=== PATIENT | female | born 1935 | race Caucasian/White ===

== ENCOUNTER 2017-02-08 08:01 | Observation (INO) | payer BC, MEDICARE ==
[~2017-02-08] VITALS: Ht 165.1 cm; Wt 68.5 kg
[~2017-02-08 08:01] MED LIST: ACET325T33 PO; ASPI-664 PO; CIPR500T4 PO; CRAN400C PO; DOCU-144 PO; DOXA1TAB38 PO; DOXY100T2 PO; ERGO500037 PO; HYDR-3498 PO; LACT1CAP56 PO; LOSA50TA6 PO; MULTI PO
[2017-02-08] MEDS ORDERED: ONDANSETRON 4 MG INJ IV STA ×2 (08:18→09:16)
[2017-02-08] MEDS ORDERED: SOD CHLORIDE 0.9% 1,000 ML IV STA (08:18)
[2017-02-08] MEDS ORDERED: BUSP10TA2 PO (08:28)
--- NOTE | 2017-02-08 08:31 | ERA ---
ER Documentation Chief Complaint Date/Time DATE: 02/08/17 TIME: 08:29 Chief Complaint nausea/vomiting since last night HPI Very pleasant 81-year-old female who presents to the emergency room with nausea and vomiting. Less than 24 hours of symptoms of nonbloody nonbilious emesis that is persistent. She denies any headache chest pain or shortness of breath, no abdominal pain, no diarrhea, no constipation. No abdominal surgical history. No recent travel sick contacts or antibiotics. ROS All systems reviewed and are negative except as per history of present illness. Medications Home Meds Reported Medications Buspirone Hcl* (Buspirone Hcl*) 10 Mg Tab, 15 MG PO BID, TAB PT TAKES THREE DAYS A WEEK 02/08/17 Losartan Potassium* (Losartan Potassium*) 50 Mg Tablet, 50 MG PO BID, TAB PER FAMILY REQUEST MONTIOR BP PRIOR TO GIVING RX'S HOLD IF BP IS LOW 05/03/16 Lactobacillus Combo No.11 (Probiotic) 1 Each Cap.sprink, 1 CAP PO DAILY, CAP 05/03/16 Cranberry (Cranberry) 400 Mg Capsule, 800 MG PO DAILY, CAP 05/03/16 Multivitamins* (Theragran*) 1 Tab Tab, 1 TAB PO DAILY, TAB 05/03/16 Discontinued Reported Medications Ergocalciferol (Vitamin D2) (VITAMIN D2) 50,000 Unit Capsule, 09502 UNIT PO WEEKLY, CAP 05/03/16 Aspirin* (Aspirin* EC) 81 Mg Tablet.dr, 81 MG PO DAILY, TAB 05/03/16 Discontinued Scripts Hydrocodone Bit-Acetaminophen (Hydrocodone Bit-APAP) 5-325MG Tablet, 1 TAB PO Q6H Y for MODERATE PAIN LEVEL 4-6 for 30 Days, TAB Prov:CHACON,JUDY V. SDC TEACHER 05/08/16 Doxycycline* (Vibramycin*) 100 Mg Tab, 100 MG PO BID for 30 Days, TAB Prov:CHACON,JUDY V. SDC TEACHER 05/08/16 Doxazosin Mesylate* (Cardura*) 1 Mg Tablet, 1 MG PO HS for 30 Days, TAB Prov:CHACON,JUDY V. SDC TEACHER 05/08/16 Docusate Sodium* (Colace*) 100 Mg Capsule, 100 MG PO Q12H Y for CONSTIPATION for 30 Days, CAP Prov:CHACON,JUDY V. SDC TEACHER 05/08/16 Ciprofloxacin Hcl* (Ciprofloxacin Hcl*) 500 Mg Tablet, 500 MG PO BID@06,18 for 30 Days, TAB STOP DATE 05/15/16 Prov:JUDY CHACON Rosita MELÉNDEZ 05/08/16 Acetaminophen* (Tylenol*) 325 Mg Tablet, 650 MG PO Q6H Y for PAIN LEVEL 1-3 OR FEVER for 30 Days, TAB Prov:JUDY CHACON Rosita MELÉNDEZ 05/08/16 Allergies Allergies: Coded Allergies: latex (Verified Allergy, Mild, 02/08/17) PMhx/Soc History of Surgery: No Anesthesia Reaction: No Hx Neurological Disorder: Yes (hx of CVA 4 yers ago) Hx Respiratory Disorders: No Hx Cardiac Disorders: Yes (HTN) Hx Psychiatric Problems: No Hx Alcohol Use: No Hx Substance Use: No Hx Tobacco Use: No FmHx Family History: No diabetes Physical Exam Vitals Vital Signs Date Time Temp Pulse Resp B/P Pulse Ox O2 Delivery O2 Flow Rate FiO2 02/08/17 09:00 67 21 148/65 97 Room Air 02/08/17 08:03 97.6 71 18 212/92 98 Physical Exam General: Well developed, well nourished, dry heaving Head: Normocephalic, atraumatic. Eyes: Pupils equally reactive, EOM intact ENT: Moist mucous membranes Neck: Supple, no lymphadenopathy Respiratory: Lungs clear bilaterally, no distress Cardiovascular: RRR, no murmurs, rubs, or gallops Abdominal: Soft, non-tender, non-distended, no peritoneal signs : Deferred MSK: No edema, no unilateral swelling, 5/5 strength Neurologic: Alert and oriented, moving all extremities, normal speech, no focal weakness, no cerebellar signs Skin: No rash Psych: Normal mood Result Diagram: 02/08/17 0825 02/08/17 0930 Results 24 hrs Laboratory Tests Test 02/08/17 08:25 02/08/17 09:30 White Blood Count 10.310^3/ul Red Blood Count 4.5810^6/ul Hemoglobin 13.5g/dl Hematocrit 40.3% Mean Corpuscular Volume 88.0fl Mean Corpuscular Hemoglobin 29.5pg Mean Corpuscular Hemoglobin Concent 33.5g/dl Red Cell Distribution Width 15.0% Platelet Count 74561^3/UL Mean Platelet Volume 9.5fl Neutrophils % 81.4% Lymphocytes % 12.3% Monocytes % 5.4% Eosinophils % 0.2% Basophils % 0.4% Nucleated Red Blood Cells % 0.0/100WBC Neutrophils # 8.410^3/ul Lymphocytes # 1.310^3/ul Monocytes # 0.610^3/ul Eosinophils # 0.010^3/ul Basophils # 0.010^3/ul Nucleated Red Blood Cells # 0.010^3/ul Sodium Level 137mmol/L Potassium Level 4.2mmol/L Chloride Level 101mmol/L Carbon Dioxide Level 26mmol/L Anion Gap 14 Blood Urea Nitrogen 18mg/dl Creatinine 0.80mg/dl Glucose Level 92mg/dl Calcium Level 9.4mg/dl Total Bilirubin 0.8mg/dl Direct Bilirubin 0.00mg/dl Indirect Bilirubin 0.8mg/dl Aspartate Amino Transf (AST/SGOT) 23IU/L Alanine Aminotransferase (ALT/SGPT) 28IU/L Alkaline Phosphatase 80IU/L Troponin I 0.014ng/ml Total Protein 7.1g/dl Albumin 3.8g/dl Globulin 3.30g/dl Albumin/Globulin Ratio 1.15 Lipase 54U/L Current Medications Medications (Trade) Dose Ordered Sig/Ricardo Route PRN Reason Start Time Stop Time Status Last Admin Dose Admin Sodium Chloride (NS) 1,000 ml @ 1,000 mls/hr Q1H STAT IV 02/08/17 08:18 02/08/17 09:17 DC 02/08/17 08:28 Ondansetron HCl (Zofran Inj) 4 mg ONCE STAT IV 02/08/17 08:18 02/08/17 08:19 DC 02/08/17 08:28 Ondansetron HCl (Zofran Inj) 4 mg ONCE STAT IV 02/08/17 09:16 02/08/17 09:18 DC 02/08/17 09:38 Metoclopramide HCl (Reglan) 5 mg ONCE ONCE IV 02/08/17 10:00 02/08/17 10:01 DC 02/08/17 10:25 Ondansetron HCl (Zofran Inj) 4 mg BRIDGE ORDER PRN IV NAUSEA AND/OR VOMITING 02/08/17 11:30 02/09/17 11:29 Acetaminophen (Tylenol Tab) 650 mg ER BRIDGE PRN PO MILD PAIN/FEVER 02/08/17 11:30 02/09/17 11:29 Procedures/MDM EKG, MONITORS, & DIAGNOSTIC IMAGING: EKG: I reviewed and interpreted a 12-lead EKG. Rhythm: Normal sinus rhythm Ectopy: None Intervals: No abnormalities ST segments: No elevations or depressions T waves: No contiguous inversions CT abdomen and pelvis: IMPRESSION: 1. Cholelithiasis is seen without evidence for cholecystitis. 2. Bowel containing right inguinal hernia is noted, without obstruction or incarceration. 3. Coronary arterial and aortoiliac atherosclerotic calcifications are present. 4. Colonic diverticulosis is seen without diverticulitis. 5. No mass, lymphadenopathy, or focal acute inflammatory process is identified. RPTAT: EE LAB INTERPRETATION: No significant leukocytosis or electrolyte disturbance MEDICAL DECISION MAKING: The patient presents with nausea and vomiting. This is most likely a viral process however, given the patient's age she is at risk for multiple alternative diagnosis such as acute intra-abdominal process, obstruction, electrolyte abnormality. Low concern for cardiac etiology or acute intracranial process. I discussed and recommended CT imaging of the abdomen and pelvis however the patient and family member would like to defer this at this time. I discussed supportive measures with IV fluids and nausea medication but if the patient has intractable nausea vomiting or laboratory abnormalities I would again recommend CT imaging of the abdomen and pelvis. ER COURSE: The patient had persistent vomiting despite fluids, 2 doses of Zofran. The patient was given Reglan with mild improvement. The patient has persistence of symptoms. This prompts CT which is negative. Given the patient's age and persistent nausea and vomiting I would recommend inpatient hospitalization for observation, fluid resuscitation and serial exams. Patient and family are agreeable. I kept the patient and/or family informed of laboratory and diagnostic imaging results throughout the emergency room course. DISPOSITION PLAN: Medical surgical admission for management of intractable vomiting CONSULTATION: Accepting care team and consultations: I discussed the current laboratory data, diagnostic imaging and emergency care provided. Admitting team: Dr. Treviño Admitting team indication: Insurance directed Departure Diagnosis: Primary Impression: Intractable nausea and vomiting Qualified Code: R11.2 - Intractable vomiting with nausea, unspecified vomiting type Condition: Stable ALE SWANN MD February 08, 2017 08:31
[2017-02-08 08:55] LABS: ADD SCAN DIFF NO
[2017-02-08 08:57] LABS: BASOPHILS % 0.4 % (0.0-2.0); EOSINOPHILS % 0.2 % (0.0-7.0); HEMATOCRIT 40.3 % (37.0-47.0); HEMOGLOBIN 13.5 g/dl (12.0-16.0); LYMPHOCYTES # 1.3 10^3/ul (0.8-2.9); LYMPHOCYTES % 12.3 % (15.0-51.0); MEAN CORPUSCULAR HEMOGLOBIN 29.5 pg (29.0-33.0); MEAN CORPUSCULAR HGB CONC 33.5 g/dl (32.0-37.0); MEAN PLATELET VOLUME 9.5 fl (7.4-10.4); MONOCYTE # 0.6 10^3/ul (0.3-0.9); MONOCYTES % 5.4 % (0.0-11.0); NEUTROPHIL # 8.4 10^3/ul (1.6-7.5); NEUTROPHILS % 81.4 % (39.0-77.0); PLATELET COUNT 242 10^3/UL (140-415); RED BLOOD COUNT 4.58 10^6/ul (4.20-5.40); WHITE BLOOD COUNT 10.3 10^3/ul (4.8-10.8)
[2017-02-08] MEDS ORDERED: METOCLOPRAMIDE 10 MG INJ IV ONE (10:00)
[2017-02-08 10:06] LABS: ALBUMIN 3.8 g/dl (3.3-4.9); POTASSIUM 4.2 mmol/L (3.5-5.1)
[2017-02-08 10:08] LABS: ALBUMIN/GLOBULIN RATIO 1.15; BILIRUBIN,INDIRECT 0.8 mg/dl (0-1.1); BILIRUBIN,TOTAL 0.8 mg/dl (0.2-1.3); CREATININE 0.8 mg/dl (0.44-1.00); TOTAL PROTEIN 7.1 g/dl (6.1-8.1)
[2017-02-08 10:09] LABS: CALCIUM 9.4 mg/dl (8.4-10.2)
[2017-02-08 10:20] LABS: TROPONIN-I 0.014 ng/ml (0.00-0.12)
--- NOTE | 2017-02-08 10:36 | RADRPT ---
PROCEDURE: CT Abdomen and Pelvis without contrast. CLINICAL INDICATION: Abdominal pain TECHNIQUE: CT of the abdomen and pelvis was performed on a multi-detector scanner without IV contr ast. Coronal and sagittal images were reformatted from the axial data set. One or more of the foll owing dose reduction techniques were used: automated exposure control, adjustment of the mA and/or kV according to patient size, use of iterative reconstruction technique. CTDI = 9.59 mGy. DLP = 588 .41 mGy-cm. COMPARISON: None. FINDINGS: CT abdomen: The lung bases are clear. The heart size is normal, without pericardial effusion. Coronary arteria l calcifications are noted. Cholelithiasis is seen without evidence for cholecystitis. Liver, bili royal tree, pancreas, spleen, adrenal glands and kidneys are unremarkable except for benign renal cyst s. No urolithiasis or obstructive uropathy is identified. The stomach is grossly unremarkable. The aorta is of normal caliber. Aortic vascular calcifications are present. There is no retroperit lane lymphadenopathy. The shauna hepatis region is clear. CT pelvis: No bowel obstruction, free intraperitoneal air or abscess is identified. Colonic diverticulosis is seen without diverticulitis. The appendix is well visualized and normal. There is no colitis. Uri nary bladder, uterus and adnexa are grossly unremarkable. No pelvic mass, free fluid or lymphadenop athy is identified. Bowel containing right inguinal hernia is identified. The surrounding osseous structures are remarkable for degenerative spondylosis of the spine. No ost eolytic or osteoblastic lesion is detected. IMPRESSION: 1. Cholelithiasis is seen without evidence for cholecystitis. 2. Bowel containing right inguinal hernia is noted, without obstruction or incarceration. 3. Coronary arterial and aortoiliac atherosclerotic calcifications are present. 4. Colonic diverticulosis is seen without diverticulitis. 5. No mass, lymphadenopathy, or focal acute inflammatory process is identified. RPTAT: EE .Aly Cm MD, MD Date Time Electronically viewed and signed by .Aly Cm MD, MD on 02/08/2017 10:35 .R/
[2017-02-08] MEDS ORDERED: ACETAMINOPHEN 325 MG TAB PO PRN ×2 (11:30→15:30)
[2017-02-08] MEDS ORDERED: ONDANSETRON 4 MG INJ IV PRN ×2 (11:30→15:30)
[2017-02-08] MEDS ORDERED: BISACODYL 10 MG SUPP PR PRN (15:30)
[2017-02-08] MEDS ORDERED: HYDROCODONE/APAP (5/325) TAB PO PRN ×2 (15:30)
[2017-02-08] MEDS ORDERED: morphine 2 MG INJ IV PRN (15:30)
[2017-02-08] MEDS ORDERED: NACL 0.9% 3 ML SYG IV SCH (15:30)
[2017-02-08] MEDS ORDERED: DOCUSATE SODIUM 100 MG CAP PO PRN (15:30)
[2017-02-08] MEDS ORDERED: ACETAMINOPHEN 650 MG SUPP PR PRN (15:30)
[2017-02-08] MEDS ORDERED: MAGNESIUM HYDROXIDE 30ML CUP PO PRN (15:30)
--- NOTE | 2017-02-08 15:42 | HP ---
Date/Time of Note Date/Time of Note DATE: 02/08/17 TIME: 15:36 Assessment/Plan VTE Prophylaxis VTE Prophylaxis Intervention: SCD's Assessment/Plan Chief Complaint/Hosp Course Impression and plan 1. Intractable nausea and vomiting. Abdominal imaging with no evidence of obstruction. Suspect viral etiology. Will provide with antiemetics. Will get cold mill inspector to follow. Continue with IV hydration for now. Will provide with analgesics as needed 2. Hypertensive urgency. Provide antihypertensives. Will adjust as needed. 3. Reported anxiety. Will provide with benzodiazepines as needed. Stable at present. 4. Reported deconditioning. Will get physical therapy to follow the patient Admission process 40 minutes Discussed plan of care with Dr. Almonte Problems: HPI/ROS Admit Date/Time Admit Date/Time Hx of Present Illness This is an 81-year-old female with history of hypertension and anxiety who came to [facility] due to reports of intractable nausea and vomiting. According to the patient she started having nausea and vomiting after she had dinner roughly around 5 PM the day prior to admission (February 07, 2017). She denied any chest pain or shortness of breath or any abdominal pain. She denied any diarrhea. She does report that since the day of admission she has not had a bowel movement in 2 days. She reports that her vomitus is nonbloody nonbilious. She does report eating hot dog and some baked beans and afterwards subsequently started to have intractable vomiting. She subsequently went to [facility] for further evaluation. Upon examination she did have CT scan of her abdomen that did show cholelithiasis without evidence of cholecystitis. There was some bowel containing right inguinal hernia no obstruction or incarceration. Additionally colonic diverticulosis was seen with no evidence of diverticulitis. No mass or lymphadenopathy or focal acute inflammatory process was seen. On laboratory results no leukocytosis seen. And her basic metabolic panel was otherwise unremarkable. She was seen with some hypertensive urgency with blood pressure as high as 212/ 92. She remained afebrile. She currently the patient reports still having some nausea and vomiting with little help from Zofran medication. She again reports no pain. No other specific symptoms or complaints. We will evaluate her for the aformentiond issues ROS 12 point review of systems obtained and entirely negative except that mentioned in the history of present illness PMH/Family/Social Past Medical History Medical/surgical history 1. Reported right shoulder surgery 2. Left knee surgery from arthritis 3. Essential hypertension 4. Anxiety Family History Significant Family History: no pertinent family hx Social History Alcohol Use: none Smoking Status: Never smoker Drug Use: none Exam/Review of Systems Vital Signs Vitals Vital Signs Date Time Temp Pulse Resp B/P Pulse Ox O2 Delivery O2 Flow Rate FiO2 02/08/17 14:00 66 16 183/73 100 Nasal Cannula 2.0 02/08/17 08:03 97.6 Exam Constitutional: alert, oriented Head: normocephalic Neck: supple, No jvd Respiratory: clear to auscultation, normal air movement Cardiovascular: regular rate and rhythm Gastrointestinal: non-tender, other (Bowel sounds slightly hypoactive), soft Musculoskeletal: No nl gait and stance, No swelling Neurological: WELDER METAL FAB II-XII intact, nl mental status, nl speech Labs Result Diagram: 02/08/17 0825 02/08/17 0930 Medications Medications Current Medications Buspirone HCl (Buspar) 15 mg BID PO ; Start 02/08/17 at 21:00; Status UNV Losartan Potassium (Cozaar) 50 mg BID PO ; Start 02/08/17 at 21:00; Status UNV Multivitamins Therapeutic (Theragran) 1 tab DAILY PO ; Start 02/09/17 at 09:00; Status UNV Miscellaneous Information 1 cap 1 cap DAILY PO ; Start 02/09/17 at 09:00; Status UNV Potassium Chloride/Dextrose/ Sod Cl (D5-1/2ns + KCl 20 Meq) 1,000 ml @ 80 mls/ hr [id number] IV ; Start 02/08/17 at 15:20; Status UNV Ondansetron HCl (Zofran Inj) 4 mg Q6H PRN IV NAUSEA AND/OR VOMITING; Start at 15:30; Status UNV Acetaminophen (Tylenol Tab) 650 mg Q6H PRN PO PAIN LEVEL 1-3 OR FEVER; Start at 15:30; Status UNV Acetaminophen (Tylenol Supp) 650 mg Q6H PRN [place] PAIN LEVEL 1-3 OR FEVER; Start 02/08/17 at 15:30; Status UNV Acetaminophen/ Hydrocodone Bitart ([place] (5/325)) 1 tab Q6H PRN PO MODERATE PAIN LEVEL 4-6; Start 02/08/17 at 15:30; Status UNV Acetaminophen/ Hydrocodone Bitart ([place] (5/325)) 2 tab Q6H PRN PO SEVERE PAIN LEVEL 7-10; Start 02/08/17 at 15:30; Status UNV Morphine Sulfate (morphine) 2 mg Q4H PRN IV SEVERE PAIN LEVEL 7-10; Start 02/08 at 15:30; Status UNV Docusate Sodium (Colace) 100 mg Q12H PRN PO CONSTIPATION; Start 02/08/17 at 15: 30; Status UNV Magnesium Hydroxide (Milk Of Mag) 30 ml DAILY PRN PO CONSTIPATION; Start at 15:30; Status UNV Bisacodyl (Dulcolax Supp) 10 mg DAILY PRN [place] CONSTIPATION; Start 02/08/17 at 15 :30; Status UNV Pantoprazole (Protonix Iv) 40 mg DAILY@06 IV ; Start 02/09/17 at 06:00; Status UNV Ondansetron HCl (Zofran Inj) 4 mg Q4 IV ; Start 02/08/17 at 17:00; Status UNV Hydralazine HCl (Apresoline) 10 mg Q4 PRN IV SBP>160; Start 02/08/17 at 15:30; Status UNV HANNAH CELESTE February 08, 2017 15:42
--- NOTE | 2017-02-08 17:19 | CONS ---
Date/Time of Note Date/Time of Note DATE: 02/08/17 TIME: 17:07 Assessment/Plan Assessment/Plan Additional Assessment/Plan Assessment * Nausea and vomiting * Hypertension * Anxiety Plan * adequate hydration * reglan 10 mg tid for nausea and vomiting * EGD risks and benefit explained to patient and agreed with planned procedure Consultation Date/Type/Reason Admit Date/Time Date of Consultation: February 08, 2017 Type of Consultation: Gastroenterology Reason for Consultation nausea and vomiting Referring Provider: HANNAH CELESTE Hx of Present Illness 81 year old female with past medical history of hypertension,anxiety was brought to emergency room because of intractable nausea and vomiting.Present condition apparently started 2 days ago after having dinner ,started to have nausea and vomiting.Vomiting is nonbloody and nonbilious consisting of previously ingested food with associated vague crampy abdominal pain.She denied any chest pain,shortness of breath,hematemesis,fever nor history of recent travel> Emergency room course CT scan of abdomen and pelvis 1. Cholelithiasis is seen without evidence for cholecystitis.. Bowel containing right inguinal hernia is noted, without obstruction or incarceration.. Coronary arterial and aortoiliac atherosclerotic calcifications are present.. Colonic diverticulosis is seen without diverticulitis.. No mass, lymphadenopathy, or focal acute inflammatory process is identified.Liver profile are normal ALT 28 AST 23 alkaline phosphatase 80 Total bilirubin 0.8 WBC 10.3. Patient still have episodes of nausea and vomiting Constitutional: improved, no complaints Eyes: no complaints ENT: no complaints Respiratory: no complaints Cardiovascular: no complaints Gastrointestinal: flatus, nausea, vomiting Genitourinary: no complaints Musculoskeletal: no complaints Skin: no complaints Neurologic: no complaints Endocrine: no complaints Lymphatic: no complaints Psychological: nl mood/affect, no complaints Immunologic: no complaints Past Medical History Medical History: hypertension Past Surgical History Past Surgical Hx: other (shoulder surgery,knee surgery) Family History Significant Family History: no pertinent family hx Social History Alcohol Use: none Smoking Status: Never smoker Drug Use: none Exam/Review of Systems Vital Signs Vitals Vital Signs Date Time Temp Pulse Resp B/P Pulse Ox O2 Delivery O2 Flow Rate FiO2 02/08/17 14:00 66 16 183/73 100 Nasal Cannula 2.0 02/08/17 08:03 97.6 Exam Constitutional: alert, oriented, well developed Psych: nl mood/affect Head: atraumatic, normocephalic Eyes: PERRL, nl conjunctiva, nl sclera Neck: non-tender, supple Respiratory: clear to auscultation, normal air movement Cardiovascular: nl pulses, regular rate and rhythm Gastrointestinal: nl liver, spleen, non-tender, soft Musculoskeletal: nl extremities to inspection, nl gait and stance Extremities: normal pulses Neurological: nl mental status, nl speech, nl strength Skin: nl turgor, No rash or lesions Lymph: nl lymph nodes Results Result Diagram: 02/08/17 0825 02/08/17 0930 Results 24 hrs Laboratory Tests Test 02/08/17 08:25 02/08/17 09:30 White Blood Count 10.3 # Red Blood Count 4.58 Hemoglobin 13.5 Hematocrit 40.3 Mean Corpuscular Volume 88.0 Mean Corpuscular Hemoglobin 29.5 Mean Corpuscular Hemoglobin Concent 33.5 Red Cell Distribution Width 15.0 H Platelet Count 242 Mean Platelet Volume 9.5 # Neutrophils % 81.4 H Lymphocytes % 12.3 L Monocytes % 5.4 Eosinophils % 0.2 Basophils % 0.4 Nucleated Red Blood Cells % 0.0 Neutrophils # 8.4 H Lymphocytes # 1.3 Monocytes # 0.6 Eosinophils # 0.0 Basophils # 0.0 Nucleated Red Blood Cells # 0.0 Sodium Level 137 Potassium Level 4.2 Chloride Level 101 Carbon Dioxide Level 26 Anion Gap 14 Blood Urea Nitrogen 18 Creatinine 0.80 Glucose Level 92 Calcium Level 9.4 Total Bilirubin 0.8 Direct Bilirubin 0.00 Indirect Bilirubin 0.8 Aspartate Amino Transf (AST/SGOT) 23 Alanine Aminotransferase (ALT/SGPT) 28 Alkaline Phosphatase 80 Troponin I 0.014 Total Protein 7.1 Albumin 3.8 Globulin 3.30 H Albumin/Globulin Ratio 1.15 Lipase 54 Medications Medications Current Medications Buspirone HCl (Buspar) 15 mg BID PO ; Start 02/08/17 at 21:00 Losartan Potassium (Cozaar) 50 mg BID PO ; Start 02/08/17 at 21:00 Multivitamins Therapeutic (Theragran) 1 tab DAILY PO ; Start 02/09/17 at 09:00 Lactobacillus Acidophilus 1 each 1 each DAILY PO ; Start 02/09/17 at 09:00 Potassium Chloride/Dextrose/ Sod Cl (D5-1/2ns + KCl 20 Meq) 1,000 ml @ 80 mls/ hr [id number] IV ; Start 02/08/17 at 15:20 Ondansetron HCl (Zofran Inj) 4 mg Q6H PRN IV NAUSEA AND/OR VOMITING; Start at 15:30 Acetaminophen (Tylenol Tab) 650 mg Q6H PRN PO PAIN LEVEL 1-3 OR FEVER; Start at 15:30 Acetaminophen (Tylenol Supp) 650 mg Q6H PRN [place] PAIN LEVEL 1-3 OR FEVER; Start 02/08/17 at 15:30 Acetaminophen/ Hydrocodone Bitart ([place] (5/325)) 1 tab Q6H PRN PO MODERATE PAIN LEVEL 4-6; Start 02/08/17 at 15:30 Acetaminophen/ Hydrocodone Bitart ([place] (5/325)) 2 tab Q6H PRN PO SEVERE PAIN LEVEL 7-10; Start 02/08/17 at 15:30 Morphine Sulfate (morphine) 2 mg Q4H PRN IV SEVERE PAIN LEVEL 7-10; Start 02/08 at 15:30 Docusate Sodium (Colace) 100 mg Q12H PRN PO CONSTIPATION; Start 02/08/17 at 15: 30 Magnesium Hydroxide (Milk Of Mag) 30 ml DAILY PRN PO CONSTIPATION; Start at 15:30 Bisacodyl (Dulcolax Supp) 10 mg DAILY PRN [place] CONSTIPATION; Start 02/08/17 at 15 :30 Pantoprazole (Protonix Iv) 40 mg DAILY@06 IV ; Start 02/09/17 at 06:00 Ondansetron HCl (Zofran Inj) 4 mg Q4 IV ; Start 02/08/17 at 17:00 Hydralazine HCl (Apresoline) 10 mg Q4 PRN IV SBP>160; Start 02/08/17 at 15:30 CESAR DANGELO MD February 08, 2017 17:19
[2017-02-08 18:33] VITALS: TEMP 98.7
[2017-02-08] MEDS: D5W-0.45 NACL + KCL 20 MEQ 1,000 ML IV SCH ×2 (18:49→21:08)
[2017-02-08] MEDS: ONDANSETRON 4 MG INJ IV SCH ×2 (18:49→21:07)
[2017-02-08 20:30] VITALS: Ht 165.1 cm; Wt 68.5 kg
[2017-02-08] MEDS: hydrALAzine 20 MG INJ IV PRN (20:51)
[2017-02-08] MEDS: BUSPIRONE 10 MG TAB PO SCH (21:06)
[2017-02-08] MEDS: LOSARTAN 50 MG TAB PO SCH (21:07)
[2017-02-08 21:38] VITALS: BP 149/67; RESP 18
[2017-02-09] VITALS (17 sets, daily range): BP systolic 128–203; BP diastolic 45–85; PULSE 48–68; RESP 16–20
[2017-02-09] MEDS: ONDANSETRON 4 MG INJ IV SCH ×6 (00:22→20:15)
[2017-02-09 05:43] LABS: ALBUMIN 3.2 g/dl (3.3-4.9)
[2017-02-09 05:44] LABS: POTASSIUM 4.5 mmol/L (3.5-5.1)
[2017-02-09 05:46] LABS: BILIRUBIN,INDIRECT 1.4 mg/dl (0-1.1); BILIRUBIN,TOTAL 1.4 mg/dl (0.2-1.3); CREATININE 0.9 mg/dl (0.44-1.00)
[2017-02-09 05:47] LABS: CALCIUM 9.4 mg/dl (8.4-10.2); PHOSPHORUS 2.8 mg/dl (2.5-4.9); TOTAL PROTEIN 6.2 g/dl (6.1-8.1)
[2017-02-09 05:48] LABS: CHOL/HDL RATIO 3.3 RATIO; MAGNESIUM 2.1 mg/dl (1.7-2.5)
[2017-02-09 05:49] LABS: ALBUMIN/GLOBULIN RATIO 1.06
[2017-02-09] MEDS ORDERED: PANTOPRAZOLE 40 MG INJ IV SCH (06:00)
[2017-02-09] MEDS ORDERED: VITAMIN A & D 5 GM OINT PACKET TOP ONE (06:08)
[2017-02-09 07:48] LABS: T3 UPTAKE 44.2 % (23.5-40.5)
[2017-02-09 08:00] LABS: THYROID STIMULATING HORMONE 0.833 MIU/L (0.465-4.680)
[2017-02-09] MEDS: BUSPIRONE 10 MG TAB PO SCH ×2 (08:58→20:15)
[2017-02-09] MEDS: L ACIDOPHIL/B LACTIS/B LONGUM CAPSULE PO SCH (08:58)
[2017-02-09] MEDS: MULTIVITAMINS THERAPEUTIC TAB PO SCH (08:59)
[2017-02-09] MEDS: LOSARTAN 50 MG TAB PO SCH ×2 (09:00→20:16)
[2017-02-09] MEDS: D5W-0.45 NACL + KCL 20 MEQ 1,000 ML IV SCH (09:59)
--- NOTE | 2017-02-09 16:23 | PN ---
Date/Time of Note Date/Time of Note DATE: 02/09/17 TIME: 16:21 Assessment/Plan VTE Prophylaxis VTE Prophylaxis Intervention: SCD's Lines/Catheters IV C[facility]ter Type (from [facility]): Peripheral IV Urinary Cath still in place: No Assessment/Plan Chief Complaint/Hosp Course Impression and plan 1. Intractable nausea and vomiting. Abdominal imaging with no evidence of obstruction. Suspect viral etiology. Will provide with antiemetics. GI following. plan for EGD Continue with IV hydration for now. 2. Hypertensive urgency. Provide antihypertensives. Will adjust as needed.improved 3. Reported anxiety. Will provide with benzodiazepines as needed. Stable at present. 4. Reported deconditioning. continue with PT DISPO/PLAN: plan for EGD today. will follow up Discussed plan of care with Dr. Almonte Problems: Subjective 24 Hr Interval Summary Free Text/Dictation patient for EGD Exam/Review of Systems Vital Signs Vitals Vital Signs Date Time Temp Pulse Resp B/P Pulse Ox O2 Delivery O2 Flow Rate FiO2 02/09/17 07:47 98.3 109 16 140/84 98 02/08/17 18:33 Room Air 02/08/17 14:00 2.0 Intake and Output 02/08/17 02/08/17 02/09/17 15:00 23:00 07:00 Intake Total 640 ml Output Total 500 ml Balance 140 ml Exam patient for EGD Results Result Diagram: 02/08/17 0825 02/09/17 0432 Results 24 hrs Laboratory Tests Test 02/09/17 04:32 02/09/17 04:35 Sodium Level 133 L Potassium Level 4.5 Chloride Level 101 Carbon Dioxide Level 26 Anion Gap 11 Blood Urea Nitrogen 13 Creatinine 0.90 Glucose Level 114 Calcium Level 9.4 Phosphorus Level 2.8 Magnesium Level 2.1 Total Bilirubin 1.4 H Direct Bilirubin 0.00 Indirect Bilirubin 1.4 H Aspartate Amino Transf (AST/SGOT) 25 Alanine Aminotransferase (ALT/SGPT) 22 Alkaline Phosphatase 71 Total Protein 6.2 Albumin 3.2 L Globulin 3.00 Albumin/Globulin Ratio 1.06 Triglycerides Level 58 Cholesterol Level 143 LDL Cholesterol, Calculated 88 HDL Cholesterol 43 Cholesterol/HDL Ratio 3.3 Thyroid Stimulating Hormone (TSH) 0.833 Free Thyroxine Index 2.34 Thyroxine (T4) 5.3 L Triiodothyronine (T3) Uptake 44.2 H Hemoglobin A1c 5.7 Medications Medications Current Medications Buspirone HCl (Buspar) 15 mg BID PO Last administered on 02/08/17 21:06; Admin Dose 15 MG; Start 02/08/17 at 21:00 Losartan Potassium (Cozaar) 50 mg BID PO Last administered on 02/08/17 21:07; Admin Dose 50 MG; Start 02/08/17 at 21:00 Multivitamins Therapeutic (Theragran) 1 tab DAILY PO ; Start 02/09/17 at 09:00 Lactobacillus Acidophilus 1 each 1 each DAILY PO ; Start 02/09/17 at 09:00 Potassium Chloride/Dextrose/ Sod Cl (D5-1/2ns + KCl 20 Meq) 1,000 ml @ 80 mls/ hr [id number] IV Last administered on 02/09/17 09:59; Admin Dose 80 MLS/HR; Start 02/08/17 at 15:20 Ondansetron HCl (Zofran Inj) 4 mg Q6H PRN IV NAUSEA AND/OR VOMITING; Start at 15:30 Acetaminophen (Tylenol Tab) 650 mg Q6H PRN PO PAIN LEVEL 1-3 OR FEVER; Start at 15:30 Acetaminophen (Tylenol Supp) 650 mg Q6H PRN LA PAIN LEVEL 1-3 OR FEVER; Start 02/08/17 at 15:30 Acetaminophen/ Hydrocodone Bitart ([place] (5/325)) 1 tab Q6H PRN PO MODERATE PAIN LEVEL 4-6; Start 02/08/17 at 15:30 Acetaminophen/ Hydrocodone Bitart ([place] (5/325)) 2 tab Q6H PRN PO SEVERE PAIN LEVEL 7-10; Start 02/08/17 at 15:30 Morphine Sulfate (morphine) 2 mg Q4H PRN IV SEVERE PAIN LEVEL 7-10; Start 02/08 at 15:30 Docusate Sodium (Colace) 100 mg Q12H PRN PO CONSTIPATION; Start 02/08/17 at 15: 30 Magnesium Hydroxide (Milk Of Mag) 30 ml DAILY PRN PO CONSTIPATION; Start at 15:30 Bisacodyl (Dulcolax Supp) 10 mg DAILY PRN LA CONSTIPATION; Start 02/08/17 at 15 :30 Pantoprazole (Protonix Iv) 40 mg DAILY@06 IV Last administered on 02/09/17 06: 01; Admin Dose 40 MG; Start 02/09/17 at 06:00 Ondansetron HCl (Zofran Inj) 4 mg Q4 IV Last administered on 02/09/17 13:17; Admin Dose 4 MG; Start 02/08/17 at 17:00 Hydralazine HCl (Apresoline) 10 mg Q4 PRN IV SBP>160 Last administered on 20:51; Admin Dose 10 MG; Start 02/08/17 at 15:30 HANNAH CELESTE February 09, 2017 16:23
[2017-02-09] MEDS ORDERED: LIDOCAINE 2% (SDV) 5 ML INJ ONE (17:16)
[2017-02-09] MEDS ORDERED: PROPOFOL 20 ML ONE (17:16)
[2017-02-09] MEDS: hydrALAzine 20 MG INJ IV PRN (18:15)
[2017-02-09] MEDS: PANTOPRAZOLE 40 MG INJ IV SCH (18:57)
[2017-02-09 20:45] LABS: INR 1.13; PROTIME 14.5 Sec (12.2-14.2); PT RATIO 1.1
[2017-02-09 20:46] LABS: PARTIAL THROMBOPLASTIN TIME 33.1 Sec (25.0-35.0)
[2017-02-10] MEDS: ONDANSETRON 4 MG INJ IV SCH ×3 (01:31→09:00)
[2017-02-10] MEDS: D5W-0.45 NACL + KCL 20 MEQ 1,000 ML IV SCH (01:32)
[2017-02-10] MEDS: PANTOPRAZOLE 40 MG INJ IV SCH (05:29)
[2017-02-10] MEDS: hydrALAzine 20 MG INJ IV PRN (05:35)
[2017-02-10 05:42] VITALS: BP 167/70; PULSE 59
[2017-02-10 06:53] VITALS: BP 146/65; PULSE 63
[2017-02-10 08:20] VITALS: BP 150/66; RESP 18
[2017-02-10] MEDS: LOSARTAN 50 MG TAB PO SCH (09:00)
[2017-02-10] MEDS: L ACIDOPHIL/B LACTIS/B LONGUM CAPSULE PO SCH (09:00)
[2017-02-10] MEDS: BUSPIRONE 10 MG TAB PO SCH (09:00)
[2017-02-10] MEDS: MULTIVITAMINS THERAPEUTIC TAB PO SCH (09:00)
[2017-02-10] MEDS ORDERED: PANT40TA3 PO (09:16)
[2017-02-10] MEDS ORDERED: AMLO5TAB4 PO (09:20)
--- NOTE | 2017-02-10 09:23 | PDOCDIS ---
Discharge Instructions DIAGNOSIS Discharge Diagnosis: 1. Abdominal pain with noted severe ulceration with distal esophagus 2.htn CONDITION Patient Condition: Stable HOME CARE INSTRUCTIONS: Diet Instructions: Low Fat /Cholesterol FOLLOW UP/APPOINTMENTS Appointments 1. Follow-up with your primary care provider in a week` 2. Follow up with Dr. Estuardo Arroyo in 2 weeks HANNAH CELESTE February 10, 2017 09:23
--- NOTE | 2017-02-10 14:52 | GILP ---
DATE OF PROCEDURE: 02/10/2017 PROCEDURE: Esophagogastroduodenoscopy with foreign body removal and biopsies. HISTORY AND INDICATIONS: The patient is being evaluated for dysphagia. PREMEDICATION: Monitored anesthesia care by anesthesiologist. SURGEON: Cesar Arroyo MD. INSTRUMENT USED: Olympus panendoscope. TECHNIQUE: After informed consent, with the patient/relatives understanding the procedure, its indic ations, potential risks and complications, including but not limited to: allergic reaction, bleeding , perforation or infection, and after all pertinent questions were answered to the patients satisfac tion, the patient/relatives signed witnessed informed consent. Following this, premedication was administered slowly IV push under careful cardiovascular and respi ratory monitoring with pulse oximetry, automatic blood pressure and equipment monitor phototypesetting. Once the sedative effect was achieved the patient was place in the left lateral decubitus, the panen doscope was introduced and advanced under visual control. Careful examination of the upper gastrointestinal tract, both on insertion as well as withdrawal of the instrument disclosed the following findings: ESOPHAGUS: The esophagus is remarkable for the presence of 2 cm food bolus which is impacted in mid esophagus with significant erythema and edema and superficial ulceration of the mucosa is noted. N o masses and no significant luminal compromise was noted. The food bolus was pushed gently and disl odged and eventually pushed down into the stomach. The esophagus shows again severe mid esophagus e rythema and edema and superficial ulceration of the mucosa. There is also distal esophagitis of sig nificant degree. A hiatal hernia is also present. STOMACH: Upon entrance to the stomach air was insufflated, the gastric cobb distended normally. T here is erythema and edema of the mucosa of a moderate degree. Biopsies were obtained to rule out H . pylori infection. PYLORUS: The pylorus appears patent and within normal limits, with no evidence of gastric outlet obs truction. DUODENUM: The duodenal mucosa was carefully examined in the duodenal bulb as well as the second port ion of the duodenum and appears unremarkable with no evidence of duodenitis, ulcer or neoplasm. The instrument was then withdrawn, the patient tolerated the procedure well and was transfer out of the endoscopy suite awake, and in good condition to continue recovery under observation. The instrument was then withdrawn. The esophagus was biopsied in a limited fashion to rule out eosi nophilic esophagitis. IMPRESSION: 1. Food bolus impacted in the mid esophagus post-dislodgement. Severe ulceration in the mid to dis mikey esophagus with no significant luminal compromise. Distal esophagitis. 2. Hiatal hernia. 3. Rule out eosinophilic esophagitis. Biopsies were obtained. 4. Gastritis, rule out Helicobacter pylori infection. Biopsies obtained. PLAN: PPI therapy with pantoprazole 40 mg b.i.d. The patient should be instructed and advised and very careful chewing and significant amounts of water to flush esophagus and prevent further episode s of impaction. She should also have repeat endoscopic examination in 8 weeks under ideal circumst ances reevaluate her esophagus. Pathology will be reviewed as soon as available. Dictated By: CESAR ARROYO MS/TABITHA Conf#: [id number] DID#: [id number] CC: CESAR ARROYO;*EndCC*
--- NOTE | 2017-02-10 16:07 | DS ---
Date/Time of Note Date/Time of Note DATE: 02/10/17 TIME: 16:01 Discharge Summary Admission/Discharge Info Admit Date/Time February 08, 2017 at 11:14 Discharge Date/Time February 10, 2017 at 10:59 Final Diagnosis 1. Intractable nausea and vomiting. Noted with gastritis and esophagitis 2. Hypertensive urgency. 3. Reported anxiety. 4. Reported deconditioning. Patient Condition: Guarded Hx of Present Illness This is an 81-year-old female with history of hypertension and anxiety who came to [facility] due to reports of intractable nausea and vomiting. According to the patient she started having nausea and vomiting after she had dinner roughly around 5 PM the day prior to admission (February 07, 2017). She denied any chest pain or shortness of breath or any abdominal pain. She denied any diarrhea. She does report that since the day of admission she has not had a bowel movement in 2 days. She reports that her vomitus is nonbloody nonbilious. She does report eating hot dog and some baked beans and afterwards subsequently started to have intractable vomiting. She subsequently went to [facility] for further evaluation. Upon examination she did have CT scan of her abdomen that did show cholelithiasis without evidence of cholecystitis. There was some bowel containing right inguinal hernia no obstruction or incarceration. Additionally colonic diverticulosis was seen with no evidence of diverticulitis. No mass or lymphadenopathy or focal acute inflammatory process was seen. On laboratory results no leukocytosis seen. And her basic metabolic panel was otherwise unremarkable. She was seen with some hypertensive urgency with blood pressure as high as 212/ 92. She remained afebrile. She currently the patient reports still having some nausea and vomiting with little help from Zofran medication. She again reports no pain. No other specific symptoms or complaints. We will evaluate her for the aformentiond issues Hospital Course This is an 81-year-old female with history of hypertension anxiety came [facility] due to reports of abdominal pain and rectal nausea and vomiting. According to the patient should been having nausea vomiting after she had dinner around 5 PM the day prior to admission (February 07, 2017). She denies any chest pain or shortness of breath associated with it. She did report having a hot dog and some back pains and subsequently had intractable vomiting. She did go to [facility] and did have CT scan of her abdomen that did show cholelithiasis without evidence of cholecystitis. She also had some bowel containing right inguinal hernia without obstruction or incarceration. Additionally colonic diverticulosis was seen without diverticulitis and no mass or lymphadenopathy or focal acute inflammatory process was seen. She was seen to be hypertensive and urgency. Patient was seen by closing supervisor due to her abdominal pain. She did undergo EGD that did show food bolus impacted in the mid esophagus post dislodgment ulceration in the mid to distal esophagus with no significant luminal compromise. She was also seen with distal esophagitis. She also had some gastritis as well and a hiatal hernia seen. Patient was optimized PPI medication and she did tolerate well. She denied any further nausea vomiting status post EGD procedure. She was otherwise optimized medically. She was resumed on PPI medication upon discharge also IV hydration. She was advised for weight reduction for her obesity. During the course of stay she did improve. She was otherwise optimized medically with antihypertensives for hypertension and her blood pressure was in better control. We did provide the patient with benzodiazepines as needed for her history of anxiety and physical therapy for her history of deconditioning. During her course of stay she did improve. The plan of care was discussed with the patient and patient did verbalize her understanding. On the day of discharge patient was in stable condition Discussed plan of care with Dr. Almonte Discharge process 40 minutes Home Meds Active Scripts Amlodipine Besylate* (Norvasc*) 5 Mg Tablet, 5 MG PO BID for 30 Days, TAB Prov:HANNAH CELESTE 02/10/17 Pantoprazole* (Protonix*) 40 Mg Tablet., 40 MG PO BID for 30 Days, TAB further refill per your primary care provider Prov:HANNAH CELESTE 02/10/17 Reported Medications Buspirone Hcl* (Buspirone Hcl*) 10 Mg Tab, 15 MG PO BID, TAB PT TAKES THREE DAYS A WEEK 02/08/17 Losartan Potassium* (Losartan Potassium*) 50 Mg Tablet, 50 MG PO BID, TAB PER FAMILY REQUEST MONTIOR BP PRIOR TO GIVING RX'S HOLD IF BP IS LOW 05/03/16 Lactobacillus Combo No.11 (Probiotic) 1 Each Cap.sprink, 1 CAP PO DAILY, CAP 05/03/16 Cranberry (Cranberry) 400 Mg Capsule, 800 MG PO DAILY, CAP 05/03/16 Multivitamins* (Theragran*) 1 Tab Tab, 1 TAB PO DAILY, TAB 05/03/16 Discontinued Reported Medications Ergocalciferol (Vitamin D2) (VITAMIN D2) 50,000 Unit Capsule, 49485 UNIT PO WEEKLY, CAP 05/03/16 Aspirin* (Aspirin* EC) 81 Mg Tablet.dr, 81 MG PO DAILY, TAB 05/03/16 Discontinued Scripts Hydrocodone Bit-Acetaminophen (Hydrocodone Bit-APAP) 5-325MG Tablet, 1 TAB PO Q6H Y for MODERATE PAIN LEVEL 4-6 for 30 Days, TAB Prov:CHACON,JUDY V. DIRECTOR OF ROOMS 05/08/16 Doxycycline* (Vibramycin*) 100 Mg Tab, 100 MG PO BID for 30 Days, TAB Prov:CHACON,JUDY V. DIRECTOR OF ROOMS 05/08/16 Doxazosin Mesylate* (Cardura*) 1 Mg Tablet, 1 MG PO HS for 30 Days, TAB Prov:CHACON,JUDY V. DIRECTOR OF ROOMS 05/08/16 Docusate Sodium* (Colace*) 100 Mg Capsule, 100 MG PO Q12H Y for CONSTIPATION for 30 Days, CAP Prov:CHACON,JUDY V. DIRECTOR OF ROOMS 05/08/16 Ciprofloxacin Hcl* (Ciprofloxacin Hcl*) 500 Mg Tablet, 500 MG PO BID@06,18 for 30 Days, TAB STOP DATE 05/15/16 Prov:CHACON,JUDY V. DIRECTOR OF ROOMS 05/08/16 Acetaminophen* (Tylenol*) 325 Mg Tablet, 650 MG PO Q6H Y for PAIN LEVEL 1-3 OR FEVER for 30 Days, TAB Prov:CHACON,JUDY V. DIRECTOR OF ROOMS 05/08/16 Follow-up Plan CONDITION Patient Condition: Stable HOME CARE INSTRUCTIONS: Diet Instructions: Low Fat /Cholesterol FOLLOW UP/APPOINTMENTS Appointments 1. Follow-up with your primary care provider in a week` 2. Follow up with Dr. Estuardo Arroyo in 2 weeks Primary Care Provider Yohan Cabrera MD Pending Labs Laboratory Tests Test 02/09/17 20:22 Prothrombin Time 14.5Sec (12.2-14.2) Prothrombin Time Ratio 1.1 INR International Normalized Ratio 1.13 Activated Partial Thromboplast Time 33.1Sec (25.0-35.0) HANNAH CELESTE February 10, 2017 16:07
== END 2017-02-10 10:59 | disposition home or self-care (01) ==
LOC: E/R 08:01 → PP2 11:14
PROVIDERS: ADMIT Internal Medicine; ATTEND Internal Medicine
DX: K29.30 Chronic superficial gastritis without bleeding (principal); K20.8 Other esophagitis; K44.9 Diaphragmatic hernia without obstruction or gangrene; I10 Essential (primary) hypertension; F41.9 Anxiety disorder, unspecified
CPT/HCPCS: 36415; 43239; 74176; 80053; 80061; 83036; 83690; 83735; 84100; 84436; 84443; 84479; 84484; 85025; 85610; 85730; 88305; 88312; 88313; 93005; 96374; 96375; 96376; 99285; C9113; G0378; J0360; J2405; J2765; J3480; J7030

== ENCOUNTER 2017-06-01 12:55 | Inpatient (IN) | payer MEDICARE, BC ==
[~2017-06-01] VITALS: Ht 167.6 cm; Wt 72.3 kg
[2017-06-01] VITALS (17 sets, daily range): BP systolic 90–112; BP diastolic 58–76; PULSE 88–121; RESP 16–31; TEMP 98.2; Ht 167.6 cm; Wt 72.3 kg
[~2017-06-01 12:55] MED LIST changes: -ACET325T33 PO; +AMLO5TAB4 PO; -ASPI-664 PO; +BUSP10TA2 PO; -CIPR500T4 PO; -DOCU-144 PO; -DOXA1TAB38 PO; -DOXY100T2 PO; -ERGO500037 PO; -HYDR-3498 PO; +PANT40TA3 PO
[2017-06-01] MEDS ORDERED: ONDANSETRON 4 MG INJ IV STA ×2 (12:56→17:12)
[2017-06-01] MEDS ORDERED: NITROGLYCERIN 2% 1 GM OINT PKT TD STA (12:56)
[2017-06-01] MEDS ORDERED: morphine 2 MG INJ IV STA (12:56)
[2017-06-01] MEDS ORDERED: hydrALAzine 20 MG INJ IV ONE (13:00)
[2017-06-01] MEDS ORDERED: NICARDipine HCL 30 MG CAPSULE PO ONE (13:00)
[2017-06-01 13:29] LABS: BASOPHILS % 0.4 % (0.0-2.0); EOSINOPHILS % 0.2 % (0.0-7.0); HEMATOCRIT 40.8 % (37.0-47.0); HEMOGLOBIN 13.5 g/dl (12.0-16.0); LYMPHOCYTES # 2.5 10^3/ul (0.8-2.9); LYMPHOCYTES % 24.7 % (15.0-51.0); MEAN CORPUSCULAR HEMOGLOBIN 30.3 pg (29.0-33.0); MEAN CORPUSCULAR HGB CONC 33.1 g/dl (32.0-37.0); MEAN CORPUSCULAR VOLUME 91.7 fl (82.0-101.0); MEAN PLATELET VOLUME 9.3 fl (7.4-10.4); MONOCYTE # 0.5 10^3/ul (0.3-0.9); MONOCYTES % 5.2 % (0.0-11.0); NEUTROPHIL # 6.9 10^3/ul (1.6-7.5); NEUTROPHILS % 69.1 % (39.0-77.0); PLATELET COUNT 232 10^3/UL (140-415); RED BLOOD COUNT 4.45 10^6/ul (4.20-5.40); RED CELL DISTRIBUTION WIDTH 14.1 % (11.5-14.5)
[2017-06-01 13:46] LABS: INR 1.05; PROTIME 13.7 Sec (12.2-14.2); PT RATIO 1.1
--- NOTE | 2017-06-01 13:46 | RADRPT ---
PROCEDURE: Chest x-ray CLINICAL INDICATION: Chest pain TECHNIQUE: Chest single view COMPARISON: 10/07/2014 FINDINGS: There is stable moderate cardiomegaly and mild atherosclerotic aortic calcification. The pulmonary vessels are normal in caliber. The lungs are clear. The costophrenic angles are sharp. Bones are o steopenic. There is previous right rotator cuff surgery. IMPRESSION: No acute cardiopulmonary disease. Stable cardiomegaly and an sclerotic aortic calcification Osteopenia RPTAT: HH .Sonu Menard MD, Date Time Electronically viewed and signed by .Sonu Menard MD, on 06/01/2017 13:46 .W/
[2017-06-01 13:47] LABS: PARTIAL THROMBOPLASTIN TIME 30.2 Sec (25.0-35.0)
[2017-06-01 13:48] LABS: ALBUMIN 4.5 g/dl (3.3-4.9); ALBUMIN/GLOBULIN RATIO 1.32; BILIRUBIN,INDIRECT 0.7 mg/dl (0-1.1); BILIRUBIN,TOTAL 0.7 mg/dl (0.2-1.3); CALCIUM 10.5 mg/dl (8.4-10.2); CREATININE 1.12 mg/dl (0.44-1.00); POTASSIUM 4.7 mmol/L (3.5-5.1); TOTAL PROTEIN 7.9 g/dl (6.1-8.1)
[2017-06-01] MEDS ORDERED: HYDROmorphONE 1 MG/ML SYG IV STA (13:52)
[2017-06-01] MEDS ORDERED: METOCLOPRAMIDE 10 MG INJ IV ONE (14:00)
[2017-06-01 14:04] LABS: TROPONIN-I 1.42 ng/ml (0.00-0.12)
[2017-06-01] MEDS ORDERED: SOD CHLORIDE 0.9% 500 ML IV STA (14:19)
[2017-06-01] MEDS ORDERED: ENOXAPARIN 80 MG/0.8 ML SYG SC STA (14:19)
--- NOTE | 2017-06-01 15:43 | ERA ---
ER Documentation Chief Complaint Date/Time DATE: 06/01/17 TIME: 15:40 Chief Complaint Pt BIB RA for c/o CP started around 1045 today/ pressure. HPI This 81-year-old female here for chest pain. Chest pain began about 45 minutes prior to arrival described as a chest pressure with radiation to her left shoulder and left arm with shortness of breath and sweaty. She also felt slightly nauseated which is getting worse. She called EMS for she received an aspirin and sublingual nitroglycerin which markedly helped her chest pain. She says she has some mild residual back pain on the left shoulder region that is nearly gone. Patient denies any cardiac history in the past. No palpitations no syncope no vomiting. Patient says her pain was moderate to severe and currently has no chest pain ROS All systems reviewed and are negative except as per history of present illness. Medications Home Meds Active Scripts Amlodipine Besylate* (Norvasc*) 5 Mg Tablet, 5 MG PO BID for 30 Days, TAB Prov:HANNAH CELESTE 02/10/17 Pantoprazole* (Protonix*) 40 Mg Tablet.dr, 40 MG PO BID for 30 Days, TAB further refill per your primary care provider Prov:HANNAH CELESTE 02/10/17 Reported Medications Buspirone Hcl* (Buspirone Hcl*) 10 Mg Tab, 15 MG PO BID, TAB PT TAKES THREE DAYS A WEEK 02/08/17 Losartan Potassium* (Losartan Potassium*) 50 Mg Tablet, 50 MG PO BID, TAB PER FAMILY REQUEST MONTIOR BP PRIOR TO GIVING RX'S HOLD IF BP IS LOW 05/03/16 Lactobacillus Combo No.11 (Probiotic) 1 Each Cap.sprink, 1 CAP PO DAILY, CAP 05/03/16 Cranberry (Cranberry) 400 Mg Capsule, 800 MG PO DAILY, CAP 05/03/16 Multivitamins* (Theragran*) 1 Tab Tab, 1 TAB PO DAILY, TAB 05/03/16 Allergies Allergies: Coded Allergies: latex (Verified Allergy, Mild, 06/01/17) PMhx/Soc History of Surgery: Yes (RIGHT SHOULDER AND LEFT KNEE) Anesthesia Reaction: No Hx Neurological Disorder: Yes (Stroke X2 ) Hx Respiratory Disorders: No Hx Cardiac Disorders: Yes (HTN) Hx Psychiatric Problems: Yes (ANXIETY) 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 Neck: Full range of motion. No meningismus, no lymphadenopathy. Resp: Clear to auscultation bilaterally, no wheezing, rhonchi, rales Cardio: Regular rate and rhythm, no murmurs, S1 S2 present Abd: Soft, non tender x 4, non distended. Normal bowel sounds, no guarding or rebound, no pulsitile abdominal masses or bruits Skin: No petechiae or rashes, no ecchymosis , no maculopapular rash Back: No midline or flank tenderness Ext: No cyanosis, or edema, FROM x 4, normal inspection, neurovascularly intact x 4 Neur: Awake and alert, STR 5/5 x 4, sensation intact x 4, no focal findings, cerebellum intact Psych: Normal Mood and Affect Result Diagram: 06/01/17 1310 06/01/17 1310 Results 24 hrs Laboratory Tests Test 06/01/17 13:10 White Blood Count 10.010^3/ul Red Blood Count 4.4510^6/ul Hemoglobin 13.5g/dl Hematocrit 40.8% Mean Corpuscular Volume 91.7fl Mean Corpuscular Hemoglobin 30.3pg Mean Corpuscular Hemoglobin Concent 33.1g/dl Red Cell Distribution Width 14.1% Platelet Count 58028^3/UL Mean Platelet Volume 9.3fl Neutrophils % 69.1% Lymphocytes % 24.7% Monocytes % 5.2% Eosinophils % 0.2% Basophils % 0.4% Nucleated Red Blood Cells % 0.0/100WBC Neutrophils # 6.910^3/ul Lymphocytes # 2.510^3/ul Monocytes # 0.510^3/ul Eosinophils # 0.010^3/ul Basophils # 0.010^3/ul Nucleated Red Blood Cells # 0.010^3/ul Prothrombin Time 13.7Sec Prothrombin Time Ratio 1.1 INR International Normalized Ratio 1.05 Activated Partial Thromboplast Time 30.2Sec Sodium Level 137mmol/L Potassium Level 4.7mmol/L Chloride Level 101mmol/L Carbon Dioxide Level 28mmol/L Anion Gap 13 Blood Urea Nitrogen 23mg/dl Creatinine 1.12mg/dl Glucose Level 137mg/dl Calcium Level 10.5mg/dl Total Bilirubin 0.7mg/dl Direct Bilirubin 0.00mg/dl Indirect Bilirubin 0.7mg/dl Aspartate Amino Transf (AST/SGOT) 33IU/L Alanine Aminotransferase (ALT/SGPT) 29IU/L Alkaline Phosphatase 72IU/L Troponin I 1.420ng/ml B-Type Natriuretic Peptide 1790PG/ML Total Protein 7.9g/dl Albumin 4.5g/dl Globulin 3.40g/dl Albumin/Globulin Ratio 1.32 Current Medications Medications (Trade) Dose Ordered Sig/Ircardo Route PRN Reason Start Time Stop Time Status Last Admin Dose Admin Nitroglycerin (Nitroglycerin 2% Oint) 1 inch ONCE STAT TD 06/01/17 12:56 06/01/17 13:00 DC 06/01/17 13:41 Morphine Sulfate (morphine) 2 mg ONCE STAT IV 06/01/17 12:56 06/01/17 13:00 DC 06/01/17 13:40 Ondansetron HCl (Zofran Inj) 4 mg ONCE STAT IV 06/01/17 12:56 06/01/17 13:00 DC 06/01/17 13:40 Nicardipine HCl (Cardene) 30 mg ONCE ONCE PO 06/01/17 13:00 06/01/17 13:01 DC Hydralazine HCl (Apresoline) 10 mg ONCE ONCE IV 06/01/17 13:00 06/01/17 13:01 DC Hydromorphone HCl (Dilaudid) 0.5 mg ONCE STAT IV 06/01/17 13:52 06/01/17 13:54 DC Metoclopramide HCl 10 mg 10 mg ONCE ONCE IV 06/01/17 14:00 06/01/17 14:01 DC 06/01/17 14:04 Sodium Chloride (NS) 500 ml @ 500 mls/hr Q1H STAT IV 06/01/17 14:19 06/01/17 15:18 DC 06/01/17 14:28 Enoxaparin Sodium (Lovenox) 70 mg ONCE STAT SC 06/01/17 14:19 06/01/17 14:21 DC 06/01/17 14:26 Ondansetron HCl (Zofran Inj) 4 mg ER BRIDGE PRN IV NAUSEA AND/OR VOMITING 06/01/17 16:00 06/02/17 15:59 Acetaminophen (Tylenol Tab) 650 mg ER BRIDGE PRN PO MILD PAIN/FEVER 06/01/17 16:00 06/02/17 15:59 Procedures/MDM EKG: Rate/Rhythm: Normal Sinus Rhythm,NL intervals, inverted T waves in leads I, L, v6, Q-wave in lead III abnormal EKG QRS, ST, QT: NORMAL WA, QRS, QT] Impression: abnormal EKG PROCEDURE: Chest x-ray CLINICAL INDICATION: Chest pain TECHNIQUE: Chest single view COMPARISON: 10/07/2014 FINDINGS: There is stable moderate cardiomegaly and mild atherosclerotic aortic calcification. The pulmonary vessels are normal in caliber. The lungs are clear. The costophrenic angles are sharp. Bones are osteopenic. There is previous right rotator cuff surgery. IMPRESSION: No acute cardiopulmonary disease. Stable cardiomegaly and an sclerotic aortic calcification Osteopenia RPTAT: HH .Sonu Menard MD, MD Date Time Electronically viewed and signed by .Sonu Menard MD, on 06/01/2017 13:46 .W/ CC: MARISELA NIXON DO Patient's troponin is +1.42 She received aspirin and nitroglycerin in the field followed by nitroglycerin here with Lovenox subcu. We will admit the patient to telemetry for further workup and consult cardiology. Critical Care Time: 30 minutes Treatments/Evaluations: Close monitoring and treatment of unstable vital signs, cardiorespiratory, and neurologic status, while maintaining tight balance of fluid, respiratory, and cardiac interventions. This time includes discussing the case with the patient and the patient's family. This time does not include all procedures stated elsewhere in this record. This time also includes reviewing old records, labs and radiological studies. This time includes examining and re-examining the patient. Additionally, this time also includes arranging care with admitting and consulting physicians. Departure Diagnosis: Primary Impression: Non-STEMI (non-ST elevated myocardial infarction) Condition: MARISELA Funez DO Jun 01, 2017 15:43
[2017-06-01] MEDS ORDERED: ONDANSETRON 4 MG INJ IV PRN (16:00)
[2017-06-01] MEDS ORDERED: ACETAMINOPHEN 325 MG TAB PO PRN ×2 (16:00→17:30)
[2017-06-01] MEDS ORDERED: morphine 2 MG INJ IV PRN (17:30)
[2017-06-01] MEDS ORDERED: MAGNESIUM HYDROXIDE 30ML CUP PO PRN (17:30)
[2017-06-01] MEDS ORDERED: NACL 0.9% 3 ML SYG IV SCH (17:30)
[2017-06-01] MEDS ORDERED: HYDROCODONE/APAP (5/325) TAB PO PRN (17:30)
--- NOTE | 2017-06-01 17:31 | HP ---
Date/Time of Note Date/Time of Note DATE: 06/01/17 TIME: 17:23 Assessment/Plan VTE Prophylaxis VTE Prophylaxis Intervention: SCD's Lines/Catheters IV Catheter Type (from Nrs): Saline Lock Assessment/Plan Chief Complaint/Hosp Course 1. Non-STEMI ST depressions noted in the inferior and lateral leads Cardiology consult obtained, plan for Forensic Chemist tonight Continue cardiac meds Pain control 2. History of intractable nausea vomiting Zofran as needed 3. Anxiety Ativan as needed 4. History of venous insufficiency ulcers-stable 5. Deconditioning Patient may need rehab placement after this admission Prophylaxis: SCDs Problems: HPI/ROS Admit Date/Time Admit Date/Time Jun 01, 2017 at 15:36 Hx of Present Illness Patient is a 81-year-old female with a history of gastritis with intractable nausea/vomiting, anxiety, hypertension,deconditioning, venous insufficiency ulcers and stroke. Patient presents with reports of chest pain started today. Patient is not the best historian history was obtained by previous medical records and daughter who is bedside. Patient decided with daughter and also has a caregiver, patient currently reports pain in the upper epigastrium as well as shoulders and back. In the ED troponin was mildly elevated and cardiology was contacted. Patient denies any dysuria, headache but does report nausea at this time. ROS Constitutional: disoriented Eyes: no complaints ENT: no complaints Respiratory: no complaints Cardiovascular: chest pain Gastrointestinal: nausea Genitourinary: no complaints Musculoskeletal: no complaints Neurologic: no complaints PMH/Family/Social Past Medical History As per HPI Past Surgical History Left knee surgery, right shoulder surgery Past Surgical Hx: other Family History Significant Family History: no pertinent family hx Social History Alcohol Use: none Smoking Status: Never smoker Drug Use: none Exam/Review of Systems Vital Signs Vitals Vital Signs Date Time Temp Pulse Resp B/P Pulse Ox O2 Delivery O2 Flow Rate FiO2 06/01/17 16:29 98.2 89 24 93/61 90 Nasal Cannula 3.0 Exam Constitutional: alert Psych: confusion Head: normocephalic Respiratory: clear to auscultation Cardiovascular: regular rate and rhythm Gastrointestinal: soft, No distended Musculoskeletal: nl extremities to inspection Labs Result Diagram: 06/01/17 1310 06/01/17 1310 IGGY GALVEZ Jun 01, 2017 17:31
--- NOTE | 2017-06-01 18:08 | CONS ---
Date/Time of Note Date/Time of Note DATE: 06/01/17 TIME: 18:06 Assessment/Plan Assessment/Plan Chief Complaint/Hosp Course 1. ACUTE VA 2. CHF: class IV clinically now 3. abnormal ECG with new LBBB 4. HX HTN 5. HX CVA including hemorrhagic CVA 6. memory impairment 7. dyslipidemia 8. hx dyspepsia 9. cardiogenic shock Recommendations S/P ASA/ Lovenox in ER EMERGENT LHC/ kole Possible PCI +/- IABP Risks benefits alternatives of procedure discussed with the patient and the daughter include details. Risks including not limited to risk of infection vascular complications bleeding complications VA stroke arrhythmia renal failure tests are discussed with her and the daughter in detail consent has been obtained. We will proceed with the procedure as soon as possible. Thank you for this referral. I will continue to follow along with you DREW MACARIO MD [facility] Problems: Consultation Date/Type/Reason Admit Date/Time Jun 01, 2017 at 15:36 Date of Consultation: Jun 01, 2017 Type of Consultation: INGTERVENTIONAL CARDIOLOGY Reason for Consultation VA Referring Provider: IGGY TREVIÑO of Present Illness CC: chest pain. shoulder pain HPI: Dear Dr. Treviño thank you for this referral. History was obtained from the patient on discussion with her daughter discussion with Dr. Treviño and discussion with the ER physician. This is a pleasant 81-year-old female with history of CVA 2 hypertension who came to emergency room because of complaint of left-sided chest pain. Patient is extremely poor historian. Cannot describe her symptoms doing well. Discussed with her caregiver at the bedside discussed with her daughter. According to the caregiver patient complained of severe left-sided chest pain this morning. Patient was brought into the emergency room was noted to have non-ST elevation myocardial infarction with ST-T abnormalities on the EKG as well as positive troponin. Patient has stated she does not have any more chest pain complains of shoulder pain. She was noted to become also more hypoxemic and has been placed currently on 100% nonrebreather. She was also hypotensive and has been given IV fluids. I was kindly asked to evaluate and treat the patient. I was notified by ER doctor nitroglycerin and aspirin by paramedics patient has no longer chest pain and looks comfortable. allergy: latex MEDS; reviewed. PMH: CVA X2. 2nd time it was hemorrhagic HTN dyslipidemia social history: No smoking tobacco drug abuse. Patient has had a loss of "second had smoking" Family history: No reported early coronary artery disease ROS: as above only. she deneis all others but poor historian Eyes: no complaints ENT: no complaints Respiratory: no complaints Cardiovascular: chest pain Gastrointestinal: nausea Genitourinary: no complaints Musculoskeletal: no complaints Neurologic: no complaints Psychological: confusion Past Surgical History Past Surgical Hx: other Social History Alcohol Use: none Smoking Status: Never smoker Drug Use: none Exam/Review of Systems Vital Signs Vitals Vital Signs Date Time Temp Pulse Resp B/P Pulse Ox O2 Delivery O2 Flow Rate FiO2 06/01/17 16:29 98.2 89 24 93/61 90 Nasal Cannula 3.0 Exam General: elderly in resp distress on 100% NRB O2 HEENT: NC/AT. pupils are equal. round. NECK: + JVD. no stridor. CV: RRR. systolic murmur; no gallop or rubs. PULM: +rhonchi 1/2 way up the chest GI: SOFT, NT, ND, no rebound or guarding Extremity: trace B/L LE edema. no clubbing. neuro: awake and alert, OX3. Psych: anxious but pleasant rectal: deferred : normal ECG reviewed: NSR marked ST T abn 2nd ECG NSR LBBB CXR: No acute CPA Results Result Diagram: 06/01/17 1310 06/01/17 1310 Results 24 hrs Laboratory Tests Test 06/01/17 13:10 White Blood Count 10.0 Red Blood Count 4.45 Hemoglobin 13.5 Hematocrit 40.8 Mean Corpuscular Volume 91.7 Mean Corpuscular Hemoglobin 30.3 Mean Corpuscular Hemoglobin Concent 33.1 Red Cell Distribution Width 14.1 Platelet Count 232 Mean Platelet Volume 9.3 Neutrophils % 69.1 Lymphocytes % 24.7 Monocytes % 5.2 Eosinophils % 0.2 Basophils % 0.4 Nucleated Red Blood Cells % 0.0 Neutrophils # 6.9 Lymphocytes # 2.5 Monocytes # 0.5 Eosinophils # 0.0 Basophils # 0.0 Nucleated Red Blood Cells # 0.0 Prothrombin Time 13.7 Prothrombin Time Ratio 1.1 INR International Normalized Ratio 1.05 Activated Partial Thromboplast Time 30.2 Sodium Level 137 Potassium Level 4.7 Chloride Level 101 Carbon Dioxide Level 28 Anion Gap 13 Blood Urea Nitrogen 23 H Creatinine 1.12 H Glucose Level 137 Calcium Level 10.5 H Total Bilirubin 0.7 Direct Bilirubin 0.00 Indirect Bilirubin 0.7 Aspartate Amino Transf (AST/SGOT) 33 Alanine Aminotransferase (ALT/SGPT) 29 Alkaline Phosphatase 72 Troponin I 1.420 *H B-Type Natriuretic Peptide 1790 H Total Protein 7.9 Albumin 4.5 Globulin 3.40 H Albumin/Globulin Ratio 1.32 Medications Medications Current Medications Sodium Chloride (NS) 1,000 ml @ 75 mls/hr [id number] IV ; Start 06/01/17 at 17:28 Acetaminophen (Tylenol Tab) 650 mg Q6H PRN PO PAIN LEVEL 1-3 OR FEVER; Start at 17:30 Acetaminophen/ Hydrocodone Bitart ([place] (5/325)) 1 tab Q6H PRN PO MODERATE PAIN LEVEL 4-6; Start 06/01/17 at 17:30 Morphine Sulfate (morphine) 2 mg Q4H PRN IV SEVERE PAIN LEVEL 7-10; Start 06/01 at 17:30 Magnesium Hydroxide (Milk Of Mag) 30 ml DAILY PRN PO CONSTIPATION; Start at 17:30 Aspirin (Halfprin) 81 mg DAILY PO ; Start 06/02/17 at 09:00 DREW MACARIO MD Jun 01, 2017 18:08
[2017-06-01] MEDS: SOD CHLORIDE 0.9% 1,000 ML IV SCH ×2 (18:12→20:01)
[2017-06-01 18:19] LABS: ADD UMIC YES; UR ASCORBIC ACID 40 mg/dL (NEGATIVE); UR BACTERIA FEW /HPF (NONE SEEN); UR BILIRUBIN (Dip) NEGATIVE (NEGATIVE); UR BLOOD (Dip) NEGATIVE (NEGATIVE); UR CLARITY TURBID (CLEAR); UR COLOR AMBER (YELLOW); UR GLUCOSE (Dip) NEGATIVE (NEGATIVE); UR KETONES (Dip) NEGATIVE (NEGATIVE); UR LEUKOCYTE ESTERASE (Dip) 2+ Leu/ul (NEGATIVE); UR MUCUS MANY /HPF (NONE SEEN); UR NITRITE (Dip) NEGATIVE (NEGATIVE); UR NONSQUAMOUS EPITHELIAL CELL 2 /HPF (NONE SEEN); UR RBC 52 /HPF (0-5); UR SPECIFIC GRAVITY (Dip) 1.014 (1.003-1.030); UR TOTAL PROTEIN (Dip) 2+ mg/dl (NEGATIVE); UR UROBILINOGEN (Dip) NEGATIVE (NEGATIVE); UR WBC CLUMPS OCCASIONAL /HPF (NONE SEEN)
[2017-06-01] MEDS ORDERED: FUROSEMIDE 40 MG INJ ONE ×3 (18:28→18:56)
[2017-06-01] MEDS: HOLD all METFORMIN and METFORMIN CONTAINING medications for 48 hours post procedure. Chec XX SCH (19:00)
--- NOTE | 2017-06-01 19:10 | OPR ---
Date/Time of Note Date/Time of Note DATE: 06/01/17 TIME: 19:03 Operative Report Procedure Date: Jun 01, 2017 Surgeon see signature line Operative\Procedure Findings Procedure performed: 1. emergent Left heart catheterization, selective right and left coronary angiogram 2. right femoral angiogram 3. LV gram 4. moderate sedation for more than 45 minutes. Flash Developer: Drew Nagel MD Indication:: LA. cardiogenic shock. new LBBB, + Trop. Findin. Left main coronary artery: Is long with 20% distal stenosis. 2. Left anterior descending artery: Its a moderate size vessel and goes around the apex. It has 20% stenosis proximally, and 20% stenosis of the mid LAD. 3. Left circumflex artery: Is nondominant. It has 30% stenosis. 4. Right coronary artery: Is a large dominant vessel. It has 30% stenosis 5. LV pressure: 169/31; Aortic pressure by pull back is 104/65. EF 40% with apical HK. VSD can not be ruled out. Written informed consent with obtained after risks benefits and alternatives discussed with the patient in detail. risks including but not limited to risk of infection vascular complications, bleeding complications, LA stroke arrhythmia renal failure at even were discussed with the patient in detail. Patient was brought into the cardiac laboratory veterinarian and placed in supine position. Right and left groin area was prepped and draped in regular sterile fashion and then he was in anesthetized using 1% lidocaine. Right femoral artery was cannulated and using modified seldinger technique a 6 [place] sheath was placed in the right femoral artery. Right femoral angiogram was performed. JL4 catheter was advanced and engaged into the left main coronary artery and angiographic view was obtained. The JR4 catheter was advanced and engaged right coronary artery angiographic view was obtained. Pigtail was advanced to engage the left ventricle hemodynamics as recorded by pullback aortic pressure was measured Patient tolerated procedure well with no complication. Patient is to be transferred to recovery room in stable condition. contrast used: 55 cc Conclusions: no significant flow limiting obstruction LV dysfunction with possible VSD High aortic valve gradient c/w severe . DREW NAGEL MD [facility] DREW NAGEL MD Jun 01, 2017 19:10
[2017-06-01] MEDS ORDERED: LIDOCAINE 1% (MDV) 20 ML INJ ONE (19:13)
[2017-06-01] MEDS ORDERED: IODIXANOL LOCM 100 ML BTL ONE (19:13)
[2017-06-01] MEDS ORDERED: HEPARIN 1000 UNITS/NS (A-LINE) 1,000 ML ONE (19:13)
[2017-06-01 19:18] LABS: AADO2 Arterial 607.3 mmHg (7.0-24.0); Arterial Base Excess -6.2 mmol/L (-3.0-3); Arterial COHb 0.3 % (0.0-3.0); Arterial HCO3 20.3 mmol/L (22.0-26.0); Arterial MetHb 0.3 % (0.0-1.5); Arterial Total Hemglobin 14.8 g/dl (12.0-18.0); MODE MASK - NRB
[2017-06-01] MEDS ORDERED: DIGOXIN 500 MCG INJ IV ONE ×2 (19:42→20:00)
--- NOTE | 2017-06-01 19:54 | EN ---
Date/Time of Note Date/Time of Note DATE: 06/01/17 TIME: 19:51 Event Note Cardiology Cardiology Event Note pt with severe hypoxemia and resp distress. kole angio shows no significant CAD BUT high gradient across aortic valve. ECHO done stat and reviewed. which shows poor LV function, and high LVOT gradient and thick septum c/w HCM physiology and MR. pt placed on BIPAP in ICU. close monitoring d/w Dr Treviño and asked for pulm consult AIDEN. WILL repeat ABG on BIPAP Code staus dw/ daughter ( POA) full code for now prognosis poor. DREW LANIER MD Jun 01, 2017 19:54
[2017-06-01 20:03] LABS: Arterial Base Excess -5.4 mmol/L (-3.0-3); Arterial COHb 0.3 % (0.0-3.0); Arterial Fraction of Oxyhgb 95.9 % (93.0-99.0); Arterial HCO3 20.9 mmol/L (22.0-26.0); Arterial MetHb 0.4 % (0.0-1.5); Arterial Total Hemglobin 15.4 g/dl (12.0-18.0); Blood Gas IEPAP 15/5; Blood Gas PS 10; MODE MASK - BIPAP
--- NOTE | 2017-06-01 20:17 | RADRPT ---
PROCEDURE: XR Chest. CLINICAL INDICATION: Congestive heart failure TECHNIQUE: Single frontal view of the chest was obtained COMPARISON: 06/01/2017 at 01:12 p.m. FINDINGS: There is minimal enlargement of the cardiac silhouette again seen. There is new pulmonary vascular c ongestion and bilateral lung density consistent with pulmonary edema appearing since previous study. External cardiac pacemaker pad projected over right upper to mid chest. Calcification in the aortic arch. Small bilateral pleural effusions appearing since previous study. ECG leads projected over th e chest. IMPRESSION: Congestive heart failure and pulmonary edema and small pleural effusions appearing since previous st udy. Please see above. RPTAT: HJES .Allen Amos MD, Date Time Electronically viewed and signed by .Allen Amos MD, on 06/01/2017 20:17 .S/
[2017-06-01 21:07] LABS: CK-MB 11.8 ng/ml (0.0-2.4)
[2017-06-01 21:08] LABS: TROPONIN-I 1.75 ng/ml (0.00-0.12)
[2017-06-02] VITALS (67 sets, daily range): BP systolic 67–128; BP diastolic 29–81; PULSE 79–120; RESP 18–39
[2017-06-02 01:43] LABS: CK-MB 23.6 ng/ml (0.0-2.4)
[2017-06-02 01:55] LABS: TROPONIN-I 5.3 ng/ml (0.00-0.12)
[2017-06-02 05:57] LABS: BASOPHILS % 0.1 % (0.0-2.0); HEMATOCRIT 36.6 % (37.0-47.0); HEMOGLOBIN 12.5 g/dl (12.0-16.0); LYMPHOCYTES # 1.2 10^3/ul (0.8-2.9); LYMPHOCYTES % 9.9 % (15.0-51.0); MEAN CORPUSCULAR HEMOGLOBIN 30.8 pg (29.0-33.0); MEAN CORPUSCULAR HGB CONC 34.2 g/dl (32.0-37.0); MEAN CORPUSCULAR VOLUME 90.1 fl (82.0-101.0); MEAN PLATELET VOLUME 9.2 fl (7.4-10.4); MONOCYTE # 0.6 10^3/ul (0.3-0.9); MONOCYTES % 4.7 % (0.0-11.0); NEUTROPHIL # 10.2 10^3/ul (1.6-7.5); NEUTROPHILS % 84.8 % (39.0-77.0); PLATELET COUNT 193 10^3/UL (140-415); RED BLOOD COUNT 4.06 10^6/ul (4.20-5.40); RED CELL DISTRIBUTION WIDTH 14.1 % (11.5-14.5)
[2017-06-02 06:37] LABS: CK-MB 30.8 ng/ml (0.0-2.4)
[2017-06-02 06:43] LABS: TROPONIN-I 8.17 ng/ml (0.00-0.12)
[2017-06-02 06:53] LABS: CHOL/HDL RATIO 4.7 RATIO; MAGNESIUM 2.1 mg/dl (1.7-2.5); PHOSPHORUS 4.7 mg/dl (2.5-4.9)
[2017-06-02 07:26] LABS: ALBUMIN 3.3 g/dl (3.3-4.9); ALBUMIN/GLOBULIN RATIO 1.03; BILIRUBIN,INDIRECT 0.7 mg/dl (0-1.1); BILIRUBIN,TOTAL 0.7 mg/dl (0.2-1.3); CALCIUM 9.2 mg/dl (8.4-10.2); CREATININE 1.26 mg/dl (0.44-1.00); POTASSIUM 4.3 mmol/L (3.5-5.1); TOTAL PROTEIN 6.5 g/dl (6.1-8.1)
--- NOTE | 2017-06-02 07:28 | RADRPT ---
PROCEDURE: XR Chest. CLINICAL INDICATION: Shortness of breath. TECHNIQUE: Single frontal view. COMPARISON: 06/01/2017. FINDINGS: There is bilateral interstitial and alveolar disease consistent with pulmonary edema, unchanged. The re is new left basilar atelectasis or pneumonia. The heart is mildly enlarged. There is calcification in the aorta consistent with atherosclerosis. There is no pleural effusion. There is no pneumothorax. IMPRESSION: 1. Unchanged pulmonary edema. 2. New left basilar atelectasis or pneumonia. 3. Mild cardiomegaly. 4. Atherosclerosis. RPTAT: QQ .Rajendra Valderrama MD, MD Date Time Electronically viewed and signed by .Rajendra Valderrama MD, MD on 06/02/2017 07:27 .R/
--- NOTE | 2017-06-02 08:02 | RADRPT ---
Echocardiogram Report Patient Name: WILLIE LORA Gender: Female Date: 1935 Study Date: 01-Jun-2017 Telemarketing Fundraiser: [place] Location: I Height(Cm): 168 Weight(Kg): 72 BSA: 1.83 Ref. Physician: IGGY GALVEZ Quality: Adequate Procedures: Transthoracic echocardiogram with complete 2D, M-Mode, and Doppler examination. Indications: NSTEMI. 2D/M Mode Doppler Measurement Value Normal Ranges Measurement Value Normal Ranges LVIDd 2D 3.9 3.5 - 5.6 cm AV Peak Virgilio 1.8 m/sec LVIDs 2D 2.9 2.1 - 4.1 cm AV Peak PG 12.5 mmHg LVPWd 2D 1.4 0.6 - 1.1 cm TR Peak Virgilio 3.2 m/sec IVSd 2D 2.3 0.6 - 1.1 cm TR Peak PG 41.1 mmHg EDV 2D 67.5 cm3 PV Peak Virgilio 1.4 m/sec ESV 2D 23.8 cm3 PV Peak PG 8.0 mmHg LA Dimen 2D 4.1 2.3 - 4.0 cm RVSP 44.1 mmHg Findings Left Ventricle: Normal left ventricular cavity size. Moderate concentric left ventricular hypertrophy, although septum measures 2.3 cm. Severe left ventricular systolic dysfunction. Ejection fraction is visually estimated at 30 %. Tissue Doppler/Mitral Doppler indices are indeterminate in this study due to the presence of tachycardia throughout exam. Resting left ventricular outflow tract velocity 4.00 m/sec. Resting left ventricular outflow tract gradient 65.0 mmHg. Severe left ventricular outflow tract obstruction, patient unable to Valsalva. These segments of the LV are akinetic apical anterior segment, apical lateral segment, Apical inferior segment, apical cap, apical septum segment, mid anterior segment, inferoseptum mid segment and anteroseptum mid segment. Right Ventricle: Normal right ventricular size. Hyperdynamic right ventricular systolic function. Left Atrium: There is severe enlargement of left atrium, appreciated best by LA volumes. LA Volume Index=50. Right Atrium: The right atrium is normal in size. Atrial Septum: Normal atrial septum. Ventricular septum: Normal/intact ventricular septum. Mitral Valve: Mild mitral leaflet calcification. Moderate mitral annular calcification. Moderate to severe mitral valve regurgitation. The regurgitation jet is eccentrically directed which may underestimate the severity of mitral regurgitation. Moderate systolic anterior motion of mitral valve. Chordal LENA seen. Aortic Valve: No hemodynamically significant aortic stenosis by Doppler, flows are increased however patient is tachycardic and there is LVOT obstruction. Aortic cusps appear mildly calcified. Tricuspid Valve: Normal appearance of the tricuspid valve. Estimated peak PA systolic pressure 54 mmHg. There is moderate to severe tricuspid regurgitation. Pulmonic Valve: Pulmonic valve not well visualized. There is mild pulmonic regurgitation. Pericardium: Normal pericardium with no significant pericardial effusion. Aorta: Normal aortic root size with decreased aortic root excursion. IVC: Normal size and normal respiratory collapse consistent with normal right atrial pressure. Pulmonary Artery: Normal pulmonary artery size. Conclusions 1.Normal left ventricular cavity size. Moderateleft ventricular hypertrophy, and severe septal hypertrophy, septum measures 2.3 cm. Severe left ventricular systolic dysfunction. Ejection fraction is visually estimated at 30 %. Tissue Doppler/Mitral Doppler indices are indeterminate in this study due to the presence of tachycardia throughout exam. Resting left ventricular outflow tract velocity 4.00 m/sec. Resting left ventricular outflow tract gradient 65.0 mmHg. Severe left ventricular outflow tract obstruction, patient unable to Valsalva. These segments of the LV are akinetic apical anterior segment, apical lateral segment, Apical inferior segment, apical cap, apical septum segment, mid anterior segment, inferoseptum mid segment. and anteroseptum mid segment. 2.There is severe enlargement of left atrium, appreciated best by LA volumes. LA Volume Index=50. 3.Mild mitral leaflet calcification. Moderate mitral annular calcification. Moderate to severe mitral valve regurgitation. The regurgitation jet is eccentrically directed which may underestimate the severity of mitral regurgitation. Moderate systolic anterior motion of mitral valve. Chordal LENA seen. 4.No hemodynamically significant aortic stenosis by Doppler, flows are increased however patient is tachycardic and there is LVOT obstruction. Aortic cusps appear mildly calcified. 5.Normal appearance of the tricuspid valve. Estimated peak PA systolic pressure 54 mmHg. There is moderate to severe tricuspid regurgitation. 6.Normal size and normal respiratory collapse consistent with normal right atrial pressure. 7.above findings are consistent with HCM physiology but now with severe LV dysfunction. Electronically Signed By: Martin Nagel 02-Jun-2017 08:01:09 0700 Patient Name: WILLIE LORA Study Date: 01-Jun-2017 [id number]
--- NOTE | 2017-06-02 08:25 | CONS ---
Date/Time of Note Date/Time of Note DATE: 06/02/17 TIME: 08:19 Consult Date/Type/Reason Admit Date/Time Jun 01, 2017 at 15:36 Initial Consult Date 06/01/17 Type of Consultation: INGTERVENTIONAL CARDIOLOGY Ordering Provider: IGGY GALVEZ Subjective CARDIOLOGY FOLLOW UP NOTE/ Critical care note: SUBJECTIVE: D/W staff in ICU. d/w family multiple times last night as well. dw physicans. pt remains in ICU on BIPAP. O2 sat has improved. BP on the low side but stable. pt denies any cp to me. no groin pain but keeps wanting to take BIPAP off. rhythm was reviewed. pt remains in NSR but with intermittent LBBB OBJECTIVE: General: on BIPAP HEENT: NC/AT. pupils are equal. round. NECK: . no stridor. CV: RRR. systolic murmur; no gallop or rubs. PULM: + rhonchi at base. GI: SOFT, NT, ND, no rebound or guarding Extremity: trace B/L LE edema. no clubbing. neuro: awake and alert, Psych: anxious but pleasant rectal: deferred : normal CXR reviewed ECHO 06/01/17 personally reviewed: 1. Normal left ventricular cavity size. Moderateleft ventricular hypertrophy, and severe septal hypertrophy, septum measures 2.3 cm. Severe left ventricular systolic dysfunction. Ejection fraction is visually estimated at 30 %. Tissue Doppler/Mitral Doppler indices are indeterminate in this study due to the presence of tachycardia throughout exam. Resting left ventricular outflow tract velocity 4.00 m/sec. Resting left ventricular outflow tract gradient 65.0 mmHg. Severe left ventricular outflow tract obstruction, patient unable to Valsalva. These segments of the LV are akinetic apical anterior segment, apical lateral segment, Apical inferior segment, apical cap, apical septum segment, mid anterior segment, inferoseptum mid segment. and anteroseptum mid segment. 2. There is severe enlargement of left atrium, appreciated best by LA volumes. LA Volume Index=50. 3. Mild mitral leaflet calcification. Moderate mitral annular calcification. Moderate to severe mitral valve regurgitation. The regurgitation jet is eccentrically directed which may underestimate the severity of mitral regurgitation. Moderate systolic anterior motion of mitral valve. Chordal LENA seen. 4. No hemodynamically significant aortic stenosis by Doppler, flows are increased however patient is tachycardic and there is LVOT obstruction. Aortic cusps appear mildly calcified. 5. Normal appearance of the tricuspid valve. Estimated peak PA systolic pressure 54 mmHg. There is moderate to severe tricuspid regurgitation. 6. Normal size and normal respiratory collapse consistent with normal right atrial pressure. 7. above findings are consistent with HCM physiology but now with severe LV dysfunction. Objective Vital Signs Date Time Temp Pulse Resp B/P Pulse Ox O2 Delivery O2 Flow Rate FiO2 06/02/17 07:00 91 26 97/64 100 06/02/17 06:00 BIPAP 06/02/17 05:33 100 06/02/17 03:00 98.8 06/01/17 17:50 15.0 Intake and Output 06/01/17 06/01/17 06/02/17 15:00 23:00 07:00 Output Total 325 ml 1060 ml Balance -325 ml -1060 ml Results/Medications Result Diagram: 06/02/17 0530 06/02/17 0530 Results 24 hrs Laboratory Tests Test 06/01/17 13:10 06/01/17 17:45 06/01/17 18:44 06/01/17 19:45 White Blood Count 10.0 Red Blood Count 4.45 Hemoglobin 13.5 Hematocrit 40.8 Mean Corpuscular Volume 91.7 Mean Corpuscular Hemoglobin 30.3 Mean Corpuscular Hemoglobin Concent 33.1 Red Cell Distribution Width 14.1 Platelet Count 232 Mean Platelet Volume 9.3 Neutrophils % 69.1 Lymphocytes % 24.7 Monocytes % 5.2 Eosinophils % 0.2 Basophils % 0.4 Nucleated Red Blood Cells % 0.0 Neutrophils # 6.9 Lymphocytes # 2.5 Monocytes # 0.5 Eosinophils # 0.0 Basophils # 0.0 Nucleated Red Blood Cells # 0.0 Prothrombin Time 13.7 Prothrombin Time Ratio 1.1 INR International Normalized Ratio 1.05 Activated Partial Thromboplast Time 30.2 Sodium Level 137 Potassium Level 4.7 Chloride Level 101 Carbon Dioxide Level 28 Anion Gap 13 Blood Urea Nitrogen 23 H Creatinine 1.12 H Glucose Level 137 Calcium Level 10.5 H Total Bilirubin 0.7 Direct Bilirubin 0.00 Indirect Bilirubin 0.7 Aspartate Amino Transf (AST/SGOT) 33 Alanine Aminotransferase (ALT/SGPT) 29 Alkaline Phosphatase 72 Troponin I 1.420 *H B-Type Natriuretic Peptide 1790 H Total Protein 7.9 Albumin 4.5 Globulin 3.40 H Albumin/Globulin Ratio 1.32 Urine Color GEO Urine Clarity TURBID A Urine pH 5.0 Urine Specific [place] 1.014 Urine Ketones NEGATIVE Urine Nitrite NEGATIVE Urine Bilirubin NEGATIVE Urine Urobilinogen NEGATIVE Urine Leukocyte Esterase 2+ H Urine Microscopic RBC 52 H Urine Microscopic WBC > 182 H Urine Bacteria FEW A Urine Mucus MANY A Urine Hemoglobin NEGATIVE Urine Glucose NEGATIVE Urine Total Protein 2+ H Blood Gas Specimen Source Blood arterial Blood arterial Arterial Blood Date Drawn 06/01/2017 6:45:14 PM 06/01/2017 7:50:30 PM Arterial Blood pH (Temp corrected) 7.286 *L 7.301 L Arterial Blood pCO2 (Temp correct) 43.6 43.3 Arterial Blood pO2 (Temp corrected) 62.1 L 93.7 H Arterial Blood HCO3 20.3 L 20.9 L Arterial Blood Base Excess -6.2 L -5.4 L Arterial Blood Oxygen Saturation 89.5 L 96.6 Geovanny Test N/A N/A Arterial Blood Gas Puncture Site A-Line A-Line Arterial Blood Carboxyhemoglobin 0.3 0.3 Arterial Blood Methemoglobin 0.3 0.4 Blood Gas A-a O2 Differential 607.3 H 576.0 H Oxyhemoglobin Percent 89.0 L 95.9 Total Hemoglobin 14.8 15.4 Blood Gas Temperature 37.0 37.0 Blood Gas Modality MASK - NRB MASK - BIPAP FiO2 100.0 100.0 Blood Gas Notified Whom UP UP Blood Gas Notified Time 06/01/2017 7:17:37 PM 06/01/2017 8:03:40 PM Blood Gas Respiration Rate 20.0 Blood Gas Actual Respiration Rate 26 Blood Gas Pressure Support 10 Blood Gas IPAP/EPAP Ratio / Test 06/01/17 19:50 06/02/17 00:01 06/02/17 05:30 Creatine Kinase 150 244 H 300 H Creatine Kinase Index 7.9 9.7 10.3 Creatinine Kinase MB (Mass) 11.80 H 23.60 H 30.80 H Troponin I 1.750 *H 5.300 *H 8.170 *H White Blood Count 12.0 H Red Blood Count 4.06 L Hemoglobin 12.5 Hematocrit 36.6 L Mean Corpuscular Volume 90.1 Mean Corpuscular Hemoglobin 30.8 Mean Corpuscular Hemoglobin Concent 34.2 Red Cell Distribution Width 14.1 Platelet Count 193 Mean Platelet Volume 9.2 Neutrophils % 84.8 H Lymphocytes % 9.9 L Monocytes % 4.7 Eosinophils % 0.0 Basophils % 0.1 Nucleated Red Blood Cells % 0.0 Neutrophils # 10.2 H Lymphocytes # 1.2 Monocytes # 0.6 Eosinophils # 0.0 Basophils # 0.0 Nucleated Red Blood Cells # 0.0 Sodium Level 138 Potassium Level 4.3 Chloride Level 108 Carbon Dioxide Level 25 Anion Gap 9 Blood Urea Nitrogen 25 H Creatinine 1.26 H Glucose Level 143 Calcium Level 9.2 Phosphorus Level 4.7 Magnesium Level 2.1 Total Bilirubin 0.7 Direct Bilirubin 0.00 Indirect Bilirubin 0.7 Aspartate Amino Transf (AST/SGOT) 61 H Alanine Aminotransferase (ALT/SGPT) 23 Alkaline Phosphatase 64 B-Type Natriuretic Peptide 06951 H Total Protein 6.5 # Albumin 3.3 # Globulin 3.20 Albumin/Globulin Ratio 1.03 Triglycerides Level 114 Cholesterol Level 224 H LDL Cholesterol, Calculated 154 HDL Cholesterol 47 Cholesterol/HDL Ratio 4.7 Free Thyroxine 0.91 Medications Current Medications Sodium Chloride (NS) 1,000 ml @ 75 mls/hr [id number] IV Last administered on 06/01 20:01; Admin Dose 75 MLS/HR; Start 06/01/17 at 17:28 Acetaminophen (Tylenol Tab) 650 mg Q6H PRN PO PAIN LEVEL 1-3 OR FEVER; Start at 17:30 Acetaminophen/ Hydrocodone Bitart ([place] (5/325)) 1 tab Q6H PRN PO MODERATE PAIN LEVEL 4-6; Start 06/01/17 at 17:30 Morphine Sulfate (morphine) 2 mg Q4H PRN IV SEVERE PAIN LEVEL 7-10; Start 06/01 at 17:30 Magnesium Hydroxide (Milk Of Mag) 30 ml DAILY PRN PO CONSTIPATION; Start at 17:30 Aspirin (Halfprin) 81 mg DAILY PO ; Start 06/02/17 at 09:00 Miscellaneous Information (* Miscellaneous Pharmacy Order) HOLD all METFORMIN ... ONCE XX Last administered on 06/01/17 19:00; Admin Dose 1 EA; Start at 19:00; Stop 06/03/17 at 18:59 Furosemide 40 mg 40 mg ONCE ONCE IV ; Start 06/02/17 at 08:30; Stop 06/02/17 at 08:31; Status UNV Phenylephrine HCl/ Dextrose (Jose-Syneph/D5W) 500 ml @ 75 mls/hr TITRATE IV ; Start 06/02/17 at 08:30; Status UNV Assessment/Plan Chief Complaint/Hosp Course 1. ACUTE MD: kole angio done emergently last night did NOT show any significant flow limiting obstruction 2. CHF: class IV acute on chronic due to systolic and diastolic heart failure. 3. abnormal ECG with intermittent LBBB 4. HX HTN 5. HX CVA including hemorrhagic CVA 6. memory impairment 7. dyslipidemia 8. hx dyspepsia 9. cardiogenic shock 10. HCM with what now appears to be "burned out HCM" with severe LV dysfunction 11. MOD/ SEVERE MR. Recommendations ASA Diuresis as tolerated/. needed. dc A line after ABG is done will start betablocker and if BP drops will add neosynephrine drip. cont ICU care more than 40 minutes of critical care time was spent in management and treatment of this patient excluding any procedures. Thank you for this referral. I will continue to follow along with you DREW MACARIO MD [facility] Problems: DREW MACARIO MD Jun 02, 2017 08:25
[2017-06-02] MEDS ORDERED: DIGOXIN 500 MCG INJ IV ONE (08:30)
[2017-06-02] MEDS ORDERED: FUROSEMIDE 40 MG INJ IV ONE (08:30)
[2017-06-02] MEDS: ASPIRIN (EC) 81 MG TAB PO SCH (08:31)
[2017-06-02 09:04] LABS: AADO2 Arterial 566.4 mmHg (7.0-24.0); Arterial Base Excess -0.9 mmol/L (-3.0-3); Arterial COHb 0.3 % (0.0-3.0); Arterial Fraction of Oxyhgb 97.3 % (93.0-99.0); Arterial HCO3 23.2 mmol/L (22.0-26.0); Arterial MetHb 0.3 % (0.0-1.5); Arterial Total Hemglobin 14.4 g/dl (12.0-18.0); Blood Gas IEPAP 15/5; Blood Gas PS 10; MODE MASK - BIPAP
[2017-06-02] MEDS: PHENYLephrine 40 MG in DEXTROSE 5% 496 ML IV SCH ×2 (10:03→22:16)
--- NOTE | 2017-06-02 15:28 | PN ---
Date/Time of Note Date/Time of Note DATE: 06/02/17 TIME: 15:20 Assessment/Plan VTE Prophylaxis VTE Prophylaxis Intervention: SCD's Assessment/Plan Chief Complaint/Hosp Course 1. Non-STEMI -Emergent heart cath showed no significant lesions 2. 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 Abnormal ECG with intermittent LBBB 4. Hypertension Blood pressure now low Use beta-blockers as able 5. 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 Moderate to severe mitral regurgitation Follow-up on cardiology recommendations Continue cardiac meds 7. History of intractable nausea vomiting Zofran as needed 8. Anxiety Ativan as needed 9. History of venous insufficiency ulcers-stable 10. Deconditioning Patient may need rehab placement after this admission Prophylaxis: SCDs Problems: Subjective 24 Hr Interval Summary Constitutional: no complaints Exam/Review of Systems Vital Signs Vitals Vital Signs Date Time Temp Pulse Resp B/P Pulse Ox O2 Delivery O2 Flow Rate FiO2 06/02/17 14:00 22 94/55 88 06/02/17 13:30 102 06/02/17 12:40 15.0 100 06/02/17 12:00 98.2 06/02/17 09:00 Venturi Mask Intake and Output 06/01/17 06/01/17 06/02/17 15:00 23:00 07:00 Intake Total 75 ml Output Total 325 ml 1060 ml Balance -325 ml -985 ml Exam Constitutional: alert Psych: confusion Respiratory: clear to auscultation Cardiovascular: regular rate and rhythm Gastrointestinal: soft, No distended Musculoskeletal: nl extremities to inspection Results Result Diagram: 06/02/17 0530 06/02/17 0530 Results 24 hrs Laboratory Tests Test 06/01/17 17:45 06/01/17 18:44 06/01/17 19:45 06/01/17 19:50 Urine Color GEO Urine Clarity TURBID A Urine pH 5.0 Urine Specific [place] 1.014 Urine Ketones NEGATIVE Urine Nitrite NEGATIVE Urine Bilirubin NEGATIVE Urine Urobilinogen NEGATIVE Urine Leukocyte Esterase 2+ H Urine Microscopic RBC 52 H Urine Microscopic WBC > 182 H Urine Bacteria FEW A Urine Mucus MANY A Urine Hemoglobin NEGATIVE Urine Glucose NEGATIVE Urine Total Protein 2+ H Blood Gas Specimen Source Blood arterial Blood arterial Arterial Blood Date Drawn 06/01/2017 6:45:14 PM 06/01/2017 7:50:30 PM Arterial Blood pH (Temp corrected) 7.286 *L 7.301 L Arterial Blood pCO2 (Temp correct) 43.6 43.3 Arterial Blood pO2 (Temp corrected) 62.1 L 93.7 H Arterial Blood HCO3 20.3 L 20.9 L Arterial Blood Base Excess -6.2 L -5.4 L Arterial Blood Oxygen Saturation 89.5 L 96.6 Geovanny Test N/A N/A Arterial Blood Gas Puncture Site A-Line A-Line Arterial Blood Carboxyhemoglobin 0.3 0.3 Arterial Blood Methemoglobin 0.3 0.4 Blood Gas A-a O2 Differential 607.3 H 576.0 H Oxyhemoglobin Percent 89.0 L 95.9 Total Hemoglobin 14.8 15.4 Blood Gas Temperature 37.0 37.0 Blood Gas Modality MASK - NRB MASK - BIPAP FiO2 100.0 100.0 Blood Gas Notified Whom UP UP Blood Gas Notified Time 06/01/2017 7:17:37 PM 06/01/2017 8:03:40 PM Blood Gas Respiration Rate 20.0 Blood Gas Actual Respiration Rate 26 Blood Gas Pressure Support 10 Blood Gas IPAP/EPAP Ratio 15 Creatine Kinase 150 Creatine Kinase Index 7.9 Creatinine Kinase MB (Mass) 11.80 H Troponin I 1.750 *H Test 06/02/17 00:01 06/02/17 05:30 06/02/17 08:00 Creatine Kinase 244 H 300 H Creatine Kinase Index 9.7 10.3 Creatinine Kinase MB (Mass) 23.60 H 30.80 H Troponin I 5.300 *H 8.170 *H White Blood Count 12.0 H Red Blood Count 4.06 L Hemoglobin 12.5 Hematocrit 36.6 L Mean Corpuscular Volume 90.1 Mean Corpuscular Hemoglobin 30.8 Mean Corpuscular Hemoglobin Concent 34.2 Red Cell Distribution Width 14.1 Platelet Count 193 Mean Platelet Volume 9.2 Neutrophils % 84.8 H Lymphocytes % 9.9 L Monocytes % 4.7 Eosinophils % 0.0 Basophils % 0.1 Nucleated Red Blood Cells % 0.0 Neutrophils # 10.2 H Lymphocytes # 1.2 Monocytes # 0.6 Eosinophils # 0.0 Basophils # 0.0 Nucleated Red Blood Cells # 0.0 Sodium Level 138 Potassium Level 4.3 Chloride Level 108 Carbon Dioxide Level 25 Anion Gap 9 Blood Urea Nitrogen 25 H Creatinine 1.26 H Glucose Level 143 Hemoglobin A1c 5.5 Calcium Level 9.2 Phosphorus Level 4.7 Magnesium Level 2.1 Total Bilirubin 0.7 Direct Bilirubin 0.00 Indirect Bilirubin 0.7 Aspartate Amino Transf (AST/SGOT) 61 H Alanine Aminotransferase (ALT/SGPT) 23 Alkaline Phosphatase 64 B-Type Natriuretic Peptide 65263 H Total Protein 6.5 # Albumin 3.3 # Globulin 3.20 Albumin/Globulin Ratio 1.03 Triglycerides Level 114 Cholesterol Level 224 H LDL Cholesterol, Calculated 154 HDL Cholesterol 47 Cholesterol/HDL Ratio 4.7 Free Thyroxine 0.91 Blood Gas Specimen Source Blood arterial Arterial Blood Date Drawn 06/02/2017 7:55:21 AM Arterial Blood pH (Temp corrected) 7.416 Arterial Blood pCO2 (Temp correct) 36.9 Arterial Blood pO2 (Temp corrected) 109.7 H Arterial Blood HCO3 23.2 Arterial Blood Base Excess -0.9 Arterial Blood Oxygen Saturation 97.9 Geovanny Test N/A Arterial Blood Gas Puncture Site A-Line Arterial Blood Carboxyhemoglobin 0.3 Arterial Blood Methemoglobin 0.3 Blood Gas A-a O2 Differential 566.4 H Oxyhemoglobin Percent 97.3 Total Hemoglobin 14.4 Blood Gas Temperature 37.0 Blood Gas Respiration Rate 20.0 Blood Gas Modality MASK - BIPAP FiO2 100.0 Blood Gas Tidal Volume 530.0 Blood Gas Pressure Support 10 Blood Gas IPAP/EPAP Ratio 15/5 Blood Gas Notified Whom CW Blood Gas Notified Time 06/02/2017 8:24:35 AM Medications Medications Current Medications Sodium Chloride (NS) 1,000 ml @ 75 mls/hr [id number] IV Last administered on 06/01t 20:01; Admin Dose 75 MLS/HR; Start 06/01/17 at 17:28 Acetaminophen (Tylenol Tab) 650 mg Q6H PRN PO PAIN LEVEL 1-3 OR FEVER; Start at 17:30 Acetaminophen/ Hydrocodone Bitart ([place] (5/325)) 1 tab Q6H PRN PO MODERATE PAIN LEVEL 4-6; Start 06/01/17 at 17:30 Morphine Sulfate (morphine) 2 mg Q4H PRN IV SEVERE PAIN LEVEL 7-10; Start 06/01 at 17:30 Magnesium Hydroxide (Milk Of Mag) 30 ml DAILY PRN PO CONSTIPATION; Start at 17:30 Aspirin (Halfprin) 81 mg DAILY PO Last administered on 06/02/17 08:31; Admin Dose 81 MG; Start 06/02/17 at 09:00 Miscellaneous Information HOLD all METFORMIN ... ONCE XX Last administered on 19:00; Admin Dose 1 EA; Start 06/01/17 at 19:00; Stop 06/03/17 at 18:59 Phenylephrine HCl/ Dextrose (Jose-Syneph/D5W) 500 ml @ 75 mls/hr TITRATE IV Last administered on 06/02/17 10:03; Admin Dose 15 MLS/HR; Start 06/02/17 at 09 :00 Atorvastatin Calcium (Lipitor) 40 mg HS PO ; Start 06/02/17 at 21:00 IGGY GALVEZ Jun 02, 2017 15:28
[2017-06-02] MEDS ORDERED: CEFTRIAXONE 1 GM/50 ML (PMX) 50 ML IVPB SCH (16:00)
--- NOTE | 2017-06-02 16:01 | CONS ---
Date/Time of Note Date/Time of Note DATE: 06/02/17 TIME: 15:54 Assessment/Plan Assessment/Plan Additional Assessment/Plan IMP: 1. Shock--likely combination advanced hypertrophic CMY and sepsis 2. Urosepsis 3. NSTEMI 4. Azotemia 5. Dementia RECS: 1. Neosynephrine gtt 2. Abx with Ceftriaxone 3. BiPAP as tolerated 4. Follow ABG 5. Gentle diuresis 6. Lactate clearance Consultation Date/Type/Reason Admit Date/Time Jun 01, 2017 at 15:36 Type of Consultation: Pulm/CCM Hx of Present Illness Briefly, this is an 81-year-old female with history of CVA, HTN, dementia, admitted from home with evidence of NSTEMI and progressive hypoxemic respiratory insufficiency and shock. Subjective hx not possible: pt non-verbal Constitutional: no complaints Eyes: no complaints ENT: no complaints Respiratory: no complaints Cardiovascular: chest pain Gastrointestinal: nausea Genitourinary: no complaints Musculoskeletal: no complaints Neurologic: no complaints Psychological: confusion Past Medical History Medical History: hypertension Past Surgical History Past Surgical Hx: no surgical history, other Family History Significant Family History: no pertinent family hx Social History Alcohol Use: none Smoking Status: Never smoker Drug Use: none Exam/Review of Systems Vital Signs Vitals Vital Signs Date Time Temp Pulse Resp B/P Pulse Ox O2 Delivery O2 Flow Rate FiO2 06/02/17 14:00 22 94/55 88 06/02/17 13:30 102 06/02/17 12:40 15.0 100 06/02/17 12:00 98.2 06/02/17 09:00 Venturi Mask Intake and Output 06/01/17 06/01/17 06/02/17 15:00 23:00 07:00 Intake Total 75 ml Output Total 325 ml 1060 ml Balance -325 ml -985 ml Exam Constitutional: alert, well developed Psych: no complaints Head: atraumatic, normocephalic Eyes: EOMI, nl conjunctiva, nl lids ENMT: mucosa pink and moist, nl external ears & nose, nl lips & teeth Neck: jvd, supple Respiratory: crackles/rales Cardiovascular: gallop, jugular venous distention (JVD), regular rate and rhythm, systolic murmur Gastrointestinal: nl liver, spleen, non-tender, soft Extremities: normal pulses Results Result Diagram: 06/02/17 0530 06/02/17 0530 Results 24 hrs Laboratory Tests Test 06/01/17 17:45 06/01/17 18:44 06/01/17 19:45 06/01/17 19:50 Urine Color GEO Urine Clarity TURBID A Urine pH 5.0 Urine Specific [place] 1.014 Urine Ketones NEGATIVE Urine Nitrite NEGATIVE Urine Bilirubin NEGATIVE Urine Urobilinogen NEGATIVE Urine Leukocyte Esterase 2+ H Urine Microscopic RBC 52 H Urine Microscopic WBC > 182 H Urine Bacteria FEW A Urine Mucus MANY A Urine Hemoglobin NEGATIVE Urine Glucose NEGATIVE Urine Total Protein 2+ H Blood Gas Specimen Source Blood arterial Blood arterial Arterial Blood Date Drawn 06/01/2017 6:45:14 PM 06/01/2017 7:50:30 PM Arterial Blood pH (Temp corrected) 7.286 *L 7.301 L Arterial Blood pCO2 (Temp correct) 43.6 43.3 Arterial Blood pO2 (Temp corrected) 62.1 L 93.7 H Arterial Blood HCO3 20.3 L 20.9 L Arterial Blood Base Excess -6.2 L -5.4 L Arterial Blood Oxygen Saturation 89.5 L 96.6 Geovanny Test N/A N/A Arterial Blood Gas Puncture Site A-Line A-Line Arterial Blood Carboxyhemoglobin 0.3 0.3 Arterial Blood Methemoglobin 0.3 0.4 Blood Gas A-a O2 Differential 607.3 H 576.0 H Oxyhemoglobin Percent 89.0 L 95.9 Total Hemoglobin 14.8 15.4 Blood Gas Temperature 37.0 37.0 Blood Gas Modality MASK - NRB MASK - BIPAP FiO2 100.0 100.0 Blood Gas Notified Whom UP UP Blood Gas Notified Time 06/01/2017 7:17:37 PM 06/01/2017 8:03:40 PM Blood Gas Respiration Rate 20.0 Blood Gas Actual Respiration Rate 26 Blood Gas Pressure Support 10 Blood Gas IPAP/EPAP Ratio 15 Creatine Kinase 150 Creatine Kinase Index 7.9 Creatinine Kinase MB (Mass) 11.80 H Troponin I 1.750 *H Test 06/02/17 00:01 06/02/17 05:30 06/02/17 08:00 Creatine Kinase 244 H 300 H Creatine Kinase Index 9.7 10.3 Creatinine Kinase MB (Mass) 23.60 H 30.80 H Troponin I 5.300 *H 8.170 *H White Blood Count 12.0 H Red Blood Count 4.06 L Hemoglobin 12.5 Hematocrit 36.6 L Mean Corpuscular Volume 90.1 Mean Corpuscular Hemoglobin 30.8 Mean Corpuscular Hemoglobin Concent 34.2 Red Cell Distribution Width 14.1 Platelet Count 193 Mean Platelet Volume 9.2 Neutrophils % 84.8 H Lymphocytes % 9.9 L Monocytes % 4.7 Eosinophils % 0.0 Basophils % 0.1 Nucleated Red Blood Cells % 0.0 Neutrophils # 10.2 H Lymphocytes # 1.2 Monocytes # 0.6 Eosinophils # 0.0 Basophils # 0.0 Nucleated Red Blood Cells # 0.0 Sodium Level 138 Potassium Level 4.3 Chloride Level 108 Carbon Dioxide Level 25 Anion Gap 9 Blood Urea Nitrogen 25 H Creatinine 1.26 H Glucose Level 143 Hemoglobin A1c 5.5 Calcium Level 9.2 Phosphorus Level 4.7 Magnesium Level 2.1 Total Bilirubin 0.7 Direct Bilirubin 0.00 Indirect Bilirubin 0.7 Aspartate Amino Transf (AST/SGOT) 61 H Alanine Aminotransferase (ALT/SGPT) 23 Alkaline Phosphatase 64 B-Type Natriuretic Peptide 91020 H Total Protein 6.5 # Albumin 3.3 # Globulin 3.20 Albumin/Globulin Ratio 1.03 Triglycerides Level 114 Cholesterol Level 224 H LDL Cholesterol, Calculated 154 HDL Cholesterol 47 Cholesterol/HDL Ratio 4.7 Free Thyroxine 0.91 Blood Gas Specimen Source Blood arterial Arterial Blood Date Drawn 06/02/2017 7:55:21 AM Arterial Blood pH (Temp corrected) 7.416 Arterial Blood pCO2 (Temp correct) 36.9 Arterial Blood pO2 (Temp corrected) 109.7 H Arterial Blood HCO3 23.2 Arterial Blood Base Excess -0.9 Arterial Blood Oxygen Saturation 97.9 Geovanny Test N/A Arterial Blood Gas Puncture Site A-Line Arterial Blood Carboxyhemoglobin 0.3 Arterial Blood Methemoglobin 0.3 Blood Gas A-a O2 Differential 566.4 H Oxyhemoglobin Percent 97.3 Total Hemoglobin 14.4 Blood Gas Temperature 37.0 Blood Gas Respiration Rate 20.0 Blood Gas Modality MASK - BIPAP FiO2 100.0 Blood Gas Tidal Volume 530.0 Blood Gas Pressure Support 10 Blood Gas IPAP/EPAP Ratio 15/5 Blood Gas Notified Whom CW Blood Gas Notified Time 06/02/2017 8:24:35 AM Medications Medications Current Medications Sodium Chloride (NS) 1,000 ml @ 75 mls/hr [id number] IV Last administered on 06/01 20:01; Admin Dose 75 MLS/HR; Start 06/01/17 at 17:28 Acetaminophen (Tylenol Tab) 650 mg Q6H PRN PO PAIN LEVEL 1-3 OR FEVER; Start at 17:30 Acetaminophen/ Hydrocodone Bitart ([place] (5/325)) 1 tab Q6H PRN PO MODERATE PAIN LEVEL 4-6; Start 06/01/17 at 17:30 Morphine Sulfate (morphine) 2 mg Q4H PRN IV SEVERE PAIN LEVEL 7-10; Start 06/01 at 17:30 Magnesium Hydroxide (Milk Of Mag) 30 ml DAILY PRN PO CONSTIPATION; Start at 17:30 Aspirin (Halfprin) 81 mg DAILY PO Last administered on 06/02/17 08:31; Admin Dose 81 MG; Start 06/02/17 at 09:00 Miscellaneous Information HOLD all METFORMIN ... ONCE XX Last administered on 19:00; Admin Dose 1 EA; Start 06/01/17 at 19:00; Stop 06/03/17 at 18:59 Phenylephrine HCl/ Dextrose (Jose-Syneph/D5W) 500 ml @ 75 mls/hr TITRATE IV Last administered on 06/02/17 10:03; Admin Dose 15 MLS/HR; Start 06/02/17 at 09 :00 Atorvastatin Calcium (Lipitor) 40 mg HS PO ; Start 06/02/17 at 21:00 CHERI MARLEY MD Jun 02, 2017 16:01
[2017-06-02] MEDS ORDERED: NORepinephrine 32 MG in DEXTROSE 5% 218 ML IV SCH (17:00)
[2017-06-02] MEDS: HOLD all METFORMIN and METFORMIN CONTAINING medications for 48 hours post procedure. Chec XX SCH (19:29)
[2017-06-02] MEDS: ATORVASTATIN 40 MG TAB PO SCH (21:00)
[2017-06-02] MEDS ORDERED: HALOPERIDOL 5 MG INJ IM ONE (22:00)
[2017-06-02] MEDS: LORAZEPAM 2 MG INJ IV PRN (22:05)
[2017-06-02] MEDS: SOD CHLORIDE 0.9% 1,000 ML IV SCH (22:12)
[2017-06-03] VITALS (102 sets, daily range): BP systolic 97–146; BP diastolic 51–98; PULSE 58–93; RESP 13–32
[2017-06-03 05:33] LABS: AADO2 Arterial 512.1 mmHg (7.0-24.0); Allen Test ACCEPTAB; Arterial Base Excess -4.4 mmol/L (-3.0-3); Arterial COHb 0.9 % (0.0-3.0); Arterial Fraction of Oxyhgb 97.9 % (93.0-99.0); Arterial HCO3 21.2 mmol/L (22.0-26.0); Arterial MetHb 0.3 % (0.0-1.5); Blood Gas IEPAP 15/5; Blood Gas PS 10; MODE BIPAP - S/T
[2017-06-03 05:37] LABS: BASOPHILS % 0.1 % (0.0-2.0); HEMATOCRIT 39.6 % (37.0-47.0); HEMOGLOBIN 13.1 g/dl (12.0-16.0); LYMPHOCYTES # 1.2 10^3/ul (0.8-2.9); LYMPHOCYTES % 7.9 % (15.0-51.0); MEAN CORPUSCULAR HEMOGLOBIN 30.4 pg (29.0-33.0); MEAN CORPUSCULAR HGB CONC 33.1 g/dl (32.0-37.0); MEAN CORPUSCULAR VOLUME 91.9 fl (82.0-101.0); MEAN PLATELET VOLUME 9.5 fl (7.4-10.4); MONOCYTES % 6.8 % (0.0-11.0); NEUTROPHIL # 12.5 10^3/ul (1.6-7.5); NEUTROPHILS % 84.7 % (39.0-77.0); PLATELET COUNT 211 10^3/UL (140-415); RED BLOOD COUNT 4.31 10^6/ul (4.20-5.40); RED CELL DISTRIBUTION WIDTH 14.6 % (11.5-14.5); WHITE BLOOD COUNT 14.8 10^3/ul (4.8-10.8)
[2017-06-03 06:11] LABS: ALBUMIN 3.3 g/dl (3.3-4.9); ALBUMIN/GLOBULIN RATIO 1.1; BILIRUBIN,INDIRECT 0.8 mg/dl (0-1.1); BILIRUBIN,TOTAL 0.8 mg/dl (0.2-1.3); CALCIUM 9.3 mg/dl (8.4-10.2); CHOL/HDL RATIO 4.1 RATIO; CREATININE 1.21 mg/dl (0.44-1.00); MAGNESIUM 2.2 mg/dl (1.7-2.5); POTASSIUM 4.3 mmol/L (3.5-5.1); TOTAL PROTEIN 6.3 g/dl (6.1-8.1)
[2017-06-03 06:12] LABS: CK-MB 11.7 ng/ml (0.0-2.4)
[2017-06-03 06:18] LABS: TROPONIN-I 5.95 ng/ml (0.00-0.12)
[2017-06-03] MEDS: ASPIRIN (EC) 81 MG TAB PO SCH (09:00)
[2017-06-03] MEDS: PHENYLephrine 40 MG in DEXTROSE 5% 496 ML IV SCH (09:00)
[2017-06-03] MEDS: SOD CHLORIDE 0.9% 1,000 ML IV SCH ×2 (09:28→12:00)
[2017-06-03] MEDS ORDERED: LIDOCAINE 1% (MPF) 5 ML VIAL SC ONE (12:30)
--- NOTE | 2017-06-03 12:40 | CONS ---
Date/Time of Note Date/Time of Note DATE: 06/03/17 TIME: 12:37 Consult Date/Type/Reason Admit Date/Time Jun 01, 2017 at 15:36 Initial Consult Date 06/01/17 Type of Consultation: cardiology Ordering Provider: IGGY GALVEZ Subjective CARDIOLOGY FOLLOW UP NOTE/ Critical care note: SUBJECTIVE: D/W staff in ICU. d/w family including son in law. d/w Dr Shipley, pt remains in ICU on BIPAP. O2 sat has improved on BIPAP but she has refused it last night and was "cold and clammy" per RN. She is on neosynephrine drip now pt denies any cp to me. no groin pain rhythm was reviewed. pt remains in NSR OBJECTIVE: General: on BIPAP HEENT: NC/AT. pupils are equal. round. NECK: . no stridor. CV: RRR. systolic murmur; no gallop or rubs. PULM: + rhonchi at base. GI: SOFT, NT, ND, no rebound or guarding Extremity: trace B/L LE edema. no clubbing. neuro: awake and alert, Psych: anxious but pleasant rectal: deferred : normal CXR reviewed ECHO 06/01/17 personally reviewed: 1. Normal left ventricular cavity size. Moderateleft ventricular hypertrophy, and severe septal hypertrophy, septum measures 2.3 cm. Severe left ventricular systolic dysfunction. Ejection fraction is visually estimated at 30 %. Tissue Doppler/Mitral Doppler indices are indeterminate in this study due to the presence of tachycardia throughout exam. Resting left ventricular outflow tract velocity 4.00 m/sec. Resting left ventricular outflow tract gradient 65.0 mmHg. Severe left ventricular outflow tract obstruction, patient unable to Valsalva. These segments of the LV are akinetic apical anterior segment, apical lateral segment, Apical inferior segment, apical cap, apical septum segment, mid anterior segment, inferoseptum mid segment. and anteroseptum mid segment. 2. There is severe enlargement of left atrium, appreciated best by LA volumes. LA Volume Index=50. 3. Mild mitral leaflet calcification. Moderate mitral annular calcification. Moderate to severe mitral valve regurgitation. The regurgitation jet is eccentrically directed which may underestimate the severity of mitral regurgitation. Moderate systolic anterior motion of mitral valve. Chordal LENA seen. 4. No hemodynamically significant aortic stenosis by Doppler, flows are increased however patient is tachycardic and there is LVOT obstruction. Aortic cusps appear mildly calcified. 5. Normal appearance of the tricuspid valve. Estimated peak PA systolic pressure 54 mmHg. There is moderate to severe tricuspid regurgitation. 6. Normal size and normal respiratory collapse consistent with normal right atrial pressure. 7. above findings are consistent with HCM physiology but now with severe LV dysfunction. Objective Vital Signs Date Time Temp Pulse Resp B/P Pulse Ox O2 Delivery O2 Flow Rate FiO2 06/03/17 11:25 72 100 80 06/03/17 11:15 21 136/68 06/03/17 08:00 98.5 06/03/17 06:00 BIPAP 06/02/17 18:10 15.0 Intake and Output 06/02/17 06/02/17 06/03/17 15:00 23:00 07:00 Intake Total 682.5 ml 942.5 ml 975.0 ml Output Total 900 ml 370 ml 255 ml Balance -217.5 ml 572.5 ml 720.0 ml Results/Medications Result Diagram: 06/03/17 0437 06/03/17 0437 Results 24 hrs Laboratory Tests Test 06/03/17 04:36 06/03/17 04:37 06/03/17 05:00 06/03/17 11:23 Lactic Acid Level 2.6 *H 1.7 Creatine Kinase 254 H Creatine Kinase Index 4.6 Creatinine Kinase MB (Mass) 11.70 H Troponin I 5.950 *H Free Thyroxine 1.04 White Blood Count 14.8 #H Red Blood Count 4.31 Hemoglobin 13.1 Hematocrit 39.6 Mean Corpuscular Volume 91.9 Mean Corpuscular Hemoglobin 30.4 Mean Corpuscular Hemoglobin Concent 33.1 Red Cell Distribution Width 14.6 H Platelet Count 211 Mean Platelet Volume 9.5 Neutrophils % 84.7 H Lymphocytes % 7.9 L Monocytes % 6.8 Eosinophils % 0.0 Basophils % 0.1 Nucleated Red Blood Cells % 0.0 Neutrophils # 12.5 H Lymphocytes # 1.2 Monocytes # 1.0 H Eosinophils # 0.0 Basophils # 0.0 Nucleated Red Blood Cells # 0.0 Sodium Level 140 Potassium Level 4.3 Chloride Level 107 Carbon Dioxide Level 27 Anion Gap 10 Blood Urea Nitrogen 29 H Creatinine 1.21 H Glucose Level 157 Calcium Level 9.3 Magnesium Level 2.2 Total Bilirubin 0.8 Direct Bilirubin 0.00 Indirect Bilirubin 0.8 Aspartate Amino Transf (AST/SGOT) 72 H Alanine Aminotransferase (ALT/SGPT) 28 Alkaline Phosphatase 54 B-Type Natriuretic Peptide 23727 H Total Protein 6.3 Albumin 3.3 Globulin 3.00 Albumin/Globulin Ratio 1.10 Triglycerides Level 98 Cholesterol Level 197 LDL Cholesterol, Calculated 130 HDL Cholesterol 47 Cholesterol/HDL Ratio 4.1 Blood Gas Specimen Source Blood arterial Arterial Blood Date Drawn 06/03/2017 5:07:08 AM Arterial Blood pH (Temp corrected) 7.331 L Arterial Blood pCO2 (Temp correct) 41.0 Arterial Blood pO2 (Temp corrected) 159.9 H Arterial Blood HCO3 21.2 L Arterial Blood Base Excess -4.4 L Arterial Blood Oxygen Saturation 99.1 Geovanny Test ACCEPTAB Arterial Blood Gas Puncture Site Right Brachial Arterial Blood Carboxyhemoglobin 0.9 Arterial Blood Methemoglobin 0.3 Blood Gas A-a O2 Differential 512.1 H Oxyhemoglobin Percent 97.9 Total Hemoglobin 9.0 L Blood Gas Temperature 37.0 Blood Gas Respiration Rate 20.0 Blood Gas Actual Respiration Rate 29 Blood Gas Modality BIPAP - S/T FiO2 100.0 Blood Gas Pressure Support 10 Blood Gas IPAP/EPAP Ratio 29/01 Blood Gas Notified Whom RTR Blood Gas Notified Time 06/03/2017 5:33:32 AM Medications Current Medications Sodium Chloride (NS) 1,000 ml @ 75 mls/hr [id number] IV Last administered on 06/02 22:12; Admin Dose 75 MLS/HR; Start 06/01/17 at 17:28 Acetaminophen (Tylenol Tab) 650 mg Q6H PRN PO PAIN LEVEL 1-3 OR FEVER; Start at 17:30 Acetaminophen/ Hydrocodone Bitart ([place] (5/325)) 1 tab Q6H PRN PO MODERATE PAIN LEVEL 4-6; Start 06/01/17 at 17:30 Morphine Sulfate (morphine) 2 mg Q4H PRN IV SEVERE PAIN LEVEL 7-10; Start 06/01 at 17:30 Magnesium Hydroxide (Milk Of Mag) 30 ml DAILY PRN PO CONSTIPATION; Start at 17:30 Aspirin (Halfprin) 81 mg DAILY PO Last administered on 06/02/17 08:31; Admin Dose 81 MG; Start 06/02/17 at 09:00 Miscellaneous Information HOLD all METFORMIN ... ONCE XX Last administered on 19:29; Admin Dose 1 EA; Start 06/01/17 at 19:00; Stop 06/03/17 at 18:59 Phenylephrine HCl/ Dextrose (Jose-Syneph/D5W) 500 ml @ 75 mls/hr TITRATE IV Last administered on 06/02/17 22:16; Admin Dose 75 MLS/HR; Start 06/02/17 at 09 :00 Atorvastatin Calcium 40 mg 40 mg HS PO ; Start 06/02/17 at 21:00 Ceftriaxone Sodium (Rocephin) 50 ml @ 100 mls/hr Q24H IVPB Last administered on 06/02/17 15:45; Admin Dose 100 MLS/HR; Start 06/02/17 at 16:00 Lorazepam (Ativan) 0.5 mg Q3H PRN IV Anxiety Last administered on 06/02/17 22: 05; Admin Dose 0.5 MG; Start 06/02/17 at 22:00 Pantoprazole (Protonix Iv) 40 mg DAILY@06 IV ; Start 06/04/17 at 06:00 Assessment/Plan Chief Complaint/Hosp Course 1. ACUTE SD: kole angio done emergently last night did NOT show any significant flow limiting obstruction 2. CHF: class IV acute on chronic due to systolic and diastolic heart failure. 3. abnormal ECG with intermittent LBBB 4. HX HTN 5. HX CVA including hemorrhagic CVA 6. memory impairment 7. dyslipidemia 8. hx dyspepsia 9. cardiogenic shock +/- sepsis 10. 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 MOD/ SEVERE MR. Recommendations ASA Diuresis as tolerated/. needed. will give bumex drip today will try to start betablocker once PB improves. cont neosynephrine drip for now. cont ICU care more than 38 minutes of critical care time was spent in management and treatment of this patient excluding any procedures. Thank you for this referral. I will continue to follow along with you DREW AMCARIO MD [facility] Problems: DREW MACARIO MD Jun 03, 2017 12:40
[2017-06-03] MEDS: LORAZEPAM 2 MG INJ IV PRN (13:36)
[2017-06-03] MEDS ORDERED: BUMETANIDE 4 MG in DEXTROSE 5% 24 ML IV ONE (14:00)
--- NOTE | 2017-06-03 15:14 | CONS ---
Date/Time of Note Date/Time of Note DATE: 06/03/17 TIME: 15:12 Consult Date/Type/Reason Admit Date/Time Jun 01, 2017 at 15:36 Initial Consult Date 06/01/17 Type of Consultation: Pulm/CCM Ordering Provider: IGGY GALVEZ Subjective On BiPAP. Tolerating well. Objective Vital Signs Date Time Temp Pulse Resp B/P Pulse Ox O2 Delivery O2 Flow Rate FiO2 06/03/17 12:30 63 20 113/59 100 06/03/17 12:00 98.7 06/03/17 11:25 80 06/03/17 06:00 BIPAP 06/02/17 18:10 15.0 Intake and Output 06/02/17 06/02/17 06/03/17 15:00 23:00 07:00 Intake Total 682.5 ml 942.5 ml 975.0 ml Output Total 900 ml 370 ml 255 ml Balance -217.5 ml 572.5 ml 720.0 ml Exam HEENT: Neck supple; + JVD; no LAD; Full face mask with BiPAP CVS: RRR, S1 and S2, 2/6 systolic murmur CHEST: Clear ABD: Soft, NT, + BS EXT: No c/c/ + edema Results/Medications Result Diagram: 06/03/1743606/03/17436 Results 24 hrs Laboratory Tests Test 06/03/17 04:36 06/03/17 04:37 06/03/17 05:00 06/03/17 11:23 Lactic Acid Level 2.6 *H 1.7 Creatine Kinase 254 H Creatine Kinase Index 4.6 Creatinine Kinase MB (Mass) 11.70 H Troponin I 5.950 *H Free Thyroxine 1.04 White Blood Count 14.8 #H Red Blood Count 4.31 Hemoglobin 13.1 Hematocrit 39.6 Mean Corpuscular Volume 91.9 Mean Corpuscular Hemoglobin 30.4 Mean Corpuscular Hemoglobin Concent 33.1 Red Cell Distribution Width 14.6 H Platelet Count 211 Mean Platelet Volume 9.5 Neutrophils % 84.7 H Lymphocytes % 7.9 L Monocytes % 6.8 Eosinophils % 0.0 Basophils % 0.1 Nucleated Red Blood Cells % 0.0 Neutrophils # 12.5 H Lymphocytes # 1.2 Monocytes # 1.0 H Eosinophils # 0.0 Basophils # 0.0 Nucleated Red Blood Cells # 0.0 Sodium Level 140 Potassium Level 4.3 Chloride Level 107 Carbon Dioxide Level 27 Anion Gap 10 Blood Urea Nitrogen 29 H Creatinine 1.21 H Glucose Level 157 Calcium Level 9.3 Magnesium Level 2.2 Total Bilirubin 0.8 Direct Bilirubin 0.00 Indirect Bilirubin 0.8 Aspartate Amino Transf (AST/SGOT) 72 H Alanine Aminotransferase (ALT/SGPT) 28 Alkaline Phosphatase 54 B-Type Natriuretic Peptide 25983 H Total Protein 6.3 Albumin 3.3 Globulin 3.00 Albumin/Globulin Ratio 1.10 Triglycerides Level 98 Cholesterol Level 197 LDL Cholesterol, Calculated 130 HDL Cholesterol 47 Cholesterol/HDL Ratio 4.1 Blood Gas Specimen Source Blood arterial Arterial Blood Date Drawn 06/03/2017 5:07:08 AM Arterial Blood pH (Temp corrected) 7.331 L Arterial Blood pCO2 (Temp correct) 41.0 Arterial Blood pO2 (Temp corrected) 159.9 H Arterial Blood HCO3 21.2 L Arterial Blood Base Excess -4.4 L Arterial Blood Oxygen Saturation 99.1 Geovanny Test ACCEPTAB Arterial Blood Gas Puncture Site Right Brachial Arterial Blood Carboxyhemoglobin 0.9 Arterial Blood Methemoglobin 0.3 Blood Gas A-a O2 Differential 512.1 H Oxyhemoglobin Percent 97.9 Total Hemoglobin 9.0 L Blood Gas Temperature 37.0 Blood Gas Respiration Rate 20.0 Blood Gas Actual Respiration Rate 29 Blood Gas Modality BIPAP - S/T FiO2 100.0 Blood Gas Pressure Support 10 Blood Gas IPAP/EPAP Ratio 15/5 Blood Gas Notified Whom RTR Blood Gas Notified Time 06/03/2017 5:33:32 AM Medications Current Medications Sodium Chloride (NS) 1,000 ml @ 75 mls/hr [id number] IV Last administered on 06/02t 22:12; Admin Dose 75 MLS/HR; Start 06/01/17 at 17:28 Acetaminophen (Tylenol Tab) 650 mg Q6H PRN PO PAIN LEVEL 1-3 OR FEVER; Start at 17:30 Acetaminophen/ Hydrocodone Bitart ([place] (5/325)) 1 tab Q6H PRN PO MODERATE PAIN LEVEL 4-6; Start 06/01/17 at 17:30 Morphine Sulfate (morphine) 2 mg Q4H PRN IV SEVERE PAIN LEVEL 7-10; Start 06/01 at 17:30 Magnesium Hydroxide (Milk Of Mag) 30 ml DAILY PRN PO CONSTIPATION; Start at 17:30 Aspirin (Halfprin) 81 mg DAILY PO Last administered on 06/02/17 08:31; Admin Dose 81 MG; Start 06/02/17 at 09:00 Miscellaneous Information HOLD all METFORMIN ... ONCE XX Last administered on 19:29; Admin Dose 1 EA; Start 06/01/17 at 19:00; Stop 06/03/17 at 18:59 Phenylephrine HCl/ Dextrose (Jose-Syneph/D5W) 500 ml @ 75 mls/hr TITRATE IV Last administered on 06/02/17 22:16; Admin Dose 75 MLS/HR; Start 06/02/17 at 09 :00 Atorvastatin Calcium 40 mg 40 mg HS PO ; Start 06/02/17 at 21:00 Ceftriaxone Sodium (Rocephin) 50 ml @ 100 mls/hr Q24H IVPB Last administered on 06/02/17 15:45; Admin Dose 100 MLS/HR; Start 06/02/17 at 16:00 Lorazepam (Ativan) 0.5 mg Q3H PRN IV Anxiety Last administered on 06/03/17 13: 36; Admin Dose 0.5 MG; Start 06/02/17 at 22:00 Pantoprazole 40 mg 40 mg DAILY@06 IV ; Start 06/04/17 at 06:00 Bumetanide/ Dextrose (Bumex/D5W) 40 ml @ 10 mls/hr Q4H ONCE IV ; Start 06/03/17 at 14:00; Stop 06/03/17 at 17:59 Assessment/Plan Chief Complaint/Hosp Course Briefly, this is an 81-year-old female with history of CVA, HTN, dementia, admitted from home with evidence of NSTEMI and progressive hypoxemic respiratory insufficiency and shock. Problems: Additional Assessment/Plan IMP: 1. Shock--likely combination advanced hypertrophic CMY and sepsis 2. Urosepsis 3. NSTEMI 4. Azotemia 5. Dementia RECS: 1. Neosynephrine gtt 2. Broaden abx to cefepime 3. BiPAP as tolerated 4. Follow ABG 5. Bumex gtt 6. Lactate clearance 35 min cc time CHERI MARLEY MD Jun 03, 2017 15:14
--- NOTE | 2017-06-03 16:08 | RADRPT ---
PROCEDURE: XR Chest. CLINICAL INDICATION: Shortness of breath. TECHNIQUE: Single frontal view. COMPARISON: 06/02/2017. FINDINGS: Pulmonary edema is worse than seen previously. There is left basilar atelectasis or pneumonia, uncha nged. The heart is mildly enlarged. There is calcification in the aorta consistent with atherosclerosis. There is no pleural effusion. There is no pneumothorax. IMPRESSION: 1. Worsening pulmonary edema. 2. No other change from 06/02/2017. RPTAT: QQ .Rajendra Valderrama MD, MD Date Time Electronically viewed and signed by .Rajendra Valderrama MD, MD on 06/03/2017 16:08 .R/
[2017-06-03] MEDS: CEFEPIME 1GM/50 ML (PMX) 50 ML IVPB SCH (16:24)
--- NOTE | 2017-06-03 18:09 | PN ---
Date/Time of Note Date/Time of Note DATE: 06/03/17 TIME: 18:08 Assessment/Plan VTE Prophylaxis VTE Prophylaxis Intervention: SCD's Lines/Catheters IV Catheter Type (from Nrs): A Line Assessment/Plan Chief Complaint/Hosp Course 1. Non-STEMI Emergent heart cath showed no significant lesions 2. 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 Abnormal ECG with intermittent LBBB 4. Hypertension Blood pressure now low Use beta-blockers as able 5. 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 Moderate to severe mitral regurgitation Follow-up on cardiology recommendations Continue cardiac meds 7. History of intractable nausea vomiting Zofran as needed 8. Anxiety Ativan as needed 9. History of venous insufficiency ulcers-stable 10. Deconditioning Patient may need rehab placement after this admission Prophylaxis: SCDs Problems: Subjective 24 Hr Interval Summary Constitutional: no complaints Exam/Review of Systems Vital Signs Vitals Vital Signs Date Time Temp Pulse Resp B/P Pulse Ox O2 Delivery O2 Flow Rate FiO2 06/03/17 16:50 61 100 80 06/03/17 15:00 17 123/58 06/03/17 12:00 98.7 06/03/17 06:00 BIPAP 06/02/17 18:10 15.0 Intake and Output 06/02/17 06/02/17 06/03/17 15:00 23:00 07:00 Intake Total 682.5 ml 942.5 ml 975.0 ml Output Total 900 ml 370 ml 255 ml Balance -217.5 ml 572.5 ml 720.0 ml Exam Constitutional: alert Respiratory: clear to auscultation Cardiovascular: regular rate and rhythm Gastrointestinal: soft, No distended Musculoskeletal: nl extremities to inspection Results Result Diagram: 06/03/17 0437 06/03/17 0437 Results 24 hrs Laboratory Tests Test 06/03/17 04:36 06/03/17 04:37 06/03/17 05:00 06/03/17 11:23 Lactic Acid Level 2.6 *H 1.7 Creatine Kinase 254 H Creatine Kinase Index 4.6 Creatinine Kinase MB (Mass) 11.70 H Troponin I 5.950 *H Free Thyroxine 1.04 White Blood Count 14.8 #H Red Blood Count 4.31 Hemoglobin 13.1 Hematocrit 39.6 Mean Corpuscular Volume 91.9 Mean Corpuscular Hemoglobin 30.4 Mean Corpuscular Hemoglobin Concent 33.1 Red Cell Distribution Width 14.6 H Platelet Count 211 Mean Platelet Volume 9.5 Neutrophils % 84.7 H Lymphocytes % 7.9 L Monocytes % 6.8 Eosinophils % 0.0 Basophils % 0.1 Nucleated Red Blood Cells % 0.0 Neutrophils # 12.5 H Lymphocytes # 1.2 Monocytes # 1.0 H Eosinophils # 0.0 Basophils # 0.0 Nucleated Red Blood Cells # 0.0 Sodium Level 140 Potassium Level 4.3 Chloride Level 107 Carbon Dioxide Level 27 Anion Gap 10 Blood Urea Nitrogen 29 H Creatinine 1.21 H Glucose Level 157 Calcium Level 9.3 Magnesium Level 2.2 Total Bilirubin 0.8 Direct Bilirubin 0.00 Indirect Bilirubin 0.8 Aspartate Amino Transf (AST/SGOT) 72 H Alanine Aminotransferase (ALT/SGPT) 28 Alkaline Phosphatase 54 B-Type Natriuretic Peptide 82208 H Total Protein 6.3 Albumin 3.3 Globulin 3.00 Albumin/Globulin Ratio 1.10 Triglycerides Level 98 Cholesterol Level 197 LDL Cholesterol, Calculated 130 HDL Cholesterol 47 Cholesterol/HDL Ratio 4.1 Blood Gas Specimen Source Blood arterial Arterial Blood Date Drawn 06/03/2017 5:07:08 AM Arterial Blood pH (Temp corrected) 7.331 L Arterial Blood pCO2 (Temp correct) 41.0 Arterial Blood pO2 (Temp corrected) 159.9 H Arterial Blood HCO3 21.2 L Arterial Blood Base Excess -4.4 L Arterial Blood Oxygen Saturation 99.1 Geovanny Test ACCEPTAB Arterial Blood Gas Puncture Site Right Brachial Arterial Blood Carboxyhemoglobin 0.9 Arterial Blood Methemoglobin 0.3 Blood Gas A-a O2 Differential 512.1 H Oxyhemoglobin Percent 97.9 Total Hemoglobin 9.0 L Blood Gas Temperature 37.0 Blood Gas Respiration Rate 20.0 Blood Gas Actual Respiration Rate 29 Blood Gas Modality BIPAP - S/T FiO2 100.0 Blood Gas Pressure Support 10 Blood Gas IPAP/EPAP Ratio 15/5 Blood Gas Notified Whom RTR Blood Gas Notified Time 06/03/2017 5:33:32 AM Medications Medications Current Medications Sodium Chloride (NS) 1,000 ml @ 75 mls/hr [id number] IV Last administered on 06/03 12:00; Admin Dose 75 MLS/HR; Start 06/01/17 at 17:28 Acetaminophen (Tylenol Tab) 650 mg Q6H PRN PO PAIN LEVEL 1-3 OR FEVER; Start at 17:30 Acetaminophen/ Hydrocodone Bitart ([place] (5/325)) 1 tab Q6H PRN PO MODERATE PAIN LEVEL 4-6; Start 06/01/17 at 17:30 Morphine Sulfate (morphine) 2 mg Q4H PRN IV SEVERE PAIN LEVEL 7-10; Start 06/01 at 17:30 Magnesium Hydroxide (Milk Of Mag) 30 ml DAILY PRN PO CONSTIPATION; Start at 17:30 Aspirin (Halfprin) 81 mg DAILY PO Last administered on 06/02/17 08:31; Admin Dose 81 MG; Start 06/02/17 at 09:00 Miscellaneous Information HOLD all METFORMIN ... ONCE XX Last administered on 19:29; Admin Dose 1 EA; Start 06/01/17 at 19:00; Stop 06/03/17 at 18:59 Phenylephrine HCl/ Dextrose (Jose-Syneph/D5W) 500 ml @ 75 mls/hr TITRATE IV Last administered on 06/03/17 09:00; Admin Dose 37.5 MLS/HR; Start 06/02/17 at 09:00 Atorvastatin Calcium (Lipitor) 40 mg HS PO ; Start 06/02/17 at 21:00 Lorazepam (Ativan) 0.5 mg Q3H PRN IV Anxiety Last administered on 06/03/17 13: 36; Admin Dose 0.5 MG; Start 06/02/17 at 22:00 Pantoprazole 40 mg 40 mg DAILY@06 IV ; Start 06/04/17 at 06:00 Cefepime HCl (Maxipime 1gm/50 ml (Pmx)) 50 ml @ 100 mls/hr Q24H IVPB Last administered on 06/03/17 16:24; Admin Dose 100 MLS/HR; Start 06/03/17 at 15:30 IGGY GALVEZ Jun 03, 2017 18:09
--- NOTE | 2017-06-03 18:25 | RADRPT ---
PROCEDURE: XR Chest. CLINICAL INDICATION: Check PICC line position. TECHNIQUE: Single frontal view. COMPARISON: Prior study done earlier the same day. FINDINGS: There is a left arm PICC line with the tip in the lower superior vena cava. Pulmonary edema is unch anged. There is left basilar atelectasis or pneumonia, unchanged. The heart is mildly enlarged. There is calcification in the aorta consistent with atherosclerosis. There is no pleural effusion. There is no pneumothorax. IMPRESSION: 1. Left arm PICC line tip in satisfactory position. 2. No other change from the prior study done earlier the same day. RPTAT: QQ .Rajendra Valderrama MD, MD Date Time Electronically viewed and signed by .Rajendra Valderrama MD, on 06/03/2017 18:25 .R/
--- NOTE | 2017-06-03 18:26 | RADRPT ---
PROCEDURE: Ultrasound guidance for placement of needle in left upper extremity vein. CLINICAL INDICATION: Venous access. TECHNIQUE: Limited sonography of the left upper extremity was performed. Ultrasound images were recorded and s tored in the patient's medical record. COMPARISON: None. FINDINGS: The ultrasound images demonstrate a patent left upper extremity vein. The PICC line was inserted by the PICC line nurse. IMPRESSION: 1. Ultrasound guidance for a needle placement in a left upper extremity vein. 2. The left upper extremity vein is patent. RPTAT: QQ .Rajendra Valderrama MD, MD Date Time Electronically viewed and signed by .Rajendra Valderrama MD, MD on 06/03/2017 18:25 .R/
[2017-06-03] MEDS ORDERED: HEPARIN (10 UNITS/ML) 5ML SYG IV ONE (19:00)
[2017-06-03] MEDS: ATORVASTATIN 40 MG TAB PO SCH (20:22)
[2017-06-04] VITALS (64 sets, daily range): BP systolic 81–150; BP diastolic 45–106; PULSE 55–104; RESP 15–38
[2017-06-04] MEDS: PHENYLephrine 40 MG in DEXTROSE 5% 496 ML IV SCH (00:13)
[2017-06-04] MEDS: SOD CHLORIDE 0.9% 1,000 ML IV SCH (04:00)
[2017-06-04 05:08] LABS: BASOPHILS % 0.2 % (0.0-2.0); HEMATOCRIT 33.1 % (37.0-47.0); HEMOGLOBIN 10.7 g/dl (12.0-16.0); LYMPHOCYTES # 1.5 10^3/ul (0.8-2.9); LYMPHOCYTES % 13.1 % (15.0-51.0); MEAN CORPUSCULAR HEMOGLOBIN 29.6 pg (29.0-33.0); MEAN CORPUSCULAR HGB CONC 32.3 g/dl (32.0-37.0); MEAN CORPUSCULAR VOLUME 91.4 fl (82.0-101.0); MEAN PLATELET VOLUME 9.8 fl (7.4-10.4); MONOCYTE # 0.8 10^3/ul (0.3-0.9); MONOCYTES % 6.9 % (0.0-11.0); NEUTROPHIL # 9.1 10^3/ul (1.6-7.5); NEUTROPHILS % 79.3 % (39.0-77.0); PLATELET COUNT 162 10^3/UL (140-415); RED BLOOD COUNT 3.62 10^6/ul (4.20-5.40); RED CELL DISTRIBUTION WIDTH 14.4 % (11.5-14.5); WHITE BLOOD COUNT 11.4 10^3/ul (4.8-10.8)
[2017-06-04 05:26] LABS: AADO2 Arterial 366.7 mmHg (7.0-24.0); Allen Test ACCEPTAB; Arterial Base Excess 4.6 mmol/L (-3.0-3); Arterial COHb 0.3 % (0.0-3.0); Arterial Fraction of Oxyhgb 98.2 % (93.0-99.0); Arterial HCO3 28.5 mmol/L (22.0-26.0); Arterial MetHb 0.4 % (0.0-1.5); Arterial Total Hemglobin 12.2 g/dl (12.0-18.0); Blood Gas IEPAP 15/5; Blood Gas PS 10; MODE BIPAP - S/T
[2017-06-04 05:31] LABS: ALBUMIN 2.8 g/dl (3.3-4.9); ALBUMIN/GLOBULIN RATIO 0.96; CALCIUM 8.9 mg/dl (8.4-10.2); CREATININE 0.98 mg/dl (0.44-1.00); MAGNESIUM 2.1 mg/dl (1.7-2.5); POTASSIUM 3.2 mmol/L (3.5-5.1); TOTAL PROTEIN 5.7 g/dl (6.1-8.1)
[2017-06-04] MEDS ORDERED: PANTOPRAZOLE 40 MG INJ IV SCH (06:00)
--- NOTE | 2017-06-04 07:08 | PQ ---
Date/Time of Note Date/Time of Note DATE: 06/04/17 TIME: 07:02 Physician Query Documentation Clarification Dear Dr. Nagel A review of the medical record found a need for documentation clarification. progress note -She was noted to become also more hypoxemic and has been placed currently on 100% nonrebreather. --progress note --DREW NAGEL MD Jun 01, 2017 18:08 Event report--pt with severe hypoxemia and resp distress. pt placed on BIPAP in ICU. close monitoring ABG - 7.286 / pO2 = 62.1 Please clarify a diagnosis being treated. To facilitate accurate and complete coding, please michael ( x ) the suspected diagnosis that apply: ( ) Acute respiratory distress with hypoxic respiratory failure ( ) Acute respiratory distress without failure ( ) Others Please provide your response by clicking edit document, making your choice ( x ), click ok/save and finally click sign. You may also document your response on your progress notes. Thank you for your time. With appreciation, Americo Centeno RN, BSN, CCS, CCDS Clinical Shipping Order Clerk Health Information Management, CDI and Coding Services [phone] Room # [address]~ [address] [place] Jun 04, 2017 07:08
--- NOTE | 2017-06-04 07:34 | RADRPT ---
PROCEDURE: XR Chest. CLINICAL INDICATION: Shortness of breath. TECHNIQUE: Single frontal view. COMPARISON: None. FINDINGS: There is a left arm PICC line with the tip in the lower superior vena cava. Pulmonary edema is uncha nged. There is left basilar atelectasis or pneumonia, unchanged. The heart is mildly enlarged. There is calcification in the aorta consistent with atherosclerosis. There is no pleural effusion. There is no pneumothorax. IMPRESSION: 1. Left arm PICC line in satisfactory position. 2. Unchanged pulmonary edema. 3. Left basilar atelectasis, unchanged. 4. No change from 06/03/2017. RPTAT: QQ .Rajendra Valderrama MD, MD Date Time Electronically viewed and signed by .Rajendra Valderrama MD, on 06/04/2017 07:33 .R/
[2017-06-04] MEDS: ASPIRIN (EC) 81 MG TAB PO SCH (08:44)
--- NOTE | 2017-06-04 09:34 | CONS ---
Date/Time of Note Date/Time of Note DATE: 06/04/17 TIME: 09:32 Assessment/Plan Assessment/Plan Additional Assessment/Plan Patient is currently on phenylephrine drip at 50 mics per minute. Assessment and recommendations; 1. Patient admitted with non-STEMI. 2. Shock. Clinically improving. 3. Bilateral pneumonia. 4. Sepsis due to UTI. 5. Mild anemia and thrombocytopenia. Continue current treatment. Patient responding well to current treatment regimen. Consultation Date/Type/Reason Admit Date/Time Jun 01, 2017 at 15:36 Initial Consult Date 06/01/17 Type of Consultation: Pulm/CCM Referring Provider: IGGY GALVEZ 24 HR Interval Summary Free Text/Dictation Patient condition has improved. She is completely awake alert and follows simple commands. Still requiring pressor support for hypotension. General exam; elderly woman, on 100% nonrebreather mask. Awake and alert. Currently no distress. Exam/Review of Systems Vital Signs Vitals Vital Signs Date Time Temp Pulse Resp B/P Pulse Ox O2 Delivery O2 Flow Rate FiO2 06/04/17 09:15 61 21 134/62 98 06/04/17 09:00 Mask 06/04/17 08:00 97.8 06/04/17 05:30 100 06/02/17 18:10 15.0 Intake and Output 06/03/17 06/03/17 06/04/17 15:00 23:00 07:00 Intake Total 825.0 ml 802.5 ml 712.5 ml Output Total 230 ml 1375 ml 1100 ml Balance 595.0 ml -572.5 ml -387.5 ml Exam HEENT exam; supple neck, no JVD. No lymphadenopathy. Midline trachea. No thyromegaly. Patient has fair dentition. Has bilateral intraocular lens implants. Chest exam; diminished but clear breath sounds. S1-S2 audible, no murmurs. Abdomen exam; soft, no organomegaly. Bowel sounds audible. Extremity exam; no peripheral edema. [employer] exam; no focal deficit. Results Result Diagram: 06/04/17 0415 06/04/17 0415 Results 24 hrs Laboratory Tests Test 06/03/17 11:23 06/04/17 04:15 06/04/17 05:00 Lactic Acid Level 1.7 1.2 White Blood Count 11.4 #H Red Blood Count 3.62 L Hemoglobin 10.7 L Hematocrit 33.1 L Mean Corpuscular Volume 91.4 Mean Corpuscular Hemoglobin 29.6 Mean Corpuscular Hemoglobin Concent 32.3 Red Cell Distribution Width 14.4 Platelet Count 162 # Mean Platelet Volume 9.8 Neutrophils % 79.3 H Lymphocytes % 13.1 L Monocytes % 6.9 Eosinophils % 0.0 Basophils % 0.2 Nucleated Red Blood Cells % 0.0 Neutrophils # 9.1 H Lymphocytes # 1.5 Monocytes # 0.8 Eosinophils # 0.0 Basophils # 0.0 Nucleated Red Blood Cells # 0.0 Sodium Level 138 Potassium Level 3.2 L Chloride Level 104 Carbon Dioxide Level 33 H Anion Gap 4 L Blood Urea Nitrogen 28 H Creatinine 0.98 Glucose Level 117 # Calcium Level 8.9 Magnesium Level 2.1 Total Bilirubin 1.0 Direct Bilirubin 0.00 Indirect Bilirubin 1.0 Aspartate Amino Transf (AST/SGOT) 56 H Alanine Aminotransferase (ALT/SGPT) 25 Alkaline Phosphatase 52 B-Type Natriuretic Peptide 08879 H Total Protein 5.7 L Albumin 2.8 L Globulin 2.90 Albumin/Globulin Ratio 0.96 Blood Gas Specimen Source Blood arterial Arterial Blood Date Drawn 06/04/2017 5:02:33 AM Arterial Blood pH (Temp corrected) 7.472 H Arterial Blood pCO2 (Temp correct) 39.9 Arterial Blood pO2 (Temp corrected) 161.8 H Arterial Blood HCO3 28.5 H Arterial Blood Base Excess 4.6 H Arterial Blood Oxygen Saturation 98.9 Geovanny Test ACCEPTAB Arterial Blood Gas Puncture Site Right Radial Arterial Blood Carboxyhemoglobin 0.3 Arterial Blood Methemoglobin 0.4 Blood Gas A-a O2 Differential 366.7 H Oxyhemoglobin Percent 98.2 Total Hemoglobin 12.2 Blood Gas Temperature 37.0 Blood Gas Respiration Rate 20.0 Blood Gas Actual Respiration Rate 25 Blood Gas Modality BIPAP - S/T FiO2 80.0 Blood Gas Pressure Support 10 Blood Gas IPAP/EPAP Ratio 15/ Blood Gas Notified Whom RTR Blood Gas Notified Time 06/04/2017 5:26:01 AM Medications Medications Current Medications Sodium Chloride (NS) 1,000 ml @ 75 mls/hr [id number] IV Last administered on 06/04t 04:00; Admin Dose 75 MLS/HR; Start 06/01/17 at 17:28 Acetaminophen (Tylenol Tab) 650 mg Q6H PRN PO PAIN LEVEL 1-3 OR FEVER; Start at 17:30 Acetaminophen/ Hydrocodone Bitart ([place] (5/325)) 1 tab Q6H PRN PO MODERATE PAIN LEVEL 4-6; Start 06/01/17 at 17:30 Morphine Sulfate (morphine) 2 mg Q4H PRN IV SEVERE PAIN LEVEL 7-10; Start 06/01 at 17:30 Magnesium Hydroxide (Milk Of Mag) 30 ml DAILY PRN PO CONSTIPATION; Start at 17:30 Aspirin 81 mg 81 mg DAILY PO Last administered on 06/04/17 08:44; Admin Dose 81 MG; Start 06/02/17 at 09:00 Phenylephrine HCl/ Dextrose (Jose-Syneph/D5W) 500 ml @ 75 mls/hr TITRATE IV Last administered on 06/04/17 00:13; Admin Dose 37.5 MLS/HR; Start 06/02/17 at 09:00 Atorvastatin Calcium (Lipitor) 40 mg HS PO ; Start 06/02/17 at 21:00 Lorazepam (Ativan) 0.5 mg Q3H PRN IV Anxiety Last administered on 06/03/17 13: 36; Admin Dose 0.5 MG; Start 06/02/17 at 22:00 Pantoprazole 40 mg 40 mg DAILY@06 IV ; Start 06/04/17 at 06:00 Cefepime HCl (Maxipime 1gm/50 ml (Pmx)) 50 ml @ 100 mls/hr Q24H IVPB Last administered on 06/03/17 16:24; Admin Dose 100 MLS/HR; Start 06/03/17 at 15:30 MIKE STRICKLAND Jun 04, 2017 09:34
[2017-06-04] MEDS ORDERED: POTASSIUM CHLORIDE (SR) 20 MEQ TAB PO STA ×2 (10:35→18:08)
[2017-06-04] MEDS: CEFEPIME 1GM/50 ML (PMX) 50 ML IVPB SCH (15:12)
--- NOTE | 2017-06-04 16:09 | PN ---
Date/Time of Note Date/Time of Note DATE: 06/04/17 TIME: 16:07 Assessment/Plan VTE Prophylaxis VTE Prophylaxis Intervention: SCD's Lines/Catheters IV Catheter Type (from Nrsg): PICC Line Central line still needed: No Urinary Cath still in place: Yes Reason Cath still needed: other (indicate) (critically ill) Assessment/Plan Assessment/Plan 81 yo F with pmhx chronic systolic and diastolic HF presented with chest pain, found to have elevated troponin, most likely 2/2 underlying heart failure #NSTEMI sp cath 9.15 with nonobstructive CAD #acute on chronic systolic and diastolic HF -stop IVFs -wean pressors -sp dieresis -likely resume BP meds in AM if BP allows #?Sepsis from UTI v pna? (leukocytosis and tachycardia closer to admission) -cont cefepime, anticipate 7 day course transfer to [facility] in AM pending clinical stability PT eval for deconditioning Prophylaxis: SCDs critical care time: 30 minutes Subjective 24 Hr Interval Summary Free Text/Dictation Pt on facemask this AM Exam/Review of Systems Vital Signs Vitals Vital Signs Date Time Temp Pulse Resp B/P Pulse Ox O2 Delivery O2 Flow Rate FiO2 06/04/17 14:33 6.0 06/04/17 12:15 86 24 103/51 94 06/04/17 12:00 98.2 Mask 06/04/17 05:30 100 Intake and Output 06/03/17 06/03/17 06/04/17 15:00 23:00 07:00 Intake Total 825.0 ml 802.5 ml 750.0 ml Output Total 230 ml 1375 ml 1100 ml Balance 595.0 ml -572.5 ml -350.0 ml Exam nad no mrg lungs clear abd soft no rashes Results Result Diagram: 06/04/17 0415 06/04/17 0415 Results 24 hrs Laboratory Tests Test 06/04/17 04:15 06/04/17 05:00 White Blood Count 11.4 #H Red Blood Count 3.62 L Hemoglobin 10.7 L Hematocrit 33.1 L Mean Corpuscular Volume 91.4 Mean Corpuscular Hemoglobin 29.6 Mean Corpuscular Hemoglobin Concent 32.3 Red Cell Distribution Width 14.4 Platelet Count 162 # Mean Platelet Volume 9.8 Neutrophils % 79.3 H Lymphocytes % 13.1 L Monocytes % 6.9 Eosinophils % 0.0 Basophils % 0.2 Nucleated Red Blood Cells % 0.0 Neutrophils # 9.1 H Lymphocytes # 1.5 Monocytes # 0.8 Eosinophils # 0.0 Basophils # 0.0 Nucleated Red Blood Cells # 0.0 Sodium Level 138 Potassium Level 3.2 L Chloride Level 104 Carbon Dioxide Level 33 H Anion Gap 4 L Blood Urea Nitrogen 28 H Creatinine 0.98 Glucose Level 117 # Lactic Acid Level 1.2 Calcium Level 8.9 Magnesium Level 2.1 Total Bilirubin 1.0 Direct Bilirubin 0.00 Indirect Bilirubin 1.0 Aspartate Amino Transf (AST/SGOT) 56 H Alanine Aminotransferase (ALT/SGPT) 25 Alkaline Phosphatase 52 B-Type Natriuretic Peptide 18013 H Total Protein 5.7 L Albumin 2.8 L Globulin 2.90 Albumin/Globulin Ratio 0.96 Blood Gas Specimen Source Blood arterial Arterial Blood Date Drawn 06/04/2017 5:02:33 AM Arterial Blood pH (Temp corrected) 7.472 H Arterial Blood pCO2 (Temp correct) 39.9 Arterial Blood pO2 (Temp corrected) 161.8 H Arterial Blood HCO3 28.5 H Arterial Blood Base Excess 4.6 H Arterial Blood Oxygen Saturation 98.9 Geovanny Test ACCEPTAB Arterial Blood Gas Puncture Site Right Radial Arterial Blood Carboxyhemoglobin 0.3 Arterial Blood Methemoglobin 0.4 Blood Gas A-a O2 Differential 366.7 H Oxyhemoglobin Percent 98.2 Total Hemoglobin 12.2 Blood Gas Temperature 37.0 Blood Gas Respiration Rate 20.0 Blood Gas Actual Respiration Rate 25 Blood Gas Modality BIPAP - S/T FiO2 80.0 Blood Gas Pressure Support 10 Blood Gas IPAP/EPAP Ratio 15/ Blood Gas Notified Whom RTR Blood Gas Notified Time 06/04/2017 5:26:01 AM Medications Medications Current Medications Acetaminophen (Tylenol Tab) 650 mg Q6H PRN PO PAIN LEVEL 1-3 OR FEVER; Start at 17:30 Acetaminophen/ Hydrocodone Bitart ([place] (5/325)) 1 tab Q6H PRN PO MODERATE PAIN LEVEL 4-6; Start 06/01/17 at 17:30 Morphine Sulfate (morphine) 2 mg Q4H PRN IV SEVERE PAIN LEVEL 7-10; Start 06/01 at 17:30 Magnesium Hydroxide (Milk Of Mag) 30 ml DAILY PRN PO CONSTIPATION; Start at 17:30 Aspirin 81 mg 81 mg DAILY PO Last administered on 06/04/17 08:44; Admin Dose 81 MG; Start 06/02/17 at 09:00 Phenylephrine HCl/ Dextrose (Jose-Syneph/D5W) 500 ml @ 75 mls/hr TITRATE IV Last administered on 06/04/17 00:13; Admin Dose 37.5 MLS/HR; Start 06/02/17 at 09:00 Atorvastatin Calcium 40 mg 40 mg HS PO ; Start 06/02/17 at 21:00 Cefepime HCl (Maxipime 1gm/50 ml (Pmx)) 50 ml @ 100 mls/hr Q24H IVPB Last administered on 06/04/17 15:12; Admin Dose 100 MLS/HR; Start 06/03/17 at 15:30 LIA CHOU MD Jun 04, 2017 16: at 17:30 Magnesium Hydroxide (Milk Of Mag) 30 ml DAILY PRN PO CONSTIPATION; Start at 17:30 Aspirin 81 mg 81 mg DAILY PO Last administered on 06/04/17 08:44; Admin Dose 81 MG; Start 06/02/17 at 09:00 Phenylephrine HCl/ Dextrose (Jose-Syneph/D5W) 500 ml @ 75 mls/hr TITRATE IV Last administered on 06/04/17 00:13; Admin Dose 37.5 MLS/HR; Start 06/02/17 at 09:00 Atorvastatin Calcium 40 mg 40 mg HS PO ; Start 06/02/17 at 21:00 Cefepime HCl (Maxipime 1gm/50 ml (Pmx)) 50 ml @ 100 mls/hr Q24H IVPB Last administered on 06/04/17 15:12; Admin Dose 100 MLS/HR; Start 06/03/17 at 15:30 LIA CHOU MD Jun 04, 2017 16:09
--- NOTE | 2017-06-04 18:08 | CONS ---
Date/Time of Note Date/Time of Note DATE: 06/04/17 TIME: 18:06 Consult Date/Type/Reason Admit Date/Time Jun 01, 2017 at 15:36 Initial Consult Date 06/01/17 Type of Consultation: CARDIOLOGY Ordering Provider: IGGY GALVEZ Subjective CARDIOLOGY FOLLOW UP NOTE: SUBJECTIVE: D/W staff in ICU. pt remains in ICU off of BIPAP and neosyn drip now. . O2 sat has improved pt denies any cp to me. no groin pain rhythm was reviewed. pt remains in NSR OBJECTIVE: General: on BIPAP HEENT: NC/AT. pupils are equal. round. NECK: . no stridor. CV: RRR. systolic murmur; no gallop or rubs. PULM: + rhonchi at base. GI: SOFT, NT, ND, no rebound or guarding Extremity: trace B/L LE edema. no clubbing. neuro: awake and alert, Psych: anxious but pleasant rectal: deferred : normal CXR reviewed ECHO 06/01/17 personally reviewed: 1. Normal left ventricular cavity size. Moderateleft ventricular hypertrophy, and severe septal hypertrophy, septum measures 2.3 cm. Severe left ventricular systolic dysfunction. Ejection fraction is visually estimated at 30 %. Tissue Doppler/Mitral Doppler indices are indeterminate in this study due to the presence of tachycardia throughout exam. Resting left ventricular outflow tract velocity 4.00 m/sec. Resting left ventricular outflow tract gradient 65.0 mmHg. Severe left ventricular outflow tract obstruction, patient unable to Valsalva. These segments of the LV are akinetic apical anterior segment, apical lateral segment, Apical inferior segment, apical cap, apical septum segment, mid anterior segment, inferoseptum mid segment. and anteroseptum mid segment. 2. There is severe enlargement of left atrium, appreciated best by LA volumes. LA Volume Index=50. 3. Mild mitral leaflet calcification. Moderate mitral annular calcification. Moderate to severe mitral valve regurgitation. The regurgitation jet is eccentrically directed which may underestimate the severity of mitral regurgitation. Moderate systolic anterior motion of mitral valve. Chordal LENA seen. 4. No hemodynamically significant aortic stenosis by Doppler, flows are increased however patient is tachycardic and there is LVOT obstruction. Aortic cusps appear mildly calcified. 5. Normal appearance of the tricuspid valve. Estimated peak PA systolic pressure 54 mmHg. There is moderate to severe tricuspid regurgitation. 6. Normal size and normal respiratory collapse consistent with normal right atrial pressure. 7. above findings are consistent with HCM physiology but now with severe LV dysfunction. Objective Vital Signs Date Time Temp Pulse Resp B/P Pulse Ox O2 Delivery O2 Flow Rate FiO2 06/04/17 16:00 94 06/04/17 14:33 6.0 06/04/17 12:15 24 103/51 94 06/04/17 12:00 98.2 Mask 06/04/17 05:30 100 Intake and Output 06/03/17 06/03/17 06/04/17 15:00 23:00 07:00 Intake Total 825.0 ml 802.5 ml 750.0 ml Output Total 230 ml 1375 ml 1100 ml Balance 595.0 ml -572.5 ml -350.0 ml Results/Medications Result Diagram: 06/04/17 0415 06/04/17 0415 Results 24 hrs Laboratory Tests Test 06/04/17 04:15 06/04/17 05:00 White Blood Count 11.4 #H Red Blood Count 3.62 L Hemoglobin 10.7 L Hematocrit 33.1 L Mean Corpuscular Volume 91.4 Mean Corpuscular Hemoglobin 29.6 Mean Corpuscular Hemoglobin Concent 32.3 Red Cell Distribution Width 14.4 Platelet Count 162 # Mean Platelet Volume 9.8 Neutrophils % 79.3 H Lymphocytes % 13.1 L Monocytes % 6.9 Eosinophils % 0.0 Basophils % 0.2 Nucleated Red Blood Cells % 0.0 Neutrophils # 9.1 H Lymphocytes # 1.5 Monocytes # 0.8 Eosinophils # 0.0 Basophils # 0.0 Nucleated Red Blood Cells # 0.0 Sodium Level 138 Potassium Level 3.2 L Chloride Level 104 Carbon Dioxide Level 33 H Anion Gap 4 L Blood Urea Nitrogen 28 H Creatinine 0.98 Glucose Level 117 # Lactic Acid Level 1.2 Calcium Level 8.9 Magnesium Level 2.1 Total Bilirubin 1.0 Direct Bilirubin 0.00 Indirect Bilirubin 1.0 Aspartate Amino Transf (AST/SGOT) 56 H Alanine Aminotransferase (ALT/SGPT) 25 Alkaline Phosphatase 52 B-Type Natriuretic Peptide 63472 H Total Protein 5.7 L Albumin 2.8 L Globulin 2.90 Albumin/Globulin Ratio 0.96 Blood Gas Specimen Source Blood arterial Arterial Blood Date Drawn 06/04/2017 5:02:33 AM Arterial Blood pH (Temp corrected) 7.472 H Arterial Blood pCO2 (Temp correct) 39.9 Arterial Blood pO2 (Temp corrected) 161.8 H Arterial Blood HCO3 28.5 H Arterial Blood Base Excess 4.6 H Arterial Blood Oxygen Saturation 98.9 Geovanny Test ACCEPTAB Arterial Blood Gas Puncture Site Right Radial Arterial Blood Carboxyhemoglobin 0.3 Arterial Blood Methemoglobin 0.4 Blood Gas A-a O2 Differential 366.7 H Oxyhemoglobin Percent 98.2 Total Hemoglobin 12.2 Blood Gas Temperature 37.0 Blood Gas Respiration Rate 20.0 Blood Gas Actual Respiration Rate 25 Blood Gas Modality BIPAP - S/T FiO2 80.0 Blood Gas Pressure Support 10 Blood Gas IPAP/EPAP Ratio 15/5 Blood Gas Notified Whom RTR Blood Gas Notified Time 06/04/2017 5:26:01 AM Medications Current Medications Acetaminophen (Tylenol Tab) 650 mg Q6H PRN PO PAIN LEVEL 1-3 OR FEVER; Start at 17:30 Acetaminophen/ Hydrocodone Bitart ([place] (5/325)) 1 tab Q6H PRN PO MODERATE PAIN LEVEL 4-6; Start 06/01/17 at 17:30 Morphine Sulfate (morphine) 2 mg Q4H PRN IV SEVERE PAIN LEVEL 7-10; Start 06/01 at 17:30 Magnesium Hydroxide (Milk Of Mag) 30 ml DAILY PRN PO CONSTIPATION; Start at 17:30 Aspirin (Halfprin) 81 mg DAILY PO Last administered on 06/04/17 08:44; Admin Dose 81 MG; Start 06/02/17 at 09:00 Atorvastatin Calcium 40 mg 40 mg HS PO ; Start 06/02/17 at 21:00 Cefepime HCl (Maxipime 1gm/50 ml (Pmx)) 50 ml @ 100 mls/hr Q24H IVPB Last administered on 06/04/17 15:12; Admin Dose 100 MLS/HR; Start 06/03/17 at 15:30 Assessment/Plan Chief Complaint/Hosp Course 1. ACUTE OR: kole angio done emergently last night did NOT show any significant flow limiting obstruction 2. CHF: acute on chronic due to systolic and diastolic heart failure. 3. abnormal ECG with intermittent LBBB 4. HX HTN 5. HX CVA including hemorrhagic CVA 6. memory impairment 7. dyslipidemia 8. hx dyspepsia 9. cardiogenic shock +/- sepsis 10. 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 MOD/ SEVERE MR. Recommendations ASA Diuresis as tolerated/. needed. will give bumex drip today will try to start betablocker once BP improves. cont ICU care Thank you for this referral. I will continue to follow along with you DREW MACARIO MD [facility] Problems: DREW MACARIO MD Jun 04, 2017 18:08
[2017-06-04] MEDS ORDERED: BUMETANIDE 3 MG in DEXTROSE 5% 18 ML IV ONE (19:00)
[2017-06-04] MEDS: ATORVASTATIN 40 MG TAB PO SCH (20:13)
[2017-06-05] VITALS (18 sets, daily range): BP systolic 99–123; BP diastolic 44–99; PULSE 59–90; RESP 10–27
[2017-06-05 05:33] LABS: BASOPHILS % 0.2 % (0.0-2.0); EOSINOPHILS % 0.2 % (0.0-7.0); LYMPHOCYTES # 1.2 10^3/ul (0.8-2.9); LYMPHOCYTES % 13.4 % (15.0-51.0); MEAN CORPUSCULAR HGB CONC 33.3 g/dl (32.0-37.0); MEAN PLATELET VOLUME 10.1 fl (7.4-10.4); MONOCYTE # 0.5 10^3/ul (0.3-0.9); MONOCYTES % 5.9 % (0.0-11.0); NEUTROPHIL # 6.9 10^3/ul (1.6-7.5); NEUTROPHILS % 79.8 % (39.0-77.0); PLATELET COUNT 169 10^3/UL (140-415); RED BLOOD COUNT 3.55 10^6/ul (4.20-5.40); RED CELL DISTRIBUTION WIDTH 14.3 % (11.5-14.5); WHITE BLOOD COUNT 8.6 10^3/ul (4.8-10.8)
[2017-06-05 06:25] LABS: CALCIUM 9.4 mg/dl (8.4-10.2); CREATININE 0.9 mg/dl (0.44-1.00); POTASSIUM 3.6 mmol/L (3.5-5.1)
[2017-06-05] MEDS: ASPIRIN (EC) 81 MG TAB PO SCH (07:56)
--- NOTE | 2017-06-05 11:09 | CONS ---
Date/Time of Note Date/Time of Note DATE: 06/05/17 TIME: 11:06 Assessment/Plan Assessment/Plan Additional Assessment/Plan Assessment recommendations; 1. Patient admitted with sepsis and UTI with significant clinical improvement. 2. Improving hypoxemia. 3. Mild thrombocytopenia. 4. Non-STEMI. 5. Shock with interval resolution. Patient off pressor support. Continue current treatment. Consultation Date/Type/Reason Admit Date/Time Jun 01, 2017 at 15:36 Initial Consult Date 06/01/17 Type of Consultation: Pulmonary/critical care Referring Provider: IGGY GALVEZ 24 HR Interval Summary Free Text/Dictation Patient condition is stable. Doing markedly better. Is off pressor support. Also has been weaned down to 6 L nasal cannula with adequate O2 saturation. Next General exam; elderly woman, awake and alert. Currently in no distress. Exam/Review of Systems Vital Signs Vitals Vital Signs Date Time Temp Pulse Resp B/P Pulse Ox O2 Delivery O2 Flow Rate FiO2 06/05/17 10:51 98 4.0 06/05/17 10:00 61 20 107/46 Nasal Cannula 06/05/17 07:00 98.4 06/04/17 05:30 100 Intake and Output 06/04/17 06/04/17 06/05/17 15:00 23:00 07:00 Intake Total 232.5 ml 90 ml 120 ml Output Total 320 ml 670 ml 900 ml Balance -87.5 ml -580 ml -780 ml Exam HEENT exam; supple neck, no JVD. No lymphadenopathy. Midline trachea. No thyromegaly. Patient has bilateral intraocular lens implants. Has fair dentition. Chest exam; diminished breath sounds bilaterally. S1-S2 audible, no murmurs. Regular rhythm. Abdomen exam; soft, nontender. No organomegaly. Bowel sounds audible. Extremity exam; no peripheral edema. [employer] exam; no focal deficit. Results Result Diagram: 06/05/17 0400 06/05/17 0400 Results 24 hrs Laboratory Tests Test 06/05/17 04:00 White Blood Count 8.6 # Red Blood Count 3.55 L Hemoglobin 11.0 L Hematocrit 33.0 L Mean Corpuscular Volume 93.0 Mean Corpuscular Hemoglobin 31.0 Mean Corpuscular Hemoglobin Concent 33.3 Red Cell Distribution Width 14.3 Platelet Count 169 Mean Platelet Volume 10.1 Neutrophils % 79.8 H Lymphocytes % 13.4 L Monocytes % 5.9 Eosinophils % 0.2 Basophils % 0.2 Nucleated Red Blood Cells % 0.0 Neutrophils # 6.9 Lymphocytes # 1.2 Monocytes # 0.5 Eosinophils # 0.0 Basophils # 0.0 Nucleated Red Blood Cells # 0.0 Sodium Level 138 Potassium Level 3.6 Chloride Level 102 Carbon Dioxide Level 32 H Anion Gap 8 Blood Urea Nitrogen 31 H Creatinine 0.90 Glucose Level 97 Calcium Level 9.4 Medications Medications Current Medications Acetaminophen (Tylenol Tab) 650 mg Q6H PRN PO PAIN LEVEL 1-3 OR FEVER; Start at 17:30 Acetaminophen/ Hydrocodone Bitart ([place] (5/325)) 1 tab Q6H PRN PO MODERATE PAIN LEVEL 4-6; Start 06/01/17 at 17:30 Morphine Sulfate (morphine) 2 mg Q4H PRN IV SEVERE PAIN LEVEL 7-10; Start 06/01 at 17:30 Magnesium Hydroxide (Milk Of Mag) 30 ml DAILY PRN PO CONSTIPATION; Start at 17:30 Aspirin (Halfprin) 81 mg DAILY PO Last administered on 06/05/17 07:56; Admin Dose 81 MG; Start 06/02/17 at 09:00 Atorvastatin Calcium 40 mg 40 mg HS PO Last administered on 06/04/17 20:13; Admin Dose 40 MG; Start 06/02/17 at 21:00 Cefepime HCl (Maxipime 1gm/50 ml (Pmx)) 50 ml @ 100 mls/hr Q24H IVPB Last administered on 06/04/17 15:12; Admin Dose 100 MLS/HR; Start 06/03/17 at 15:30 MIKE STRICKLAND Jun 05, 2017 11:09
--- NOTE | 2017-06-05 15:01 | PN ---
Date/Time of Note Date/Time of Note DATE: 06/05/17 TIME: 14:58 Assessment/Plan VTE Prophylaxis VTE Prophylaxis Intervention: SCD's Lines/Catheters IV Catheter Type (from Nrsg): PICC Line Central line still needed: No Urinary Cath still in place: Yes Reason Cath still needed: other (indicate) (will dc) Assessment/Plan Assessment/Plan 81 yo F with pmhx chronic systolic and diastolic HF presented with chest pain, found to have elevated troponin, most likely 2/2 underlying heart failure #NSTEMI sp cath 06.01 with nonobstructive CAD #acute on chronic systolic and diastolic HF -sp dieresis -likely resume BP meds in AM if BP allows #?Sepsis from UTI v pna? (leukocytosis and tachycardia closer to admission) -cont cefepime, anticipate 7 day course (06.01-->) PT eval for deconditioning, suspect will need SNF Prophylaxis: SCDs Exam/Review of Systems Vital Signs Vitals Vital Signs Date Time Temp Pulse Resp B/P Pulse Ox O2 Delivery O2 Flow Rate FiO2 06/05/17 12:27 98.7 66 16 105/56 94 06/05/17 12:00 Simple Mask 10.0 06/04/17 05:30 100 Intake and Output 06/04/17 06/04/17 06/05/17 15:00 23:00 07:00 Intake Total 232.5 ml 90 ml 120 ml Output Total 320 ml 670 ml 900 ml Balance -87.5 ml -580 ml -780 ml Results Result Diagram: 06/05/17 0400 06/05/17 0400 Results 24 hrs Laboratory Tests Test 06/05/17 04:00 White Blood Count 8.6 # Red Blood Count 3.55 L Hemoglobin 11.0 L Hematocrit 33.0 L Mean Corpuscular Volume 93.0 Mean Corpuscular Hemoglobin 31.0 Mean Corpuscular Hemoglobin Concent 33.3 Red Cell Distribution Width 14.3 Platelet Count 169 Mean Platelet Volume 10.1 Neutrophils % 79.8 H Lymphocytes % 13.4 L Monocytes % 5.9 Eosinophils % 0.2 Basophils % 0.2 Nucleated Red Blood Cells % 0.0 Neutrophils # 6.9 Lymphocytes # 1.2 Monocytes # 0.5 Eosinophils # 0.0 Basophils # 0.0 Nucleated Red Blood Cells # 0.0 Sodium Level 138 Potassium Level 3.6 Chloride Level 102 Carbon Dioxide Level 32 H Anion Gap 8 Blood Urea Nitrogen 31 H Creatinine 0.90 Glucose Level 97 Calcium Level 9.4 Medications Medications Current Medications Acetaminophen (Tylenol Tab) 650 mg Q6H PRN PO PAIN LEVEL 1-3 OR FEVER; Start at 17:30 Acetaminophen/ Hydrocodone Bitart ([place] (5/325)) 1 tab Q6H PRN PO MODERATE PAIN LEVEL 4-6; Start 06/01/17 at 17:30 Morphine Sulfate (morphine) 2 mg Q4H PRN IV SEVERE PAIN LEVEL 7-10; Start 06/01 at 17:30 Magnesium Hydroxide (Milk Of Mag) 30 ml DAILY PRN PO CONSTIPATION; Start at 17:30 Aspirin (Halfprin) 81 mg DAILY PO Last administered on 06/05/17 07:56; Admin Dose 81 MG; Start 06/02/17 at 09:00 Atorvastatin Calcium 40 mg 40 mg HS PO Last administered on 06/04/17 20:13; Admin Dose 40 MG; Start 06/02/17 at 21:00 Cefepime HCl (Maxipime 1gm/50 ml (Pmx)) 50 ml @ 100 mls/hr Q24H IVPB Last administered on 06/04/17 15:12; Admin Dose 100 MLS/HR; Start 06/03/17 at 15:30 LIA CHOU MD Jun 05, 2017 15:01
[2017-06-05] MEDS: CEFEPIME 1GM/50 ML (PMX) 50 ML IVPB SCH (15:05)
--- NOTE | 2017-06-05 15:22 | CONS ---
Date/Time of Note Date/Time of Note DATE: 06/05/17 TIME: 15:19 Consult Date/Type/Reason Admit Date/Time Jun 01, 2017 at 15:36 Initial Consult Date 06/01/17 Type of Consultation: CARDIOLOGY Ordering Provider: IGGY GALVEZ Subjective CARDIOLOGY FOLLOW UP NOTE: SUBJECTIVE: D/W staff and rhythm was reviewed. . pt has been transferred out of ICU. pt denies any cp to me. no groin pain rhythm was reviewed. pt remains in NSR she is still on facemask O2 OBJECTIVE: General: NO Acute distress HEENT: NC/AT. pupils are equal. round. NECK: . no stridor. CV: RRR. systolic murmur; + gallop . no rubs. PULM: + rhonchi at base. GI: SOFT, NT, ND, no rebound or guarding Extremity: trace B/L LE edema. no clubbing. neuro: awake and alert, Psych: anxious but pleasant rectal: deferred ECHO 06/01/17 personally reviewed: 1. Normal left ventricular cavity size. Moderateleft ventricular hypertrophy, and severe septal hypertrophy, septum measures 2.3 cm. Severe left ventricular systolic dysfunction. Ejection fraction is visually estimated at 30 %. Tissue Doppler/Mitral Doppler indices are indeterminate in this study due to the presence of tachycardia throughout exam. Resting left ventricular outflow tract velocity 4.00 m/sec. Resting left ventricular outflow tract gradient 65.0 mmHg. Severe left ventricular outflow tract obstruction, patient unable to Valsalva. These segments of the LV are akinetic apical anterior segment, apical lateral segment, Apical inferior segment, apical cap, apical septum segment, mid anterior segment, inferoseptum mid segment. and anteroseptum mid segment. 2. There is severe enlargement of left atrium, appreciated best by LA volumes. LA Volume Index=50. 3. Mild mitral leaflet calcification. Moderate mitral annular calcification. Moderate to severe mitral valve regurgitation. The regurgitation jet is eccentrically directed which may underestimate the severity of mitral regurgitation. Moderate systolic anterior motion of mitral valve. Chordal LENA seen. 4. No hemodynamically significant aortic stenosis by Doppler, flows are increased however patient is tachycardic and there is LVOT obstruction. Aortic cusps appear mildly calcified. 5. Normal appearance of the tricuspid valve. Estimated peak PA systolic pressure 54 mmHg. There is moderate to severe tricuspid regurgitation. 6. Normal size and normal respiratory collapse consistent with normal right atrial pressure. 7. above findings are consistent with HCM physiology but now with severe LV dysfunction. Objective Vital Signs Date Time Temp Pulse Resp B/P Pulse Ox O2 Delivery O2 Flow Rate FiO2 06/05/17 12:27 98.7 66 16 105/56 94 06/05/17 12:00 Simple Mask 10.0 06/04/17 05:30 100 Intake and Output 06/04/17 06/04/17 06/05/17 15:00 23:00 07:00 Intake Total 232.5 ml 90 ml 120 ml Output Total 320 ml 670 ml 900 ml Balance -87.5 ml -580 ml -780 ml Results/Medications Result Diagram: 06/05/17 0400 06/05/17 0400 Results 24 hrs Laboratory Tests Test 06/05/17 04:00 White Blood Count 8.6 # Red Blood Count 3.55 L Hemoglobin 11.0 L Hematocrit 33.0 L Mean Corpuscular Volume 93.0 Mean Corpuscular Hemoglobin 31.0 Mean Corpuscular Hemoglobin Concent 33.3 Red Cell Distribution Width 14.3 Platelet Count 169 Mean Platelet Volume 10.1 Neutrophils % 79.8 H Lymphocytes % 13.4 L Monocytes % 5.9 Eosinophils % 0.2 Basophils % 0.2 Nucleated Red Blood Cells % 0.0 Neutrophils # 6.9 Lymphocytes # 1.2 Monocytes # 0.5 Eosinophils # 0.0 Basophils # 0.0 Nucleated Red Blood Cells # 0.0 Sodium Level 138 Potassium Level 3.6 Chloride Level 102 Carbon Dioxide Level 32 H Anion Gap 8 Blood Urea Nitrogen 31 H Creatinine 0.90 Glucose Level 97 Calcium Level 9.4 Medications Current Medications Acetaminophen (Tylenol Tab) 650 mg Q6H PRN PO PAIN LEVEL 1-3 OR FEVER; Start at 17:30 Acetaminophen/ Hydrocodone Bitart ([place] (5/325)) 1 tab Q6H PRN PO MODERATE PAIN LEVEL 4-6; Start 06/01/17 at 17:30 Morphine Sulfate (morphine) 2 mg Q4H PRN IV SEVERE PAIN LEVEL 7-10; Start 06/01 at 17:30 Magnesium Hydroxide (Milk Of Mag) 30 ml DAILY PRN PO CONSTIPATION; Start at 17:30 Aspirin (Halfprin) 81 mg DAILY PO Last administered on 06/05/17t 07:56; Admin Dose 81 MG; Start 06/02/17 at 09:00 Atorvastatin Calcium 40 mg 40 mg HS PO Last administered on 06/04/17 20:13; Admin Dose 40 MG; Start 06/02/17 at 21:00 Cefepime HCl (Maxipime 1gm/50 ml (Pmx)) 50 ml @ 100 mls/hr Q24H IVPB Last administered on 06/05/17 15:05; Admin Dose 100 MLS/HR; Start 06/03/17 at 15:30 Assessment/Plan Chief Complaint/Hosp Course 1. ACUTE [place]: kole angio done emergently did NOT show any significant flow limiting obstruction 2. CHF: acute on chronic due to systolic and diastolic heart failure. 3. abnormal ECG with intermittent LBBB: stable now 4. HX HTN 5. HX CVA including hemorrhagic CVA 6. memory impairment 7. dyslipidemia 8. hx dyspepsia 9. cardiogenic shock +/- sepsis: improved BP now 10. 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 MOD/ SEVERE MR. Recommendations ASA Diuresis as tolerated/. needed. will try to start betablocker cont o2 ABX as per IM / pulm Thank you for this referral. I will continue to follow along with you DREW MACARIO MD [facility] Problems: DREW MACARIO MD Jun 05, 2017 15:22
[2017-06-05] MEDS: ATORVASTATIN 40 MG TAB PO SCH (20:35)
[2017-06-06] VITALS (11 sets, daily range): BP systolic 130–148; BP diastolic 60–66; PULSE 50–61; RESP 17–19
[2017-06-06 08:27] LABS: BASOPHILS % 0.4 % (0.0-2.0); EOSINOPHILS # 0.2 10^3/ul (0.0-0.5); EOSINOPHILS % 4.1 % (0.0-7.0); HEMATOCRIT 31.9 % (37.0-47.0); HEMOGLOBIN 10.4 g/dl (12.0-16.0); LYMPHOCYTES # 1.1 10^3/ul (0.8-2.9); LYMPHOCYTES % 20.6 % (15.0-51.0); MEAN CORPUSCULAR HEMOGLOBIN 30.1 pg (29.0-33.0); MEAN CORPUSCULAR HGB CONC 32.6 g/dl (32.0-37.0); MEAN CORPUSCULAR VOLUME 92.2 fl (82.0-101.0); MEAN PLATELET VOLUME 9.5 fl (7.4-10.4); MONOCYTE # 0.3 10^3/ul (0.3-0.9); MONOCYTES % 6.5 % (0.0-11.0); NEUTROPHIL # 3.5 10^3/ul (1.6-7.5); PLATELET COUNT 174 10^3/UL (140-415); RED BLOOD COUNT 3.46 10^6/ul (4.20-5.40); RED CELL DISTRIBUTION WIDTH 14.6 % (11.5-14.5); WHITE BLOOD COUNT 5.1 10^3/ul (4.8-10.8)
--- NOTE | 2017-06-06 08:41 | CONS ---
Date/Time of Note Date/Time of Note DATE: 06/06/17 TIME: 08:38 Consult Date/Type/Reason Admit Date/Time Jun 01, 2017 at 15:36 Initial Consult Date 06/01/17 Type of Consultation: CARDIOLOGY Ordering Provider: IGGY GALVEZ Subjective CARDIOLOGY FOLLOW UP NOTE: SUBJECTIVE: D/W staff and rhythm was reviewed. . PT remains in NSR/ SINUS BRADYCARDIA. pt denies any cp to me. no groin pain she is ON NC O2 only now. OBJECTIVE: General: NO Acute distress HEENT: NC/AT. pupils are equal. round. NECK: . no stridor. CV: RR. systolic murmur; + gallop . no rubs. PULM: + rhonchi at base. GI: SOFT, NT, ND, no rebound or guarding Extremity: trace B/L LE edema. no clubbing. neuro: awake and alert, Psych: calm rectal: deferred ECHO 06/01/17 personally reviewed: 1. Normal left ventricular cavity size. Moderateleft ventricular hypertrophy, and severe septal hypertrophy, septum measures 2.3 cm. Severe left ventricular systolic dysfunction. Ejection fraction is visually estimated at 30 %. Tissue Doppler/Mitral Doppler indices are indeterminate in this study due to the presence of tachycardia throughout exam. Resting left ventricular outflow tract velocity 4.00 m/sec. Resting left ventricular outflow tract gradient 65.0 mmHg. Severe left ventricular outflow tract obstruction, patient unable to Valsalva. These segments of the LV are akinetic apical anterior segment, apical lateral segment, Apical inferior segment, apical cap, apical septum segment, mid anterior segment, inferoseptum mid segment. and anteroseptum mid segment. 2. There is severe enlargement of left atrium, appreciated best by LA volumes. LA Volume Index=50. 3. Mild mitral leaflet calcification. Moderate mitral annular calcification. Moderate to severe mitral valve regurgitation. The regurgitation jet is eccentrically directed which may underestimate the severity of mitral regurgitation. Moderate systolic anterior motion of mitral valve. Chordal LENA seen. 4. No hemodynamically significant aortic stenosis by Doppler, flows are increased however patient is tachycardic and there is LVOT obstruction. Aortic cusps appear mildly calcified. 5. Normal appearance of the tricuspid valve. Estimated peak PA systolic pressure 54 mmHg. There is moderate to severe tricuspid regurgitation. 6. Normal size and normal respiratory collapse consistent with normal right atrial pressure. 7. above findings are consistent with HCM physiology but now with severe LV dysfunction. Objective Vital Signs Date Time Temp Pulse Resp B/P Pulse Ox O2 Delivery O2 Flow Rate FiO2 06/06/17 08:29 61 06/06/17 07:47 98.6 18 142/66 98 06/05/17 20:40 Nasal Cannula 4.0 06/04/17 05:30 100 Intake and Output 06/05/17 06/05/17 06/06/17 15:00 23:00 07:00 Intake Total 650 ml 240 ml Output Total 200 ml Balance 450 ml 240 ml Results/Medications Result Diagram: 06/06/17 0800 06/05/17 0400 Results 24 hrs Laboratory Tests Test 06/06/17 08:00 White Blood Count 5.1 # Red Blood Count 3.46 L Hemoglobin 10.4 L Hematocrit 31.9 L Mean Corpuscular Volume 92.2 Mean Corpuscular Hemoglobin 30.1 Mean Corpuscular Hemoglobin Concent 32.6 Red Cell Distribution Width 14.6 H Platelet Count 174 Mean Platelet Volume 9.5 Neutrophils % 68.0 Lymphocytes % 20.6 Monocytes % 6.5 Eosinophils % 4.1 Basophils % 0.4 Nucleated Red Blood Cells % 0.0 Neutrophils # 3.5 Lymphocytes # 1.1 Monocytes # 0.3 Eosinophils # 0.2 Basophils # 0.0 Nucleated Red Blood Cells # 0.0 Medications Current Medications Acetaminophen (Tylenol Tab) 650 mg Q6H PRN PO PAIN LEVEL 1-3 OR FEVER; Start at 17:30 Acetaminophen/ Hydrocodone Bitart ([place] (5/325)) 1 tab Q6H PRN PO MODERATE PAIN LEVEL 4-6; Start 06/01/17 at 17:30 Morphine Sulfate (morphine) 2 mg Q4H PRN IV SEVERE PAIN LEVEL 7-10; Start 06/01 at 17:30 Magnesium Hydroxide (Milk Of Mag) 30 ml DAILY PRN PO CONSTIPATION; Start at 17:30 Aspirin (Halfprin) 81 mg DAILY PO Last administered on 06/05/17 07:56; Admin Dose 81 MG; Start 06/02/17 at 09:00 Atorvastatin Calcium 40 mg 40 mg HS PO Last administered on 06/05/17 20:35; Admin Dose 40 MG; Start 06/02/17 at 21:00 Cefepime HCl (Maxipime 1gm/50 ml (Pmx)) 50 ml @ 100 mls/hr Q24H IVPB Last administered on 06/05/17 15:05; Admin Dose 100 MLS/HR; Start 06/03/17 at 15:30 Carvedilol (Coreg) 3.125 mg BID PO Last administered on 06/05/17 20:37; Admin Dose 3.125 MG; Start 06/05/17 at 21:00 Atorvastatin Calcium (Lipitor) 20 mg HS PO ; Start 06/06/17 at 21:00; Status UNV Assessment/Plan Chief Complaint/Hosp Course 1. ACUTE [place]: kole angio done emergently did NOT show any significant flow limiting obstruction 2. CHF: acute on chronic due to systolic and diastolic heart failure. 3. abnormal ECG with intermittent LBBB: stable now 4. HX HTN 5. HX CVA including hemorrhagic CVA 6. memory impairment 7. dyslipidemia 8. hx dyspepsia 9. cardiogenic shock +/- sepsis: improved BP now 10. 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 MOD/ SEVERE MR. Recommendations ASA Diuresis as tolerated/. needed. will cont betablocker cont o2 ABX as per IM / pulm lipitor qhs PT as tolerated. Thank you for this referral. I will continue to follow along with you DREW MACARIO MD [facility] Problems: DREW MACARIO MD Jun 06, 2017 08:41
[2017-06-06] MEDS: ASPIRIN (EC) 81 MG TAB PO SCH (08:58)
[2017-06-06 10:12] LABS: ALBUMIN 2.9 g/dl (3.3-4.9); CALCIUM 9.9 mg/dl (8.4-10.2); CREATININE 0.9 mg/dl (0.44-1.00); POTASSIUM 3.6 mmol/L (3.5-5.1); TOTAL PROTEIN 5.8 g/dl (6.1-8.1)
[2017-06-06 10:44] LABS: MAGNESIUM 2.4 mg/dl (1.7-2.5)
--- NOTE | 2017-06-06 12:32 | CONS ---
Date/Time of Note Date/Time of Note DATE: 06/06/17 TIME: 12:30 Assessment/Plan Assessment/Plan Additional Assessment/Plan Assessment and recommendations; 1. Patient admitted with sepsis and shock with significant clinical improvement. 2. CHF with possibility of superimposed pneumonia as well as UTI. 3. Mild anemia and thrombocytopenia. Continue current treatment. Obtain follow-up chest x-ray. I did have a detailed discussion patient's daughter at bedside and answered all her questions. Consultation Date/Type/Reason Admit Date/Time Jun 01, 2017 at 15:36 Initial Consult Date 06/01/17 Type of Consultation: Pulmonary Referring Provider: IGGY GALVEZ 24 HR Interval Summary Free Text/Dictation Patient condition is stable. She has been transferred out of ICU to the medical floor. Denies any shortness of breath, chest pain, sputum production. Any fever or chills. Patient is able to eat. General exam; elderly woman, awake and alert. Currently in no distress. Exam/Review of Systems Vital Signs Vitals Vital Signs Date Time Temp Pulse Resp B/P Pulse Ox O2 Delivery O2 Flow Rate FiO2 06/06/17 12:14 57 06/06/17 12:10 97.9 17 139/64 95 06/05/17 20:40 Nasal Cannula 4.0 06/04/17 05:30 100 Intake and Output 06/05/17 06/05/17 06/06/17 15:00 23:00 07:00 Intake Total 650 ml 240 ml Output Total 200 ml Balance 450 ml 240 ml Exam HEENT exam; supple neck, positive JVD. No lymphadenopathy. Midline trachea. No thyromegaly. Pharynx is clear. Patient has bilateral intraocular lens implant. Has fair dentition. Chest exam; diminished but clear breath sounds. S1-S2 audible, no murmurs. Regular rhythm. Abdomen exam; soft, nontender. Bowel sounds audible. Extremity exam; no peripheral edema. P[employer]END[employer] exam; no focal deficit. Results Result Diagram: 06/06/17 0800 06/06/17 0800 Results 24 hrs Laboratory Tests Test 06/06/17 08:00 White Blood Count 5.1 # Red Blood Count 3.46 L Hemoglobin 10.4 L Hematocrit 31.9 L Mean Corpuscular Volume 92.2 Mean Corpuscular Hemoglobin 30.1 Mean Corpuscular Hemoglobin Concent 32.6 Red Cell Distribution Width 14.6 H Platelet Count 174 Mean Platelet Volume 9.5 Neutrophils % 68.0 Lymphocytes % 20.6 Monocytes % 6.5 Eosinophils % 4.1 Basophils % 0.4 Nucleated Red Blood Cells % 0.0 Neutrophils # 3.5 Lymphocytes # 1.1 Monocytes # 0.3 Eosinophils # 0.2 Basophils # 0.0 Nucleated Red Blood Cells # 0.0 Sodium Level 140 Potassium Level 3.6 Chloride Level 103 Carbon Dioxide Level 33 H Anion Gap 8 Blood Urea Nitrogen 38 H Creatinine 0.90 Glucose Level 98 Calcium Level 9.9 Magnesium Level 2.4 Total Bilirubin 1.0 Direct Bilirubin 0.00 Indirect Bilirubin 1.0 Aspartate Amino Transf (AST/SGOT) 31 Alanine Aminotransferase (ALT/SGPT) 26 Alkaline Phosphatase 59 B-Type Natriuretic Peptide 8790 H Total Protein 5.8 L Albumin 2.9 L Globulin 2.90 Albumin/Globulin Ratio 1.00 Medications Medications Current Medications Acetaminophen (Tylenol Tab) 650 mg Q6H PRN PO PAIN LEVEL 1-3 OR FEVER; Start at 17:30 Acetaminophen/ Hydrocodone Bitart ([place] (5/325)) 1 tab Q6H PRN PO MODERATE PAIN LEVEL 4-6; Start 06/01/17 at 17:30 Morphine Sulfate (morphine) 2 mg Q4H PRN IV SEVERE PAIN LEVEL 7-10; Start 06/01 at 17:30 Magnesium Hydroxide (Milk Of Mag) 30 ml DAILY PRN PO CONSTIPATION; Start at 17:30 Aspirin (Halfprin) 81 mg DAILY PO Last administered on 06/06/17 08:58; Admin Dose 81 MG; Start 06/02/17 at 09:00 Atorvastatin Calcium 40 mg 40 mg HS PO Last administered on 06/05/17 20:35; Admin Dose 40 MG; Start 06/02/17 at 21:00; Status Future hold Cefepime HCl (Maxipime 1gm/50 ml (Pmx)) 50 ml @ 100 mls/hr Q24H IVPB Last administered on 06/05/17 15:05; Admin Dose 100 MLS/HR; Start 06/03/17 at 15:30 Carvedilol (Coreg) 3.125 mg BID PO Last administered on 06/06/17 08:57; Admin Dose 3.125 MG; Start 06/05/17 at 21:00 MIKE STRICKLAND Jun 06, 2017 12:32
--- NOTE | 2017-06-06 15:11 | PN ---
Date/Time of Note Date/Time of Note DATE: 06/06/17 TIME: 15:07 Assessment/Plan VTE Prophylaxis VTE Prophylaxis Intervention: SCD's Lines/Catheters IV Catheter Type (from Nrsg): Saline Lock Urinary Cath still in place: Yes Reason Cath still needed: urinary retention (will dc), other (indicate) Assessment/Plan Assessment/Plan 81 yo F with pmhx chronic systolic and diastolic HF presented with chest pain, found to have elevated troponin, most likely 2/2 underlying heart failure. 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 (leukocytosis and tachycardia closer to admission) -cont cefepime, anticipate 7 day course (06.01-->) Low albumin RD eval, check urine p/c PT eval for deconditioning, suspect will need SNF CM and ARU consults placed RD eval for nutritional status Prophylaxis: SCDs Exam/Review of Systems Vital Signs Vitals Vital Signs Date Time Temp Pulse Resp B/P Pulse Ox O2 Delivery O2 Flow Rate FiO2 06/06/17 12:14 57 06/06/17 12:10 97.9 17 139/64 95 06/05/17 20:40 Nasal Cannula 4.0 06/04/17 05:30 100 Intake and Output 06/05/17 06/05/17 06/06/17 15:00 23:00 07:00 Intake Total 650 ml 240 ml Output Total 200 ml Balance 450 ml 240 ml Results Result Diagram: 06/06/17 0800 06/06/17 0800 Results 24 hrs Laboratory Tests Test 06/06/17 08:00 White Blood Count 5.1 # Red Blood Count 3.46 L Hemoglobin 10.4 L Hematocrit 31.9 L Mean Corpuscular Volume 92.2 Mean Corpuscular Hemoglobin 30.1 Mean Corpuscular Hemoglobin Concent 32.6 Red Cell Distribution Width 14.6 H Platelet Count 174 Mean Platelet Volume 9.5 Neutrophils % 68.0 Lymphocytes % 20.6 Monocytes % 6.5 Eosinophils % 4.1 Basophils % 0.4 Nucleated Red Blood Cells % 0.0 Neutrophils # 3.5 Lymphocytes # 1.1 Monocytes # 0.3 Eosinophils # 0.2 Basophils # 0.0 Nucleated Red Blood Cells # 0.0 Sodium Level 140 Potassium Level 3.6 Chloride Level 103 Carbon Dioxide Level 33 H Anion Gap 8 Blood Urea Nitrogen 38 H Creatinine 0.90 Glucose Level 98 Calcium Level 9.9 Magnesium Level 2.4 Total Bilirubin 1.0 Direct Bilirubin 0.00 Indirect Bilirubin 1.0 Aspartate Amino Transf (AST/SGOT) 31 Alanine Aminotransferase (ALT/SGPT) 26 Alkaline Phosphatase 59 B-Type Natriuretic Peptide 8790 H Total Protein 5.8 L Albumin 2.9 L Globulin 2.90 Albumin/Globulin Ratio 1.00 Medications Medications Current Medications Acetaminophen (Tylenol Tab) 650 mg Q6H PRN PO PAIN LEVEL 1-3 OR FEVER; Start at 17:30 Acetaminophen/ Hydrocodone Bitart ([place] (5/325)) 1 tab Q6H PRN PO MODERATE PAIN LEVEL 4-6; Start 06/01/17 at 17:30 Morphine Sulfate (morphine) 2 mg Q4H PRN IV SEVERE PAIN LEVEL 7-10; Start 06/01 at 17:30 Magnesium Hydroxide (Milk Of Mag) 30 ml DAILY PRN PO CONSTIPATION; Start at 17:30 Aspirin (Halfprin) 81 mg DAILY PO Last administered on 06/06/17 08:58; Admin Dose 81 MG; Start 06/02/17 at 09:00 Atorvastatin Calcium 40 mg 40 mg HS PO Last administered on 06/05/17 20:35; Admin Dose 40 MG; Start 06/02/17 at 21:00; Status Future hold Cefepime HCl (Maxipime 1gm/50 ml (Pmx)) 50 ml @ 100 mls/hr Q24H IVPB Last administered on 06/05/17 15:05; Admin Dose 100 MLS/HR; Start 06/03/17 at 15:30 Carvedilol (Coreg) 3.125 mg BID PO Last administered on 06/06/17 08:57; Admin Dose 3.125 MG; Start 06/05/17 at 21:00 LIA CHOU MD Jun 06, 2017 15:11
[2017-06-06] MEDS: CEFEPIME 1GM/50 ML (PMX) 50 ML IVPB SCH (15:47)
--- NOTE | 2017-06-06 18:09 | RADRPT ---
PROCEDURE: XR Chest. CLINICAL INDICATION: Heart failure TECHNIQUE: Single frontal view of the chest was obtained. COMPARISON: 06/04/2017 FINDINGS: The cardiomediastinal silhouette is mild to moderately enlarged. Pulmonary vasculature is mildly pr ominent. There is a small left pleural effusion and left base atelectasis. There is moderate aortic calcification. There is no pneumothorax. The osseous structures and soft tissues are unremarkable. IMPRESSION: 1. Mild to moderate cardiomegaly. 2. Pulmonary vascular congestion, improved. 3. Small left pleural effusion and left base atelectasis. 4. Moderate aortic calcification. Prominent mitral annulus calcification. RPTAT: DD .Ollie Toledo MD, Date Time Electronically viewed and signed by .Ollie Toledo MD, on 06/06/2017 18:08 .T/
[2017-06-06] MEDS: ATORVASTATIN 40 MG TAB PO SCH (20:57)
[2017-06-06] MEDS ORDERED: VALSARTAN 80 MG TAB PO SCH (21:00)
[2017-06-06] MEDS ORDERED: ATORVASTATIN 20 MG TAB PO SCH (21:00)
[2017-06-07] VITALS (12 sets, daily range): BP systolic 146–160; BP diastolic 67–78; PULSE 50–53; RESP 16–19
--- NOTE | 2017-06-07 08:23 | CONS ---
Date/Time of Note Date/Time of Note DATE: 06/07/17 TIME: 08:19 Consult Date/Type/Reason Admit Date/Time Jun 01, 2017 at 15:36 Initial Consult Date 06/01/17 Type of Consultation: CARDIOLOGY Ordering Provider: IGGY GALVEZ Subjective CARDIOLOGY FOLLOW UP NOTE: SUBJECTIVE: D/W staff and rhythm was reviewed. . PT remains in NSR/ SINUS BRADYCARDIA. pt denies any cp to me. no groin pain she is ON NC O2 only now AND breathing much better now. OBJECTIVE: General: NO Acute distress HEENT: NC/AT. pupils are equal. round. NECK: . no stridor. CV: RR. systolic murmur; + gallop . no rubs. PULM: + rhonchi at base. GI: SOFT, NT, ND, no rebound or guarding Extremity: trace B/L LE edema. no clubbing. neuro: awake and alert, responds appropriately Psych: calm rectal: deferred ECHO 06/01/17 personally reviewed: 1. Normal left ventricular cavity size. Moderateleft ventricular hypertrophy, and severe septal hypertrophy, septum measures 2.3 cm. Severe left ventricular systolic dysfunction. Ejection fraction is visually estimated at 30 %. Tissue Doppler/Mitral Doppler indices are indeterminate in this study due to the presence of tachycardia throughout exam. Resting left ventricular outflow tract velocity 4.00 m/sec. Resting left ventricular outflow tract gradient 65.0 mmHg. Severe left ventricular outflow tract obstruction, patient unable to Valsalva. These segments of the LV are akinetic apical anterior segment, apical lateral segment, Apical inferior segment, apical cap, apical septum segment, mid anterior segment, inferoseptum mid segment. and anteroseptum mid segment. 2. There is severe enlargement of left atrium, appreciated best by LA volumes. LA Volume Index=50. 3. Mild mitral leaflet calcification. Moderate mitral annular calcification. Moderate to severe mitral valve regurgitation. The regurgitation jet is eccentrically directed which may underestimate the severity of mitral regurgitation. Moderate systolic anterior motion of mitral valve. Chordal LENA seen. 4. No hemodynamically significant aortic stenosis by Doppler, flows are increased however patient is tachycardic and there is LVOT obstruction. Aortic cusps appear mildly calcified. 5. Normal appearance of the tricuspid valve. Estimated peak PA systolic pressure 54 mmHg. There is moderate to severe tricuspid regurgitation. 6. Normal size and normal respiratory collapse consistent with normal right atrial pressure. 7. above findings are consistent with HCM physiology but now with severe LV dysfunction. Objective Vital Signs Date Time Temp Pulse Resp B/P Pulse Ox O2 Delivery O2 Flow Rate FiO2 06/07/17 06:04 6.0 06/07/17 05:06 97.6 68 16 146/69 96 06/06/17 19:57 Nasal Cannula 06/04/17 05:30 100 Intake and Output 06/06/17 06/06/17 06/07/17 15:00 23:00 07:00 Intake Total 600 ml 300 ml Balance 600 ml 300 ml Results/Medications Result Diagram: 06/06/17 0800 06/06/17 0800 Medications Current Medications Acetaminophen (Tylenol Tab) 650 mg Q6H PRN PO PAIN LEVEL 1-3 OR FEVER; Start at 17:30 Acetaminophen/ Hydrocodone Bitart ([place] (5/325)) 1 tab Q6H PRN PO MODERATE PAIN LEVEL 4-6; Start 06/01/17 at 17:30 Morphine Sulfate (morphine) 2 mg Q4H PRN IV SEVERE PAIN LEVEL 7-10; Start 06/01 at 17:30 Magnesium Hydroxide (Milk Of Mag) 30 ml DAILY PRN PO CONSTIPATION; Start at 17:30 Aspirin (Halfprin) 81 mg DAILY PO Last administered on 06/06/17 08:58; Admin Dose 81 MG; Start 06/02/17 at 09:00 Atorvastatin Calcium 40 mg 40 mg HS PO Last administered on 06/06/17 20:57; Admin Dose 40 MG; Start 06/02/17 at 21:00; Status Future hold Cefepime HCl (Maxipime 1gm/50 ml (Pmx)) 50 ml @ 100 mls/hr Q24H IVPB Last administered on 06/06/17 15:47; Admin Dose 100 MLS/HR; Start 06/03/17 at 15:30 Carvedilol (Coreg) 3.125 mg BID PO ; Start 06/07/17 at 09:00; Status UNV Assessment/Plan Chief Complaint/Hosp Course 1. ACUTE [place]: kole angio done emergently did NOT show any significant flow limiting obstruction 2. CHF: acute on chronic due to systolic and diastolic heart failure. 3. abnormal ECG with intermittent LBBB: stable now 4. HX HTN 5. HX CVA including hemorrhagic CVA 6. memory impairment 7. dyslipidemia 8. hx dyspepsia 9. cardiogenic shock +/- sepsis: improved BP now 10. 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 MOD/ SEVERE MR. Recommendations ASA Diuresis as tolerated/. needed. will cont betablocker. goal HR is 50s given her cardiomyopathy and more importantly HCM physiology. will dc ARB/ ZAN due to her HCM physiology. cont o2 ABX as per IM / pulm lipitor qhs PT as tolerated. will add aldactone physical therapy and rehab as tolerated. Thank you for this referral. I will continue to follow along with you DREW MACARIO MD [facility] Problems: DREW MACARIO MD Jun 07, 2017 08:23
[2017-06-07] MEDS: ASPIRIN (EC) 81 MG TAB PO SCH (08:36)
[2017-06-07 08:52] LABS: BASOPHILS % 0.4 % (0.0-2.0); EOSINOPHILS # 0.3 10^3/ul (0.0-0.5); EOSINOPHILS % 6.3 % (0.0-7.0); HEMATOCRIT 32.2 % (37.0-47.0); HEMOGLOBIN 10.6 g/dl (12.0-16.0); LYMPHOCYTES # 1.1 10^3/ul (0.8-2.9); LYMPHOCYTES % 22.3 % (15.0-51.0); MEAN CORPUSCULAR HEMOGLOBIN 30.3 pg (29.0-33.0); MEAN CORPUSCULAR HGB CONC 32.9 g/dl (32.0-37.0); MEAN PLATELET VOLUME 9.6 fl (7.4-10.4); MONOCYTE # 0.3 10^3/ul (0.3-0.9); MONOCYTES % 7.2 % (0.0-11.0); NEUTROPHILS % 63.6 % (39.0-77.0); PLATELET COUNT 187 10^3/UL (140-415); RED CELL DISTRIBUTION WIDTH 14.2 % (11.5-14.5); WHITE BLOOD COUNT 4.8 10^3/ul (4.8-10.8)
[2017-06-07 09:10] LABS: ALBUMIN 2.9 g/dl (3.3-4.9); ALBUMIN/GLOBULIN RATIO 0.93; CALCIUM 9.7 mg/dl (8.4-10.2); CREATININE 0.76 mg/dl (0.44-1.00); POTASSIUM 3.9 mmol/L (3.5-5.1)
[2017-06-07 09:11] LABS: BILIRUBIN,TOTAL 0.8 mg/dl (0.2-1.3)
[2017-06-07 09:12] LABS: BILIRUBIN,INDIRECT 0.8 mg/dl (0-1.1)
[2017-06-07] MEDS: SPIRONOLACTONE 25 MG TAB PO SCH (11:07)
--- NOTE | 2017-06-07 12:26 | CONS ---
Date/Time of Note Date/Time of Note DATE: 06/07/17 TIME: 12:24 Consult Date/Type/Reason Admit Date/Time Jun 01, 2017 at 15:36 Initial Consult Date 06/01/17 Type of Consultation: Pulmonary Ordering Provider: IGGY GALVEZ Subjective Patient remains stable no new events. Clinically improving slowly. Remains on nasal cannula. Denies chest pain. Objective Vital Signs Date Time Temp Pulse Resp B/P Pulse Ox O2 Delivery O2 Flow Rate FiO2 06/07/17 12:20 53 06/07/17 11:35 97.9 18 147/78 96 06/07/17 08:00 Nasal Cannula 4.0 06/04/17 05:30 100 Intake and Output 06/06/17 06/06/17 06/07/17 14:59 22:59 06:59 Intake Total 600 ml 300 ml Balance 600 ml 300 ml Exam GENERAL: Elderly appearing lady comfortable at rest VITAL SIGNS: per chart NECK: Supple. No JVD or lymphadenopathy. CARDIAC EXAM: S1, S2. No added sounds or murmurs. CHEST: Diminished air entry bilaterally with few rales ABDOMEN: Soft, nontender. No guarding or rebound. EXTREMITIES: No cyanosis, clubbing or edema. NEUROLOGIC: Generalized weakness. No focal deficits. Results/Medications Result Diagram: 06/07/17 0748 06/07/17 0748 Results 24 hrs Laboratory Tests Test 06/07/17 07:48 White Blood Count 4.8 Red Blood Count 3.50 L Hemoglobin 10.6 L Hematocrit 32.2 L Mean Corpuscular Volume 92.0 Mean Corpuscular Hemoglobin 30.3 Mean Corpuscular Hemoglobin Concent 32.9 Red Cell Distribution Width 14.2 Platelet Count 187 Mean Platelet Volume 9.6 Neutrophils % 63.6 Lymphocytes % 22.3 Monocytes % 7.2 Eosinophils % 6.3 Basophils % 0.4 Nucleated Red Blood Cells % 0.0 Neutrophils # 3.0 Lymphocytes # 1.1 Monocytes # 0.3 Eosinophils # 0.3 Basophils # 0.0 Nucleated Red Blood Cells # 0.0 Sodium Level 141 Potassium Level 3.9 Chloride Level 104 Carbon Dioxide Level 34 H Anion Gap 7 L Blood Urea Nitrogen 29 H Creatinine 0.76 Glucose Level 100 Calcium Level 9.7 Total Bilirubin 0.8 Direct Bilirubin 0.00 Indirect Bilirubin 0.8 Aspartate Amino Transf (AST/SGOT) 33 Alanine Aminotransferase (ALT/SGPT) 30 Alkaline Phosphatase 61 B-Type Natriuretic Peptide 4570 H Total Protein 6.0 L Albumin 2.9 L Globulin 3.10 Albumin/Globulin Ratio 0.93 Medications Current Medications Acetaminophen (Tylenol Tab) 650 mg Q6H PRN PO PAIN LEVEL 1-3 OR FEVER; Start at 17:30 Acetaminophen/ Hydrocodone Bitart ([place] (5/325)) 1 tab Q6H PRN PO MODERATE PAIN LEVEL 4-6; Start 06/01/17 at 17:30 Morphine Sulfate (morphine) 2 mg Q4H PRN IV SEVERE PAIN LEVEL 7-10; Start 06/01 at 17:30 Magnesium Hydroxide (Milk Of Mag) 30 ml DAILY PRN PO CONSTIPATION; Start at 17:30 Aspirin (Halfprin) 81 mg DAILY PO Last administered on 06/07/17 08:36; Admin Dose 81 MG; Start 06/02/17 at 09:00 Atorvastatin Calcium 40 mg 40 mg HS PO Last administered on 06/06/17 20:57; Admin Dose 40 MG; Start 06/02/17 at 21:00; Status Future hold Cefepime HCl (Maxipime 1gm/50 ml (Pmx)) 50 ml @ 100 mls/hr Q24H IVPB Last administered on 06/06/17 15:47; Admin Dose 100 MLS/HR; Start 06/03/17 at 15:30 Carvedilol (Coreg) 3.125 mg BID PO Last administered on 06/07/17 08:35; Admin Dose 3.125 MG; Start 06/07/17 at 09:00 Spironolactone (Aldactone) 25 mg DAILY PO Last administered on 06/07/17 11:07 ; Admin Dose 25 MG; Start 06/07/17 at 09:30 Assessment/Plan Chief Complaint/Hosp Course Assessment 1. Congestive cardiac failure acute exacerbation 2. Hypoxemic respiratory failure secondary to above 3. Nonobstructive coronary artery disease Plan 1. Continue blood pressure management cardiac recommendations change in antihypertensives noted 2. Encourage out of bed 3. Decrease O2 as tolerated Agree with long term facility and/or acute rehab evaluation. Problems: TIFFANY KUNZ MD, [facility] Jun 07, 2017 12:26
[2017-06-07] MEDS: CEFEPIME 1GM/50 ML (PMX) 50 ML IVPB SCH (15:30)
--- NOTE | 2017-06-07 15:37 | PN ---
Date/Time of Note Date/Time of Note DATE: 06/07/17 TIME: 15:35 Assessment/Plan VTE Prophylaxis VTE Prophylaxis Intervention: SCD's Lines/Catheters IV Catheter Type (from Nrsg): Saline Lock Urinary Cath still in place: Yes Reason Cath still needed: other (indicate) (not needed) Assessment/Plan Assessment/Plan 81 yo F with pmhx chronic systolic and diastolic HF presented with chest pain, found to have elevated troponin, most likely 2/2 underlying heart failure. O2 needs continue to decline #NSTEMI; acute on chronic systolic and diastolic HF sp cath 9.15 with nonobstructive CAD HR in 50s, change bb to low dose ARB cont dieresis as per cards #?Sepsis from UTI v pna? (leukocytosis and tachycardia closer to admission) -cont cefepime, anticipate 7 day course (9.15-->9.21) will stop abx in AM #Low albumin: check urine p/c, expand diet CM and ARU consults placed for SNF/AR Prophylaxis: SCDs Pt is medically stable for transfer. Subjective 24 Hr Interval Summary Free Text/Dictation Pt states she does not want to go to a SNF but is still 2 person assist at this time Exam/Review of Systems Vital Signs Vitals Vital Signs Date Time Temp Pulse Resp B/P Pulse Ox O2 Delivery O2 Flow Rate FiO2 06/07/17 15:31 98.2 52 18 148/67 97 06/07/17 08:00 Nasal Cannula 4.0 06/04/17 05:30 100 Intake and Output 06/06/17 06/06/17 06/07/17 15:00 23:00 07:00 Intake Total 600 ml 300 ml Balance 600 ml 300 ml Exam nad no mrg abd soft no rashes responds to questions appropriately Results Result Diagram: 06/07/17 0748 06/07/17 0748 Results 24 hrs Laboratory Tests Test 06/07/17 07:48 White Blood Count 4.8 Red Blood Count 3.50 L Hemoglobin 10.6 L Hematocrit 32.2 L Mean Corpuscular Volume 92.0 Mean Corpuscular Hemoglobin 30.3 Mean Corpuscular Hemoglobin Concent 32.9 Red Cell Distribution Width 14.2 Platelet Count 187 Mean Platelet Volume 9.6 Neutrophils % 63.6 Lymphocytes % 22.3 Monocytes % 7.2 Eosinophils % 6.3 Basophils % 0.4 Nucleated Red Blood Cells % 0.0 Neutrophils # 3.0 Lymphocytes # 1.1 Monocytes # 0.3 Eosinophils # 0.3 Basophils # 0.0 Nucleated Red Blood Cells # 0.0 Sodium Level 141 Potassium Level 3.9 Chloride Level 104 Carbon Dioxide Level 34 H Anion Gap 7 L Blood Urea Nitrogen 29 H Creatinine 0.76 Glucose Level 100 Calcium Level 9.7 Total Bilirubin 0.8 Direct Bilirubin 0.00 Indirect Bilirubin 0.8 Aspartate Amino Transf (AST/SGOT) 33 Alanine Aminotransferase (ALT/SGPT) 30 Alkaline Phosphatase 61 B-Type Natriuretic Peptide 4570 H Total Protein 6.0 L Albumin 2.9 L Globulin 3.10 Albumin/Globulin Ratio 0.93 Medications Medications Current Medications Acetaminophen (Tylenol Tab) 650 mg Q6H PRN PO PAIN LEVEL 1-3 OR FEVER; Start at 17:30 Acetaminophen/ Hydrocodone Bitart ([place] (5/325)) 1 tab Q6H PRN PO MODERATE PAIN LEVEL 4-6; Start 06/01/17 at 17:30 Morphine Sulfate (morphine) 2 mg Q4H PRN IV SEVERE PAIN LEVEL 7-10; Start 06/01 at 17:30 Magnesium Hydroxide (Milk Of Mag) 30 ml DAILY PRN PO CONSTIPATION; Start at 17:30 Aspirin (Halfprin) 81 mg DAILY PO Last administered on 06/07/17 08:36; Admin Dose 81 MG; Start 06/02/17 at 09:00 Atorvastatin Calcium 40 mg 40 mg HS PO Last administered on 06/06/17 20:57; Admin Dose 40 MG; Start 06/02/17 at 21:00; Status Future hold Cefepime HCl (Maxipime 1gm/50 ml (Pmx)) 50 ml @ 100 mls/hr Q24H IVPB Last administered on 06/06/17 15:47; Admin Dose 100 MLS/HR; Start 06/03/17 at 15:30 Carvedilol (Coreg) 3.125 mg BID PO Last administered on 06/07/17 08:35; Admin Dose 3.125 MG; Start 06/07/17 at 09:00 Spironolactone (Aldactone) 25 mg DAILY PO Last administered on 06/07/17 11:07 ; Admin Dose 25 MG; Start 06/07/17 at 09:30 LIA CHOU MD Jun 07, 2017 15:37
[2017-06-07] MEDS: ATORVASTATIN 40 MG TAB PO SCH (20:50)
[2017-06-08] VITALS (12 sets, daily range): BP systolic 136–163; BP diastolic 65–79; PULSE 48–64; RESP 17–19
[2017-06-08 07:24] LABS: BASOPHIL # 0.1 10^3/ul (0.0-0.1); EOSINOPHILS # 0.3 10^3/ul (0.0-0.5); EOSINOPHILS % 5.1 % (0.0-7.0); HEMATOCRIT 32.7 % (37.0-47.0); HEMOGLOBIN 10.5 g/dl (12.0-16.0); LYMPHOCYTES # 1.2 10^3/ul (0.8-2.9); LYMPHOCYTES % 23.6 % (15.0-51.0); MEAN CORPUSCULAR HEMOGLOBIN 30.3 pg (29.0-33.0); MEAN CORPUSCULAR HGB CONC 32.1 g/dl (32.0-37.0); MEAN CORPUSCULAR VOLUME 94.2 fl (82.0-101.0); MEAN PLATELET VOLUME 9.4 fl (7.4-10.4); MONOCYTE # 0.4 10^3/ul (0.3-0.9); MONOCYTES % 7.3 % (0.0-11.0); NEUTROPHIL # 3.2 10^3/ul (1.6-7.5); NEUTROPHILS % 62.6 % (39.0-77.0); PLATELET COUNT 195 10^3/UL (140-415); RED BLOOD COUNT 3.47 10^6/ul (4.20-5.40); WHITE BLOOD COUNT 5.1 10^3/ul (4.8-10.8)
[2017-06-08 07:58] LABS: ALBUMIN 2.7 g/dl (3.3-4.9); CALCIUM 9.6 mg/dl (8.4-10.2); CREATININE 0.75 mg/dl (0.44-1.00); MAGNESIUM 2.2 mg/dl (1.7-2.5); POTASSIUM 3.7 mmol/L (3.5-5.1); TOTAL PROTEIN 5.4 g/dl (6.1-8.1)
[2017-06-08] MEDS: SPIRONOLACTONE 25 MG TAB PO SCH (08:19)
[2017-06-08] MEDS: ASPIRIN (EC) 81 MG TAB PO SCH (08:19)
[2017-06-08 09:53] LABS: BILIRUBIN,INDIRECT 0.7 mg/dl (0-1.1); BILIRUBIN,TOTAL 0.7 mg/dl (0.2-1.3)
--- NOTE | 2017-06-08 15:30 | PN ---
Date/Time of Note Date/Time of Note DATE: 06/08/17 TIME: 15:27 Assessment/Plan VTE Prophylaxis VTE Prophylaxis Intervention: SCD's Lines/Catheters IV Catheter Type (from Nrsg): Saline Lock Urinary Cath still in place: Yes Reason Cath still needed: other (indicate) (out>?) Assessment/Plan Assessment/Plan 81 yo F with pmhx chronic systolic and diastolic HF presented with chest pain, found to have elevated troponin, most likely 2/2 underlying heart failure. O2 needs continue to decline #NSTEMI; acute on chronic systolic and diastolic HF sp cath 9.15 with nonobstructive CAD low dose bb rx'ed by cards, cont HR monitoring cont dieresis as per cards #?Sepsis from UTI v pna? (leukocytosis and tachycardia closer to admission). sp 7d of cefepime #Low albumin: urine p/c not markedly elevated, expanded diet Pt medically stable for xfer to SNF Prophylaxis: SCDs Subjective 24 Hr Interval Summary Free Text/Dictation Still doesnt want to go to a SNF. Is still 2P assist Exam/Review of Systems Vital Signs Vitals Vital Signs Date Time Temp Pulse Resp B/P Pulse Ox O2 Delivery O2 Flow Rate FiO2 06/08/17 12:03 52 06/08/17 11:59 98.0 18 147/65 100 06/08/17 08:00 Nasal Cannula 4.0 Intake and Output 06/07/17 06/07/17 06/08/17 15:00 23:00 07:00 Intake Total 650 ml 240 ml Balance 650 ml 240 ml Exam nad laying in bed no mrg lungs clear abd soft no rashes Results Result Diagram: 06/08/17 0700 06/08/17 0700 Results 24 hrs Laboratory Tests Test 06/07/17 19:00 06/08/17 07:00 Urine Random Creatinine 71.00 Urine Total Protein 16.0 H White Blood Count 5.1 Red Blood Count 3.47 L Hemoglobin 10.5 L Hematocrit 32.7 L Mean Corpuscular Volume 94.2 Mean Corpuscular Hemoglobin 30.3 Mean Corpuscular Hemoglobin Concent 32.1 Red Cell Distribution Width 14.0 Platelet Count 195 Mean Platelet Volume 9.4 Neutrophils % 62.6 Lymphocytes % 23.6 Monocytes % 7.3 Eosinophils % 5.1 Basophils % 1.0 Nucleated Red Blood Cells % 0.0 Neutrophils # 3.2 Lymphocytes # 1.2 Monocytes # 0.4 Eosinophils # 0.3 Basophils # 0.1 Nucleated Red Blood Cells # 0.0 Sodium Level 137 Potassium Level 3.7 Chloride Level 104 Carbon Dioxide Level 33 H Anion Gap 4 L Blood Urea Nitrogen 21 H Creatinine 0.75 Glucose Level 98 Calcium Level 9.6 Magnesium Level 2.2 Total Bilirubin 0.7 Direct Bilirubin 0.00 Indirect Bilirubin 0.7 Aspartate Amino Transf (AST/SGOT) 29 Alanine Aminotransferase (ALT/SGPT) 31 Alkaline Phosphatase 54 B-Type Natriuretic Peptide 3730 H Total Protein 5.4 L Albumin 2.7 L Globulin 2.70 Albumin/Globulin Ratio 1.00 Medications Medications Current Medications Acetaminophen (Tylenol Tab) 650 mg Q6H PRN PO PAIN LEVEL 1-3 OR FEVER; Start at 17:30 Acetaminophen/ Hydrocodone Bitart ([place] (5/325)) 1 tab Q6H PRN PO MODERATE PAIN LEVEL 4-6; Start 06/01/17 at 17:30 Morphine Sulfate (morphine) 2 mg Q4H PRN IV SEVERE PAIN LEVEL 7-10; Start 06/01 at 17:30 Magnesium Hydroxide (Milk Of Mag) 30 ml DAILY PRN PO CONSTIPATION; Start at 17:30 Aspirin (Halfprin) 81 mg DAILY PO Last administered on 06/08/17 08:19; Admin Dose 81 MG; Start 06/02/17 at 09:00 Atorvastatin Calcium 40 mg 40 mg HS PO Last administered on 06/07/17 20:50; Admin Dose 40 MG; Start 06/02/17 at 21:00; Status Future hold Cefepime HCl (Maxipime 1gm/50 ml (Pmx)) 50 ml @ 100 mls/hr Q24H IVPB Last administered on 06/07/17 15:30; Admin Dose 100 MLS/HR; Start 06/03/17 at 15:30 ; Stop 06/08/17 at 18:00 Carvedilol (Coreg) 3.125 mg BID PO Last administered on 06/08/17 08:19; Admin Dose 3.125 MG; Start 06/07/17 at 09:00 Spironolactone (Aldactone) 25 mg DAILY PO Last administered on 06/08/17 08:19 ; Admin Dose 25 MG; Start 06/07/17 at 09:30 LIA CHOU MD Jun 08, 2017 15:30
[2017-06-08] MEDS: CEFEPIME 1GM/50 ML (PMX) 50 ML IVPB SCH (16:04)
--- NOTE | 2017-06-08 16:44 | CONS ---
Date/Time of Note Date/Time of Note DATE: 06/08/17 TIME: 16:43 Consult Date/Type/Reason Admit Date/Time Jun 01, 2017 at 15:36 Initial Consult Date 06/01/17 Type of Consultation: cardiology Ordering Provider: IGGY GALVEZ Subjective CARDIOLOGY FOLLOW UP NOTE: SUBJECTIVE: D/W staff and rhythm was reviewed. . PT remains in NSR/ SINUS BRADYCARDIA. pt denies any cp to me. no groin pain she is ON NC O2 only now and denies any dypsnea or PND orthopnea to me now . OBJECTIVE: General: NO Acute distress HEENT: NC/AT. pupils are equal. round. NECK: . no stridor. CV: RR. systolic murmur; + gallop . no rubs. PULM: + rhonchi at base. GI: SOFT, NT, ND, no rebound or guarding Extremity: trace B/L LE edema. no clubbing. neuro: awake and alert, responds appropriately Psych: calm rectal: deferred ECHO 06/01/17 personally reviewed: 1. Normal left ventricular cavity size. Moderateleft ventricular hypertrophy, and severe septal hypertrophy, septum measures 2.3 cm. Severe left ventricular systolic dysfunction. Ejection fraction is visually estimated at 30 %. Tissue Doppler/Mitral Doppler indices are indeterminate in this study due to the presence of tachycardia throughout exam. Resting left ventricular outflow tract velocity 4.00 m/sec. Resting left ventricular outflow tract gradient 65.0 mmHg. Severe left ventricular outflow tract obstruction, patient unable to Valsalva. These segments of the LV are akinetic apical anterior segment, apical lateral segment, Apical inferior segment, apical cap, apical septum segment, mid anterior segment, inferoseptum mid segment. and anteroseptum mid segment. 2. There is severe enlargement of left atrium, appreciated best by LA volumes. LA Volume Index=50. 3. Mild mitral leaflet calcification. Moderate mitral annular calcification. Moderate to severe mitral valve regurgitation. The regurgitation jet is eccentrically directed which may underestimate the severity of mitral regurgitation. Moderate systolic anterior motion of mitral valve. Chordal LENA seen. 4. No hemodynamically significant aortic stenosis by Doppler, flows are increased however patient is tachycardic and there is LVOT obstruction. Aortic cusps appear mildly calcified. 5. Normal appearance of the tricuspid valve. Estimated peak PA systolic pressure 54 mmHg. There is moderate to severe tricuspid regurgitation. 6. Normal size and normal respiratory collapse consistent with normal right atrial pressure. 7. above findings are consistent with HCM physiology but now with severe LV dysfunction. Objective Vital Signs Date Time Temp Pulse Resp B/P Pulse Ox O2 Delivery O2 Flow Rate FiO2 06/08/17 15:38 97.9 54 17 151/70 99 06/08/17 08:00 Nasal Cannula 4.0 Intake and Output 06/07/17 06/07/17 06/08/17 15:00 23:00 07:00 Intake Total 650 ml 240 ml Balance 650 ml 240 ml Results/Medications Result Diagram: 06/08/17 0700 06/08/17 0700 Results 24 hrs Laboratory Tests Test 06/07/17 19:00 06/08/17 07:00 Urine Random Creatinine 71.00 Urine Total Protein 16.0 H White Blood Count 5.1 Red Blood Count 3.47 L Hemoglobin 10.5 L Hematocrit 32.7 L Mean Corpuscular Volume 94.2 Mean Corpuscular Hemoglobin 30.3 Mean Corpuscular Hemoglobin Concent 32.1 Red Cell Distribution Width 14.0 Platelet Count 195 Mean Platelet Volume 9.4 Neutrophils % 62.6 Lymphocytes % 23.6 Monocytes % 7.3 Eosinophils % 5.1 Basophils % 1.0 Nucleated Red Blood Cells % 0.0 Neutrophils # 3.2 Lymphocytes # 1.2 Monocytes # 0.4 Eosinophils # 0.3 Basophils # 0.1 Nucleated Red Blood Cells # 0.0 Sodium Level 137 Potassium Level 3.7 Chloride Level 104 Carbon Dioxide Level 33 H Anion Gap 4 L Blood Urea Nitrogen 21 H Creatinine 0.75 Glucose Level 98 Calcium Level 9.6 Magnesium Level 2.2 Total Bilirubin 0.7 Direct Bilirubin 0.00 Indirect Bilirubin 0.7 Aspartate Amino Transf (AST/SGOT) 29 Alanine Aminotransferase (ALT/SGPT) 31 Alkaline Phosphatase 54 B-Type Natriuretic Peptide 3730 H Total Protein 5.4 L Albumin 2.7 L Globulin 2.70 Albumin/Globulin Ratio 1.00 Medications Current Medications Acetaminophen (Tylenol Tab) 650 mg Q6H PRN PO PAIN LEVEL 1-3 OR FEVER; Start at 17:30 Acetaminophen/ Hydrocodone Bitart ([place] (5/325)) 1 tab Q6H PRN PO MODERATE PAIN LEVEL 4-6; Start 06/01/17 at 17:30 Morphine Sulfate (morphine) 2 mg Q4H PRN IV SEVERE PAIN LEVEL 7-10; Start 06/01 at 17:30 Magnesium Hydroxide (Milk Of Mag) 30 ml DAILY PRN PO CONSTIPATION; Start at 17:30 Aspirin (Halfprin) 81 mg DAILY PO Last administered on 06/08/17 08:19; Admin Dose 81 MG; Start 06/02/17 at 09:00 Atorvastatin Calcium 40 mg 40 mg HS PO Last administered on 06/07/17 20:50; Admin Dose 40 MG; Start 06/02/17 at 21:00; Status Future hold Cefepime HCl (Maxipime 1gm/50 ml (Pmx)) 50 ml @ 100 mls/hr Q24H IVPB Last administered on 06/08/17 16:04; Admin Dose 100 MLS/HR; Start 06/03/17 at 15:30 ; Stop 06/08/17 at 18:00 Carvedilol (Coreg) 3.125 mg BID PO Last administered on 06/08/17 08:19; Admin Dose 3.125 MG; Start 06/07/17 at 09:00 Spironolactone (Aldactone) 25 mg DAILY PO Last administered on 06/08/17 08:19 ; Admin Dose 25 MG; Start 06/07/17 at 09:30 Assessment/Plan Chief Complaint/Hosp Course 1. ACUTE NM: kole angio done emergently did NOT show any significant flow limiting obstruction 2. CHF: acute on chronic due to systolic and diastolic heart failure. 3. abnormal ECG with intermittent LBBB: stable now 4. HX HTN 5. HX CVA including hemorrhagic CVA 6. memory impairment 7. dyslipidemia 8. hx dyspepsia 9. cardiogenic shock +/- sepsis: improved BP now 10. 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 MOD/ SEVERE MR. Recommendations ASA Diuresis as tolerated/. needed. will cont betablocker. goal HR is 50s given her cardiomyopathy and more importantly HCM physiology. off of ARB/ ZAN due to her HCM physiology. cont o2 ABX as per IM / pulm lipitor qhs PT as tolerated. will cont aldactone physical therapy and rehab as tolerated. dc planning is in process pt to follow up with me in 1-2 weeks after post discharge. Thank you for this referral. I will continue to follow along with you DREW MACARIO MD [facility] Problems: DREW MACARIO MD Jun 08, 2017 16:44
--- NOTE | 2017-06-08 16:56 | CONS ---
Date/Time of Note Date/Time of Note DATE: 06/08/17 TIME: 16:54 Consult Date/Type/Reason Admit Date/Time Jun 01, 2017 at 15:36 Initial Consult Date 06/01/17 Type of Consultation: Pulm Ordering Provider: IGGY GALVEZ Subjective Above noted, patient slowly improving but still requiring assistance with ambulation. Declining SNF. Objective Vital Signs Date Time Temp Pulse Resp B/P Pulse Ox O2 Delivery O2 Flow Rate FiO2 06/08/17 15:38 97.9 54 17 151/70 99 06/08/17 08:00 Nasal Cannula 4.0 Intake and Output 06/07/17 06/07/17 06/08/17 15:00 23:00 07:00 Intake Total 650 ml 240 ml Balance 650 ml 240 ml Exam GENERAL: Elderly lady. VITAL SIGNS: per chart NECK: Supple. No JVD or lymphadenopathy. CARDIAC EXAM: S1, S2. No added sounds or murmurs. CHEST: diminished a/e bilaterally. ABDOMEN: Soft, nontender. No guarding or rebound. EXTREMITIES: No cyanosis, clubbing or edema. NEUROLOGIC: Generalized weakness. No focal deficits. Results/Medications Result Diagram: 06/08/17 0700 06/08/17 0700 Results 24 hrs Laboratory Tests Test 06/07/17 19:00 06/08/17 07:00 Urine Random Creatinine 71.00 Urine Total Protein 16.0 H White Blood Count 5.1 Red Blood Count 3.47 L Hemoglobin 10.5 L Hematocrit 32.7 L Mean Corpuscular Volume 94.2 Mean Corpuscular Hemoglobin 30.3 Mean Corpuscular Hemoglobin Concent 32.1 Red Cell Distribution Width 14.0 Platelet Count 195 Mean Platelet Volume 9.4 Neutrophils % 62.6 Lymphocytes % 23.6 Monocytes % 7.3 Eosinophils % 5.1 Basophils % 1.0 Nucleated Red Blood Cells % 0.0 Neutrophils # 3.2 Lymphocytes # 1.2 Monocytes # 0.4 Eosinophils # 0.3 Basophils # 0.1 Nucleated Red Blood Cells # 0.0 Sodium Level 137 Potassium Level 3.7 Chloride Level 104 Carbon Dioxide Level 33 H Anion Gap 4 L Blood Urea Nitrogen 21 H Creatinine 0.75 Glucose Level 98 Calcium Level 9.6 Magnesium Level 2.2 Total Bilirubin 0.7 Direct Bilirubin 0.00 Indirect Bilirubin 0.7 Aspartate Amino Transf (AST/SGOT) 29 Alanine Aminotransferase (ALT/SGPT) 31 Alkaline Phosphatase 54 B-Type Natriuretic Peptide 3730 H Total Protein 5.4 L Albumin 2.7 L Globulin 2.70 Albumin/Globulin Ratio 1.00 Medications Current Medications Acetaminophen (Tylenol Tab) 650 mg Q6H PRN PO PAIN LEVEL 1-3 OR FEVER; Start at 17:30 Acetaminophen/ Hydrocodone Bitart ([place] (5/325)) 1 tab Q6H PRN PO MODERATE PAIN LEVEL 4-6; Start 06/01/17 at 17:30 Morphine Sulfate (morphine) 2 mg Q4H PRN IV SEVERE PAIN LEVEL 7-10; Start 06/01 at 17:30 Magnesium Hydroxide (Milk Of Mag) 30 ml DAILY PRN PO CONSTIPATION; Start at 17:30 Aspirin (Halfprin) 81 mg DAILY PO Last administered on 06/08/17 08:19; Admin Dose 81 MG; Start 06/02/17 at 09:00 Atorvastatin Calcium 40 mg 40 mg HS PO Last administered on 06/07/17 20:50; Admin Dose 40 MG; Start 06/02/17 at 21:00; Status Future hold Cefepime HCl (Maxipime 1gm/50 ml (Pmx)) 50 ml @ 100 mls/hr Q24H IVPB Last administered on 06/08/17 16:04; Admin Dose 100 MLS/HR; Start 06/03/17 at 15:30 ; Stop 06/08/17 at 18:00 Carvedilol (Coreg) 3.125 mg BID PO Last administered on 06/08/17 08:19; Admin Dose 3.125 MG; Start 06/07/17 at 09:00 Spironolactone (Aldactone) 25 mg DAILY PO Last administered on 06/08/17 08:19 ; Admin Dose 25 MG; Start 06/07/17 at 09:30 Assessment/Plan Chief Complaint/Hosp Course Assessment 1. Congestive cardiac failure acute exacerbation 2. Hypoxemic respiratory failure secondary to above, possible aspiration component. 3. Nonobstructive coronary artery disease Plan 1. Continue blood pressure management cardiac recommendations change in antihypertensives noted 2. Encourage out of bed 3. Decrease O2 as tolerated Agree with care home facility and/or acute rehab evaluation. Problems: TIFFANY KUNZ MD, [facility] Jun 08, 2017 16:56
[2017-06-08] MEDS: ATORVASTATIN 40 MG TAB PO SCH (20:48)
[2017-06-09] VITALS (15 sets, daily range): BP systolic 98–179; BP diastolic 61–86; PULSE 51–54; RESP 18–19
[2017-06-09 08:35] LABS: CALCIUM 9.4 mg/dl (8.4-10.2); CREATININE 0.73 mg/dl (0.44-1.00); POTASSIUM 3.9 mmol/L (3.5-5.1)
[2017-06-09] MEDS: ASPIRIN (EC) 81 MG TAB PO SCH (09:16)
[2017-06-09] MEDS: SPIRONOLACTONE 25 MG TAB PO SCH (09:16)
--- NOTE | 2017-06-09 12:20 | CONS ---
Date/Time of Note Date/Time of Note DATE: 06/09/17 TIME: 12:18 Assessment/Plan Assessment/Plan Additional Assessment/Plan Assessment and recommendations; 1. Patient admitted with UTI and pneumonia with sepsis with significant clinical improvement. 2. Congestive heart failure with interval improvement as well. Consider stopping antibiotics. Agree with transfer to shelter. Consultation Date/Type/Reason Admit Date/Time Jun 01, 2017 at 15:36 Initial Consult Date 06/01/17 Type of Consultation: Pulm Referring Provider: IGGY GALVEZ 24 HR Interval Summary Free Text/Dictation Patient's condition is stable. Denies any shortness of breath. General exam; elderly woman, awake and alert. Currently in no distress. Exam/Review of Systems Vital Signs Vitals Vital Signs Date Time Temp Pulse Resp B/P Pulse Ox O2 Delivery O2 Flow Rate FiO2 06/09/17 11:55 98.1 79 19 162/67 98 06/08/17 23:32 6.0 06/08/17 20:00 Nasal Cannula Intake and Output 06/08/17 06/08/17 06/09/17 15:00 23:00 07:00 Intake Total 700 ml 300 ml Balance 700 ml 300 ml Exam HEENT exam; supple neck, no JVD. No lymphadenopathy. Midline trachea. No thyromegaly. Pharynx is clear. Patient has a multiple carious teeth. Chest exam; clear to auscultation. S1-S2 audible, no murmurs. Regular rhythm. Abdomen exam; soft, nontender. No organomegaly. Bowel sounds audible. Extremity exam; no peripheral edema. [employer] exam; no focal deficit Results Result Diagram: 06/08/17 0700 06/09/17 0803 Results 24 hrs Laboratory Tests Test 06/09/17 08:03 Sodium Level 138 Potassium Level 3.9 Chloride Level 103 Carbon Dioxide Level 32 H Anion Gap 7 L Blood Urea Nitrogen 20 Creatinine 0.73 Glucose Level 97 Calcium Level 9.4 Medications Medications Current Medications Acetaminophen (Tylenol Tab) 650 mg Q6H PRN PO PAIN LEVEL 1-3 OR FEVER; Start at 17:30 Acetaminophen/ Hydrocodone Bitart ([place] (5/325)) 1 tab Q6H PRN PO MODERATE PAIN LEVEL 4-6; Start 06/01/17 at 17:30 Morphine Sulfate (morphine) 2 mg Q4H PRN IV SEVERE PAIN LEVEL 7-10; Start 06/01 at 17:30 Magnesium Hydroxide (Milk Of Mag) 30 ml DAILY PRN PO CONSTIPATION; Start at 17:30 Aspirin (Halfprin) 81 mg DAILY PO Last administered on 06/09/17 09:16; Admin Dose 81 MG; Start 06/02/17 at 09:00 Atorvastatin Calcium (Lipitor) 40 mg HS PO Last administered on 06/08/17 20:48 ; Admin Dose 40 MG; Start 06/02/17 at 21:00; Status Future hold Carvedilol (Coreg) 3.125 mg BID PO Last administered on 06/09/17 09:16; Admin Dose 3.125 MG; Start 06/07/17 at 09:00 Spironolactone (Aldactone) 25 mg DAILY PO Last administered on 06/09/17 09:16 ; Admin Dose 25 MG; Start 06/07/17 at 09:30 MIKE STRICKLAND Jun 09, 2017 12:20
--- NOTE | 2017-06-09 14:46 | PN ---
Date/Time of Note Date/Time of Note DATE: 06/09/17 TIME: 14:43 Assessment/Plan VTE Prophylaxis VTE Prophylaxis Intervention: SCD's Lines/Catheters IV Catheter Type (from Nrsg): Saline Lock Urinary Cath still in place: Yes Reason Cath still needed: other (indicate) (dc carlson please) Assessment/Plan Assessment/Plan 81 yo F with pmhx chronic systolic and diastolic HF presented with chest pain, found to have elevated troponin, most likely 2/2 underlying heart failure. Now on room air #NSTEMI; acute on chronic systolic and diastolic HF sp cath 9.15 with nonobstructive CAD low dose bb rx'ed by cards, cont HR monitoring cont dieresis as per cards #?Sepsis from UTI v pna? (leukocytosis and tachycardia closer to admission). sp 7d of cefepime #Low albumin: urine p/c not markedly elevated, expanded diet Pt medically stable for xfer to SNF, likely tomorrow Prophylaxis: SCDs Subjective 24 Hr Interval Summary Free Text/Dictation Sitting up in bed Exam/Review of Systems Vital Signs Vitals Vital Signs Date Time Temp Pulse Resp B/P Pulse Ox O2 Delivery O2 Flow Rate FiO2 06/09/17 12:01 52 06/09/17 11:55 98.1 19 162/67 98 06/08/17 23:32 6.0 06/08/17 20:00 Nasal Cannula Intake and Output 06/08/17 06/08/17 06/09/17 14:59 22:59 06:59 Intake Total 700 ml 300 ml Balance 700 ml 300 ml Exam nad resp nonlabored abd nondistended no rashes EOMI Results Result Diagram: 06/08/17 0700 06/09/17 0803 Results 24 hrs Laboratory Tests Test 06/09/17 08:03 Sodium Level 138 Potassium Level 3.9 Chloride Level 103 Carbon Dioxide Level 32 H Anion Gap 7 L Blood Urea Nitrogen 20 Creatinine 0.73 Glucose Level 97 Calcium Level 9.4 Medications Medications Current Medications Acetaminophen (Tylenol Tab) 650 mg Q6H PRN PO PAIN LEVEL 1-3 OR FEVER; Start at 17:30 Acetaminophen/ Hydrocodone Bitart ([place] (5/325)) 1 tab Q6H PRN PO MODERATE PAIN LEVEL 4-6; Start 06/01/17 at 17:30 Morphine Sulfate (morphine) 2 mg Q4H PRN IV SEVERE PAIN LEVEL 7-10; Start 06/01 at 17:30 Magnesium Hydroxide (Milk Of Mag) 30 ml DAILY PRN PO CONSTIPATION; Start at 17:30 Aspirin (Halfprin) 81 mg DAILY PO Last administered on 06/09/17 09:16; Admin Dose 81 MG; Start 06/02/17 at 09:00 Atorvastatin Calcium (Lipitor) 40 mg HS PO Last administered on 06/08/17 20:48 ; Admin Dose 40 MG; Start 06/02/17 at 21:00; Status Future hold Carvedilol (Coreg) 3.125 mg BID PO Last administered on 06/09/17 09:16; Admin Dose 3.125 MG; Start 06/07/17 at 09:00 Spironolactone (Aldactone) 25 mg DAILY PO Last administered on 06/09/17 09:16 ; Admin Dose 25 MG; Start 06/07/17 at 09:30 LIA CHOU MD Jun 09, 2017 14:46
[2017-06-09] MEDS: ATORVASTATIN 40 MG TAB PO SCH (20:58)
[2017-06-10] VITALS (23 sets, daily range): BP systolic 117–181; BP diastolic 58–97; PULSE 39–58; RESP 15–18
[2017-06-10] MEDS: SPIRONOLACTONE 25 MG TAB PO SCH (08:42)
[2017-06-10] MEDS: ASPIRIN (EC) 81 MG TAB PO SCH (08:43)
--- NOTE | 2017-06-10 11:56 | CONS ---
Date/Time of Note Date/Time of Note DATE: 06/10/17 TIME: 11:54 Assessment/Plan Assessment/Plan Additional Assessment/Plan Assessment and recommendations; 1. Patient admitted with UTI pneumonia as well as CHF exacerbation with marked overall clinical improvement. Continue current treatment. Patient awaiting discharge. Consultation Date/Type/Reason Admit Date/Time Jun 01, 2017 at 15:36 Initial Consult Date 06/01/17 Type of Consultation: Pulm Referring Provider: IGGY GALVEZ 24 HR Interval Summary Free Text/Dictation Patient's condition is stable. Remains awake and alert. General exam; elderly woman, currently in no distress. Exam/Review of Systems Vital Signs Vitals Vital Signs Date Time Temp Pulse Resp B/P Pulse Ox O2 Delivery O2 Flow Rate FiO2 06/10/17 11:31 98.2 63 18 142/64 96 06/10/17 08:00 Nasal Cannula 06/09/17 20:55 3.0 Intake and Output 06/09/17 06/09/17 06/10/17 15:00 23:00 07:00 Intake Total 600 ml 300 ml Balance 600 ml 300 ml Exam HEENT exam; supple neck, positive JVD. No lymphadenopathy. Midline trachea. No thyromegaly. Pupils are small bilaterally. Patient has a multiple carious teeth. Chest exam; diminished but clear breath sounds. S1-S2 audible, no murmurs. Regular rhythm. Abdomen exam; soft, no organomegaly. Bowel sounds audible. Extremity exam; no edema. CLINICAL RN exam; no focal deficit. Results Result Diagram: 06/08/17 0700 06/09/17 0803 Medications Medications Current Medications Acetaminophen (Tylenol Tab) 650 mg Q6H PRN PO PAIN LEVEL 1-3 OR FEVER; Start at 17:30 Acetaminophen/ Hydrocodone Bitart ([place] (5/325)) 1 tab Q6H PRN PO MODERATE PAIN LEVEL 4-6; Start 06/01/17 at 17:30 Morphine Sulfate (morphine) 2 mg Q4H PRN IV SEVERE PAIN LEVEL 7-10; Start 06/01 at 17:30 Magnesium Hydroxide (Milk Of Mag) 30 ml DAILY PRN PO CONSTIPATION; Start at 17:30 Aspirin (Halfprin) 81 mg DAILY PO Last administered on 06/10/17t 08:43; Admin Dose 81 MG; Start 06/02/17 at 09:00 Atorvastatin Calcium (Lipitor) 40 mg HS PO Last administered on 06/09/17 20:58 ; Admin Dose 40 MG; Start 06/02/17 at 21:00; Status Future hold Carvedilol (Coreg) 3.125 mg BID PO Last administered on 06/10/17 08:43; Admin Dose 3.125 MG; Start 06/07/17 at 09:00 Spironolactone (Aldactone) 25 mg DAILY PO Last administered on 06/10/17 08:42 ; Admin Dose 25 MG; Start 06/07/17 at 09:30 MIKE STRICKLAND Jun 10, 2017 11:55
[2017-06-10] MEDS ORDERED: ASPI-664 PO (12:19)
[2017-06-10] MEDS ORDERED: ATOR40TA68 PO (12:19)
[2017-06-10] MEDS ORDERED: SPIR25TA PO (12:19)
[2017-06-10] MEDS ORDERED: CARV3.1260 PO (12:19)
--- NOTE | 2017-06-10 12:20 | DS ---
Date/Time of Note Date/Time of Note DATE: 06/10/17 TIME: 12:20 Discharge Summary Admission/Discharge Info Admit Date/Time Jun 01, 2017 at 15:36 Discharge Date/Time Discharge Diagnosis acute on chronic combined systolic and diastolic HF, NSTEMI Patient Condition: Stable Consults cardiology, pulmonology Procedures [id number] Procedure performed: 1. emergent Left heart catheterization, selective right and left coronary angiogram 2. right femoral angiogram 3. LV gram Findin. Left main coronary artery: Is long with 20% distal stenosis. 2. Left anterior descending artery: Its a moderate size vessel and goes around the apex. It has 20% stenosis proximally, and 20% stenosis of the mid LAD. 3. Left circumflex artery: Is nondominant. It has 30% stenosis. 4. Right coronary artery: Is a large dominant vessel. It has 30% stenosis 5. LV pressure: 169/31; Aortic pressure by pull back is 104/65. EF 40% with apical HK. VSD can not be ruled out. 15 TTE Conclusions 1. Normal left ventricular cavity size. Moderateleft ventricular hypertrophy, and severe septal hypertrophy, septum measures 2.3 cm. Severe left ventricular systolic dysfunction. Ejection fraction is visually estimated at 30 %. Tissue Doppler/Mitral Doppler indices are indeterminate in this study due to the presence of tachycardia throughout exam. Resting left ventricular outflow tract velocity 4.00 m/sec. Resting left ventricular outflow tract gradient 65.0 mmHg. Severe left ventricular outflow tract obstruction, patient unable to Valsalva. These segments of the LV are akinetic apical anterior segment, apical lateral segment, Apical inferior segment, apical cap, apical septum segment, mid anterior segment, inferoseptum mid segment. and anteroseptum mid segment. 2. There is severe enlargement of left atrium, appreciated best by LA volumes. LA Volume Index=50. 3. Mild mitral leaflet calcification. Moderate mitral annular calcification. Moderate to severe mitral valve regurgitation. The regurgitation jet is eccentrically directed which may underestimate the severity of mitral regurgitation. Moderate systolic anterior motion of mitral valve. Chordal LENA seen. 4. No hemodynamically significant aortic stenosis by Doppler, flows are increased however patient is tachycardic and there is LVOT obstruction. Aortic cusps appear mildly calcified. 5. Normal appearance of the tricuspid valve. Estimated peak PA systolic pressure 54 mmHg. There is moderate to severe tricuspid regurgitation. 6. Normal size and normal respiratory collapse consistent with normal right atrial pressure. 7. above findings are consistent with HCM physiology but now with severe LV dysfunction. Hx of Present Illness Patient is a 81-year-old female with a history of gastritis with intractable nausea/vomiting, anxiety, hypertension,deconditioning, venous insufficiency ulcers and stroke. Patient presents with reports of chest pain started today. Patient is not the best historian history was obtained by previous medical records and daughter who is bedside. Patient decided with daughter and also has a caregiver, patient currently reports pain in the upper epigastrium as well as shoulders and back. In the ED troponin was mildly elevated and cardiology was contacted. Patient denies any dysuria, headache but does report nausea at this time. Hospital Course 81 yo F with pmhx chronic systolic and diastolic HF presented with chest pain, found to have elevated troponin, 2/2 acute on chronic combined systolic and diastolic HF. LHC 9.15 with nonobstructing CAD. Also with ?sepsis? from UTI v PNA on arrival. Pt completed 7 days of cefepime. BB started as given HCM/CM cardiology wants HR down to 50s. ARB and ccb changed to Aldactone by cardiology service given HF. Pt deconditioned from prolonged hospitalization. She is being discharged to a SNF for sub acute rehab. Home Meds Active Scripts Aspirin* (Aspirin* EC) 81 Mg Tablet., 81 MG PO DAILY for 30 Days, #30 Prov:LIA CHOU MD 06/10/17 Spironolactone* (Aldactone*) 25 Mg Tablet, 25 MG PO DAILY for 30 Days, #30 TAB Prov:LIA CHOU MD 06/10/17 Atorvastatin* (Atorvastatin*) 40 Mg Tablet, 40 MG PO HS for 30 Days, #30 TAB Prov:LIA CHOU MD 06/10/17 Carvedilol* (Carvedilol*) 3.125 Mg Tablet, 3.125 MG PO BID for 30 Days, #60 TAB Prov:LIA CHOU MD 06/10/17 Amlodipine Besylate* (Norvasc*) 5 Mg Tablet, 5 MG PO BID for 30 Days, TAB Prov:HANNAH CELESTE 02/10/17 Pantoprazole* (Protonix*) 40 Mg Tablet., 40 MG PO BID for 30 Days, TAB further refill per your primary care provider Prov:HANNAH CELESTE 02/10/17 Reported Medications Buspirone Hcl* (Buspirone Hcl*) 10 Mg Tab, 15 MG PO BID, TAB PT TAKES THREE DAYS A WEEK 02/08/17 Losartan Potassium* (Losartan Potassium*) 50 Mg Tablet, 50 MG PO BID, TAB PER FAMILY REQUEST MONTIOR BP PRIOR TO GIVING RX'S HOLD IF BP IS LOW 05/03/16 Lactobacillus Combo No.11 (Probiotic) 1 Each Cap.sprink, 1 CAP PO DAILY, CAP 05/03/16 Cranberry (Cranberry) 400 Mg Capsule, 800 MG PO DAILY, CAP 05/03/16 Multivitamins* (Theragran*) 1 Tab Tab, 1 TAB PO DAILY, TAB 05/03/16 Follow-up Plan PCP within 7 days for BP check and ChemP brass buffer in 1-2 w Primary Care Provider Yohan Cabrera MD Time spent on discharge: > 30 minutes Copies To: CC: YOHAN CABRERA MD; DREW MACARIO MD, ELLEN MD Jun 10, 2017 12:20
--- NOTE | 2017-06-10 12:30 | PDOCDIS ---
Discharge Instructions DIAGNOSIS Discharge Diagnosis acute on chronic combined systolic and diastolic HF, NSTEMI CONDITION Patient Condition: Stable HOME CARE INSTRUCTIONS: Special Diet: Low Fat/Low Chol FOLLOW UP/APPOINTMENTS Follow-up Plan PCP within 7 days for BP check and ChemP assignment manager in 1-[address] Nagel Office Address [id number] [address] Office LIA CHOU MD Jun 10, 2017 12:30
[2017-06-10] MEDS ORDERED: AMLODIPINE 10 MG TAB PO ONE (21:00)
[2017-06-10] MEDS: ATORVASTATIN 40 MG TAB PO SCH (21:16)
[2017-06-11] VITALS (11 sets, daily range): BP systolic 129–175; BP diastolic 62–81; PULSE 44–63; RESP 18–19
[2017-06-11] MEDS: ASPIRIN (EC) 81 MG TAB PO SCH (09:20)
[2017-06-11] MEDS: SPIRONOLACTONE 25 MG TAB PO SCH (09:20)
[2017-06-11] MEDS ORDERED: hydrALAzine 20 MG INJ IV PRN ×2 (14:00→18:00)
--- NOTE | 2017-06-11 15:51 | DS ---
Date/Time of Note Date/Time of Note DATE: 06/11/17 TIME: 15:49 Discharge Summary Admission/Discharge Info Admit Date/Time Jun 01, 2017 at 15:36 Discharge Date/Time Discharge Diagnosis acute on chronic combined systolic and diastolic HF, NSTEMI Patient Condition: Stable Procedures [id number] Procedure performed: 1. emergent Left heart catheterization, selective right and left coronary angiogram 2. right femoral angiogram 3. LV gram Findin. Left main coronary artery: Is long with 20% distal stenosis. 2. Left anterior descending artery: Its a moderate size vessel and goes around the apex. It has 20% stenosis proximally, and 20% stenosis of the mid LAD. 3. Left circumflex artery: Is nondominant. It has 30% stenosis. 4. Right coronary artery: Is a large dominant vessel. It has 30% stenosis 5. LV pressure: 169/31; Aortic pressure by pull back is 104/65. EF 40% with apical HK. VSD can not be ruled out. 15 TTE Conclusions 1. Normal left ventricular cavity size. Moderateleft ventricular hypertrophy, and severe septal hypertrophy, septum measures 2.3 cm. Severe left ventricular systolic dysfunction. Ejection fraction is visually estimated at 30 %. Tissue Doppler/Mitral Doppler indices are indeterminate in this study due to the presence of tachycardia throughout exam. Resting left ventricular outflow tract velocity 4.00 m/sec. Resting left ventricular outflow tract gradient 65.0 mmHg. Severe left ventricular outflow tract obstruction, patient unable to Valsalva. These segments of the LV are akinetic apical anterior segment, apical lateral segment, Apical inferior segment, apical cap, apical septum segment, mid anterior segment, inferoseptum mid segment. and anteroseptum mid segment. 2. There is severe enlargement of left atrium, appreciated best by LA volumes. LA Volume Index=50. 3. Mild mitral leaflet calcification. Moderate mitral annular calcification. Moderate to severe mitral valve regurgitation. The regurgitation jet is eccentrically directed which may underestimate the severity of mitral regurgitation. Moderate systolic anterior motion of mitral valve. Chordal LENA seen. 4. No hemodynamically significant aortic stenosis by Doppler, flows are increased however patient is tachycardic and there is LVOT obstruction. Aortic cusps appear mildly calcified. 5. Normal appearance of the tricuspid valve. Estimated peak PA systolic pressure 54 mmHg. There is moderate to severe tricuspid regurgitation. 6. Normal size and normal respiratory collapse consistent with normal right atrial pressure. 7. above findings are consistent with HCM physiology but now with severe LV dysfunction. Hx of Present Illness Patient is a 81-year-old female with a history of gastritis with intractable nausea/vomiting, anxiety, hypertension,deconditioning, venous insufficiency ulcers and stroke. Patient presents with reports of chest pain started today. Patient is not the best historian history was obtained by previous medical records and daughter who is bedside. Patient decided with daughter and also has a caregiver, patient currently reports pain in the upper epigastrium as well as shoulders and back. In the ED troponin was mildly elevated and cardiology was contacted. Patient denies any dysuria, headache but does report nausea at this time. Hospital Course 81 yo F with pmhx chronic systolic and diastolic HF presented with chest pain, found to have elevated troponin, 2/2 acute on chronic combined systolic and diastolic HF. LHC 9.15 with nonobstructing CAD. Also with ?sepsis? from UTI v PNA on arrival. Pt completed 7 days of cefepime. BB started as given HCM/CM cardiology wants HR down to 50s. ARB and ccb changed to Aldactone by cardiology service given HF. Pt deconditioned from prolonged hospitalization. Patient had to stay the night of June 10, 2017 because of some elevated blood pressure as that senior care would not take the patient for that, by June 11, 2017 the systolic blood pressure was less than 160 after some medication adjustments were made. She will thus be discharged to a SNF for sub acute rehab. Patient will follow with cardiology team in the clinic on June 27 at 2 PM as well. Home Meds Active Scripts Aspirin* (Aspirin* EC) 81 Mg Tablet., 81 MG PO DAILY for 30 Days, #30 Prov:LIA CHOU MD 06/10/17 Spironolactone* (Aldactone*) 25 Mg Tablet, 25 MG PO DAILY for 30 Days, #30 TAB Prov:LIA CHOU MD 06/10/17 Atorvastatin* (Atorvastatin*) 40 Mg Tablet, 40 MG PO HS for 30 Days, #30 TAB Prov:LIA CHOU MD 06/10/17 Carvedilol* (Carvedilol*) 3.125 Mg Tablet, 3.125 MG PO BID for 30 Days, #60 TAB Prov:LIA CHOU MD 06/10/17 Reported Medications Buspirone Hcl* (Buspirone Hcl*) 10 Mg Tab, 15 MG PO BID, TAB PT TAKES THREE DAYS A WEEK 02/08/17 Cranberry (Cranberry) 400 Mg Capsule, 800 MG PO DAILY, CAP 05/03/16 Multivitamins* (Theragran*) 1 Tab Tab, 1 TAB PO DAILY, TAB 05/03/16 Discontinued Reported Medications Losartan Potassium* (Losartan Potassium*) 50 Mg Tablet, 50 MG PO BID, TAB PER FAMILY REQUEST MONTIOR BP PRIOR TO GIVING RX'S HOLD IF BP IS LOW 05/03/16 Lactobacillus Combo No.11 (Probiotic) 1 Each Cap.sprink, 1 CAP PO DAILY, CAP 05/03/16 Discontinued Scripts Amlodipine Besylate* (Norvasc*) 5 Mg Tablet, 5 MG PO BID for 30 Days, TAB Prov:HANNAH CELESTE 02/10/17 Pantoprazole* (Protonix*) 40 Mg Tablet., 40 MG PO BID for 30 Days, TAB further refill per your primary care provider Prov:HANNAH CELESTE 02/10/17 Follow-up Plan PCP within 7 days for BP check and ChemP computer customer support specialist in 1-[address] Nagel Office Address [address] [address] Office Primary Care Provider Yohan Cabrera MD Time spent on discharge: > 30 minutes LILLIE PENG Jun 11, 2017 15:51
--- NOTE | 2017-06-11 15:53 | CONS ---
Date/Time of Note Date/Time of Note DATE: 06/11/17 TIME: 15:52 Consult Date/Type/Reason Admit Date/Time Jun 01, 2017 at 15:36 Initial Consult Date 06/01/17 Type of Consultation: cardiology Ordering Provider: IGGY GALVEZ Subjective CARDIOLOGY FOLLOW UP NOTE: SUBJECTIVE: D/W staff and Dr Almonte. rhythm was reviewed. . PT remains in NSR/ SINUS BRADYCARDIA. pt denies any cp to me. no groin pain she denies any dypsnea or PND orthopnea to me now . OBJECTIVE: General: NO Acute distress HEENT: NC/AT. pupils are equal. round. NECK: . no stridor. CV: RR. systolic murmur; + gallop . no rubs. PULM: + rhonchi at base. GI: SOFT, NT, ND, no rebound or guarding Extremity: trace B/L LE edema. no clubbing. neuro: awake and alert, responds appropriately Psych: calm rectal: deferred ECHO 06/01/17 personally reviewed: 1. Normal left ventricular cavity size. Moderateleft ventricular hypertrophy, and severe septal hypertrophy, septum measures 2.3 cm. Severe left ventricular systolic dysfunction. Ejection fraction is visually estimated at 30 %. Tissue Doppler/Mitral Doppler indices are indeterminate in this study due to the presence of tachycardia throughout exam. Resting left ventricular outflow tract velocity 4.00 m/sec. Resting left ventricular outflow tract gradient 65.0 mmHg. Severe left ventricular outflow tract obstruction, patient unable to Valsalva. These segments of the LV are akinetic apical anterior segment, apical lateral segment, Apical inferior segment, apical cap, apical septum segment, mid anterior segment, inferoseptum mid segment. and anteroseptum mid segment. 2. There is severe enlargement of left atrium, appreciated best by LA volumes. LA Volume Index=50. 3. Mild mitral leaflet calcification. Moderate mitral annular calcification. Moderate to severe mitral valve regurgitation. The regurgitation jet is eccentrically directed which may underestimate the severity of mitral regurgitation. Moderate systolic anterior motion of mitral valve. Chordal LENA seen. 4. No hemodynamically significant aortic stenosis by Doppler, flows are increased however patient is tachycardic and there is LVOT obstruction. Aortic cusps appear mildly calcified. 5. Normal appearance of the tricuspid valve. Estimated peak PA systolic pressure 54 mmHg. There is moderate to severe tricuspid regurgitation. 6. Normal size and normal respiratory collapse consistent with normal right atrial pressure. 7. above findings are consistent with HCM physiology but now with severe LV dysfunction. Objective Vital Signs Date Time Temp Pulse Resp B/P Pulse Ox O2 Delivery O2 Flow Rate FiO2 06/11/17 14:52 98.1 53 18 152/62 100 06/11/17 08:00 Nasal Cannula 06/11/17 04:50 3.0 Intake and Output 06/10/17 06/10/17 06/11/17 15:00 23:00 07:00 Intake Total 600 ml 220 ml Balance 600 ml 220 ml Results/Medications Result Diagram: 06/08/17 0700 06/09/17 0803 Medications Current Medications Acetaminophen (Tylenol Tab) 650 mg Q6H PRN PO PAIN LEVEL 1-3 OR FEVER; Start at 17:30 Acetaminophen/ Hydrocodone Bitart ([place] (5/325)) 1 tab Q6H PRN PO MODERATE PAIN LEVEL 4-6; Start 06/01/17 at 17:30 Magnesium Hydroxide (Milk Of Mag) 30 ml DAILY PRN PO CONSTIPATION Last administered on 06/11/17 14:56; Admin Dose 30 ML; Start 06/01/17 at 17:30 Aspirin (Halfprin) 81 mg DAILY PO Last administered on 06/11/17 09:20; Admin Dose 81 MG; Start 06/02/17 at 09:00 Atorvastatin Calcium (Lipitor) 40 mg HS PO Last administered on 06/10/17 21:16 ; Admin Dose 40 MG; Start 06/02/17 at 21:00; Status Future hold Carvedilol (Coreg) 3.125 mg BID PO Last administered on 06/11/17 09:20; Admin Dose 3.125 MG; Start 06/07/17 at 09:00 Spironolactone (Aldactone) 25 mg DAILY PO Last administered on 06/11/17 09:20 ; Admin Dose 25 MG; Start 06/07/17 at 09:30 Hydralazine HCl (Apresoline) 10 mg Q4H PRN IV ELEVATED BLOOD PRESSURE; Start at 18:00 Assessment/Plan Chief Complaint/Hosp Course 1. ACUTE AR: kole angio done emergently did NOT show any significant flow limiting obstruction 2. CHF: acute on chronic due to systolic and diastolic heart failure. 3. abnormal ECG with intermittent LBBB: stable now 4. HX HTN 5. HX CVA including hemorrhagic CVA 6. memory impairment 7. dyslipidemia 8. hx dyspepsia 9. cardiogenic shock +/- sepsis: improved BP now 10. 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 MOD/ SEVERE MR. Recommendations ASA Diuresis as tolerated/. needed. will cont betablocker. goal HR is 50s given her cardiomyopathy and more importantly HCM physiology. off of ARB/ ZAN due to her HCM physiology. cont o2 ABX as per IM / pulm lipitor qhs PT as tolerated. will cont aldactone physical therapy and rehab as tolerated. dc planning is in process pt to follow up with me in 1-2 weeks after post discharge. Thank you for this referral. I will continue to follow along with you DREW MACARIO MD [facility] Problems: DREW MACARIO MD Jun 11, 2017 15:53
[2017-06-11] MEDS: ATORVASTATIN 40 MG TAB PO SCH (20:08)
== END 2017-06-11 20:20 | DRG 280 ==
LOC: E/R 12:55 → TEL 15:36 → ICU 19:11 → MS4 06-05 11:35 → UNDODISIN 06-10 16:48
PROVIDERS: ADMIT Internal Medicine; ATTEND Internal Medicine
PROC: B211YZZ Fluoroscopy of Multiple Coronary Arteries using Other Contrast (ICD-10-PCS; 2017-06-01)
PROC: B215YZZ Fluoroscopy of Left Heart using Other Contrast (ICD-10-PCS; 2017-06-01)
PROC: 4A023N7 Measurement of Cardiac Sampling and Pressure, Left Heart, Percutaneous Approach (ICD-10-PCS; principal; 2017-06-01 18:00)
PROC: 02HV33Z Insertion of Infusion Device into Superior Vena Cava, Percutaneous Approach (ICD-10-PCS; 2017-06-03)
DX: I21.4 Non-ST elevation (NSTEMI) myocardial infarction (principal); R57.0 Cardiogenic shock; J96.02 Acute respiratory failure with hypercapnia; J96.01 Acute respiratory failure with hypoxia; G93.49 Other encephalopathy; A41.9 Sepsis, unspecified organism; I50.43 Acute on chronic combined systolic (congestive) and diastolic (congestive) heart failure; J18.9 Pneumonia, unspecified organism; N39.0 Urinary tract infection, site not specified; F05 Delirium due to known physiological condition; I42.2 Other hypertrophic cardiomyopathy; I34.0 Nonrheumatic mitral (valve) insufficiency; I44.7 Left bundle-branch block, unspecified; B96.5 Pseudomonas (aeruginosa) (mallei) (pseudomallei) as the cause of diseases classified elsewhere; F03.90 Unspecified dementia, unspecified severity, without behavioral disturbance, psychotic disturbance, mood disturbance, and anxiety; I69.198 Other sequelae of nontraumatic intracerebral hemorrhage; F41.9 Anxiety disorder, unspecified; E78.5 Hyperlipidemia, unspecified
CPT/HCPCS: 36569; 36600; 71010; 76937; 80048; 80053; 80061; 81001; 81003; 82550; 82553; 82803; 83036; 83605; 83735; 83880; 84100; 84145; 84155; 84439; 84484; 85025; 85610; 85730; 87081; 87086; 93005; 93306; 93458; 94660; 96372; 96374; 96375; 97110; 97116; 97162; 97530; C1769; C1887; C1894; J0360; J0692; J0696; J1170; J1642; J1644; J1940; J2060; J2270; J2405; J2765; J7030; J7040; J7060; J7070; Q9967

== ENCOUNTER 2018-11-17 01:05 | Inpatient (IN) | payer MEDICARE, BC ==
[2018-11-17] VITALS (16 sets, daily range): BP systolic 100–128; BP diastolic 50–63; PULSE 60–80; RESP 18–24; Ht 167.6 cm; Wt 70.3 kg
[~2018-11-17] VITALS: Ht 167.6 cm; Wt 70.3 kg
[~2018-11-17 01:05] MED LIST changes: -AMLO5TAB4 PO; +ASPI-817 PO; +ATOR40TA68 PO; +CARV3.1260 PO; -LACT1CAP56 PO; -LOSA50TA6 PO; -PANT40TA3 PO; +SPIR25TA PO
[2018-11-17] MEDS ORDERED: SODIUM CHLORIDE 0.9% 1L BAG IV* STA (01:23)
[2018-11-17] MEDS ORDERED: ONDANSETRON 4 MG INJ IV STA (01:23)
[2018-11-17] MEDS ORDERED: morphine 4 MG/ML VIAL IV STA (01:23)
[2018-11-17] MEDS ORDERED: PIPER-TAZO 3.375 GM IV (PMX) 100 ML IVPB STA (01:23)
--- NOTE | 2018-11-17 02:02 | ERD ---
ER Documentation Chief Complaint Chief Complaint pt reports vomiting and rectal pain today HPI 83-year-old female with a history of CAD, NE, CVA, hypertension brought in by family for abdominal pain with associated nausea and vomiting that started a few hours prior to arrival. Patient complains of epigastric pain that she describes as aching radiating down the left side of her abdomen and in the lower abdomen. Pain is an 8 out of 10. No associated diarrhea but she has had some nonbloody and nonbilious vomiting. No associated fevers or chills. No dysuria. She is normally incontinent of urine. She states that she has some rectal pain as well due to her hemorrhoids. No chest pain or shortness of breath. ROS All systems reviewed and are negative except as per history of present illness. Medications Home Meds Active Scripts Aspirin* (Aspirin* EC) 81 Mg Tablet.dr, 81 MG PO DAILY for 30 Days, #30 Prov:LIA CHOU MD 06/10/17 Spironolactone* (Aldactone*) 25 Mg Tablet, 25 MG PO DAILY for 30 Days, #30 TAB Prov:LIA CHOU MD 06/10/17 Atorvastatin* (Atorvastatin*) 40 Mg Tablet, 40 MG PO HS for 30 Days, #30 TAB Prov:LIA CHOU MD 06/10/17 Carvedilol* (Carvedilol*) 3.125 Mg Tablet, 3.125 MG PO BID for 30 Days, #60 TAB Prov:LIA CHOU MD 06/10/17 Reported Medications Buspirone Hcl* (Buspirone Hcl*) 10 Mg Tab, 15 MG PO BID, TAB PT TAKES THREE DAYS A WEEK 02/08/17 Cranberry (Cranberry) 400 Mg Capsule, 800 MG PO DAILY, CAP 05/03/16 Multivitamins* (Theragran*) 1 Tab Tab, 1 TAB PO DAILY, TAB 05/03/16 Allergies Allergies: Coded Allergies: latex (Verified Allergy, Mild, 06/01/17) PMhx/Soc History of Surgery: Yes (Hx of R sh sx/ L knee sx) Anesthesia Reaction: No Hx Neurological Disorder: Yes (hx of cva x2) Hx Respiratory Disorders: No Hx Cardiac Disorders: Yes (CAD, NE, hypertension) Hx Psychiatric Problems: Yes (anxiety) Hx Miscellaneous Medical Probl: Yes Hx Alcohol Use: No Hx Substance Use: No Hx Tobacco Use: No FmHx Noncontributory Physical Exam Vitals Vital Signs Date Temp Pulse Resp B/P (MAP) Pulse Ox O2 O2 Flow FiO2 Time Delivery Rate 11/17/18 93 95 70 05:50 11/17/18 80 20 104/64 93 BIPAP 04:56 (77) 11/17/18 92 97 70 04:00 11/17/18 76 93 100 02:25 11/17/18 Nasal 2 02:00 Cannula 11/17/18 97.8 83 16 72/57 (62) 91 01:09 Physical Exam Const: No acute distress Head: Atraumatic Eyes: Normal Conjunctiva, PERRLA, EOMI ENT: Normal External Ears, Nose and Mouth. Neck: Full range of motion. No meningismus. Resp: Clear to auscultation bilaterally Cardio: Regular rate and rhythm, no murmurs Abd: Soft, tender to palpation in the left abdomen as well as suprapubic area. No pulsatile masses. Non distended. Normal bowel sounds Skin: Pale. No petechiae or rashes Back: No midline or flank tenderness Ext: No cyanosis, or edema Neur: Awake and alert Psych: Normal Mood and Affect Result Diagram: 11/19/18 0635 11/19/18 0635 Results 24 hrs Laboratory Tests Test 11/17/18 02:05 11/17/18 02:56 11/17/18 03:24 11/17/18 04:59 White Blood Count 10.1 10^3/ul Red Blood Count 3.60 10^6/ul Hemoglobin 10.9 g/dl Hematocrit 32.6 % Mean Corpuscular 90.6 fl Volume Mean Corpuscular 30.3 pg Hemoglobin Mean Corpuscular 33.4 g/dl Hemoglobin Concen t Red Cell 13.8 % Distribution Width Platelet Count 195 10^3/UL Mean Platelet 9.1 fl Volume Immature 0.500 % Granulocytes % Neutrophils % 81.9 % Lymphocytes % 12.8 % Monocytes % 4.6 % Eosinophils % 0.1 % Basophils % 0.1 % Nucleated Red 0.0 /100WBC Blood Cells % Immature 0.050 10^3/ul Granulocytes # Neutrophils # 8.3 10^3/ul Lymphocytes # 1.3 10^3/ul Monocytes # 0.5 10^3/ul Eosinophils # 0.0 10^3/ul Basophils # 0.0 10^3/ul Nucleated Red 0.0 10^3/ul Blood Cells # Prothrombin Time 13.3 Sec Prothrombin Time 1.0 Ratio INR International 1.00 Normalized Ratio Activated 20.0 Sec Partial Thrombopl ast Time Sodium Level 134 mmol/L Potassium Level 6.0 mmol/L Chloride Level 100 mmol/L Carbon Dioxide 22 mmol/L Level Anion Gap 12 Blood Urea 22 mg/dl Nitrogen Creatinine 1.89 mg/dl Est Glomerular mL/min Filtrat Rate mL/min Glucose Level 170 mg/dl Lactic Acid Level 4.0 mmol/L Calcium Level 10.3 mg/dl Total Bilirubin 0.7 mg/dl Direct Bilirubin 0.00 mg/dl Indirect 0.7 mg/dl Bilirubin Aspartate Amino 53 IU/L Transf (AST/SGOT) Alanine 16 IU/L Aminotransferase (ALT/SGPT) Alkaline 72 IU/L Phosphatase Troponin I 1.220 ng/ml Total Protein 6.7 g/dl Albumin 3.8 g/dl Globulin 2.90 g/dl Albumin/Globulin 1.31 Ratio Lipase 71 U/L Blood Gas Blood arterial Specimen Source Arterial Blood 11/17/2018 3:45:34 Date Drawn AM Arterial Blood pH 7.307 (Temp corrected) Arterial Blood 39.8 mmhg pCO2 (Temp correct) Arterial Blood 134.4 mmHG pO2 (Temp corrected) Arterial Blood 19.5 mmol/L HCO3 Arterial Blood -6.4 mmol/L Base Excess Arterial Blood 98.0 mmHG Oxygen Saturation Geovanny Test N/A Arterial Blood Right Brachial Gas Puncture Site Arterial 0.3 % Blood Carboxyhemo globin Arterial Blood 0.1 % Methemoglobin Blood Gas A-a O2 538.8 mmHg Differential Oxyhemoglobin 97.6 % Percent Blood Gas 37.0 C Temperature Blood Gas 16.0 Respiration Rate Blood Gas Actual 27 Respiration Rate Blood Gas MASK - BIPAP Modality FiO2 100.0 % Blood Gas 16 / 5 IPAP/EPAP Ratio Blood Gas DR. MUNOZ, N. Critical Value Read Back Blood Gas BL Notified Whom Blood Gas 11/17/2018 3:54:18 Notified Time AM Bedside Glucose 160 mg/dL 237 mg/dL Test 11/17/18 05:21 Lactic Acid Level 2.9 mmol/L Current Medications Medications Dose Sig/Ricardo Start Time Status Last (Trade) Ordered Route PRN Stop Time Admin Dose Reason Admin Sodium 1,950 ml BOLUS OVER 2 11/17/18 DC 11/17/18 Chloride HOURS STAT 01:23 11/17/18 01:50 (NS) IV* 01:25 Morphine 2 mg ONCE STAT 11/17/18 DC Sulfate IV 01:23 11/17/18 (morphine) 01:25 Ondansetron 4 mg ONCE STAT 11/17/18 DC 11/17/18 HCl (Zofran IV 01:11/17/18 01:50 Inj) 01:25 Piperacillin 100 ml @ ONCE STAT 11/17/18 DC 11/17/18 Sod/ 200 mls/hr IVPB 01:23 11/17/18 01:50 Tazobactam 01:52 Sod Sodium 30 gm ONCE STAT 11/17/18 DC 11/17/18 Polystyrene PO 02:49 11/17/18 03:07 Sulfonate 02:52 (Kayexelate 15 Gm Kit (Powder+Sorbi ritchie)) Albuterol 15 mg ONCE STAT 11/17/18 DC (Proventil INH 02:49 11/17/18 0.5% (Neb)) 02:52 Insulin 10 unit ONCE STAT 11/17/18 DC 11/17/18 Human IVP 02:49 11/17/18 03:31 Regular 02:52 (Humulin R) Dextrose 50 ml ONCE STAT 11/17/18 DC 11/17/18 (D50w IV 02:49 11/17/18 03:27 Syringe) 02:52 Dextrose ONCE PRN 11/17/18 (D50w IV DECREASED 03:00 Syringe) GLUCOSE Procedures/MDM EMERGENT LABS AND DIAGNOSTIC STUDIES: Lab Results above were reviewed and interpreted by me. CBC: Mild anemia. No thrombocytosis or leukocytosis CMP: Elevated BUN and creatinine, consistent with renal insufficiency of unknown chronicity. Hyperkalemia. No evidence of liver disease. Troponin elevated, concerning for myocardial ischemia versus elevation due to sepsis Lactate elevated, consistent with tissue hypoperfusion and severe sepsis UA: Pending ABG shows evidence of acidemia, no hypercapnia or hypoxemia on supplemental oxygen 12-lead EKG was interpreted by Kate Munoz MD: Sinus rhythm with first-degree AV block at 80 bpm Left bundle branch block No acute ST or T wave changes suggestive of acute ischemia or STEMI. Radiology Results as interpreted by Radiology below were reviewed by Milli Munoz MD: Chest x-ray: 1. Bilateral perihilar opacities representing pulmonary edema or pneumonia. 2. Bilateral lower lobe air space disease or atelectasis 3. Aortic atherosclerosis. CT abdomen and pelvis: 1. Distended fecal filled rectum measuring 8 x 9 cm suggesting fecal impaction. 2. Dense pneumonic infiltrates of the left posterior upper lobe and lingula. Left lower lobe patchy infiltrates 3. Bilateral inguinal hernias containing nondistended small bowel. No suggestion of incarceration. 4. Cholelithiasis. 5. Thoracolumbar rotary dextroscoliosis. Degenerative ventral spondylolisthesis of L3 on L4 and L4 on L5 Initial Nursing notes reviewed. Previous Medical Records requested via the Electronic Health Record. EMERGENCY DEPARTMENT COURSE / MEDICAL DECISION MAKING: Patient initially presented with nausea and vomiting with abdominal pain. Vitals were notable for hypertension and hypoxia on room air. Sepsis workup was initiated. Broad-spectrum antibiotics and IV fluids were started. Lactate was elevated, consistent with severe sepsis. Patient rapidly decompensated after IV fluids were started with worsening shortness of breath and hypoxia on room air. She did not improve with oxygen by facemask and BiPAP had to be started. Her hypotension did improve after IV fluids. Her hypoxia and respiratory distress i mproved with BiPAP. Her imaging was notable for pneumonia. CT abdomen and pelvis was done but did not show any significant abnormalities other than constipation. Patient did have a large bowel movement while here. Labs are notable for renal failure with hyperkalemia, which was treated with ins ulin, dextrose, Kayexalate, and albuterol. Patient's infectious symptoms have not stabilized and the patient is at risk of rapid decompensation. The patient will be admitted for careful hydration, a ntibiotic therapy, and infectious source control. Severe Sepsis Assessment: Infectious Source: Health care associated pneumonia End organ damage indicated by: Lactate > 2.0 mmol/L Hypotension( SBP < 90 or >40 mmHG drop or MAP < 65) Acute Resp Failure (sat < 92% w/o oxygen) Severe Sepsis Managment: Blood Cultures X 2 before broad spectrum antibiotics initiated within 3 hours of recognition. 30 ml/kg NS bolus Completed Initial Lactate: 4 Repeat Lactate 2.9 Critical Care: Time: 45 minutes Treatments/Evaluations: Emergent fluid management, while maintaining close respiratory support. Immediate broad spectrum antibiotic therapy. Simultaneous assessment for possible sources in order to direct therapy. Consideration for invasive and chemical support to prevent respiratory or cardiac collapse. Septic Shock Assessment (1 hour post 30 ml/kg fluid bolus): Hypotension (SBP < 90 or 40 mmHg drop, MAP < 65): No Lactic acid > 4.0 No Accepting Care Team: Current data and ongoing care discussed. Time: Time of admission Primary Provider: Departure Diagnosis: Primary Impression: Severe sepsis Additional Impressions: Renal failure Renal failure chronicity: unspecified chronicity Qualified Codes: N19 - Unspecified kidney failure Hyperkalemia Acute respiratory failure with hypoxia Community acquired pneumonia Laterality: left Lung location: unspecified part of lung Qualified Codes: J18.9 - Pneumonia, unspecified organism Non-ST elevation myocardial infarction (NSTEMI) Condition: Serious STANFORD MUNOZ MD Nov 17, 2018 02:00
[2018-11-17] MEDS ORDERED: INSULIN REGULAR, HUMAN 100 UNIT/1 ML 3ML VIAL IVP STA (02:49)
[2018-11-17] MEDS ORDERED: SODIUM POLYSTYRENE 15 GM KIT (POWDER + SORBITOL) PO STA (02:49)
[2018-11-17] MEDS ORDERED: ALBUTEROL 0.5% (NEB) 2.5 MG/0.5 ML AMP INH STA (02:49)
[2018-11-17] MEDS ORDERED: DEXTROSE 50% 50 ML SYRINGE IV STA (02:49)
[2018-11-17] MEDS ORDERED: DEXTROSE 50% 50 ML SYRINGE IV PRN (03:00)
[2018-11-17] MEDS ORDERED: ACETAMINOPHEN 325 MG TAB PO PRN ×2 (06:30→08:00)
[2018-11-17] MEDS ORDERED: ASPIRIN 81 MG TAB PO ONE (06:30)
[2018-11-17] MEDS ORDERED: ONDANSETRON 4 MG INJ IV PRN ×2 (06:30→08:00)
[2018-11-17] MEDS ORDERED: NITROGLYCERIN (SL) 0.4 MG TAB SL PRN (08:00)
[2018-11-17] MEDS ORDERED: ALBUTEROL/IPRATROPIUM (NEB) 3 ML AMP HHN PRN (08:00)
[2018-11-17] MEDS ORDERED: NACL 0.9% 3 ML SYG IV SCH (08:00)
[2018-11-17] MEDS ORDERED: ENOXAPARIN 80 MG/0.8 ML SYG SC SCH (08:00)
--- NOTE | 2018-11-17 08:06 | HP ---
Date/Time of Note Date/Time of Note DATE: 11/17/18 TIME: 07:59 Assessment/Plan VTE Prophylaxis SCD contraindicated: low risk/ambulating Pharmacological prophylaxis: LMWH Lines/Catheters IV Catheter Type (from Nrsg): Saline Lock Assessment/Plan Assessment/Plan 1. NSTEMI -Telemetry admission -Supplemental oxygen, aspirin, statin, beta-nazario. As needed nitro and morphine -Treatment dose Lovenox -Trend troponin -2D echo cardiology consult 2. Community-acquired pneumonia: -IV antibiotic -Respiratory culture 3. Abdominal pain/rectal pain: Along with constipation -CT shows stool impaction -Will give bowel regimen for now 4. Presumed GUNNAR -Gentle hydration -Urine electrolytes -Renal ultrasound -Nephrology consult 5. Normocytic anemia -FOBT and iron/ferritin: To workup for GI bleed and iron deficiency 6. Hyperkalemia: Status post treatment in ER -See #4 7. History of cardiomyopathy with systolic dysfunction (EF 30% in 2017) -Continue cardiac meds -Follow-up 2D echo 8. History of CVA: Continue aspirin and statin Result Diagram: 11/17/18 0205 11/17/18 0205 Results 24hrs Laboratory Tests Test 11/17/18 02:05 11/17/18 02:56 11/17/18 03:24 11/17/18 04:59 White Blood Count 10.1 # Red Blood Count 3.60 L Hemoglobin 10.9 L Hematocrit 32.6 L Mean Corpuscular 90.6 Volume Mean Corpuscular 30.3 Hemoglobin Mean Corpuscular 33.4 Hemoglobin Concent Red Cell 13.8 Distribution Width Platelet Count 195 Mean Platelet 9.1 Volume Immature 0.500 H Granulocytes % Neutrophils % 81.9 H Lymphocytes % 12.8 L Monocytes % 4.6 Eosinophils % 0.1 Basophils % 0.1 Nucleated Red 0.0 Blood Cells % Immature 0.050 H Granulocytes # Neutrophils # 8.3 H Lymphocytes # 1.3 Monocytes # 0.5 Eosinophils # 0.0 Basophils # 0.0 Nucleated Red 0.0 Blood Cells # Prothrombin Time 13.3 Prothrombin Time 1.0 Ratio INR International 1.00 Normalized Ratio Activated 20.[address] Time Sodium Level 134 L Potassium Level 6.0 H Chloride Level 100 Carbon Dioxide 22 Level Anion Gap 12 Blood Urea 22 H Nitrogen Creatinine 1.89 H Est Glomerular Filtrat Rate mL/min Glucose Level 170 Lactic Acid Level 4.0 *H Calcium Level 10.3 H Total Bilirubin 0.7 Direct Bilirubin 0.00 Indirect Bilirubin 0.7 Aspartate Amino 53 H Transf (AST/SGOT) Alanine 16 Aminotransferase ( ALT/SGPT) Alkaline 72 Phosphatase Troponin I 1.220 *H Total Protein 6.7 Albumin 3.8 Globulin 2.90 Albumin/Globulin 1.31 Ratio Lipase 71 Blood Gas Specimen Blood arterial Source Arterial Blood 11/17/2018 3:45:34 Date Drawn AM Arterial Blood pH 7.307 L (Temp corrected) Arterial Blood 39.8 pCO2 (Temp correct) Arterial Blood pO2 134.4 H (Temp corrected) Arterial Blood 19.5 L HCO3 Arterial Blood -6.4 L Base Excess Arterial Blood 98.0 Oxygen Saturation Geovanny Test N/A Arterial Blood Gas Right Brachial Puncture Site Arterial 0.3 Blood Carboxyhemog lobin Arterial Blood 0.1 Methemoglobin Blood Gas A-a O2 538.8 H Differential Oxyhemoglobin 97.6 Percent Blood Gas 37.0 Temperature Blood Gas 16.0 Respiration Rate Blood Gas Actual 27 Respiration Rate Blood Gas Modality MASK - BIPAP FiO2 100.0 Blood Gas 16 / 5 IPAP/EPAP Ratio Blood Gas Critical DR. GRIFFIN, N. Value Read Back Blood Gas Notified BL Whom Blood Gas Notified 11/17/2018 3:54:18 Time AM Bedside Glucose 160 237 H Test 11/17/18 05:21 Lactic Acid Level 2.9 *H HPI/ROS Admit Date/Time Admit Date/Time Hx of Present Illness This is an 83 yo female with hx of HTN, non-obstructing CAD, CMY with systolic dysfunction (EF 30% 2016). Patient presented to ER c/o and pain, constipation. She also complains of pain in her rectal area. On further questioning, she also c/o shortness of breath and cough. When presented to ER, she was found to have a positive trop, cr 1.9, K+ 6. Initial lactate 4. CXR shows Bilateral perihilar opacities, representing pulmonary edema vs PNA. CT abd.pelvis: 1. Distended fecal filled rectum measuring 8 x 9 cm suggesting fecal impaction. 2. Dense pneumonic infiltrates of the left posterior upper lobe and lingula. Left lower lobe patchy infiltrates. 3. Bilateral inguinal hernias containing nondistended small bowel. No suggestion of incarceration. 4. Cholelithiasis. 5. Thoracolumbar rotary dextroscoliosis. Degenerative ventral spondylolisthesis of L3 on L4 and L4 on L5 PMH/Family/Social Past Medical History Medical History: other (See HPI) Medications Current Medications Dextrose (D50w Syringe) ONCE PRN IV DECREASED GLUCOSE; Start 11/17/18 at 03:00 Ondansetron HCl (Zofran Inj) 4 mg ER BRIDGE PRN IV NAUSEA/VOMITING; Start 11/17/18 at 06:30; Stop 11/18/18 at 06:29 Acetaminophen (Tylenol Tab) 650 mg ER BRIDGE PRN PO .MILD PAIN 1-3 OR TEMP; Start 11/17/18 at 06:30; Stop 11/18/18 at 06:29 IV Flush (NS 3 ml) 3 ml PER PROTOCOL IV ; Start 11/17/18 at 08:00 Ondansetron HCl (Zofran Inj) 4 mg Q6H PRN IV NAUSEA/VOMITING; Start 11/17/18 at 08:00 Nitroglycerin (Nitroglycerin (Sl Tab) 0.4 Mg) 1 tab Q5M PRN SL .CHEST PAIN; Start 11/17/18 at 08:00 Acetaminophen (Tylenol Tab) 650 mg Q6H PRN PO .PAIN 1-3 OR TEMP; Start 11/17/18 at 08:00 Heparin Sodium (Porcine) (Heparin (5000 Units/1ml)) 5,000 unit Q12 SC ; Start 11/17/18 at 09:00 Albuterol/ Ipratropium (Duoneb) 3 ml Q2H RESP THERAPY PRN HHN SHORTNESS OF BREATH; Start 11/17/18 at 08:00 Aspirin (Halfprin) 81 mg DAILY PO ; Start 11/17/18 at 09:00 Atorvastatin Calcium (Lipitor) 40 mg HS PO ; Start 11/17/18 at 21:00 Buspirone HCl (Buspar) 15 mg BID PO ; Start 11/17/18 at 09:00 Carvedilol (Coreg) 3.125 mg BID PO ; Start 11/17/18 at 09:00 Multivitamins Therapeutic (Theragran) 1 tab DAILY PO ; Start 11/17/18 at 09:00 Spironolactone (Aldactone) 25 mg DAILY PO ; Start 11/17/18 at 09:00 Coded Allergies: latex (Verified Allergy, Mild, 06/01/17) Past Surgical History Past Surgical Hx: no surgical history, other (See HPI) Family History Significant Family History: no pertinent family hx Social History Alcohol Use: none Smoking Status: Never smoker Drug Use: none Exam/Review of Systems Vital Signs Vitals Vital Signs Date Temp Pulse Resp B/P (MAP) Pulse Ox O2 O2 Flow FiO2 Time Delivery Rate 11/17/18 58 95 70 07:30 11/17/18 20 131/77 BIPAP 06:52 (95) 11/17/18 2 02:00 11/17/18 97.8 01:09 Exam Constitutional: other (No acute distress) Head: normocephalic, atraumatic Cardiovascular: regular rate and rhythm, nl pulses Gastrointestinal: soft, tender Extremities: normal pulses ERNIE ROCHA MD Nov 17, 2018 08:06
[2018-11-17] MEDS ORDERED: BUSPIRONE 10 MG TAB PO SCH (09:00)
[2018-11-17] MEDS ORDERED: AZITHROMYCIN 500MG/NS (PMX) 250 ML IVPB SCH (09:00)
[2018-11-17] MEDS: DEXTROSE 5%-0.9% NACL 1,000 ML IV SCH (10:16)
[2018-11-17] MEDS: CEFTRIAXONE 1 GM/50 ML (PMX) 50 ML IVPB SCH ×2 (10:20→20:20)
[2018-11-17] MEDS: HEPARIN 5,000 UNIT/1 ML VIAL SC SCH ×2 (10:43→20:33)
[2018-11-17] MEDS: MULTIVITAMINS THERAPEUTIC TAB PO SCH (10:45)
[2018-11-17] MEDS: ASPIRIN (EC) 81 MG TAB PO SCH (10:46)
[2018-11-17] MEDS: SPIRONOLACTONE 25 MG TAB PO SCH (10:46)
[2018-11-17] MEDS: AZITHROMYCIN 500MG/NS (PMX) 250 ML IVPB SCH (12:40)
[2018-11-17] MEDS: BUSPIRONE 5 MG TAB PO SCH ×2 (12:44→20:16)
--- NOTE | 2018-11-17 14:39 | RADRPT ---
Echocardiogram Report Patient Name: Anatoliy LORA ID: [id number] : 1935 (83y 5m)Study Date: 11/17/2018 11:30:43 AM Gender: FAccession #: [id number] Tech: [facility] – [place] Location: Ref.Physician: ERNIE ROCHA Height(Cm): 165 BSA: 1.72Weight(Kg): 64.9 Quality: GoodAccount #: Procedures: Echocardiographic Report: Transthoracic echocardiogram with complete 2D, M-Mode, and doppler examination. Indications: NSTEMI. Measurements: 2D/M Mode Doppler Measurement Value Normal Range Measurement Value Normal Range LVIDd 2D 5.0 [ 3.8 - 5.2 ] cm AV Peak Virgilio 1.5 [ 100.0 - 170.0 ] cm/sec LVIDs 2D 3.2 [ 2.2 - 3.5 ] cm AV Peak PG 9.0 [ 2.0 - 9.0 ] mmHg IVSd 2D 1.5 [ 0.6 - 0.9 ] cm MV E Peak Virgilio 1.4 [ 60.0 - 130.0 ] cm/sec AoR Diam 2D 3.4 [ 2.3 - 3.1 ] cm MV A Peak Virgilio 1.6 [ 100.0 - 120.0 ] cm/sec LA Dimen 2D 3.9 [ 2.7 - 3.8 ] cm MV E/A 0.8 [ 0.8 - 1.5 ] ratio MV PHT 63.0 [ 20.0 - 100.0 ] msec MV Decel Time 217 [ 104 - 258 ] msec MV Decel Monroe 6 MV E/A 0.8 [ 0.8 - 1.5 ] ratio MVA PHT 3.5 [ 2.0 - 4.0 ] cm2 TR Peak Virgilio 3.2 [ 100.0 - 280.0 ] cm/sec TR Peak PG 42.0 mmHg PV Peak Virgilio 1.2 [ 40.0 - 80.0 ] cm/sec PV Peak PG 5.0 mmHg RVSP 45.0 [ 10.0 - 36.0 ] mmHg RA Pressure 3.0 mmHg Findings: Left Ventricle: Normal left ventricular cavity size. Moderate concentric left ventricular hypertrophy. Severe left ventricular systolic dysfunction. Ejection fraction is visually estimated at 30-35 %. Tissue Doppler/Mitral Doppler indices are consistent with impaired relaxation (Stage I diastolic dysfunction). E/E'= 28. Resting left ventricular outflow tract velocity 6.70 m/sec. Resting left ventricular outflow tract gradient 180.0 mmHg. Severe left ventricular outflow tract obstruction, patient unable to Valsalva. These segments of the LV are hypokinetic anterolateral mid segment and anteroseptum mid segment. These segments of the LV are akinetic mid anterior segment, apical anterior segment, apical lateral segment, inferior mid segment, apical inferior segment, inferoseptum mid segment and apical septum segment. Right Ventricle: Normal right ventricular size. Hyperdynamic right ventricular systolic function. Left Atrium: There is severe enlargement of left atrium. Right Atrium: The right atrium is normal in size. Atrial Septum: Normal atrial septum. Mitral Valve: Mild mitral leaflet calcification. Moderate mitral annular calcification. Moderate to severe mitral valve regurgitation. Moderate systolic anterior motion of mitral valve. Chordal LENA seen. Aortic Valve: No significant aortic stenosis or insufficiency. Aortic cusps appear mildly calcified. Tricuspid Valve: Normal appearance of the tricuspid valve. Estimated peak PA systolic pressure 45 mmHg. There is mild to moderate tricuspid regurgitation. Pulmonic Valve: Normal pulmonic valve appearance. There is trace to mild pulmonic regurgitation. Pericardium: Normal pericardium with no significant pericardial effusion. Left pleural effusion seen. Aorta: Normal aortic root with decreased aortic root excursion. IVC: Normal size and normal respiratory collapse consistent with normal right atrial pressure. Pulmonary Artery: Normal pulmonary artery size. Conclusions: Normal left ventricular cavity size. Moderate concentric left ventricular hypertrophy. Severe left ventricular systolic dysfunction. Ejection fraction is visually estimated at 30-35 %. Tissue Doppler/Mitral Doppler indices are consistent with impaired relaxation (Stage I diastolic dysfunction). E/E'= 28. Resting left ventricular outflow tract velocity 6.70 m/sec. Resting left ventricular outflow tract gradient 180.0 mmHg. Severe left ventricular outflow tract obstruction, patient unable to Valsalva. These segments of the LV are hypokinetic anterolateral mid segment and anteroseptum mid segment. These segments of the LV are akinetic mid anterior segment, apical anterior segment, apical lateral segment, inferior mid segment, apical inferior segment, inferoseptum mid segment and apical septum segment. Mild mitral leaflet calcification. Moderate mitral annular calcification. Moderate to severe mitral valve regurgitation. Moderate systolic anterior motion of mitral valve. Chordal LENA seen. No significant aortic stenosis or insufficiency. Aortic cusps appear mildly calcified. Normal appearance of the tricuspid valve. Estimated peak PA systolic pressure 45 mmHg. There is mild to moderate tricuspid regurgitation. Electronically Signed By: Hugh Harper 2018-11-17 14:38:21 PST
[2018-11-17] MEDS ORDERED: ISOSORBIDE DINITRATE (SA) 40 MG TAB PO SCH (18:00)
[2018-11-17] MEDS: LISINOPRIL 5 MG TAB GTB SCH (18:09)
[2018-11-17] MEDS: ISOSORBIDE DINITRATE 10 MG TAB PO SCH ×2 (18:09→21:00)
[2018-11-17] MEDS: ATORVASTATIN 40 MG TAB PO SCH (20:16)
--- NOTE | 2018-11-17 21:34 | PN ---
Date/Time of Note Date/Time of Note DATE: 11/17/18 TIME: 11:34 Assessment/Plan Lines/Catheters IV Catheter Type (from [facility]): Saline Lock Assessment/Plan Result Diagram: 11/17/18 0205 11/17/18 0205 Results 24hrs Laboratory Tests Test 11/17/18 02:05 11/17/18 02:56 11/17/18 03:24 11/17/18 04:59 White Blood Count 10.1 # Red Blood Count 3.60 L Hemoglobin 10.9 L Hematocrit 32.6 L Mean Corpuscular 90.6 Volume Mean Corpuscular 30.3 Hemoglobin Mean Corpuscular 33.4 Hemoglobin Concent Red Cell 13.8 Distribution Width Platelet Count 195 Mean Platelet 9.1 Volume Immature 0.500 H Granulocytes % Neutrophils % 81.9 H Lymphocytes % 12.8 L Monocytes % 4.6 Eosinophils % 0.1 Basophils % 0.1 Nucleated Red 0.0 Blood Cells % Immature 0.050 H Granulocytes # Neutrophils # 8.3 H Lymphocytes # 1.3 Monocytes # 0.5 Eosinophils # 0.0 Basophils # 0.0 Nucleated Red 0.0 Blood Cells # Prothrombin Time 13.3 Prothrombin Time 1.0 Ratio INR International 1.00 Normalized Ratio Activated 20.[address] Time Sodium Level 134 L Potassium Level 6.0 H Chloride Level 100 Carbon Dioxide 22 Level Anion Gap 12 Blood Urea 22 H Nitrogen Creatinine 1.89 H Est Glomerular Filtrat Rate mL/min Glucose Level 170 Lactic Acid Level 4.0 *H Calcium Level 10.3 H Total Bilirubin 0.7 Direct Bilirubin 0.00 Indirect Bilirubin 0.7 Aspartate Amino 53 H Transf (AST/SGOT) Alanine 16 Aminotransferase ( ALT/SGPT) Alkaline 72 Phosphatase Troponin I 1.220 *H Total Protein 6.7 Albumin 3.8 Globulin 2.90 Albumin/Globulin 1.31 Ratio Lipase 71 Blood Gas Specimen Blood arterial Source Arterial Blood 11/17/2018 3:45:34 Date Drawn AM Arterial Blood pH 7.307 L (Temp corrected) Arterial Blood 39.8 pCO2 (Temp correct) Arterial Blood pO2 134.4 H (Temp corrected) Arterial Blood 19.5 L HCO3 Arterial Blood -6.4 L Base Excess Arterial Blood 98.0 Oxygen Saturation Geovanny Test N/A Arterial Blood Gas Right Brachial Puncture Site Arterial 0.3 Blood Carboxyhemog lobin Arterial Blood 0.1 Methemoglobin Blood Gas A-a O2 538.8 H Differential Oxyhemoglobin 97.6 Percent Blood Gas 37.0 Temperature Blood Gas 16.0 Respiration Rate Blood Gas Actual 27 Respiration Rate Blood Gas Modality MASK - BIPAP FiO2 100.0 Blood Gas 16 / 5 IPAP/EPAP Ratio Blood Gas Critical DR. GRIFFIN, N. Value Read Back Blood Gas Notified BL Whom Blood Gas Notified 11/17/2018 3:54:18 Time AM Bedside Glucose 160 237 H Test 11/17/18 05:21 11/17/18 07:59 11/17/18 14:19 Lactic Acid Level 2.9 *H 3.2 *H Creatine Kinase 552 H 441 H Creatine Kinase 2.0 2.5 Index Creatinine Kinase 11.00 H 11.10 H MB (Mass) Troponin I 1.180 *H 1.440 *H Exam/Review of Systems Exam Vitals Vital Signs Date Temp Pulse Resp B/P (MAP) Pulse Ox O2 O2 Flow FiO2 Time Delivery Rate 11/17/18 67 20:06 11/17/18 98.9 20 100/50 93 19:39 (67) 11/17/18 50 19:30 11/17/18 15.0 13:25 11/17/18 BIPAP 11:10 Results Results 24hrs Laboratory Tests Test 11/17/18 02:05 11/17/18 02:56 11/17/18 03:24 11/17/18 04:59 White Blood Count 10.1 # Red Blood Count 3.60 L Hemoglobin 10.9 L Hematocrit 32.6 L Mean Corpuscular 90.6 Volume Mean Corpuscular 30.3 Hemoglobin Mean Corpuscular 33.4 Hemoglobin Concent Red Cell 13.8 Distribution Width Platelet Count 195 Mean Platelet 9.1 Volume Immature 0.500 H Granulocytes % Neutrophils % 81.9 H Lymphocytes % 12.8 L Monocytes % 4.6 Eosinophils % 0.1 Basophils % 0.1 Nucleated Red 0.0 Blood Cells % Immature 0.050 H Granulocytes # Neutrophils # 8.3 H Lymphocytes # 1.3 Monocytes # 0.5 Eosinophils # 0.0 Basophils # 0.0 Nucleated Red 0.0 Blood Cells # Prothrombin Time 13.3 Prothrombin Time 1.0 Ratio INR International 1.00 Normalized Ratio Activated 20.[address] Time Sodium Level 134 L Potassium Level 6.0 H Chloride Level 100 Carbon Dioxide 22 Level Anion Gap 12 Blood Urea 22 H Nitrogen Creatinine 1.89 H Est Glomerular Filtrat Rate mL/min Glucose Level 170 Lactic Acid Level 4.0 *H Calcium Level 10.3 H Total Bilirubin 0.7 Direct Bilirubin 0.00 Indirect Bilirubin 0.7 Aspartate Amino 53 H Transf (AST/SGOT) Alanine 16 Aminotransferase ( ALT/SGPT) Alkaline 72 Phosphatase Troponin I 1.220 *H Total Protein 6.7 Albumin 3.8 Globulin 2.90 Albumin/Globulin 1.31 Ratio Lipase 71 Blood Gas Specimen Blood arterial Source Arterial Blood 11/17/2018 3:45:34 Date Drawn AM Arterial Blood pH 7.307 L (Temp corrected) Arterial Blood 39.8 pCO2 (Temp correct) Arterial Blood pO2 134.4 H (Temp corrected) Arterial Blood 19.5 L HCO3 Arterial Blood -6.4 L Base Excess Arterial Blood 98.0 Oxygen Saturation Geovanny Test N/A Arterial Blood Gas Right Brachial Puncture Site Arterial 0.3 Blood Carboxyhemog lobin Arterial Blood 0.1 Methemoglobin Blood Gas A-a O2 538.8 H Differential Oxyhemoglobin 97.6 Percent Blood Gas 37.0 Temperature Blood Gas 16.0 Respiration Rate Blood Gas Actual 27 Respiration Rate Blood Gas Modality MASK - BIPAP FiO2 100.0 Blood Gas 16 / 5 IPAP/EPAP Ratio Blood Gas Critical DR. GRIFFIN, N. Value Read Back Blood Gas Notified BL Whom Blood Gas Notified 11/17/2018 3:54:18 Time AM Bedside Glucose 160 237 H Test 11/17/18 05:21 11/17/18 07:59 11/17/18 14:19 Lactic Acid Level 2.9 *H 3.2 *H Creatine Kinase 552 H 441 H Creatine Kinase 2.0 2.5 Index Creatinine Kinase 11.00 H 11.10 H MB (Mass) Troponin I 1.180 *H 1.440 *H Medications Medication Current Medications Dextrose (D50w Syringe) ONCE PRN IV DECREASED GLUCOSE; Start 11/17/18 at 03:00 IV Flush (NS 3 ml) 3 ml PER PROTOCOL IV ; Start 11/17/18 at 08:00 Ondansetron HCl (Zofran Inj) 4 mg Q6H PRN IV NAUSEA/VOMITING; Start 11/17/18 at 08:00 Nitroglycerin (Nitroglycerin (Sl Tab) 0.4 Mg) 1 tab Q5M PRN SL .CHEST PAIN Last administered on 11/17/18 17:12; Admin Dose 1 TAB; Start 11/17/18 at 08:00 Acetaminophen (Tylenol Tab) 650 mg Q6H PRN PO .PAIN 1-3 OR TEMP; Start 11/17/18 at 08:00 Heparin Sodium (Porcine) (Heparin (5000 Units/1ml)) 5,000 unit Q12 SC Last administered on 11/17/18 20:33; Admin Dose 5,000 UNIT; Start 11/17/18 at 09:00 Albuterol/ Ipratropium (Duoneb) 3 ml Q2H RESP THERAPY PRN HHN SHORTNESS OF BREATH; Start 11/17/18 at 08:00 Aspirin (Halfprin) 81 mg DAILY PO Last administered on 11/17/18 10:46; Admin Dose 81 MG; Start 11/17/18 at 09:00 Atorvastatin Calcium (Lipitor) 40 mg HS PO Last administered on 11/17/18 20:16; Admin Dose 40 MG; Start 11/17/18 at 21:00 Multivitamins Therapeutic (Theragran) 1 tab DAILY PO Last administered on 11/17/18 10:45; Admin Dose 1 TAB; Start 11/17/18 at 09:00 Spironolactone (Aldactone) 25 mg DAILY PO Last administered on 11/17/18 10:46; Admin Dose 25 MG; Start 11/17/18 at 09:00 Ceftriaxone Sodium 50 ml @ 100 mls/hr Q12 IVPB Last administered on 11/17/18 20:20; Admin Dose 100 MLS/HR; Start 11/17/18 at 09:00 Dextrose/Sodium Chloride 1,000 ml @ 40 mls/hr Q24H IV Last administered on 11/17/18 10:16; Admin Dose 70 MLS/HR; Start 11/17/18 at 08:30 Buspirone HCl (Buspar) 15 mg BID PO Last administered on 11/17/18 20:16; Admin Dose 15 MG; Start 11/17/18 at 11:19 Azithromycin 250 ml @ 250 mls/hr DAILY@1200 IVPB Last administered on 11/17/18 12:40; Admin Dose 250 MLS/HR; Start 11/17/18 at 12:00 Carvedilol (Coreg) 6.25 mg BID GTB Last administered on 11/17/18 18:08; Admin Dose 6.25 MG; Start 11/17/18 at 18:00 Lisinopril (Zestril) 2.5 mg DAILY GTB Last administered on 11/17/18 18:09; Admin Dose 2.5 MG; Start 11/17/18 at 18:00 Isosorbide Dinitrate (Isordil) 10 mg BID PO Last administered on 11/17/18 18:09; Admin Dose 10 MG; Start 11/17/18 at 18:02 EMILY GAY MD Nov 17, 2018 21:34
[2018-11-18] VITALS (15 sets, daily range): BP systolic 119–142; BP diastolic 56–64; PULSE 59–91; RESP 18–22
--- NOTE | 2018-11-18 07:15 | CONS ---
DATE OF ADMISSION: 11/17/2018 DATE OF CONSULTATION: 11/17/2018 TYPE OF CONSULTATION: Cardiology. REFERRING PHYSICIAN: Reji Treviño MD REASON FOR EVALUATION: Elevated troponins. HISTORY OF PRESENT ILLNESS: Ms. Crain is an 83-year-old woman with history of hypertension, dyslipide dwayne, history of heart failure with ejection fraction of 30%, history of moderate to severe mitral ciera ve regurgitation as well as possible hypertrophic cardiomyopathy who comes to the hospital now for ev aluation of shortness of breath and mildly elevated troponins. The patient appears to be hemodynamic ally stable right now. She has intermittent left bundle branch block which has been described prior by Dr. Nagel on his evaluation. The patient has been treated expectedly. Her troponin is only mild ly elevated. I think at present time conservative therapy will be indicated. We will continue to tr eat the patient with antibiotics and follow expectantly. The patient does not appear to be in heart failure exacerbation at this particular point and discharge therapy is expected. PAST MEDICAL HISTORY: Hypertrophic cardiomyopathy, "burned out," a history of cardiomyopathy with ej ection fraction of 30%, left bundle-branch block with intermittent aberrant conductions first-degree AV block, bradycardia, history of coronary artery disease and history of hypertension. ALLERGIES: THE PATIENT IS ALLERGIC TO LATEX. SOCIAL HISTORY: The patient does not smoke, does not drink, does not use any drugs. FAMILY HISTORY: Negative for sudden cardiac . There is history of diabetes in the family. MEDICATIONS: The patient is on: 1. Lipitor 40 mg once a day. 2. Azithromycin. 3. BuSpar. 4. Aspirin 81 mg once a day. 5. Coreg 6.125 mg p.o. b.i.d. 6. Multivitamin. 7. Spironolactone 25 b.i.d. 8. Dextrose. 9. Ondansetron. 10. Albuterol. REVIEW OF SYSTEMS: CONSTITUTIONAL: Fevers and chills noted. No recent weight change. HEENT: Reviewed. CARDIAC: ____. RESPIRATORY: Shortness of breath. GASTROINTESTINAL: No nausea, vomiting, diarrhea, constipation. GENITOURINARY: No dysuria. NEUROLOGIC: No focal changes. PSYCHIATRIC: History of psychiatric illness with depression. PHYSICAL EXAMINATION: VITAL SIGNS: Temperature 96.8, heart rate 82, blood pressure is 102/62. GENERAL: She is a thin woman in no acute distress, alert and oriented x1 ____. HEENT: Normocephalic. Extraocular movements intact. NECK: Supple. JVD 6 cm. HEART: With a soft murmur. PMI is ____. LUNGS: Coarse to base. ABDOMEN: Distended, bowel sounds are present. There is no hepatosplenomegaly. ____ intact. EXTREMITIES: No clubbing, cyanosis. Trace edema. LABORATORY DATA: 1. ECG read by me shows first degree block with left bundle bunch block intermittently. The patient has conduction aberrancy on top of her left bundle branch block. 2. Laboratory data: Troponin is 1.18 from 1.12. Her INR is 1.0. White blood cell of 10.1, hemoglo bin 7.9, platelets 195. ASSESSMENT AND PLAN: 1. Non-ST elevation myocardial infarction. The patient has non-ST elevation myocardial infarction. This is in the setting of pneumonia and acute infectious process. Patient has known "burned out" ca rdiomyopathy. Patient of Dr. Nagel will continue to treat the patient medically and follow expectan tly. 2. History of aberrant conduction with intermittent left bundle branch block, conservative therapy i s expected. The patient does not report any syncope to my evaluation, so there is no class I indicat ion for pacemaker right now. Right pacing could be in consideration of hypertrophic cardiomyopathy. However, this is not an acute issue that needs to be addressed at this particular point. 3. History of pneumonia. Continue antibiotic therapy as indicated. 4. History of hypertension. Blood pressure well optimized now. 5. Cardiomyopathy with EF 30%. The patient does not appear to be in heart failure now. A 2D echo t o follow up. I would like to thank Dr. Treviño for referring this patient for my evaluation. Dictated By: LEXY HERRERA MD ML/NTS Conf#: [id number] DID#: [id number] CC: REJI TREVIÑO MD; ERNIE ROCHA MD;*EndCC*
[2018-11-18] MEDS: DEXTROSE 5%-0.9% NACL 1,000 ML IV SCH (07:28)
--- NOTE | 2018-11-18 07:32 | CONS ---
Assessment/Plan Assessment/Plan Hospital Course (Demo Recall) 1) CAP vs aspiration pneumonia continue with azithro but will change ceftriaxone to unasyn does to vomiting hx and got SOB after her admission according to the patient maintain IV as pt is on biPAP (FiO2 at 50%) currently 2) elevated troponins and CK pt currently has no CP 3)CAD with cardiomyopathy echo shows similar Ej. fx as before 4) ARF no urinary c/o CT does not show obstruction or stone or mass will check u/a and urine cx already improved with hydration 5) hx of CVA but pt denies muscle weakness Consultation Date/Type/Reason Admit Date/Time Date of Consultation: Nov 18, 2018 Type of Consult ID Date/Time of Note DATE: 11/18/18 TIME: 07:14 Hx of Present Illness pt is a poor historian she has had a cough for an indeterminant amount of time she states she became SOB in the hospital she does not recall vomiting but the ER admission note stated that she had been vomiting She has abd pain but doesn't know if it is different than yesterday no feels cold and thinks she may have had fever 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 no muscle aches, joint pains, rashes, dysuria, sore throat, coryza, CP Past Medical History HTN, HI, CAD, cardiomyopathy, CVA, Medical History: other (See HPI) Home Meds Active Scripts Aspirin* (Aspirin* EC) 81 Mg Tablet.dr, 81 MG PO DAILY for 30 Days, #30 Prov:LIA CHOU MD 06/10/17 Spironolactone* (Aldactone*) 25 Mg Tablet, 25 MG PO DAILY for 30 Days, #30 TAB Prov:LIA CHOU MD 06/10/17 Atorvastatin* (Atorvastatin*) 40 Mg Tablet, 40 MG PO HS for 30 Days, #30 TAB Prov:LIA CHOU MD 06/10/17 Carvedilol* (Carvedilol*) 3.125 Mg Tablet, 3.125 MG PO BID for 30 Days, #60 TAB Prov:LIA CHOU MD 06/10/17 Reported Medications Buspirone Hcl* (Buspirone Hcl*) 10 Mg Tab, 15 MG PO BID, TAB PT TAKES THREE DAYS A WEEK 02/08/17 Cranberry (Cranberry) 400 Mg Capsule, 800 MG PO DAILY, CAP 05/03/16 Multivitamins* (Theragran*) 1 Tab Tab, 1 TAB PO DAILY, TAB 05/03/16 Medications Current Medications Dextrose (D50w Syringe) ONCE PRN IV DECREASED GLUCOSE; Start 11/17/18 at 03:00 IV Flush (NS 3 ml) 3 ml PER PROTOCOL IV ; Start 11/17/18 at 08:00 Ondansetron HCl (Zofran Inj) 4 mg Q6H PRN IV NAUSEA/VOMITING; Start 11/17/18 at 08:00 Nitroglycerin (Nitroglycerin (Sl Tab) 0.4 Mg) 1 tab Q5M PRN SL .CHEST PAIN Last administered on 11/17/18at 17:12; Admin Dose 1 TAB; Start 11/17/18 at 08:00 Acetaminophen (Tylenol Tab) 650 mg Q6H PRN PO .PAIN 1-3 OR TEMP; Start 11/17/18 at 08:00 Heparin Sodium (Porcine) (Heparin (5000 Units/1ml)) 5,000 unit Q12 SC Last administered on 11/17/18at 20:33; Admin Dose 5,000 UNIT; Start 11/17/18 at 09:00 Albuterol/ Ipratropium (Duoneb) 3 ml Q2H RESP THERAPY PRN HHN SHORTNESS OF BREATH; Start 11/17/18 at 08:00 Aspirin (Halfprin) 81 mg DAILY PO Last administered on 11/17/18at 10:46; Admin Dose 81 MG; Start 11/17/18 at 09:00 Atorvastatin Calcium (Lipitor) 40 mg HS PO Last administered on 11/17/18 20:16; Admin Dose 40 MG; Start 11/17/18 at 21:00 Multivitamins Therapeutic (Theragran) 1 tab DAILY PO Last administered on 11/17/18 10:45; Admin Dose 1 TAB; Start 11/17/18 at 09:00 Spironolactone (Aldactone) 25 mg DAILY PO Last administered on 11/17/18 10:46; Admin Dose 25 MG; Start 11/17/18 at 09:00 Ceftriaxone Sodium 50 ml @ 100 mls/hr Q12 IVPB Last administered on 11/17/18 20:20; Admin Dose 100 MLS/HR; Start 11/17/18 at 09:00 Dextrose/Sodium Chloride 1,000 ml @ 40 mls/hr Q24H IV Last administered on 11/17/18 10:16; Admin Dose 70 MLS/HR; Start 11/17/18 at 08:30 Buspirone HCl (Buspar) 15 mg BID PO Last administered on 11/17/18 20:16; Admin Dose 15 MG; Start 11/17/18 at 11:19 Azithromycin 250 ml @ 250 mls/hr DAILY@1200 IVPB Last administered on 11/17/18 12:40; Admin Dose 250 MLS/HR; Start 11/17/18 at 12:00 Carvedilol (Coreg) 6.25 mg BID GTB Last administered on 11/17/18 18:08; Admin D ose 6.25 MG; Start 11/17/18 at 18:00 Lisinopril (Zestril) 2.5 mg DAILY GTB Last administered on 11/17/18 18:09; Admin Dose 2.5 MG; Start 11/17/18 at 18:00 Isosorbide Dinitrate (Isordil) 10 mg BID PO Last administered on 11/17/18 18:09; Admin Dose 10 MG; Start 11/17/18 at 18:02 Lorazepam (Ativan) 0.5 mg Q8H PRN PO ANXIETY; Start 11/17/18 at 22:00 Allergies: Coded Allergies: latex (Verified Allergy, Mild, 06/01/17) Past Surgical History Past Surgical Hx: no surgical history, other (See HPI) Social History Alcohol Use: none Smoking Status: Never smoker Drug Use: none Exam/Review of Systems Exam Vitals Vital Signs Date Temp Pulse Resp B/P (MAP) Pulse Ox O2 O2 Flow FiO2 Time Delivery Rate 11/18/18 88 94 50 06:00 11/18/18 98.9 22 120/63 BIPAP 03:43 (82) 11/17/18 15.0 13:25 Intake and Output 11/17/18 11/17/18 11/18/18 1515:00 23:00 07:00 IntakeIntake Total 100 ml BalanceBalance 100 ml Exam pt is poor historian Constitutional: alert Eyes: nl sclera Neck: supple Respiratory: other (crackles at L base) Cardiovascular: regular rate and rhythm Gastrointestinal: soft, non-tender Extremities: other (no edema) Results Result Diagram: 11/18/18 0558 11/17/18 0205 Results 24hrs Laboratory Tests Test 11/17/18 07:59 11/17/18 14:19 11/18/18 05:58 Lactic Acid Level 3.2 *H Creatine Kinase 552 H 441 H Creatine Kinase Index 2.0 2.5 Creatinine Kinase MB (Mass) 11.00 H 11.10 H Troponin I 1.180 *H 1.440 *H White Blood Count 10.7 Red Blood Count 3.48 L Hemoglobin 10.3 L Hematocrit 31.1 L Mean Corpuscular Volume 89.4 Mean Corpuscular Hemoglobin 29.6 Mean Corpuscular Hemoglobin Concent 33.1 Red Cell Distribution Width 14.1 Platelet Count 167 Mean Platelet Volume 9.3 Immature Granulocytes % 0.500 H Neutrophils % 79.3 H Lymphocytes % 13.1 L Monocytes % 6.9 Eosinophils % 0.0 Basophils % 0.2 Nucleated Red Blood Cells % 0.0 Immature Granulocytes # 0.050 H Neutrophils # 8.5 H Lymphocytes # 1.4 Monocytes # 0.7 Eosinophils # 0.0 Basophils # 0.0 Nucleated Red Blood Cells # 0.0 Hemoglobin A1c 5.5 Medications Medication Current Medications Dextrose (D50w Syringe) ONCE PRN IV DECREASED GLUCOSE; Start 11/17/18 at 03:00 IV Flush (NS 3 ml) 3 ml PER PROTOCOL IV ; Start 11/17/18 at 08:00 Ondansetron HCl (Zofran Inj) 4 mg Q6H PRN IV NAUSEA/VOMITING; Start 11/17/18 at 08:00 Nitroglycerin (Nitroglycerin (Sl Tab) 0.4 Mg) 1 tab Q5M PRN SL .CHEST PAIN Last administered on 11/17/18at 17:12; Admin Dose 1 TAB; Start 11/17/18 at 08:00 Acetaminophen (Tylenol Tab) 650 mg Q6H PRN PO .PAIN 1-3 OR TEMP; Start 11/17/18 at 08:00 Heparin Sodium (Porcine) (Heparin (5000 Units/1ml)) 5,000 unit Q12 SC Last a dministered on 11/17/18at 20:33; Admin Dose 5,000 UNIT; Start 11/17/18 at 09:00 Albuterol/ Ipratropium (Duoneb) 3 ml Q2H RESP THERAPY PRN HHN SHORTNESS OF BREATH; Start 11/17/18 at 08:00 Aspirin (Halfprin) 81 mg DAILY PO Last administered on 11/17/18 10:46; Admin Dose 81 MG; Start 11/17/18 at 09:00 Atorvastatin Calcium (Lipitor) 40 mg HS PO Last administered on 11/17/18 20:16; Admin Dose 40 MG; Start 11/17/18 at 21:00 Multivitamins Therapeutic (Theragran) 1 tab DAILY PO Last administered on 11/17/18 10:45; Admin Dose 1 TAB; Start 11/17/18 at 09:00 Spironolactone (Aldactone) 25 mg DAILY PO Last administered on 11/17/18 10:46; Admin Dose 25 MG; Start 11/17/18 at 09:00 Ceftriaxone Sodium 50 ml @ 100 mls/hr Q12 IVPB Last administered on 11/17/18 20:20; Admin Dose 100 MLS/HR; Start 11/17/18 at 09:00 Dextrose/Sodium Chloride 1,000 ml @ 40 mls/hr Q24H IV Last administered on 11/17/18 10:16; Admin Dose 70 MLS/HR; Start 11/17/18 at 08:30 Buspirone HCl (Buspar) 15 mg BID PO Last administered on 11/17/18 20:16; Admin Dose 15 MG; Start 11/17/18 at 11:19 Azithromycin 250 ml @ 250 mls/hr DAILY@1200 IVPB Last administered on 11/17/18 12:40; Admin Dose 250 MLS/HR; Start 11/17/18 at 12:00 Carvedilol (Coreg) 6.25 mg BID GTB Last administered on 11/17/18 18:08; Admin Dose 6.25 MG; Start 11/17/18 at 18:00 Lisinopril (Zestril) 2.5 mg DAILY GTB Last administered on 11/17/18 18:09; Admin Dose 2.5 MG; Start 11/17/18 at 18:00 Isosorbide Dinitrate (Isordil) 10 mg BID PO Last administered on 11/17/18 18:09; Admin Dose 10 MG; Start 11/17/18 at 18:02 Lorazepam (Ativan) 0.5 mg Q8H PRN PO ANXIETY; Start 11/17/18 at 22:00 ADORE WEAVER MD Nov 18, 2018 07:24
[2018-11-18] MEDS: MULTIVITAMINS THERAPEUTIC TAB PO SCH (08:49)
[2018-11-18] MEDS: SPIRONOLACTONE 25 MG TAB PO SCH (08:49)
[2018-11-18] MEDS: ISOSORBIDE DINITRATE 10 MG TAB PO SCH (08:50)
[2018-11-18] MEDS: ASPIRIN (EC) 81 MG TAB PO SCH (08:50)
[2018-11-18] MEDS: LISINOPRIL 5 MG TAB GTB SCH (08:50)
[2018-11-18] MEDS: LORAZEPAM 0.5 MG TAB PO PRN (09:02)
[2018-11-18] MEDS: HEPARIN 5,000 UNIT/1 ML VIAL SC SCH ×2 (09:05→20:27)
[2018-11-18] MEDS: BUSPIRONE 5 MG TAB PO SCH ×2 (10:31→20:19)
--- NOTE | 2018-11-18 12:36 | CONS ---
DATE OF ADMISSION: 11/17/2018 DATE OF CONSULTATION: 11/18/2018 TYPE OF CONSULTATION: Cardiology. REASON FOR CONSULTATION: Shortness of breath. Thank you, Dr. Hunter, for this consultation. HISTORY OF PRESENT ILLNESS: This is an 83-year-old lady with history of cardiomyopathy, decreased ej ection fraction, comes in with several-day history of increasing shortness of breath, orthopnea, PND. Chest x-ray demonstrating congestive cardiac failure. She has had progressive hypoxemia requiring noninvasive positive pressure ventilation and rising troponin levels concerning for non-ST elevation myocardial infarction. In addition, she had initially elevated lactic acidosis. DIAGNOSTIC STUDIES: BNP is pending at time of this admission. Renal ultrasound shows right renal cy st, but no obstructive uropathy. CT abdomen and pelvis also performed demonstrated fecal impaction i nfiltrates and posterior lobes of the left lung. Bilateral inguinal hernias and cholecystectomy. IMPRESSION AND PLAN: Hypoxemic respiratory failure, likely secondary to congestive cardiac failure w ith evidence of coronary ischemia. The patient will require diuretics, cardiac evaluation and treatm ent for possible community-acquired pneumonia. We will transition her from noninvasive positive pres sure ventilation to high flow O2. I will also order speech therapy evaluation to exclude aspiration pneumonia. Thank you again Dr. Eduardo, for this consult. Dictated By: TIFFANY KUNZ MD SV/NTS Conf#: [id number] DID#: [id number] CC: ERNIE EDUARDO MD;*EndCC*
[2018-11-18] MEDS: AZITHROMYCIN 500MG/NS (PMX) 250 ML IVPB SCH (12:37)
[2018-11-18] MEDS: FUROSEMIDE 40 MG INJ IV SCH (12:41)
[2018-11-18] MEDS: AMPICILLIN/SULB 3 GM/NS (PMX) 100 ML IVPB SCH (15:06)
--- NOTE | 2018-11-18 15:20 | CONS ---
Consult Date/Type/Reason Admit Date/Time Nov 17, 2018 at 06:17 Initial Consult Date 11/18/18 Type of Consultation: CV Date/Time of Note DATE: 11/18/18 TIME: 15:16 Subjective Cardiology follow-up progress note Subjective: Case discussed with the staff. Telemetry was reviewed. Patient remains in normal sinus rhythm sinus bradycardia. Patient himself denies any chest pain or pressure to me now. Patient continues to be hypoxemic and she is on high flow oxygen. Patient is very well-known to me from previous admission to the hospital and outpatient follow-up. Objective: General: no acute distress HEENT: NC/AT. pupils are equal. round. NECK. no stridor. CV: RRR. systolic murmur; no gallop or rubs. PULM: no wheezing +rhonchi. GI: SOFT, NT, ND, no rebound or guarding Extremity: trace B/L LE edema. no clubbing. neuro: awake and alert, OX2. Psych: calm and pleasant rectal: deferred : normal Review of the old chart showed echocardiogram done in my office on October 10, 2017 has shown ejection fraction of more than 65% hypertrophic cardiomyopathy with severe LVH trace MR mild MR Echocardiogram done 11/17/[address] Harper shows: Normal left ventricular cavity size. Moderate concentric left ventricular hypertrophy. Severe left ventricular systolic dysfunction. Ejection fraction is visually estimated at 30-35 %. Tissue Doppler/Mitral Doppler indices are consistent with impaired relaxation (Stage I diastolic dysfunction). E/E'= 28. Resting left ventricular outflow tract velocity 6.70 m/sec. Resting left ventricular outflow tract gradient 180.0 mmHg. Severe left ventricular outflow tract obstruction, patient unable to Valsalva. These segments of the LV are hypokinetic anterolateral mid segment and anteroseptum mid segment. These segments of the LV are akinetic mid anterior segment, apical anterior segment, apical lateral segment, inferior mid segment, apical inferior segment, inferoseptum mid segment and apical septum segment. Mild mitral leaflet calcification. Moderate mitral annular calcification. Moderate to severe mitral valve regurgitation. Moderate systolic anterior motion of mitral valve. Chordal LENA seen. No significant aortic stenosis or insufficiency. Aortic cusps appear mildly calcified. Normal appearance of the tricuspid valve. Estimated peak PA systolic pressure 45 mmHg. There is mild to moderate tricuspid regurgitation. Objective Vitals Vital Signs Date Temp Pulse Resp B/P (MAP) Pulse Ox O2 O2 Flow FiO2 Time Delivery Rate 11/18/18 100 85 13:07 11/18/18 59 12:06 11/18/18 98.2 18 119/56 Nasal 11:50 (77) Cannula 11/17/18 15.0 13:25 Intake and Output 11/17/18 11/17/18 11/18/18 1414:59 22:59 06:59 IntakeIntake Total 350 ml 1000 ml BalanceBalance 350 ml 1000 ml Results/Medications Result Diagram: 11/18/18 0558 11/18/18 0558 Results 24 hrs Laboratory Tests Test 11/18/18 05:58 11/18/18 09:55 11/18/18 12:14 White Blood Count 10.7 Red Blood Count 3.48 L Hemoglobin 10.3 L Hematocrit 31.1 L Mean Corpuscular Volume 89.4 Mean Corpuscular Hemoglobin 29.6 Mean Corpuscular Hemoglobin Concent 33.1 Red Cell Distribution Width 14.1 Platelet Count 167 Mean Platelet Volume 9.3 Immature Granulocytes % 0.500 H Neutrophils % 79.3 H Lymphocytes % 13.1 L Monocytes % 6.9 Eosinophils % 0.0 Basophils % 0.2 Nucleated Red Blood Cells % 0.0 Immature Granulocytes # 0.050 H Neutrophils # 8.5 H Lymphocytes # 1.4 Monocytes # 0.7 Eosinophils # 0.0 Basophils # 0.0 Nucleated Red Blood Cells # 0.0 Sodium Level 134 L Potassium Level 4.4 Chloride Level 102 Carbon Dioxide Level 26 Anion Gap 6 Blood Urea Nitrogen 21 H Creatinine 1.32 H Est Glomerular Filtrat Rate mL/min Glucose Level 132 Hemoglobin A1c 5.5 Calcium Level 9.1 Magnesium Level 2.3 Total Bilirubin 0.9 Direct Bilirubin 0.00 Indirect Bilirubin 0.9 Aspartate Amino Transf (AST/SGOT) 38 Alanine Aminotransferase (ALT/SGPT) 28 Alkaline Phosphatase 59 Total Protein 5.7 #L Albumin 2.9 L Globulin 2.80 Albumin/Globulin Ratio 1.03 Triglycerides Level 86 Cholesterol Level 87 L LDL Cholesterol, Calculated 34 HDL Cholesterol 36 Cholesterol/HDL Ratio 2.4 Thyroid Stimulating Hormone (TSH) 0.387 L Urine Color YELLOW Urine Clarity CLOUDY A Urine pH 5.0 Urine Specific [place] 1.024 Urine Ketones NEGATIVE Urine Nitrite NEGATIVE Urine Bilirubin NEGATIVE Urine Urobilinogen NEGATIVE Urine Leukocyte Esterase NEGATIVE Urine Microscopic RBC 1 Urine Microscopic WBC 3 Urine Squamous Epithelial Cells FEW Urine Hemoglobin NEGATIVE Urine Glucose NEGATIVE Urine Total Protein NEGATIVE Bedside Glucose 116 Home Meds Active Scripts Aspirin* (Aspirin* EC) 81 Mg Tablet.dr, 81 MG PO DAILY for 30 Days, #30 Prov:LIA CHOU MD 06/10/17 Spironolactone* (Aldactone*) 25 Mg Tablet, 25 MG PO DAILY for 30 Days, #30 TAB Prov:LIA CHOU MD 06/10/17 Atorvastatin* (Atorvastatin*) 40 Mg Tablet, 40 MG PO HS for 30 Days, #30 TAB Prov:LIA CHOU MD 06/10/17 Carvedilol* (Carvedilol*) 3.125 Mg Tablet, 3.125 MG PO BID for 30 Days, #60 TAB Prov:LIA CHOU MD 06/10/17 Reported Medications Buspirone Hcl* (Buspirone Hcl*) 10 Mg Tab, 15 MG PO BID, TAB PT TAKES THREE DAYS A WEEK 02/08/17 Cranberry (Cranberry) 400 Mg Capsule, 800 MG PO DAILY, CAP 05/03/16 Multivitamins* (Theragran*) 1 Tab Tab, 1 TAB PO DAILY, TAB 05/03/16 Medications Current Medications Dextrose (D50w Syringe) ONCE PRN IV DECREASED GLUCOSE; Start 11/17/18 at 03:00 IV Flush (NS 3 ml) 3 ml PER PROTOCOL IV ; Start 11/17/18 at 08:00 Ondansetron HCl (Zofran Inj) 4 mg Q6H PRN IV NAUSEA/VOMITING; Start 11/17/18 at 08:00 Nitroglycerin (Nitroglycerin (Sl Tab) 0.4 Mg) 1 tab Q5M PRN SL .CHEST PAIN Last administered on 11/17/18at 17:12; Admin Dose 1 TAB; Start 11/17/18 at 08:00 Acetaminophen (Tylenol Tab) 650 mg Q6H PRN PO .PAIN 1-3 OR TEMP; Start 11/17/18 at 08:00 Heparin Sodium (Porcine) (Heparin (5000 Units/1ml)) 5,000 unit Q12 SC Last administered on 11/18/18at 09:05; Admin Dose 5,000 UNIT; Start 11/17/18 at 09:00 Albuterol/ Ipratropium (Duoneb) 3 ml Q2H RESP THERAPY PRN HHN SHORTNESS OF BREATH; Start 11/17/18 at 08:00 Aspirin (Halfprin) 81 mg DAILY PO Last administered on 11/18/18 08:50; Admin Dose 81 MG; Start 11/17/18 at 09:00 Atorvastatin Calcium (Lipitor) 40 mg HS PO Last administered on 11/17/18 20:16; Admin Dose 40 MG; Start 11/17/18 at 21:00 Multivitamins Therapeutic (Theragran) 1 tab DAILY PO Last administered on 11/18/18 08:49; Admin Dose 1 TAB; Start 11/17/18 at 09:00 Spironolactone (Aldactone) 25 mg DAILY PO Last administered on 11/18/18 08:49; Admin Dose 25 MG; Start 11/17/18 at 09:00 Dextrose/Sodium Chloride 1,000 ml @ 40 mls/hr Q24H IV Last administered on 11/18/18 07:28; Admin Dose 40 MLS/HR; Start 11/17/18 at 08:30 Buspirone HCl (Buspar) 15 mg BID PO Last administered on 11/18/18 10:31; Admin Dose 15 MG; Start 11/17/18 at 11:19 Azithromycin 250 ml @ 250 mls/hr DAILY@1200 IVPB Last administered on 11/18/18 12:37; Admin Dose 250 MLS/HR; Start 11/17/18 at 12:00 Carvedilol (Coreg) 6.25 mg BID GTB Last administered on 11/18/18 08:50; Admin Dose 6.25 MG; Start 11/17/18 at 18:00 Lisinopril (Zestril) 2.5 mg DAILY GTB Last administered on 11/18/18 08:50; Admin Dose 2.5 MG; Start 11/17/18 at 18:00 Isosorbide Dinitrate (Isordil) 10 mg BID PO Last administered on 11/18/18 08:50; Admin Dose 10 MG; Start 11/17/18 at 18:02 Lorazepam (Ativan) 0.5 mg Q8H PRN PO ANXIETY Last administered on 11/18/18 09:02; Admin Dose 0.5 MG; Start 11/17/18 at 22:00 Ampicillin Sodium/ Sulbactam Sodium 100 ml @ 100 mls/hr Q8 IVPB Last administered on 11/18/18at 15:06; Admin Dose 100 MLS/HR; Start 11/18/18 at 14:00 Furosemide (Lasix) 40 mg DAILY IV Last administered on 11/18/18at 12:41; Admin Dose 40 MG; Start 11/18/18 at 12:30 Assessment/Plan Hospital Course (Demo Recall) 1. Pneumonia 2. Hypertrophic cardiomyopathy 3. Congestive heart failure 4. Abnormal troponin consistent with non-ST elevation myocardial infarction most likely type II 5. History of CVA 6. Hypertension 7. Cardiomyopathy possibly stress-induced versus others 8. Abnormal EKG with intermittent left bundle branch block with no with reports of any syncope Recommendations: Antibiotic management as per internal medicine and pulmonary team Continue with the Coreg and increase as needed We will stop the nitrates given her history of hypertrophic cardiomyopathy Aspirin to be continued Statins Monitor on telemetry Thank you for his referral. We will continue to follow along with you DREW MACARIO MD [facility] DREW MACARIO MD Nov 18, 2018 15:20
--- NOTE | 2018-11-18 17:12 | PN ---
Date/Time of Note Date/Time of Note DATE: 11/18/18 TIME: 17:06 Assessment/Plan VTE Prophylaxis Risk score (from [facility] [place])>0 risk: 6 SCD applied (from [facility] [place]): Yes Pharmacological prophylaxis: heparin Lines/Catheters IV Catheter Type (from [facility]): Peripheral IV Assessment/Plan Problems: (1) Community acquired pneumonia Status: Acute Comment: Patient on Unasyn and zithromax. Further management per pulmonary and infectious disease. Qualifiers: Laterality: left Lung location: unspecified part of lung Qualified Codes: J18.9 - Pneumonia, unspecified organism (2) Severe sepsis Status: Acute Comment: Continue supportive care and follow lactic acid level. Blood cx's pending. (3) Acute respiratory failure with hypoxia Status: Acute Comment: doing better on high flow O2. Add xopenox HHN tid for improved lung function. (4) Non-ST elevation myocardial infarction (NSTEMI) Status: Acute Comment: NSTEMI in the setting of acute pneumonia and sepsis, should stabilize with treatment of infection. 2D-Echo shows ventricular systolic dysfunction , unclear how much is due to underlying burned out cardiomyopathy and how much is due to myocardial ischemia. Further management per Dr. Nagel. (5) Congestive heart failure Status: Chronic Comment: change lasix to IV , continue carvedilol and lisinopril po. Monitor potassium. (6) Constipation Status: Acute Comment: Patient had BM today.Use milk of magnesia prn and Add Colace qhs. (7) Acute renal insufficiency Status: Chronic Comment: watch bun/cr after hydration. (8) Anemia Status: Chronic Result Diagram: 11/18/18 0558 11/18/18 0558 Results 24hrs Laboratory Tests Test 11/18/18 05:58 11/18/18 09:55 11/18/18 12:14 White Blood Count 10.7 Red Blood Count 3.48 L Hemoglobin 10.3 L Hematocrit 31.1 L Mean Corpuscular Volume 89.4 Mean Corpuscular Hemoglobin 29.6 Mean Corpuscular Hemoglobin Concent 33.1 Red Cell Distribution Width 14.1 Platelet Count 167 Mean Platelet Volume 9.3 Immature Granulocytes % 0.500 H Neutrophils % 79.3 H Lymphocytes % 13.1 L Monocytes % 6.9 Eosinophils % 0.0 Basophils % 0.2 Nucleated Red Blood Cells % 0.0 Immature Granulocytes # 0.050 H Neutrophils # 8.5 H Lymphocytes # 1.4 Monocytes # 0.7 Eosinophils # 0.0 Basophils # 0.0 Nucleated Red Blood Cells # 0.0 Sodium Level 134 L Potassium Level 4.4 Chloride Level 102 Carbon Dioxide Level 26 Anion Gap 6 Blood Urea Nitrogen 21 H Creatinine 1.32 H Est Glomerular Filtrat Rate mL/min Glucose Level 132 Hemoglobin A1c 5.5 Calcium Level 9.1 Magnesium Level 2.3 Total Bilirubin 0.9 Direct Bilirubin 0.00 Indirect Bilirubin 0.9 Aspartate Amino Transf (AST/SGOT) 38 Alanine Aminotransferase (ALT/SGPT) 28 Alkaline Phosphatase 59 Total Protein 5.7 #L Albumin 2.9 L Globulin 2.80 Albumin/Globulin Ratio 1.03 Triglycerides Level 86 Cholesterol Level 87 L LDL Cholesterol, Calculated 34 HDL Cholesterol 36 Cholesterol/HDL Ratio 2.4 Thyroid Stimulating Hormone (TSH) 0.387 L Urine Color YELLOW Urine Clarity CLOUDY A Urine pH 5.0 Urine Specific [place] 1.024 Urine Ketones NEGATIVE Urine Nitrite NEGATIVE Urine Bilirubin NEGATIVE Urine Urobilinogen NEGATIVE Urine Leukocyte Esterase NEGATIVE Urine Microscopic RBC 1 Urine Microscopic WBC 3 Urine Squamous Epithelial Cells FEW Urine Hemoglobin NEGATIVE Urine Glucose NEGATIVE Urine Total Protein NEGATIVE Bedside Glucose 116 Subjective 24 Hr Interval Summary Free Text/Dictation Patient had increased shortness of breath this am on biPAP, doing better on high flow O2 Exam/Review of Systems Exam Vitals Vital Signs Date Temp Pulse Resp B/P (MAP) Pulse Ox O2 O2 Flow FiO2 Time Delivery Rate 11/18/18 79 16:03 11/18/18 98.6 18 129/60 92 Nasal 15:42 (83) Cannula 11/18/18 75 15:05 11/17/18 15.0 13:25 Intake and Output 11/17/18 11/17/18 11/18/18 1515:00 23:00 07:00 IntakeIntake Total 350 ml 1000 ml BalanceBalance 350 ml 1000 ml Constitutional: alert, oriented Head: normocephalic, atraumatic Respiratory: clear to auscultation, diminished breath sounds Cardiovascular: regular rate and rhythm Gastrointestinal: soft, non-tender Musculoskeletal: nl extremities to inspection Results Results 24hrs Laboratory Tests Test 11/18/18 05:58 11/18/18 09:55 11/18/18 12:14 White Blood Count 10.7 Red Blood Count 3.48 L Hemoglobin 10.3 L Hematocrit 31.1 L Mean Corpuscular Volume 89.4 Mean Corpuscular Hemoglobin 29.6 Mean Corpuscular Hemoglobin Concent 33.1 Red Cell Distribution Width 14.1 Platelet Count 167 Mean Platelet Volume 9.3 Immature Granulocytes % 0.500 H Neutrophils % 79.3 H Lymphocytes % 13.1 L Monocytes % 6.9 Eosinophils % 0.0 Basophils % 0.2 Nucleated Red Blood Cells % 0.0 Immature Granulocytes # 0.050 H Neutrophils # 8.5 H Lymphocytes # 1.4 Monocytes # 0.7 Eosinophils # 0.0 Basophils # 0.0 Nucleated Red Blood Cells # 0.0 Sodium Level 134 L Potassium Level 4.4 Chloride Level 102 Carbon Dioxide Level 26 Anion Gap 6 Blood Urea Nitrogen 21 H Creatinine 1.32 H Est Glomerular Filtrat Rate mL/min Glucose Level 132 Hemoglobin A1c 5.5 Calcium Level 9.1 Magnesium Level 2.3 Total Bilirubin 0.9 Direct Bilirubin 0.00 Indirect Bilirubin 0.9 Aspartate Amino Transf (AST/SGOT) 38 Alanine Aminotransferase (ALT/SGPT) 28 Alkaline Phosphatase 59 Total Protein 5.7 #L Albumin 2.9 L Globulin 2.80 Albumin/Globulin Ratio 1.03 Triglycerides Level 86 Cholesterol Level 87 L LDL Cholesterol, Calculated 34 HDL Cholesterol 36 Cholesterol/HDL Ratio 2.4 Thyroid Stimulating Hormone (TSH) 0.387 L Urine Color YELLOW Urine Clarity CLOUDY A Urine pH 5.0 Urine Specific [place] 1.024 Urine Ketones NEGATIVE Urine Nitrite NEGATIVE Urine Bilirubin NEGATIVE Urine Urobilinogen NEGATIVE Urine Leukocyte Esterase NEGATIVE Urine Microscopic RBC 1 Urine Microscopic WBC 3 Urine Squamous Epithelial Cells FEW Urine Hemoglobin NEGATIVE Urine Glucose NEGATIVE Urine Total Protein NEGATIVE Bedside Glucose 116 Medications Medication Current Medications Dextrose (D50w Syringe) ONCE PRN IV DECREASED GLUCOSE; Start 11/17/18 at 03:00 IV Flush (NS 3 ml) 3 ml PER PROTOCOL IV ; Start 11/17/18 at 08:00 Ondansetron HCl (Zofran Inj) 4 mg Q6H PRN IV NAUSEA/VOMITING; Start 11/17/18 at 08:00 Nitroglycerin (Nitroglycerin (Sl Tab) 0.4 Mg) 1 tab Q5M PRN SL .CHEST PAIN Last administered on 11/17/18at 17:12; Admin Dose 1 TAB; Start 11/17/18 at 08:00 Acetaminophen (Tylenol Tab) 650 mg Q6H PRN PO .PAIN 1-3 OR TEMP; Start 11/17/18 at 08:00 Heparin Sodium (Porcine) (Heparin (5000 Units/1ml)) 5,000 unit Q12 SC Last administered on 11/18/18 09:05; Admin Dose 5,000 UNIT; Start 11/17/18 at 09:00 Albuterol/ Ipratropium (Duoneb) 3 ml Q2H RESP THERAPY PRN HHN SHORTNESS OF BREATH; Start 11/17/18 at 08:00 Aspirin (Halfprin) 81 mg DAILY PO Last administered on 11/18/18 08:50; Admin Dose 81 MG; Start 11/17/18 at 09:00 Atorvastatin Calcium (Lipitor) 40 mg HS PO Last administered on 11/17/18 20:16; Admin Dose 40 MG; Start 11/17/18 at 21:00 Multivitamins Therapeutic (Theragran) 1 tab DAILY PO Last administered on 11/18/18 08:49; Admin Dose 1 TAB; Start 11/17/18 at 09:00 Spironolactone (Aldactone) 25 mg DAILY PO Last administered on 11/18/18 08:49; Admin Dose 25 MG; Start 11/17/18 at 09:00 Dextrose/Sodium Chloride 1,000 ml @ 40 mls/hr Q24H IV Last administered on 11/18/18 07:28; Admin Dose 40 MLS/HR; Start 11/17/18 at 08:30 Buspirone HCl (Buspar) 15 mg BID PO Last administered on 11/18/18 10:31; Admin Dose 15 MG; Start 11/17/18 at 11:19 Azithromycin 250 ml @ 250 mls/hr DAILY@1200 IVPB Last administered on 11/18/18 12:37; Admin Dose 250 MLS/HR; Start 11/17/18 at 12:00 Carvedilol (Coreg) 6.25 mg BID GTB Last administered on 11/18/18 08:50; Admin D ose 6.25 MG; Start 11/17/18 at 18:00 Lisinopril (Zestril) 2.5 mg DAILY GTB Last administered on 11/18/18 08:50; Admin Dose 2.5 MG; Start 11/17/18 at 18:00 Lorazepam (Ativan) 0.5 mg Q8H PRN PO ANXIETY Last administered on 11/18/18 09:02; Admin Dose 0.5 MG; Start 11/17/18 at 22:00 Ampicillin Sodium/ Sulbactam Sodium 100 ml @ 100 mls/hr Q8 IVPB Last administered on 11/18/18 15:06; Admin Dose 100 MLS/HR; Start 11/18/18 at 14:00 Furosemide (Lasix) 40 mg DAILY IV Last administered on 11/18/18at 12:41; Admin Dose 40 MG; Start 11/18/18 at 12:30 SIVA MILLER MD Nov 18, 2018 17:12
[2018-11-18] MEDS: ATORVASTATIN 40 MG TAB PO SCH (20:22)
[2018-11-19] VITALS (13 sets, daily range): BP systolic 107–143; BP diastolic 54–81; PULSE 57–90; RESP 18–22
[2018-11-19] MEDS: AMPICILLIN/SULB 3 GM/NS (PMX) 100 ML IVPB SCH ×4 (00:57→21:20)
[2018-11-19] MEDS: LEVALBUTEROL (NEB) 0.63 MG/3 ML AMP HHN SCH ×3 (01:07→16:19)
[2018-11-19] MEDS: DEXTROSE 5%-0.9% NACL 1,000 ML IV SCH ×2 (02:29→18:48)
--- NOTE | 2018-11-19 07:07 | CONS ---
Assessment/Plan Assessment/Plan Hospital Course (Demo Recall) 1) CAP vs aspiration pneumonia continue with azithro but will change ceftriaxone to unasyn does to vomiting hx and got SOB after her admission according to the patient maintain IV as pt is on biPAP (FiO2 at 50%) currently 3/5 - on [employer] at 70% continue with unasyn/azithro at present 2) elevated troponins and CK pt currently has no CP 3)CAD with cardiomyopathy echo shows similar Ej. fx as before 4) ARF no urinary c/o CT does not show obstruction or stone or mass will check u/a and urine cx already improved with hydration 11/19 - u/a is benign 5) hx of CVA but pt denies muscle weakness 6) constipation 11/19 - order for MOM written Consultation Date/Type/Reason Admit Date/Time Nov 17, 2018 at 06:17 Initial Consult Date 11/18/18 Type of Consult ID Date/Time of Note DATE: 11/19/18 TIME: 07:03 24 HR Interval Summary Free Text/Dictation pt is SOB but she denies cough no N, V, D Exam/Review of Systems Exam Vitals Vital Signs Date Temp Pulse Resp B/P (MAP) Pulse Ox O2 O2 Flow FiO2 Time Delivery Rate 11/19/18 98 70 04:40 11/19/18 63 18 04:40 11/19/18 97.5 143/81 04:00 (101) 11/18/18 Nasal 15:42 Cannula 11/17/18 15.0 13:25 Intake and Output 11/18/18 11/18/18 11/19/18 1515:00 23:00 07:00 IntakeIntake Total 250 ml 930 ml BalanceBalance 250 ml 930 ml Constitutional: alert Eyes: nl sclera ENMT: mucosa pink and moist Respiratory: other (crackles at L base) Cardiovascular: regular rate and rhythm Gastrointestinal: soft, non-tender Results Result Diagram: 11/18/18 0558 11/18/18 0558 Results 24hrs Laboratory Tests Test 11/18/18 09:55 11/18/18 12:14 11/19/18 06:35 Urine Color YELLOW Urine Clarity CLOUDY A Urine pH 5.0 Urine Specific [place] 1.024 Urine Ketones NEGATIVE Urine Nitrite NEGATIVE Urine Bilirubin NEGATIVE Urine Urobilinogen NEGATIVE Urine Leukocyte Esterase NEGATIVE Urine Microscopic RBC 1 Urine Microscopic WBC 3 Urine Squamous Epithelial Cells FEW Urine Hemoglobin NEGATIVE Urine Random Sodium 25 L Urine Random Potassium 66.7 Urine Glucose NEGATIVE Urine Total Protein NEGATIVE Bedside Glucose 116 White Blood Count Pending Red Blood Count Pending Hemoglobin Pending Hematocrit Pending Mean Corpuscular Volume Pending Mean Corpuscular Hemoglobin Pending Mean Corpuscular Hemoglobin Concent Pending Red Cell Distribution Width Pending Platelet Count Pending Mean Platelet Volume Pending Medications Medication Current Medications Dextrose (D50w Syringe) ONCE PRN IV DECREASED GLUCOSE; Start 11/17/18 at 03:00 IV Flush (NS 3 ml) 3 ml PER PROTOCOL IV ; Start 11/17/18 at 08:00 Ondansetron HCl (Zofran Inj) 4 mg Q6H PRN IV NAUSEA/VOMITING; Start 11/17/18 at 08:00 Nitroglycerin (Nitroglycerin (Sl Tab) 0.4 Mg) 1 tab Q5M PRN SL .CHEST PAIN Last administered on 11/17/18at 17:12; Admin Dose 1 TAB; Start 11/17/18 at 08:00 Acetaminophen (Tylenol Tab) 650 mg Q6H PRN PO .PAIN 1-3 OR TEMP; Start 11/17/18 at 08:00 Heparin Sodium (Porcine) (Heparin (5000 Units/1ml)) 5,000 unit Q12 SC Last administered on 11/18/18 20:27; Admin Dose 5,000 UNIT; Start 11/17/18 at 09:00 Albuterol/ Ipratropium (Duoneb) 3 ml Q2H RESP THERAPY PRN HHN SHORTNESS OF BREATH; Start 11/17/18 at 08:00 Aspirin (Halfprin) 81 mg DAILY PO Last administered on 11/18/18 08:50; Admin Dose 81 MG; Start 11/17/18 at 09:00 Atorvastatin Calcium (Lipitor) 40 mg HS PO Last administered on 11/18/18 20:22; Admin Dose 40 MG; Start 11/17/18 at 21:00 Multivitamins Therapeutic (Theragran) 1 tab DAILY PO Last administered on 11/18/18 08:49; Admin Dose 1 TAB; Start 11/17/18 at 09:00 Spironolactone (Aldactone) 25 mg DAILY PO Last administered on 11/18/18 08:49; Admin Dose 25 MG; Start 11/17/18 at 09:00 Dextrose/Sodium Chloride 1,000 ml @ 40 mls/hr Q24H IV Last administered on 11/18/18 07:28; Admin Dose 40 MLS/HR; Start 11/17/18 at 08:30 Buspirone HCl (Buspar) 15 mg BID PO Last administered on 11/18/18 20:19; Admin Dose 15 MG; Start 11/17/18 at 11:19 Azithromycin 250 ml @ 250 mls/hr DAILY@1200 IVPB Last administered on 11/18/18 12:37; Admin Dose 250 MLS/HR; Start 11/17/18 at 12:00 Carvedilol (Coreg) 6.25 mg BID GTB Last administered on 11/18/18 20:20; Admin Dose 6.25 MG; Start 11/17/18 at 18:00 Lisinopril (Zestril) 2.5 mg DAILY GTB Last administered on 11/18/18 08:50; Admin Dose 2.5 MG; Start 11/17/18 at 18:00 Lorazepam (Ativan) 0.5 mg Q8H PRN PO ANXIETY Last administered on 11/18/18 09:02; Admin Dose 0.5 MG; Start 11/17/18 at 22:00 Ampicillin Sodium/ Sulbactam Sodium 100 ml @ 100 mls/hr Q8 IVPB Last administered on 11/19/18 05:42; Admin Dose 100 MLS/HR; Start 11/18/18 at 14:00 Furosemide (Lasix) 40 mg DAILY IV Last administered on 11/18/18 12:41; Admin Dose 40 MG; Start 11/18/18 at 12:30 Levalbuterol (Xopenex Neb) 0.63 mg Q8H RESP THERAPY HHN Last administered on 11/19/18 01:07; Admin Dose 0.63 MG; Start 11/19/18 at 00:00 ADORE WEAVER MD Nov 19, 2018 07:07
--- NOTE | 2018-11-19 08:08 | PN ---
Date/Time of Note Date/Time of Note DATE: 11/19/18 TIME: 08:04 Assessment/Plan VTE [place]axis [place] [facility] [place]: 6 [place] [facility] [place] Yes Pharmacological prophylaxis: heparin Pharm contraindication: blood coag disorder Lines/Catheters IV C[facility]ter Type (from [facility] Peripheral IV Urinary Cath still in place: No Assessment/Plan Assessment/Plan (1) Community acquired pneumonia Status: Acute Comment: Patient on Unasyn and zithromax. Further management per pulmonary and infectious disease. Qualifiers: Laterality: left Lung location: unspecified part of lung Qualified Codes: J18.9 - Pneumonia, unspecified organism (2) Severe sepsis Status: Acute Comment: Continue supportive care , lactic acid level improved. Blood cx's negative so far. (3) Acute respiratory failure with hypoxia Status: Acute Comment: doing better on high flow O2 and xopenox HHN tid. (4) Non-ST elevation myocardial infarction (NSTEMI) Status: Acute Comment: NSTEMI in the setting of acute pneumonia and sepsis, should stabilize with treatment of infection. 2D-Echo shows ventricular systolic dysfunction , unclear how much is due to underlying burned out cardiomyopathy and how much is due to myocardial ischemia. Further management per Dr. Nagel. (5) Congestive heart failure Status: Chronic Comment: on lasix IV , carvedilol and lisinopril po. Monitor potassium. (6) Constipation Status: Acute Comment: Patient had BM past 2 days . On MOM as needed, add Colace qd. (7) Acute renal insufficiency Status: Resolved Comment: improved bun/cr after hydration. (8) Anemia Status: Chronic Result Diagram: 11/19/18 0635 11/19/18 0635 Results 24hrs Laboratory Tests Test 11/18/18 09:55 11/18/18 12:14 11/19/18 06:35 11/19/18 07:00 Urine Color YELLOW Urine Clarity CLOUDY A Urine pH 5.0 Urine Specific 1.024 [place] Urine Ketones NEGATIVE Urine Nitrite NEGATIVE Urine Bilirubin NEGATIVE Urine Urobilinogen NEGATIVE Urine Leukocyte NEGATIVE Esterase Urine Microscopic 1 RBC Urine Microscopic 3 WBC Urine Squamous FEW Epithelial Cells Urine Hemoglobin NEGATIVE Urine Random 25 L Sodium Urine Random 66.7 Potassium Urine Glucose NEGATIVE Urine Total NEGATIVE Protein Bedside Glucose 116 White Blood Count 9.0 Red Blood Count 3.30 L Hemoglobin 10.0 L Hematocrit 29.4 L Mean Corpuscular 89.1 Volume Mean Corpuscular 30.3 Hemoglobin Mean Corpuscular 34.0 Hemoglobin Concent Red Cell 14.0 Distribution Width Platelet Count 165 Mean Platelet 9.3 Volume Immature 0.400 Granulocytes % Neutrophils % 78.9 H Lymphocytes % 13.6 L Monocytes % 6.6 Eosinophils % 0.2 Basophils % 0.3 Nucleated Red 0.0 Blood Cells % Immature 0.040 H Granulocytes # Neutrophils # 7.1 Lymphocytes # 1.2 Monocytes # 0.6 Eosinophils # 0.0 Basophils # 0.0 Nucleated Red 0.0 Blood Cells # Sodium Level 135 Potassium Level 4.0 Chloride Level 103 Carbon Dioxide 28 Level Anion Gap 4 L Blood Urea 20 Nitrogen Creatinine 0.91 Est Glomerular Filtrat Rate mL/min Glucose Level 115 Calcium Level 9.2 Blood Gas Specimen Blood arterial Source Arterial Blood 11/19/2018 7:31:16 Date Drawn AM Arterial Blood pH 7.468 H (Temp corrected) Arterial Blood 37.8 pCO2 (Temp correct) Arterial Blood pO2 101.4 H (Temp corrected) Arterial Blood 26.8 H HCO3 Arterial Blood 3.0 Base Excess Arterial Blood 97.4 Oxygen Saturation Geovanny Test ACCEPTAB Arterial Blood Gas Right Radial Puncture Site Arterial 0.3 Blood Carboxyhemog lobin Arterial Blood 0.1 Methemoglobin Blood Gas A-a O2 357.1 H Differential Oxyhemoglobin 97.0 Percent Blood Gas 37.0 Temperature Blood Gas Modality HFNC FiO2 70.0 Blood Gas Notified TM Whom Blood Gas Notified 11/19/2018 7:39:53 Time AM Subjective 24 Hr Interval Summary Free Text/Dictation Patient is awake but confused. Exam/Review of Systems Exam Vitals Vital Signs Date Temp Pulse Resp B/P (MAP) Pulse Ox O2 O2 Flow FiO2 Time Delivery Rate 11/19/18 66 20 98 70 07:40 11/19/18 98.4 140/66 07:32 (90) 11/19/18 High Flow 06:20 11/17/18 15.0 13:25 Intake and Output 11/18/18 11/18/18 11/19/18 1515:00 23:00 07:00 IntakeIntake Total 250 ml 930 ml 730 ml BalanceBalance 250 ml 930 ml 730 ml Constitutional: alert Psych: confusion Head: normocephalic, atraumatic Respiratory: clear to auscultation Cardiovascular: regular rate and rhythm Musculoskeletal: nl extremities to inspection Results Results 24hrs Laboratory Tests Test 11/18/18 09:55 11/18/18 12:14 11/19/18 06:35 11/19/18 07:00 Urine Color YELLOW Urine Clarity CLOUDY A Urine pH 5.0 Urine Specific 1.024 [place] Urine Ketones NEGATIVE Urine Nitrite NEGATIVE Urine Bilirubin NEGATIVE Urine Urobilinogen NEGATIVE Urine Leukocyte NEGATIVE Esterase Urine Microscopic 1 RBC Urine Microscopic 3 WBC Urine Squamous FEW Epithelial Cells Urine Hemoglobin NEGATIVE Urine Random 25 L Sodium Urine Random 66.7 Potassium Urine Glucose NEGATIVE Urine Total NEGATIVE Protein Bedside Glucose 116 White Blood Count 9.0 Red Blood Count 3.30 L Hemoglobin 10.0 L Hematocrit 29.4 L Mean Corpuscular 89.1 Volume Mean Corpuscular 30.3 Hemoglobin Mean Corpuscular 34.0 Hemoglobin Concent Red Cell 14.0 Distribution Width Platelet Count 165 Mean Platelet 9.3 Volume Immature 0.400 Granulocytes % Neutrophils % 78.9 H Lymphocytes % 13.6 L Monocytes % 6.6 Eosinophils % 0.2 Basophils % 0.3 Nucleated Red 0.0 Blood Cells % Immature 0.040 H Granulocytes # Neutrophils # 7.1 Lymphocytes # 1.2 Monocytes # 0.6 Eosinophils # 0.0 Basophils # 0.0 Nucleated Red 0.0 Blood Cells # Sodium Level 135 Potassium Level 4.0 Chloride Level 103 Carbon Dioxide 28 Level Anion Gap 4 L Blood Urea 20 Nitrogen Creatinine 0.91 Est Glomerular Filtrat Rate mL/min Glucose Level 115 Calcium Level 9.2 Blood Gas Specimen Blood arterial Source Arterial Blood 11/19/2018 7:31:16 Date Drawn AM Arterial Blood pH 7.468 H (Temp corrected) Arterial Blood 37.8 pCO2 (Temp correct) Arterial Blood pO2 101.4 H (Temp corrected) Arterial Blood 26.8 H HCO3 Arterial Blood 3.0 Base Excess Arterial Blood 97.4 Oxygen Saturation Geovanny Test ACCEPTAB Arterial Blood Gas Right Radial Puncture Site Arterial 0.3 Blood Carboxyhemog lobin Arterial Blood 0.1 Methemoglobin Blood Gas A-a O2 357.1 H Differential Oxyhemoglobin 97.0 Percent Blood Gas 37.0 Temperature Blood Gas Modality HFNC FiO2 70.0 Blood Gas Notified TM Whom Blood Gas Notified 11/19/2018 7:39:53 Time AM Medications Medication Current Medications Dextrose (D50w Syringe) ONCE PRN IV DECREASED GLUCOSE; Start 11/17/18 at 03:00 IV Flush (NS 3 ml) 3 ml PER PROTOCOL IV ; Start 11/17/18 at 08:00 Ondansetron HCl (Zofran Inj) 4 mg Q6H PRN IV NAUSEA/VOMITING; Start 11/17/18 at 08:00 Nitroglycerin (Nitroglycerin (Sl Tab) 0.4 Mg) 1 tab Q5M PRN SL .CHEST PAIN Last administered on 11/17/18 17:12; Admin Dose 1 TAB; Start 11/17/18 at 08:00 Acetaminophen (Tylenol Tab) 650 mg Q6H PRN PO .PAIN 1-3 OR TEMP; Start 11/17/18 at 08:00 Heparin Sodium (Porcine) (Heparin (5000 Units/1ml)) 5,000 unit Q12 SC Last administered on 11/18/18 20:27; Admin Dose 5,000 UNIT; Start 11/17/18 at 09:00 Albuterol/ Ipratropium (Duoneb) 3 ml Q2H RESP THERAPY PRN HHN SHORTNESS OF BREATH; Start 11/17/18 at 08:00 Aspirin (Halfprin) 81 mg DAILY PO Last administered on 11/18/18 08:50; Admin Dose 81 MG; Start 11/17/18 at 09:00 Atorvastatin Calcium (Lipitor) 40 mg HS PO Last administered on 11/18/18 20:22; Admin Dose 40 MG; Start 11/17/18 at 21:00 Multivitamins Therapeutic (Theragran) 1 tab DAILY PO Last administered on 11/18/18 08:49; Admin Dose 1 TAB; Start 11/17/18 at 09:00 Spironolactone (Aldactone) 25 mg DAILY PO Last administered on 11/18/18 08:49; Admin Dose 25 MG; Start 11/17/18 at 09:00 Dextrose/Sodium Chloride 1,000 ml @ 40 mls/hr Q24H IV Last administered on 11/18/18 07:28; Admin Dose 40 MLS/HR; Start 11/17/18 at 08:30 Buspirone HCl (Buspar) 15 mg BID PO Last administered on 11/18/18 20:19; Admin Dose 15 MG; Start 11/17/18 at 11:19 Azithromycin 250 ml @ 250 mls/hr DAILY@1200 IVPB Last administered on 11/18/18 12:37; Admin Dose 250 MLS/HR; Start 11/17/18 at 12:00 Carvedilol (Coreg) 6.25 mg BID GTB Last administered on 11/18/18 20:20; Admin Dose 6.25 MG; Start 11/17/18 at 18:00 Lisinopril (Zestril) 2.5 mg DAILY GTB Last administered on 11/18/18 08:50; Admin Dose 2.5 MG; Start 11/17/18 at 18:00 Lorazepam (Ativan) 0.5 mg Q8H PRN PO ANXIETY Last administered on 11/18/18 09:02; Admin Dose 0.5 MG; Start 11/17/18 at 22:00 Ampicillin Sodium/ Sulbactam Sodium 100 ml @ 100 mls/hr Q8 IVPB Last administered on 11/19/18 05:42; Admin Dose 100 MLS/HR; Start 11/18/18 at 14:00 Furosemide (Lasix) 40 mg DAILY IV Last administered on 11/18/18 12:41; Admin Dose 40 MG; Start 11/18/18 at 12:30 Levalbuterol (Xopenex Neb) 0.63 mg Q8H RESP THERAPY HHN Last administered on 11/19/18 07:47; Admin Dose 0.63 MG; Start 11/19/18 at 00:00 Magnesium Hydroxide (Milk Of Mag) 30 ml DAILY PRN PO CONSTIPATION; Start 11/19/18 at 07:30 Docusate Sodium (Colace) 200 mg DAILY PO ; Start 11/19/18 at 09:00; Status SIVA CASTRO MD Nov 19, 2018 08:08
--- NOTE | 2018-11-19 09:20 | CONS ---
Consult Date/Type/Reason Admit Date/Time Nov 17, 2018 at 06:17 Initial Consult Date 11/18/18 Type of Consultation: CV Date/Time of Note DATE: 11/19/18 TIME: 09:16 Subjective Cardiology follow-up progress note Subjective: Case discussed with the staff. Telemetry was reviewed. Patient remains in normal sinus rhythm/ sinus bradycardia. Patient denies any chest pain or pressure to me now. Patient continues to be hypoxemic and she is still on high flow oxygen. no bleeding Patient is very well-known to me from previous admission to the hospital and outpatient follow-up. Objective: General: no acute distress HEENT: NC/AT. pupils are equal. round. NECK. no stridor. CV: RRR. systolic murmur; no gallop or rubs. PULM: no wheezing +rhonchi. GI: SOFT, NT, ND, no rebound or guarding Extremity: trace B/L LE edema. no clubbing. neuro: awake and alert, OX2. Psych: calm and pleasant rectal: deferred : normal Review of the old chart showed echocardiogram done in my office on October 10, 2017 has shown ejection fraction of more than 65% hypertrophic cardiomyopathy with severe LVH trace MR mild MR Echocardiogram done 11/17/[address] Harper shows: Normal left ventricular cavity size. Moderate concentric left ventricular hypertrophy. Severe left ventricular systolic dysfunction. Ejection fraction is visually estimated at 30-35 %. Tissue Doppler/Mitral Doppler indices are consistent with impaired relaxation (Stage I diastolic dysfunction). E/E'= 28. Resting left ventricular outflow tract velocity 6.70 m/sec. Resting left ventricular outflow tract gradient 180.0 mmHg. Severe left ventricular outflow tract obstruction, patient unable to Valsalva. These segments of the LV are hypokinetic anterolateral mid segment and anteroseptum mid segment. These segments of the LV are akinetic mid anterior segment, apical anterior segment, apical lateral segment, inferior mid segment, apical inferior segment, inferoseptum mid segment and apical septum segment. Mild mitral leaflet calcification. Moderate mitral annular calcification. Moderate to severe mitral valve regurgitation. Moderate systolic anterior motion of mitral valve. Chordal LENA seen. No significant aortic stenosis or insufficiency. Aortic cusps appear mildly calcified. Normal appearance of the tricuspid valve. Estimated peak PA systolic pressure 45 mmHg. There is mild to moderate tricuspid regurgitation. Objective Vitals Vital Signs Date Temp Pulse Resp B/P (MAP) Pulse Ox O2 O2 Flow FiO2 Time Delivery Rate 11/19/18 72 08:27 11/19/18 20 98 70 07:40 11/19/18 98.4 140/66 07:32 (90) 11/19/18 High Flow 06:20 11/17/18 15.0 13:25 Intake and Output 11/18/18 11/18/18 11/19/18 1515:00 23:00 07:00 IntakeIntake Total 250 ml 930 ml 730 ml BalanceBalance 250 ml 930 ml 730 ml Results/Medications Result Diagram: 11/19/18 0635 11/19/18 0635 Results 24 hrs Laboratory Tests Test 11/18/18 09:55 11/18/18 12:14 11/19/18 06:35 11/19/18 07:00 Urine Color YELLOW Urine Clarity CLOUDY A Urine pH 5.0 Urine Specific 1.024 [place] Urine Ketones NEGATIVE Urine Nitrite NEGATIVE Urine Bilirubin NEGATIVE Urine Urobilinogen NEGATIVE Urine Leukocyte NEGATIVE Esterase Urine Microscopic 1 RBC Urine Microscopic 3 WBC Urine Squamous FEW Epithelial Cells Urine Hemoglobin NEGATIVE Urine Random 25 L Sodium Urine Random 66.7 Potassium Urine Glucose NEGATIVE Urine Total NEGATIVE Protein Bedside Glucose 116 White Blood Count 9.0 Red Blood Count 3.30 L Hemoglobin 10.0 L Hematocrit 29.4 L Mean Corpuscular 89.1 Volume Mean Corpuscular 30.3 Hemoglobin Mean Corpuscular 34.0 Hemoglobin Concent Red Cell 14.0 Distribution Width Platelet Count 165 Mean Platelet 9.3 Volume Immature 0.400 Granulocytes % Neutrophils % 78.9 H Lymphocytes % 13.6 L Monocytes % 6.6 Eosinophils % 0.2 Basophils % 0.3 Nucleated Red 0.0 Blood Cells % Immature 0.040 H Granulocytes # Neutrophils # 7.1 Lymphocytes # 1.2 Monocytes # 0.6 Eosinophils # 0.0 Basophils # 0.0 Nucleated Red 0.0 Blood Cells # Sodium Level 135 Potassium Level 4.0 Chloride Level 103 Carbon Dioxide 28 Level Anion Gap 4 L Blood Urea 20 Nitrogen Creatinine 0.91 Est Glomerular Filtrat Rate mL/min Glucose Level 115 Calcium Level 9.2 Blood Gas Specimen Blood arterial Source Arterial Blood 11/19/2018 7:31:16 Date Drawn AM Arterial Blood pH 7.468 H (Temp corrected) Arterial Blood 37.8 pCO2 (Temp correct) Arterial Blood pO2 101.4 H (Temp corrected) Arterial Blood 26.8 H HCO3 Arterial Blood 3.0 Base Excess Arterial Blood 97.4 Oxygen Saturation Geovanny Test ACCEPTAB Arterial Blood Gas Right Radial Puncture Site Arterial 0.3 Blood Carboxyhemog lobin Arterial Blood 0.1 Methemoglobin Blood Gas A-a O2 357.1 H Differential Oxyhemoglobin 97.0 Percent Blood Gas 37.0 Temperature Blood Gas Modality HFNC FiO2 70.0 Blood Gas Notified TM Whom Blood Gas Notified 11/19/2018 7:39:53 Time AM Home Meds Active Scripts Aspirin* (Aspirin* EC) 81 Mg Tablet.dr, 81 MG PO DAILY for 30 Days, #30 Prov:LIA CHOU MD 06/10/17 Spironolactone* (Aldactone*) 25 Mg Tablet, 25 MG PO DAILY for 30 Days, #30 TAB Prov:LIA CHOU MD 06/10/17 Atorvastatin* (Atorvastatin*) 40 Mg Tablet, 40 MG PO HS for 30 Days, #30 TAB Prov:LIA CHOU MD 06/10/17 Carvedilol* (Carvedilol*) 3.125 Mg Tablet, 3.125 MG PO BID for 30 Days, #60 TAB Prov:LIA CHOU MD 06/10/17 Reported Medications Buspirone Hcl* (Buspirone Hcl*) 10 Mg Tab, 15 MG PO BID, TAB PT TAKES THREE DAYS A WEEK 02/08/17 Cranberry (Cranberry) 400 Mg Capsule, 800 MG PO DAILY, CAP 05/03/16 Multivitamins* (Theragran*) 1 Tab Tab, 1 TAB PO DAILY, TAB 05/03/16 Medications Current Medications Dextrose (D50w Syringe) ONCE PRN IV DECREASED GLUCOSE; Start 11/17/18 at 03:00 IV Flush (NS 3 ml) 3 ml PER PROTOCOL IV ; Start 11/17/18 at 08:00 Ondansetron HCl (Zofran Inj) 4 mg Q6H PRN IV NAUSEA/VOMITING; Start 11/17/18 at 08:00 Nitroglycerin (Nitroglycerin (Sl Tab) 0.4 Mg) 1 tab Q5M PRN SL .CHEST PAIN Last administered on 11/17/18at 17:12; Admin Dose 1 TAB; Start 11/17/18 at 08:00 Acetaminophen (Tylenol Tab) 650 mg Q6H PRN PO .PAIN 1-3 OR TEMP; Start 11/17/18 at 08:00 Heparin Sodium (Porcine) (Heparin (5000 Units/1ml)) 5,000 unit Q12 SC Last administered on 11/18/18 20:27; Admin Dose 5,000 UNIT; Start 11/17/18 at 09:00 Albuterol/ Ipratropium (Duoneb) 3 ml Q2H RESP THERAPY PRN HHN SHORTNESS OF BREATH; Start 11/17/18 at 08:00 Aspirin (Halfprin) 81 mg DAILY PO Last administered on 11/18/18 08:50; Admin Dose 81 MG; Start 11/17/18 at 09:00 Atorvastatin Calcium (Lipitor) 40 mg HS PO Last administered on 11/18/18 20:22; Admin Dose 40 MG; Start 11/17/18 at 21:00 Multivitamins Therapeutic (Theragran) 1 tab DAILY PO Last administered on 11/18/18 08:49; Admin Dose 1 TAB; Start 11/17/18 at 09:00 Spironolactone (Aldactone) 25 mg DAILY PO Last administered on 11/18/18 08:49; Admin Dose 25 MG; Start 11/17/18 at 09:00 Dextrose/Sodium Chloride 1,000 ml @ 40 mls/hr Q24H IV Last administered on 11/18/18 07:28; Admin Dose 40 MLS/HR; Start 11/17/18 at 08:30 Buspirone HCl (Buspar) 15 mg BID PO Last administered on 11/18/18 20:19; Admin Dose 15 MG; Start 11/17/18 at 11:19 Azithromycin 250 ml @ 250 mls/hr DAILY@1200 IVPB Last administered on 11/18/18 12:37; Admin Dose 250 MLS/HR; Start 11/17/18 at 12:00 Carvedilol (Coreg) 6.25 mg BID GTB Last administered on 11/18/18 20:20; Admin Dose 6.25 MG; Start 11/17/18 at 18:00 Lisinopril (Zestril) 2.5 mg DAILY GTB Last administered on 11/18/18 08:50; Admin Dose 2.5 MG; Start 11/17/18 at 18:00 Lorazepam (Ativan) 0.5 mg Q8H PRN PO ANXIETY Last administered on 11/18/18 09:02; Admin Dose 0.5 MG; Start 11/17/18 at 22:00 Ampicillin Sodium/ Sulbactam Sodium 100 ml @ 100 mls/hr Q8 IVPB Last administered on 11/19/18 05:42; Admin Dose 100 MLS/HR; Start 11/18/18 at 14:00 Furosemide (Lasix) 40 mg DAILY IV Last administered on 11/18/18 12:41; Admin Dose 40 MG; Start 11/18/18 at 12:30 Levalbuterol (Xopenex Neb) 0.63 mg Q8H RESP THERAPY HHN Last administered on 11/19/18 07:47; Admin Dose 0.63 MG; Start 11/19/18 at 00:00 Magnesium Hydroxide (Milk Of Mag) 30 ml DAILY PRN PO CONSTIPATION; Start 11/19/18 at 07:30 Docusate Sodium (Colace) 200 mg DAILY PO ; Start 11/19/18 at 09:00 Assessment/Plan Hospital Course (Demo Recall) 1. Pneumonia 2. Hypertrophic cardiomyopathy 3. Congestive heart failure: acute due to systolic heart failure 4. Abnormal troponin consistent with non-ST elevation myocardial infarction most likely type II 5. History of CVA 6. Hypertension 7. Cardiomyopathy possibly stress-induced versus others including ischemia 8. Abnormal EKG with intermittent left bundle branch block with no with reports of any syncope Recommendations: Antibiotic management as per internal medicine and pulmonary team Continue with the Coreg and increase as needed off the nitrates given her history of hypertrophic cardiomyopathy Aspirin to be continued Statins Monitor on telemetry previous kole angio did NOT show significant obstructive CAD. will monitor and stabilize for now Thank you for his referral. We will continue to follow along with you DREW MACARIO MD [facility] DREW MACAIRO MD Nov 19, 2018 09:20
[2018-11-19] MEDS: LISINOPRIL 5 MG TAB GTB SCH (09:36)
[2018-11-19] MEDS: BUSPIRONE 5 MG TAB PO SCH ×2 (09:36→20:19)
[2018-11-19] MEDS: MULTIVITAMINS THERAPEUTIC TAB PO SCH (09:37)
[2018-11-19] MEDS: ASPIRIN (EC) 81 MG TAB PO SCH (09:37)
[2018-11-19] MEDS: DOCUSATE SODIUM 100 MG CAP PO SCH (09:37)
[2018-11-19] MEDS: FUROSEMIDE 40 MG INJ IV SCH (09:38)
[2018-11-19] MEDS: SPIRONOLACTONE 25 MG TAB PO SCH (09:38)
[2018-11-19] MEDS: HEPARIN 5,000 UNIT/1 ML VIAL SC SCH ×2 (09:48→20:31)
[2018-11-19] MEDS: LORAZEPAM 0.5 MG TAB PO PRN ×2 (10:27→21:20)
[2018-11-19] MEDS: AZITHROMYCIN 500MG/NS (PMX) 250 ML IVPB SCH (11:50)
--- NOTE | 2018-11-19 13:57 | CONS ---
Consult Date/Type/Reason Admit Date/Time Nov 17, 2018 at 06:17 Initial Consult Date 11/18/18 Type of Consult Pulmonary Date/Time of Note DATE: 11/19/18 TIME: 13:49 Subjective Somewhat more alert today. Continues high flow O2. Objective Vital Signs Date Temp Pulse Resp B/P (MAP) Pulse Ox O2 O2 Flow FiO2 Time Delivery Rate 11/19/18 62 12:05 11/19/18 98.1 18 107/57 94 11:16 (74) 11/19/18 50 11:10 11/19/18 High Flow 06:20 11/17/18 15.0 13:25 Intake and Output 11/18/18 11/18/18 11/19/18 1515:00 23:00 07:00 IntakeIntake Total 250 ml 930 ml 730 ml BalanceBalance 250 ml 930 ml 730 ml Exam GENERAL: Elderly lady on high flow O2. VITAL SIGNS: per chart NECK: Supple. No JVD or lymphadenopathy. CARDIAC EXAM: S1, S2. No added sounds or murmurs. CHEST: clear bilaterally, No added sounds, rales or wheezes ABDOMEN: Soft, nontender. No guarding or rebound. EXTREMITIES: No cyanosis, clubbing or edema. NEUROLOGIC: Generalized weakness. No focal deficits. Vent Setting Fraction of Inspired Oxygen pe: 50 Results/Medications Result Diagram: 11/19/18 0635 11/19/18 0635 Results 24 hrs Laboratory Tests Test 11/19/18 06:35 11/19/18 07:00 11/19/18 08:57 White Blood Count 9.0 Red Blood Count 3.30 L Hemoglobin 10.0 L Hematocrit 29.4 L Mean Corpuscular Volume 89.1 Mean Corpuscular Hemoglobin 30.3 Mean Corpuscular 34.0 Hemoglobin Concent Red Cell Distribution Width 14.0 Platelet Count 165 Mean Platelet Volume 9.3 Immature Granulocytes % 0.400 Neutrophils % 78.9 H Lymphocytes % 13.6 L Monocytes % 6.6 Eosinophils % 0.2 Basophils % 0.3 Nucleated Red Blood Cells % 0.0 Immature Granulocytes # 0.040 H Neutrophils # 7.1 Lymphocytes # 1.2 Monocytes # 0.6 Eosinophils # 0.0 Basophils # 0.0 Nucleated Red Blood Cells # 0.0 Sodium Level 135 Potassium Level 4.0 Chloride Level 103 Carbon Dioxide Level 28 Anion Gap 4 L Blood Urea Nitrogen 20 Creatinine 0.91 Est Glomerular Filtrat Rate mL/min Glucose Level 115 Calcium Level 9.2 Blood Gas Specimen Source Blood arterial Arterial Blood Date Drawn 11/19/2018 7:31:16 AM Arterial Blood pH 7.468 H (Temp corrected) Arterial Blood pCO2 37.8 (Temp correct) Arterial Blood pO2 101.4 H (Temp corrected) Arterial Blood HCO3 26.8 H Arterial Blood Base Excess 3.0 Arterial Blood 97.4 Oxygen Saturation Geovanny Test ACCEPTAB Arterial Blood Gas Right Radial Puncture Site Arterial 0.3 Blood Carboxyhemoglobin Arterial Blood Methemoglobin 0.1 Blood Gas A-a O2 Differential 357.1 H Oxyhemoglobin Percent 97.0 Blood Gas Temperature 37.0 Blood Gas Modality HFNC FiO2 70.0 Blood Gas Notified Whom TM Blood Gas Notified Time 11/19/2018 7:39:53 AM Lactic Acid Level 0.8 Medications Current Medications Dextrose (D50w Syringe) ONCE PRN IV DECREASED GLUCOSE; Start 11/17/18 at 03:00 IV Flush (NS 3 ml) 3 ml PER PROTOCOL IV ; Start 11/17/18 at 08:00 Ondansetron HCl (Zofran Inj) 4 mg Q6H PRN IV NAUSEA/VOMITING; Start 11/17/18 at 08:00 Nitroglycerin (Nitroglycerin (Sl Tab) 0.4 Mg) 1 tab Q5M PRN SL .CHEST PAIN Last administered on 11/17/18at 17:12; Admin Dose 1 TAB; Start 11/17/18 at 08:00 Acetaminophen (Tylenol Tab) 650 mg Q6H PRN PO .PAIN 1-3 OR TEMP; Start 11/17/18 at 08:00 Heparin Sodium (Porcine) (Heparin (5000 Units/1ml)) 5,000 unit Q12 SC Last administered on 11/19/18at 09:48; Admin Dose 5,000 UNIT; Start 11/17/18 at 09:00 Albuterol/ Ipratropium (Duoneb) 3 ml Q2H RESP THERAPY PRN HHN SHORTNESS OF BREATH; Start 11/17/18 at 08:00 Aspirin (Halfprin) 81 mg DAILY PO Last administered on 11/19/18at 09:37; Admin Dose 81 MG; Start 11/17/18 at 09:00 Atorvastatin Calcium (Lipitor) 40 mg HS PO Last administered on 11/18/18 20:22; Admin Dose 40 MG; Start 11/17/18 at 21:00 Multivitamins Therapeutic (Theragran) 1 tab DAILY PO Last administered on 11/19/18 09:37; Admin Dose 1 TAB; Start 11/17/18 at 09:00 Spironolactone (Aldactone) 25 mg DAILY PO Last administered on 11/19/18 09:38; Admin Dose 25 MG; Start 11/17/18 at 09:00 Dextrose/Sodium Chloride 1,000 ml @ 40 mls/hr Q24H IV Last administered on 11/18/18 07:28; Admin Dose 40 MLS/HR; Start 11/17/18 at 08:30 Buspirone HCl (Buspar) 15 mg BID PO Last administered on 11/19/18 09:36; Admin Dose 15 MG; Start 11/17/18 at 11:19 Azithromycin 250 ml @ 250 mls/hr DAILY@1200 IVPB Last administered on 11/19/18 11:50; Admin Dose 250 MLS/HR; Start 11/17/18 at 12:00 Carvedilol (Coreg) 6.25 mg BID GTB Last administered on 11/19/18 09:38; Admin Dose 6.25 MG; Start 11/17/18 at 18:00 Lisinopril (Zestril) 2.5 mg DAILY GTB Last administered on 11/19/18 09:36; Admin Dose 2.5 MG; Start 11/17/18 at 18:00 Lorazepam (Ativan) 0.5 mg Q8H PRN PO ANXIETY Last administered on 11/19/18 10:27; Admin Dose 0.5 MG; Start 11/17/18 at 22:00 Ampicillin Sodium/ Sulbactam Sodium 100 ml @ 100 mls/hr Q8 IVPB Last administered on 11/19/18 05:42; Admin Dose 100 MLS/HR; Start 11/18/18 at 14:00 Furosemide (Lasix) 40 mg DAILY IV Last administered on 11/19/18 09:38; Admin Dose 40 MG; Start 11/18/18 at 12:30 Levalbuterol (Xopenex Neb) 0.63 mg Q8H RESP THERAPY HHN Last administered on 3/5/19at 07:47; Admin Dose 0.63 MG; Start 11/19/18 at 00:00 Magnesium Hydroxide (Milk Of Mag) 30 ml DAILY PRN PO CONSTIPATION; Start 11/19/18 at 07:30 Docusate Sodium (Colace) 200 mg DAILY PO Last administered on 11/19/18at 09:37; Admin Dose 200 MG; Start 11/19/18 at 09:00 Assessment/Plan Hospital Course (Demo Recall) Assessment 1. Acute hypoxemic respiratory failure likely secondary to combination of CHF and aspiration pneumonia 2. History of hypertrophic cardiomyopathy with valvular heart disease 3. History of CVA Plan 1. Continue antibiotics per infectious diseases 2. Continue diuretics 3. aspiration precautions 4. Discussed full CODE STATUS with next of kin 5. Continue high [place] o2, decrease as tolerated. TIFFANY KUNZ MD, [facility] Nov 19, 2018 13:57
[2018-11-19] MEDS: ATORVASTATIN 40 MG TAB PO SCH (20:18)
[2018-11-19] MEDS: MAGNESIUM HYDROXIDE 30ML CUP PO PRN (23:19)
[2018-11-20] VITALS (14 sets, daily range): BP systolic 93–157; BP diastolic 52–72; PULSE 55–77; RESP 2–24
[2018-11-20] MEDS: LEVALBUTEROL (NEB) 0.63 MG/3 ML AMP HHN SCH ×4 (00:40→23:41)
[2018-11-20] MEDS: DEXTROSE 5%-0.9% NACL 1,000 ML IV SCH ×2 (02:29→23:37)
[2018-11-20] MEDS: AMPICILLIN/SULB 3 GM/NS (PMX) 100 ML IVPB SCH ×3 (05:04→21:17)
--- NOTE | 2018-11-20 07:09 | CONS ---
Assessment/Plan Assessment/Plan Hospital Course (Demo Recall) 1) CAP vs aspiration pneumonia continue with azithro but will change ceftriaxone to unasyn does to vomiting hx and got SOB after her admission according to the patient maintain IV as pt is on biPAP (FiO2 at 50%) currently 11/19 - on [employer] at 70% continue with unasyn/azithro at present / - on [employer] at 40% and sating well will change azithro to po form, continue unasyn, anticipate changing it to augmentin soon 2) elevated troponins and CK pt currently has no CP 3)CAD with cardiomyopathy echo shows similar Ej. fx as before 4) ARF no urinary c/o CT does not show obstruction or stone or mass will check u/a and urine cx already improved with hydration 11/19 - u/a is benign 11/20 - improved creatinine 5) hx of CVA but pt denies muscle weakness 6) constipation 11/19 - order for MOM written 11/20 - pt had two BM's in last 24 hours recorded Consultation Date/Type/Reason Admit Date/Time Nov 17, 2018 at 06:17 Initial Consult Date 11/18/18 Type of Consult ID Date/Time of Note DATE: 11/20/18 TIME: 07:07 24 HR Interval Summary Free Text/Dictation pt denies abd pain, CP, N, V pt had two BM's in last 24 hours recorded Exam/Review of Systems Exam Vitals Vital Signs Date Temp Pulse Resp B/P (MAP) Pulse Ox O2 O2 Flow FiO2 Time Delivery Rate 11/20/18 92 40 04:30 11/20/18 59 20 04:30 11/20/18 98.4 143/66 03:38 (91) 11/19/18 High Flow 06:20 11/17/18 15.0 13:25 Intake and Output 11/19/18 11/19/18 11/20/18 1515:00 23:00 07:00 IntakeIntake Total 250 ml 980 ml 250 ml BalanceBalance 250 ml 980 ml 250 ml Constitutional: alert ENMT: mucosa pink and moist Respiratory: clear to auscultation Cardiovascular: regular rate and rhythm Gastrointestinal: soft, non-tender Results Result Diagram: 11/19/18 0635 11/19/18 0635 Results 24hrs Laboratory Tests Test 11/19/18 08:57 Lactic Acid Level 0.8 Medications Medication Current Medications Dextrose (D50w Syringe) ONCE PRN IV DECREASED GLUCOSE; Start 11/17/18 at 03:00 IV Flush (NS 3 ml) 3 ml PER PROTOCOL IV ; Start 11/17/18 at 08:00 Ondansetron HCl (Zofran Inj) 4 mg Q6H PRN IV NAUSEA/VOMITING; Start 11/17/18 at 08:00 Nitroglycerin (Nitroglycerin (Sl Tab) 0.4 Mg) 1 tab Q5M PRN SL .CHEST PAIN Last administered on 11/17/18 17:12; Admin Dose 1 TAB; Start 11/17/18 at 08:00 Acetaminophen (Tylenol Tab) 650 mg Q6H PRN PO .PAIN 1-3 OR TEMP; Start 11/17/18 at 08:00 Heparin Sodium (Porcine) (Heparin (5000 Units/1ml)) 5,000 unit Q12 SC Last administered on 11/19/18 20:31; Admin Dose 5,000 UNIT; Start 11/17/18 at 09:00 Albuterol/ Ipratropium (Duoneb) 3 ml Q2H RESP THERAPY PRN HHN SHORTNESS OF BREATH; Start 11/17/18 at 08:00 Aspirin (Halfprin) 81 mg DAILY PO Last administered on 11/19/18 09:37; Admin Dose 81 MG; Start 11/17/18 at 09:00 Atorvastatin Calcium (Lipitor) 40 mg HS PO Last administered on 11/19/18 20:18; Admin Dose 40 MG; Start 11/17/18 at 21:00 Multivitamins Therapeutic (Theragran) 1 tab DAILY PO Last administered on 11/19/18 09:37; Admin Dose 1 TAB; Start 11/17/18 at 09:00 Spironolactone (Aldactone) 25 mg DAILY PO Last administered on 11/19/18 09:38; Admin Dose 25 MG; Start 11/17/18 at 09:00 Dextrose/Sodium Chloride 1,000 ml @ 40 mls/hr Q24H IV Last administered on 11/19/18 18:48; Admin Dose 40 MLS/HR; Start 11/17/18 at 08:30 Buspirone HCl (Buspar) 15 mg BID PO Last administered on 11/19/18 20:19; Admin Dose 15 MG; Start 11/17/18 at 11:19 Azithromycin 250 ml @ 250 mls/hr DAILY@1200 IVPB Last administered on 11/19/18 11:50; Admin Dose 250 MLS/HR; Start 11/17/18 at 12:00 Carvedilol (Coreg) 6.25 mg BID GTB Last administered on 11/19/18 20:18; Admin Dose 6.25 MG; Start 11/17/18 at 18:00 Lisinopril (Zestril) 2.5 mg DAILY GTB Last administered on 11/19/18 09:36; Admin Dose 2.5 MG; Start 11/17/18 at 18:00 Lorazepam (Ativan) 0.5 mg Q8H PRN PO ANXIETY Last administered on 11/19/18 21:20; Admin Dose 0.5 MG; Start 11/17/18 at 22:00 Ampicillin Sodium/ Sulbactam Sodium 100 ml @ 100 mls/hr Q8 IVPB Last administered on 11/20/18 05:04; Admin Dose 100 MLS/HR; Start 11/18/18 at 14:00 Furosemide (Lasix) 40 mg DAILY IV Last administered on 11/19/18 09:38; Admin Dose 40 MG; Start 11/18/18 at 12:30 Levalbuterol (Xopenex Neb) 0.63 mg Q8H RESP THERAPY HHN Last administered on 11/20/18 00:40; Admin Dose 0.63 MG; Start 11/19/18 at 00:00 Magnesium Hydroxide (Milk Of Mag) 30 ml DAILY PRN PO CONSTIPATION Last administered on 11/19/18 23:19; Admin Dose 30 ML; Start 11/19/18 at 07:30 Docusate Sodium (Colace) 200 mg DAILY PO Last administered on 11/19/18 09:37; Admin Dose 200 MG; Start 11/19/18 at 09:00 ADORE WEAVER MD Nov 20, 2018 07:09
[2018-11-20] MEDS: BUSPIRONE 5 MG TAB PO SCH ×2 (08:59→20:40)
[2018-11-20] MEDS: AZITHROMYCIN 250 MG TAB PO SCH (08:59)
[2018-11-20] MEDS: DOCUSATE SODIUM 100 MG CAP PO SCH (08:59)
[2018-11-20] MEDS: LISINOPRIL 5 MG TAB GTB SCH (08:59)
[2018-11-20] MEDS: MULTIVITAMINS THERAPEUTIC TAB PO SCH (08:59)
[2018-11-20] MEDS: SPIRONOLACTONE 25 MG TAB PO SCH (09:00)
[2018-11-20] MEDS: ASPIRIN (EC) 81 MG TAB PO SCH (09:00)
[2018-11-20] MEDS: FUROSEMIDE 40 MG INJ IV SCH (09:00)
[2018-11-20] MEDS: HEPARIN 5,000 UNIT/1 ML VIAL SC SCH ×2 (09:07→20:48)
--- NOTE | 2018-11-20 11:09 | CONS ---
Consult Date/Type/Reason Admit Date/Time Nov 17, 2018 at 06:17 Initial Consult Date 11/18/18 Type of Consultation: CV Date/Time of Note DATE: 11/20/18 TIME: 11:08 Subjective Cardiology follow-up progress note Subjective: Case discussed with the staff. Telemetry was reviewed. Patient remains in normal sinus rhythm/ sinus bradycardia. Discussed with patient daughter at the bedside Patient denies any chest pain or pressure to me now. Patient continues to be hypoxemic and she is still on high flow oxygen. no bleeding Patient complains of constipation Objective: General: no acute distress HEENT: NC/AT. pupils are equal. round. NECK. no stridor. CV: RRR. systolic murmur; no gallop or rubs. PULM: no wheezing +rhonchi. GI: SOFT, NT, ND, no rebound or guarding Extremity: trace B/L LE edema. no clubbing. neuro: awake and alert, OX2. Psych: calm and pleasant rectal: deferred : normal Review of the old chart showed echocardiogram done in my office on October 10, 2017 has shown ejection fraction of more than 65% hypertrophic cardiomyopathy with severe LVH trace MR mild MR Echocardiogram done 11/17/[address] Harper shows: Normal left ventricular cavity size. Moderate concentric left ventricular hypertrophy. Severe left ventricular systolic dysfunction. Ejection fraction is visually estimated at 30-35 %. Tissue Doppler/Mitral Doppler indices are consistent with impaired relaxation (Stage I diastolic dysfunction). E/E'= 28. Resting left ventricular outflow tract velocity 6.70 m/sec. Resting left ventricular outflow tract gradient 180.0 mmHg. Severe left ventricular outflow tract obstruction, patient unable to Valsalva. These segments of the LV are hypokinetic anterolateral mid segment and anteroseptum mid segment. These segments of the LV are akinetic mid anterior segment, apical anterior segment, apical lateral segment, inferior mid segment, apical inferior segment, inferoseptum mid segment and apical septum segment. Mild mitral leaflet calcification. Moderate mitral annular calcification. Moderate to severe mitral valve regurgitation. Moderate systolic anterior motion of mitral valve. Chordal LENA seen. No significant aortic stenosis or insufficiency. Aortic cusps appear mildly calcified. Normal appearance of the tricuspid valve. Estimated peak PA systolic pressure 45 mmHg. There is mild to moderate tricuspid regurgitation. Objective Vitals Vital Signs Date Temp Pulse Resp B/P (MAP) Pulse Ox O2 O2 Flow FiO2 Time Delivery Rate 11/20/18 93 40 08:22 11/20/18 63 18 08:19 11/20/18 98.2 144/67 Nasal 07:57 (92) Cannula 11/17/18 15.0 13:25 Intake and Output 11/19/18 11/19/18 11/20/18 1414:59 22:59 06:59 IntakeIntake Total 250 ml 980 ml 250 ml BalanceBalance 250 ml 980 ml 250 ml Results/Medications Result Diagram: 11/20/1828 11/20/18 0728 Results 24 hrs Laboratory Tests Test 11/20/18 07:00 11/20/18 07:28 Blood Gas Specimen Source Blood arterial Arterial Blood Date Drawn 11/20/2018 7:23:42 AM Arterial Blood pH (Temp corrected) 7.472 H Arterial Blood pCO2 (Temp correct) 40.3 Arterial Blood pO2 (Temp corrected) 88.9 Arterial Blood HCO3 28.8 H Arterial Blood Base Excess 4.8 H Arterial Blood Oxygen Saturation 96.4 Geovanny Test ACCEPTAB Arterial Blood Gas Puncture Site Right Radial Arterial Blood Carboxyhemoglobin 0.3 Arterial Blood Methemoglobin 0.1 Blood Gas A-a O2 Differential 150.0 H Oxyhemoglobin Percent 96.0 Blood Gas Temperature 37.0 Blood Gas Modality HFNC FiO2 40.0 Blood Gas Notified Whom TM Blood Gas Notified Time 11/20/2018 7:43:21 AM White Blood Count 6.2 # Red Blood Count 3.06 L Hemoglobin 9.2 L Hematocrit 27.1 L Mean Corpuscular Volume 88.6 Mean Corpuscular Hemoglobin 30.1 Mean Corpuscular Hemoglobin Concent 33.9 Red Cell Distribution Width 14.1 Platelet Count 156 Mean Platelet Volume 9.1 Immature Granulocytes % 0.600 H Neutrophils % 67.1 Lymphocytes % 21.9 Monocytes % 7.0 Eosinophils % 2.8 Basophils % 0.6 Nucleated Red Blood Cells % 0.0 Immature Granulocytes # 0.040 H Neutrophils # 4.1 Lymphocytes # 1.4 Monocytes # 0.4 Eosinophils # 0.2 Basophils # 0.0 Nucleated Red Blood Cells # 0.0 Sodium Level 139 Potassium Level 4.0 Chloride Level 103 Carbon Dioxide Level 32 H Anion Gap 4 L Blood Urea Nitrogen 19 Creatinine 0.85 Est Glomerular Filtrat Rate mL/min Glucose Level 96 Calcium Level 8.8 Magnesium Level 2.3 Total Bilirubin 1.2 Direct Bilirubin 0.00 Indirect Bilirubin 1.2 H Aspartate Amino Transf (AST/SGOT) 30 Alanine Aminotransferase (ALT/SGPT) 25 Alkaline Phosphatase 57 Creatine Kinase 49 Creatine Kinase Index 2.2 Creatinine Kinase MB (Mass) 1.10 Troponin I 0.465 *H B-Type Natriuretic Peptide 36028 H Total Protein 5.4 L Albumin 2.7 L Globulin 2.70 Albumin/Globulin Ratio 1.00 Home Meds Active Scripts Aspirin* (Aspirin* EC) 81 Mg Tablet.dr, 81 MG PO DAILY for 30 Days, #30 Prov:LIA CHOU MD 06/10/17 Spironolactone* (Aldactone*) 25 Mg Tablet, 25 MG PO DAILY for 30 Days, #30 TAB Prov:LIA CHOU MD 06/10/17 Atorvastatin* (Atorvastatin*) 40 Mg Tablet, 40 MG PO HS for 30 Days, #30 TAB Prov:LIA CHOU MD 06/10/17 Carvedilol* (Carvedilol*) 3.125 Mg Tablet, 3.125 MG PO BID for 30 Days, #60 TAB Prov:LIA CHOU MD 06/10/17 Reported Medications Buspirone Hcl* (Buspirone Hcl*) 10 Mg Tab, 15 MG PO BID, TAB PT TAKES THREE DAYS A WEEK 02/08/17 Cranberry (Cranberry) 400 Mg Capsule, 800 MG PO DAILY, CAP 05/03/16 Multivitamins* (Theragran*) 1 Tab Tab, 1 TAB PO DAILY, TAB 05/03/16 Medications Current Medications Dextrose (D50w Syringe) ONCE PRN IV DECREASED GLUCOSE; Start 11/17/18 at 03:00 IV Flush (NS 3 ml) 3 ml PER PROTOCOL IV ; Start 11/17/18 at 08:00 Ondansetron HCl (Zofran Inj) 4 mg Q6H PRN IV NAUSEA/VOMITING; Start 11/17/18 at 08:00 Nitroglycerin (Nitroglycerin (Sl Tab) 0.4 Mg) 1 tab Q5M PRN SL .CHEST PAIN Last administered on 11/17/18at 17:12; Admin Dose 1 TAB; Start 11/17/18 at 08:00 Acetaminophen (Tylenol Tab) 650 mg Q6H PRN PO .PAIN 1-3 OR TEMP; Start 11/17/18 at 08:00 Heparin Sodium (Porcine) (Heparin (5000 Units/1ml)) 5,000 unit Q12 SC Last administered on 11/20/18 09:07; Admin Dose 5,000 UNIT; Start 11/17/18 at 09:00 Albuterol/ Ipratropium (Duoneb) 3 ml Q2H RESP THERAPY PRN HHN SHORTNESS OF BREATH; Start 11/17/18 at 08:00 Aspirin (Halfprin) 81 mg DAILY PO Last administered on 11/20/18 09:00; Admin Dose 81 MG; Start 11/17/18 at 09:00 Atorvastatin Calcium (Lipitor) 40 mg HS PO Last administered on 11/19/18 20:18; Admin Dose 40 MG; Start 11/17/18 at 21:00 Multivitamins Therapeutic (Theragran) 1 tab DAILY PO Last administered on 11/20/18 08:59; Admin Dose 1 TAB; Start 11/17/18 at 09:00 Spironolactone (Aldactone) 25 mg DAILY PO Last administered on 11/20/18 09:00; Admin Dose 25 MG; Start 11/17/18 at 09:00 Dextrose/Sodium Chloride 1,000 ml @ 40 mls/hr Q24H IV Last administered on 11/19/18 18:48; Admin Dose 40 MLS/HR; Start 11/17/18 at 08:30 Buspirone HCl (Buspar) 15 mg BID PO Last administered on 11/20/18 08:59; Admin Dose 15 MG; Start 11/17/18 at 11:19 Carvedilol (Coreg) 6.25 mg BID GTB Last administered on 11/20/18 09:00; Admin Dose 6.25 MG; Start 11/17/18 at 18:00 Lisinopril (Zestril) 2.5 mg DAILY GTB Last administered on 11/20/18 08:59; Admin Dose 2.5 MG; Start 11/17/18 at 18:00 Lorazepam (Ativan) 0.5 mg Q8H PRN PO ANXIETY Last administered on 11/19/18 21:20; Admin Dose 0.5 MG; Start 11/17/18 at 22:00 Ampicillin Sodium/ Sulbactam Sodium 100 ml @ 100 mls/hr Q8 IVPB Last administered on 11/20/18 05:04; Admin Dose 100 MLS/HR; Start 11/18/18 at 14:00 Furosemide (Lasix) 40 mg DAILY IV Last administered on 11/20/18 09:00; Admin Dose 40 MG; Start 11/18/18 at 12:30 Levalbuterol (Xopenex Neb) 0.63 mg Q8H RESP THERAPY HHN Last administered on 11/20/18 08:16; Admin Dose 0.63 MG; Start 11/19/18 at 00:00 Magnesium Hydroxide (Milk Of Mag) 30 ml DAILY PRN PO CONSTIPATION Last administered on 11/19/18 23:19; Admin Dose 30 ML; Start 11/19/18 at 07:30 Docusate Sodium (Colace) 200 mg DAILY PO Last administered on 11/20/18 08:59; Admin Dose 200 MG; Start 11/19/18 at 09:00 Azithromycin (Zithromax) 250 mg DAILY PO Last administered on 11/20/18 08:59; Admin Dose 250 MG; Start 11/20/18 at 09:00 Assessment/Plan Hospital Course (Demo Recall) 1. Pneumonia 2. Hypertrophic cardiomyopathy 3. Congestive heart failure: acute due to systolic heart failure 4. Abnormal troponin consistent with non-ST elevation myocardial infarction most likely type II 5. History of CVA 6. Hypertension 7. Cardiomyopathy possibly stress-induced versus others including ischemia 8. Abnormal EKG with intermittent left bundle branch block with no with reports of any syncope 9. Constipation Recommendations: Antibiotic management as per internal medicine and pulmonary team Continue with the Coreg and increase as needed off the nitrates given her history of hypertrophic cardiomyopathy Aspirin to be continued Statins Monitor on telemetry previous kole angio did NOT show significant obstructive CAD. will monitor and stabilize for now. Discussed with daughter Thank you for his referral. We will continue to follow along with you DREW MACARIO MD [facility] DREW MACARIO MD Nov 20, 2018 11:09
--- NOTE | 2018-11-20 11:40 | CONS ---
Consult Date/Type/Reason Admit Date/Time Nov 17, 2018 at 06:17 Initial Consult Date 11/18/18 Type of Consult Pulmonary Date/Time of Note DATE: 11/20/18 TIME: 11:39 Subjective Slowly decreasing FiO2 requirements remains awake and alert. Objective Vital Signs Date Temp Pulse Resp B/P (MAP) Pulse Ox O2 O2 Flow FiO2 Time Delivery Rate 11/20/18 93 40 08:22 11/20/18 63 18 08:19 11/20/18 98.2 144/67 Nasal 07:57 (92) Cannula 11/17/18 15.0 13:25 Intake and Output 11/19/18 11/19/18 11/20/18 1515:00 23:00 07:00 IntakeIntake Total 250 ml 980 ml 250 ml BalanceBalance 250 ml 980 ml 250 ml Exam GENERAL: Elderly lady on high flow O2. VITAL SIGNS: per chart NECK: Supple. No JVD or lymphadenopathy. CARDIAC EXAM: S1, S2. No added sounds or murmurs. CHEST: clear bilaterally, No added sounds, rales or wheezes ABDOMEN: Soft, nontender. No guarding or rebound. EXTREMITIES: No cyanosis, clubbing or edema. NEUROLOGIC: Generalized weakness. No focal deficits. Vent Setting Fraction of Inspired Oxygen pe: 40 Results/Medications Result Diagram: 11/20/1872711/20/18727 Results 24 hrs Laboratory Tests Test 11/20/18 07:00 11/20/18 07:28 Blood Gas Specimen Source Blood arterial Arterial Blood Date Drawn 11/20/2018 7:23:42 AM Arterial Blood pH (Temp corrected) 7.472 H Arterial Blood pCO2 (Temp correct) 40.3 Arterial Blood pO2 (Temp corrected) 88.9 Arterial Blood HCO3 28.8 H Arterial Blood Base Excess 4.8 H Arterial Blood Oxygen Saturation 96.4 Geovanny Test ACCEPTAB Arterial Blood Gas Puncture Site Right Radial Arterial Blood Carboxyhemoglobin 0.3 Arterial Blood Methemoglobin 0.1 Blood Gas A-a O2 Differential 150.0 H Oxyhemoglobin Percent 96.0 Blood Gas Temperature 37.0 Blood Gas Modality HFNC FiO2 40.0 Blood Gas Notified Whom TM Blood Gas Notified Time 11/20/2018 7:43:21 AM White Blood Count 6.2 # Red Blood Count 3.06 L Hemoglobin 9.2 L Hematocrit 27.1 L Mean Corpuscular Volume 88.6 Mean Corpuscular Hemoglobin 30.1 Mean Corpuscular Hemoglobin Concent 33.9 Red Cell Distribution Width 14.1 Platelet Count 156 Mean Platelet Volume 9.1 Immature Granulocytes % 0.600 H Neutrophils % 67.1 Lymphocytes % 21.9 Monocytes % 7.0 Eosinophils % 2.8 Basophils % 0.6 Nucleated Red Blood Cells % 0.0 Immature Granulocytes # 0.040 H Neutrophils # 4.1 Lymphocytes # 1.4 Monocytes # 0.4 Eosinophils # 0.2 Basophils # 0.0 Nucleated Red Blood Cells # 0.0 Sodium Level 139 Potassium Level 4.0 Chloride Level 103 Carbon Dioxide Level 32 H Anion Gap 4 L Blood Urea Nitrogen 19 Creatinine 0.85 Est Glomerular Filtrat Rate mL/min Glucose Level 96 Calcium Level 8.8 Magnesium Level 2.3 Total Bilirubin 1.2 Direct Bilirubin 0.00 Indirect Bilirubin 1.2 H Aspartate Amino Transf (AST/SGOT) 30 Alanine Aminotransferase (ALT/SGPT) 25 Alkaline Phosphatase 57 Creatine Kinase 49 Creatine Kinase Index 2.2 Creatinine Kinase MB (Mass) 1.10 Troponin I 0.465 *H B-Type Natriuretic Peptide 31974 H Total Protein 5.4 L Albumin 2.7 L Globulin 2.70 Albumin/Globulin Ratio 1.00 Medications Current Medications Dextrose (D50w Syringe) ONCE PRN IV DECREASED GLUCOSE; Start 11/17/18 at 03:00 IV Flush (NS 3 ml) 3 ml PER PROTOCOL IV ; Start 11/17/18 at 08:00 Ondansetron HCl (Zofran Inj) 4 mg Q6H PRN IV NAUSEA/VOMITING; Start 11/17/18 at 08:00 Nitroglycerin (Nitroglycerin (Sl Tab) 0.4 Mg) 1 tab Q5M PRN SL .CHEST PAIN Last administered on 11/17/18at 17:12; Admin Dose 1 TAB; Start 11/17/18 at 08:00 Acetaminophen (Tylenol Tab) 650 mg Q6H PRN PO .PAIN 1-3 OR TEMP; Start 11/17/18 at 08:00 Heparin Sodium (Porcine) (Heparin (5000 Units/1ml)) 5,000 unit Q12 SC Last administered on 11/20/18at 09:07; Admin Dose 5,000 UNIT; Start 11/17/18 at 09:00 Albuterol/ Ipratropium (Duoneb) 3 ml Q2H RESP THERAPY PRN HHN SHORTNESS OF BR EATH; Start 11/17/18 at 08:00 Aspirin (Halfprin) 81 mg DAILY PO Last administered on 11/20/18 09:00; Admin Dose 81 MG; Start 11/17/18 at 09:00 Atorvastatin Calcium (Lipitor) 40 mg HS PO Last administered on 11/19/18 20:18; Admin Dose 40 MG; Start 11/17/18 at 21:00 Multivitamins Therapeutic (Theragran) 1 tab DAILY PO Last administered on 11/20/18 08:59; Admin Dose 1 TAB; Start 11/17/18 at 09:00 Spironolactone (Aldactone) 25 mg DAILY PO Last administered on 11/20/18 09:00; Admin Dose 25 MG; Start 11/17/18 at 09:00 Dextrose/Sodium Chloride 1,000 ml @ 40 mls/hr Q24H IV Last administered on 11/19/18 18:48; Admin Dose 40 MLS/HR; Start 11/17/18 at 08:30 Buspirone HCl (Buspar) 15 mg BID PO Last administered on 11/20/18 08:59; Admin Dose 15 MG; Start 11/17/18 at 11:19 Carvedilol (Coreg) 6.25 mg BID GTB Last administered on 11/20/18 09:00; Admin Dose 6.25 MG; Start 11/17/18 at 18:00 Lisinopril (Zestril) 2.5 mg DAILY GTB Last administered on 11/20/18 08:59; Admin Dose 2.5 MG; Start 11/17/18 at 18:00 Lorazepam (Ativan) 0.5 mg Q8H PRN PO ANXIETY Last administered on 11/19/18 21:20; Admin Dose 0.5 MG; Start 11/17/18 at 22:00 Ampicillin Sodium/ Sulbactam Sodium 100 ml @ 100 mls/hr Q8 IVPB Last administered on 11/20/18 05:04; Admin Dose 100 MLS/HR; Start 11/18/18 at 14:00 Furosemide (Lasix) 40 mg DAILY IV Last administered on 11/20/18 09:00; Admin Dose 40 MG; Start 11/18/18 at 12:30 Levalbuterol (Xopenex Neb) 0.63 mg Q8H RESP THERAPY HHN Last administered on 11/20/18 08:16; Admin Dose 0.63 MG; Start 11/19/18 at 00:00 Magnesium Hydroxide (Milk Of Mag) 30 ml DAILY PRN PO CONSTIPATION Last administered on 11/19/18at 23:19; Admin Dose 30 ML; Start 11/19/18 at 07:30 Docusate Sodium (Colace) 200 mg DAILY PO Last administered on 11/20/18at 08:59; Admin Dose 200 MG; Start 11/19/18 at 09:00 Azithromycin (Zithromax) 250 mg DAILY PO Last administered on 11/20/18 08:59; Admin Dose 250 MG; Start 11/20/18 at 09:00 Assessment/Plan Hospital Course (Demo Recall) Assessment 1. Acute hypoxemic respiratory failure likely secondary to combination of CHF and aspiration pneumonia 2. History of hypertrophic cardiomyopathy with valvular heart disease 3. History of CVA Plan 1. Continue antibiotics per infectious diseases 2. Continue diuretics 3. aspiration precautions 4. Discussed full CODE STATUS with next of kin 5. Continue high floe o2, decrease as tolerated. Consider Britt evaluation [facility]UNZ [facility] Nov 20, 2018 11:40
--- NOTE | 2018-11-20 16:47 | PN ---
Date/Time of Note Date/Time of Note DATE: 11/20/18 TIME: 16:46 Assessment/Plan VTE Prophylaxis [place] [facility] [place] risk: 7 [place]CD applied [place] [facility] [place] Yes Pharmacological prophylaxis: heparin Lines/Catheters IV Catheter Type (from [facility]): Peripheral IV Urinary Cath still in place: No Assessment/Plan Assessment/Plan (1) Community acquired pneumonia Status: Acute Comment: Patient doing better on Unasyn and zithromax. Qualifiers: Laterality: left Lung location: unspecified part of lung Qualified Codes: J18.9 - Pneumonia, unspecified organism (2) Severe sepsis Status: Acute Comment: Continue supportive care , lactic acid level improved. Blood cx's negative so far. (3) Acute respiratory failure with hypoxia Status: Acute Comment: doing better on high flow O2 and xopenex HHN tid. (4) Non-ST elevation myocardial infarction (NSTEMI) Status: Acute Comment: NSTEMI in the setting of acute pneumonia and sepsis, should stabilize with treatment of infection. 2D-Echo shows ventricular systolic dysfunction , unclear how much is due to underlying burned out cardiomyopathy and how much is due to myocardial ischemia. Further management per Dr. Nagel. (5) Congestive heart failure Status: Chronic Comment: on lasix IV , carvedilol and lisinopril po. proBNP improving. (6) Constipation Status: Acute Comment: Patient had BM past 2 days . On MOM as needed, add Colace qd. (7) Acute renal insufficiency Status: Resolved Comment: improved bun/cr after hydration. (8) Anemia Status: Chronic Result Diagram: 11/20/18 0728 11/20/18 0728 Results 24hrs Laboratory Tests Test 11/20/18 07:00 11/20/18 07:28 Blood Gas Specimen Source Blood arterial Arterial Blood Date Drawn 11/20/2018 7:23:42 AM Arterial Blood pH (Temp corrected) 7.472 H Arterial Blood pCO2 (Temp correct) 40.3 Arterial Blood pO2 (Temp corrected) 88.9 Arterial Blood HCO3 28.8 H Arterial Blood Base Excess 4.8 H Arterial Blood Oxygen Saturation 96.4 Geovanny Test ACCEPTAB Arterial Blood Gas Puncture Site Right Radial Arterial Blood Carboxyhemoglobin 0.3 Arterial Blood Methemoglobin 0.1 Blood Gas A-a O2 Differential 150.0 H Oxyhemoglobin Percent 96.0 Blood Gas Temperature 37.0 Blood Gas Modality HFNC FiO2 40.0 Blood Gas Notified Whom TM Blood Gas Notified Time 11/20/2018 7:43:21 AM White Blood Count 6.2 # Red Blood Count 3.06 L Hemoglobin 9.2 L Hematocrit 27.1 L Mean Corpuscular Volume 88.6 Mean Corpuscular Hemoglobin 30.1 Mean Corpuscular Hemoglobin Concent 33.9 Red Cell Distribution Width 14.1 Platelet Count 156 Mean Platelet Volume 9.1 Immature Granulocytes % 0.600 H Neutrophils % 67.1 Lymphocytes % 21.9 Monocytes % 7.0 Eosinophils % 2.8 Basophils % 0.6 Nucleated Red Blood Cells % 0.0 Immature Granulocytes # 0.040 H Neutrophils # 4.1 Lymphocytes # 1.4 Monocytes # 0.4 Eosinophils # 0.2 Basophils # 0.0 Nucleated Red Blood Cells # 0.0 Sodium Level 139 Potassium Level 4.0 Chloride Level 103 Carbon Dioxide Level 32 H Anion Gap 4 L Blood Urea Nitrogen 19 Creatinine 0.85 Est Glomerular Filtrat Rate mL/min Glucose Level 96 Calcium Level 8.8 Magnesium Level 2.3 Total Bilirubin 1.2 Direct Bilirubin 0.00 Indirect Bilirubin 1.2 H Aspartate Amino Transf (AST/SGOT) 30 Alanine Aminotransferase (ALT/SGPT) 25 Alkaline Phosphatase 57 Creatine Kinase 49 Creatine Kinase Index 2.2 Creatinine Kinase MB (Mass) 1.10 Troponin I 0.465 *H B-Type Natriuretic Peptide 29335 H Total Protein 5.4 L Albumin 2.7 L Globulin 2.70 Albumin/Globulin Ratio 1.00 Exam/Review of Systems Exam Vitals Vital Signs Date Temp Pulse Resp B/P (MAP) Pulse Ox O2 O2 Flow FiO2 Time Delivery Rate 11/20/18 151/71 16:22 (97) 11/20/18 61 18 95 40 16:15 11/20/18 97.9 Nasal 15:52 Cannula 11/20/18 3.0 14:05 Intake and Output 11/19/18 11/19/18 11/20/18 1515:00 23:00 07:00 IntakeIntake Total 250 ml 980 ml 250 ml BalanceBalance 250 ml 980 ml 250 ml Constitutional: alert Psych: confusion Head: normocephalic, atraumatic Respiratory: clear to auscultation Cardiovascular: regular rate and rhythm Gastrointestinal: soft, non-tender Musculoskeletal: nl extremities to inspection Results Results 24hrs Laboratory Tests Test 11/20/18 07:00 11/20/18 07:28 Blood Gas Specimen Source Blood arterial Arterial Blood Date Drawn 11/20/2018 7:23:42 AM Arterial Blood pH (Temp corrected) 7.472 H Arterial Blood pCO2 (Temp correct) 40.3 Arterial Blood pO2 (Temp corrected) 88.9 Arterial Blood HCO3 28.8 H Arterial Blood Base Excess 4.8 H Arterial Blood Oxygen Saturation 96.4 Geovanny Test ACCEPTAB Arterial Blood Gas Puncture Site Right Radial Arterial Blood Carboxyhemoglobin 0.3 Arterial Blood Methemoglobin 0.1 Blood Gas A-a O2 Differential 150.0 H Oxyhemoglobin Percent 96.0 Blood Gas Temperature 37.0 Blood Gas Modality HFNC FiO2 40.0 Blood Gas Notified Whom TM Blood Gas Notified Time 11/20/2018 7:43:21 AM White Blood Count 6.2 # Red Blood Count 3.06 L Hemoglobin 9.2 L Hematocrit 27.1 L Mean Corpuscular Volume 88.6 Mean Corpuscular Hemoglobin 30.1 Mean Corpuscular Hemoglobin Concent 33.9 Red Cell Distribution Width 14.1 Platelet Count 156 Mean Platelet Volume 9.1 Immature Granulocytes % 0.600 H Neutrophils % 67.1 Lymphocytes % 21.9 Monocytes % 7.0 Eosinophils % 2.8 Basophils % 0.6 Nucleated Red Blood Cells % 0.0 Immature Granulocytes # 0.040 H Neutrophils # 4.1 Lymphocytes # 1.4 Monocytes # 0.4 Eosinophils # 0.2 Basophils # 0.0 Nucleated Red Blood Cells # 0.0 Sodium Level 139 Potassium Level 4.0 Chloride Level 103 Carbon Dioxide Level 32 H Anion Gap 4 L Blood Urea Nitrogen 19 Creatinine 0.85 Est Glomerular Filtrat Rate mL/min Glucose Level 96 Calcium Level 8.8 Magnesium Level 2.3 Total Bilirubin 1.2 Direct Bilirubin 0.00 Indirect Bilirubin 1.2 H Aspartate Amino Transf (AST/SGOT) 30 Alanine Aminotransferase (ALT/SGPT) 25 Alkaline Phosphatase 57 Creatine Kinase 49 Creatine Kinase Index 2.2 Creatinine Kinase MB (Mass) 1.10 Troponin I 0.465 *H B-Type Natriuretic Peptide 17568 H Total Protein 5.4 L Albumin 2.7 L Globulin 2.70 Albumin/Globulin Ratio 1.00 Medications Medication Current Medications Dextrose (D50w Syringe) ONCE PRN IV DECREASED GLUCOSE; Start 11/17/18 at 03:00 IV Flush (NS 3 ml) 3 ml PER PROTOCOL IV ; Start 11/17/18 at 08:00 Ondansetron HCl (Zofran Inj) 4 mg Q6H PRN IV NAUSEA/VOMITING; Start 11/17/18 at 08:00 Nitroglycerin (Nitroglycerin (Sl Tab) 0.4 Mg) 1 tab Q5M PRN SL .CHEST PAIN Last administered on 11/17/18 17:12; Admin Dose 1 TAB; Start 11/17/18 at 08:00 Acetaminophen (Tylenol Tab) 650 mg Q6H PRN PO .PAIN 1-3 OR TEMP; Start 11/17/18 at 08:00 Heparin Sodium (Porcine) (Heparin (5000 Units/1ml)) 5,000 unit Q12 SC Last administered on 11/20/18 09:07; Admin Dose 5,000 UNIT; Start 11/17/18 at 09:00 Albuterol/ Ipratropium (Duoneb) 3 ml Q2H RESP THERAPY PRN HHN SHORTNESS OF BREATH; Start 11/17/18 at 08:00 Aspirin (Halfprin) 81 mg DAILY PO Last administered on 11/20/18 09:00; Admin Dose 81 MG; Start 11/17/18 at 09:00 Atorvastatin Calcium (Lipitor) 40 mg HS PO Last administered on 11/19/18 20:18; Admin Dose 40 MG; Start 11/17/18 at 21:00 Multivitamins Therapeutic (Theragran) 1 tab DAILY PO Last administered on 11/20/18 08:59; Admin Dose 1 TAB; Start 11/17/18 at 09:00 Spironolactone (Aldactone) 25 mg DAILY PO Last administered on 11/20/18 09:00; Admin Dose 25 MG; Start 11/17/18 at 09:00 Dextrose/Sodium Chloride 1,000 ml @ 40 mls/hr Q24H IV Last administered on 11/19/18 18:48; Admin Dose 40 MLS/HR; Start 11/17/18 at 08:30 Buspirone HCl (Buspar) 15 mg BID PO Last administered on 11/20/18 08:59; Admin Dose 15 MG; Start 11/17/18 at 11:19 Carvedilol (Coreg) 6.25 mg BID GTB Last administered on 11/20/18 09:00; Admin Dose 6.25 MG; Start 11/17/18 at 18:00 Lisinopril (Zestril) 2.5 mg DAILY GTB Last administered on 11/20/18 08:59; Admin Dose 2.5 MG; Start 11/17/18 at 18:00 Lorazepam (Ativan) 0.5 mg Q8H PRN PO ANXIETY Last administered on 11/19/18 21:20; Admin Dose 0.5 MG; Start 11/17/18 at 22:00 Ampicillin Sodium/ Sulbactam Sodium 100 ml @ 100 mls/hr Q8 IVPB Last administered on 11/20/18 13:36; Admin Dose 100 MLS/HR; Start 11/18/18 at 14:00 Furosemide (Lasix) 40 mg DAILY IV Last administered on 11/20/18 09:00; Admin Dose 40 MG; Start 11/18/18 at 12:30 Levalbuterol (Xopenex Neb) 0.63 mg Q8H RESP THERAPY HHN Last administered on 16:13; Admin Dose 0.63 MG; Start 11/19/18 at 00:00 Magnesium Hydroxide (Milk Of Mag) 30 ml DAILY PRN PO CONSTIPATION Last administered on 11/19/18 23:19; Admin Dose 30 ML; Start 11/19/18 at 07:30 Docusate Sodium (Colace) 200 mg DAILY PO Last administered on 11/20/18 08:59; Admin Dose 200 MG; Start 11/19/18 at 09:00 Azithromycin (Zithromax) 250 mg DAILY PO Last administered on 11/20/18 08:59; Admin Dose 250 MG; Start 11/20/18 at 09:00 SIVA MILLER MD Nov 20, 2018 16:47
[2018-11-20] MEDS: ATORVASTATIN 40 MG TAB PO SCH (20:40)
[2018-11-20] MEDS: MAGNESIUM HYDROXIDE 30ML CUP PO PRN (20:41)
[2018-11-20] MEDS: LORAZEPAM 0.5 MG TAB PO PRN (23:37)
[2018-11-21] VITALS (12 sets, daily range): BP systolic 155–165; BP diastolic 68–78; PULSE 48–67; RESP 18–20
[2018-11-21] MEDS: AMPICILLIN/SULB 3 GM/NS (PMX) 100 ML IVPB SCH (05:30)
--- NOTE | 2018-11-21 07:10 | CONS ---
Assessment/Plan Assessment/Plan Hospital Course (Demo Recall) 1) CAP vs aspiration pneumonia continue with azithro but will change ceftriaxone to unasyn does to vomiting hx and got SOB after her admission according to the patient maintain IV as pt is on biPAP (FiO2 at 50%) currently 11/19 - on BACK STAYER at 70% continue with unasyn/azithro at present 11/20 - on BACK STAYER at 40% and sating well will change azithro to po form, continue unasyn, anticipate changing it to augmentin soon 11/21 - now on NC at 3L d/c unasyn and start augmentin continue azithro thru today and augmentin thru 11/24 2) elevated troponins and CK pt currently has no CP 3)CAD with cardiomyopathy echo shows similar Ej. fx as before 4) ARF no urinary c/o CT does not show obstruction or stone or mass will check u/a and urine cx already improved with hydration 11/19 - u/a is benign 11/20 - improved creatinine 5) hx of CVA but pt denies muscle weakness 6) constipation 11/19 - order for MOM written 11/20 - pt had two BM's in last 24 hours recorded Consultation Date/Type/Reason Admit Date/Time Nov 17, 2018 at 06:17 Initial Consult Date 11/18/18 Type of Consult ID Date/Time of Note DATE: 11/21/18 TIME: 07:06 24 HR Interval Summary Free Text/Dictation pt states her breathing is pretty good no cough no N, V, D Exam/Review of Systems Exam Vitals Vital Signs Date Temp Pulse Resp B/P (MAP) Pulse Ox O2 O2 Flow FiO2 Time Delivery Rate 11/21/18 49 04:00 11/21/18 98.8 20 159/72 98 03:39 (101) 11/21/18 3.0 00:48 11/20/18 Nasal 23:42 Cannula 11/20/18 40 16:15 Intake and Output 11/20/18 11/20/18 11/21/18 1515:00 23:00 07:00 IntakeIntake Total 100 ml 520 ml 400 ml BalanceBalance 100 ml 520 ml 400 ml Constitutional: alert Eyes: nl sclera ENMT: mucosa pink and moist Respiratory: clear to auscultation Cardiovascular: regular rate and rhythm Gastrointestinal: soft, non-tender Results Result Diagram: 11/20/18 0728 11/20/18 0728 Results 24hrs Laboratory Tests Test 11/20/18 07:28 White Blood Count 6.2 # Red Blood Count 3.06 L Hemoglobin 9.2 L Hematocrit 27.1 L Mean Corpuscular Volume 88.6 Mean Corpuscular Hemoglobin 30.1 Mean Corpuscular Hemoglobin Concent 33.9 Red Cell Distribution Width 14.1 Platelet Count 156 Mean Platelet Volume 9.1 Immature Granulocytes % 0.600 H Neutrophils % 67.1 Lymphocytes % 21.9 Monocytes % 7.0 Eosinophils % 2.8 Basophils % 0.6 Nucleated Red Blood Cells % 0.0 Immature Granulocytes # 0.040 H Neutrophils # 4.1 Lymphocytes # 1.4 Monocytes # 0.4 Eosinophils # 0.2 Basophils # 0.0 Nucleated Red Blood Cells # 0.0 Sodium Level 139 Potassium Level 4.0 Chloride Level 103 Carbon Dioxide Level 32 H Anion Gap 4 L Blood Urea Nitrogen 19 Creatinine 0.85 Est Glomerular Filtrat Rate mL/min Glucose Level 96 Calcium Level 8.8 Magnesium Level 2.3 Total Bilirubin 1.2 Direct Bilirubin 0.00 Indirect Bilirubin 1.2 H Aspartate Amino Transf (AST/SGOT) 30 Alanine Aminotransferase (ALT/SGPT) 25 Alkaline Phosphatase 57 Creatine Kinase 49 Creatine Kinase Index 2.2 Creatinine Kinase MB (Mass) 1.10 Troponin I 0.465 *H B-Type Natriuretic Peptide 38255 H Total Protein 5.4 L Albumin 2.7 L Globulin 2.70 Albumin/Globulin Ratio 1.00 Medications Medication Current Medications Dextrose (D50w Syringe) ONCE PRN IV DECREASED GLUCOSE; Start 11/17/18 at 03:00 IV Flush (NS 3 ml) 3 ml PER PROTOCOL IV ; Start 11/17/18 at 08:00 Ondansetron HCl (Zofran Inj) 4 mg Q6H PRN IV NAUSEA/VOMITING; Start 11/17/18 at 08:00 Nitroglycerin (Nitroglycerin (Sl Tab) 0.4 Mg) 1 tab Q5M PRN SL .CHEST PAIN Last administered on 11/17/18at 17:12; Admin Dose 1 TAB; Start 11/17/18 at 08:00 Acetaminophen (Tylenol Tab) 650 mg Q6H PRN PO .PAIN 1-3 OR TEMP; Start 11/17/18 at 08:00 Heparin Sodium (Porcine) (Heparin (5000 Units/1ml)) 5,000 unit Q12 SC Last administered on 11/20/18 20:48; Admin Dose 5,000 UNIT; Start 11/17/18 at 09:00 Albuterol/ Ipratropium (Duoneb) 3 ml Q2H RESP THERAPY PRN HHN SHORTNESS OF BREATH; Start 11/17/18 at 08:00 Aspirin (Halfprin) 81 mg DAILY PO Last administered on 11/20/18 09:00; Admin Dose 81 MG; Start 11/17/18 at 09:00 Atorvastatin Calcium (Lipitor) 40 mg HS PO Last administered on 11/20/18 20:40; Admin Dose 40 MG; Start 11/17/18 at 21:00 Multivitamins Therapeutic (Theragran) 1 tab DAILY PO Last administered on 11/20/18 08:59; Admin Dose 1 TAB; Start 11/17/18 at 09:00 Spironolactone (Aldactone) 25 mg DAILY PO Last administered on 11/20/18 09:00; Admin Dose 25 MG; Start 11/17/18 at 09:00 Dextrose/Sodium Chloride 1,000 ml @ 40 mls/hr Q24H IV Last administered on 11/20/18 23:37; Admin Dose 40 MLS/HR; Start 11/17/18 at 08:30 Buspirone HCl (Buspar) 15 mg BID PO Last administered on 11/20/18 20:40; Admin Dose 15 MG; Start 11/17/18 at 11:19 Carvedilol (Coreg) 6.25 mg BID GTB Last administered on 11/20/18 20:40; Admin Dose 6.25 MG; Start 11/17/18 at 18:00 Lisinopril (Zestril) 2.5 mg DAILY GTB Last administered on 11/20/18 08:59; Admin Dose 2.5 MG; Start 11/17/18 at 18:00 Lorazepam (Ativan) 0.5 mg Q8H PRN PO ANXIETY Last administered on 11/20/18 23:37; Admin Dose 0.5 MG; Start 11/17/18 at 22:00 Ampicillin Sodium/ Sulbactam Sodium 100 ml @ 100 mls/hr Q8 IVPB Last administered on 11/21/18 05:30; Admin Dose 100 MLS/HR; Start 11/18/18 at 14:00 Furosemide (Lasix) 40 mg DAILY IV Last administered on 11/20/18 09:00; Admin Dose 40 MG; Start 11/18/18 at 12:30 Levalbuterol (Xopenex Neb) 0.63 mg Q8H RESP THERAPY HHN Last administered on 11/20/18 23:41; Admin Dose 0.63 MG; Start 11/19/18 at 00:00 Magnesium Hydroxide (Milk Of Mag) 30 ml DAILY PRN PO CONSTIPATION Last administered on 11/20/18 20:41; Admin Dose 30 ML; Start 11/19/18 at 07:30 Docusate Sodium (Colace) 200 mg DAILY PO Last administered on 11/20/18 08:59; Admin Dose 200 MG; Start 11/19/18 at 09:00 Azithromycin (Zithromax) 250 mg DAILY PO Last administered on 11/20/18 08:59; Admin Dose 250 MG; Start 11/20/18 at 09:00 ADORE WEAVER MD Nov 21, 2018 07:10
[2018-11-21] MEDS: LEVALBUTEROL (NEB) 0.63 MG/3 ML AMP HHN SCH ×3 (08:09→23:22)
--- NOTE | 2018-11-21 08:17 | CONS ---
Consult Date/Type/Reason Admit Date/Time Nov 17, 2018 at 06:17 Initial Consult Date 11/18/18 Type of Consultation: CV Date/Time of Note DATE: 11/21/18 TIME: 08:15 Subjective Cardiology follow-up progress note Subjective: Case discussed with the staff. Telemetry was reviewed. Patient remains in normal sinus rhythm/ sinus bradycardia. Patient denies any chest pain or pressure to me now. Patient is less hypoxemic and is on NC only. no bleeding Objective: General: no acute distress HEENT: NC/AT. pupils are equal. round. NECK. no stridor. CV: RRR. systolic murmur; no gallop or rubs. PULM: no wheezing +mild rhonchi. GI: SOFT, NT, ND, no rebound or guarding Extremity: trace B/L LE edema. no clubbing. neuro: awake and alert, OX2. Psych: calm and pleasant rectal: deferred : normal Review of the old chart showed echocardiogram done in my office on October 10, 2017 has shown ejection fraction of more than 65% hypertrophic cardiomyopathy with severe LVH trace MR mild MR Echocardiogram done 11/17/[address] Harper shows: Normal left ventricular cavity size. Moderate concentric left ventricular hypertrophy. Severe left ventricular systolic dysfunction. Ejection fraction is visually estimated at 30-35 %. Tissue Doppler/Mitral Doppler indices are consistent with impaired relaxation (Stage I diastolic dysfunction). E/E'= 28. Resting left ventricular outflow tract velocity 6.70 m/sec. Resting left ventricular outflow tract gradient 180.0 mmHg. Severe left ventricular outflow tract obstruction, patient unable to Valsalva. These segments of the LV are hypokinetic anterolateral mid segment and anteroseptum mid segment. These segments of the LV are akinetic mid anterior segment, apical anterior segment, apical lateral segment, inferior mid segment, apical inferior segment, inferoseptum mid segment and apical septum segment. Mild mitral leaflet calcification. Moderate mitral annular calcification. Moderate to severe mitral valve regurgitation. Moderate systolic anterior motion of mitral valve. Chordal LENA seen. No significant aortic stenosis or insufficiency. Aortic cusps appear mildly calcified. Normal appearance of the tricuspid valve. Estimated peak PA systolic pressure 45 mmHg. There is mild to moderate tricuspid regurgitation. Objective Vitals Vital Signs Date Temp Pulse Resp B/P (MAP) Pulse Ox O2 O2 Flow FiO2 Time Delivery Rate 11/21/18 3.0 32 08:12 11/21/18 62 22 94 Nasal 08:10 Cannula 11/21/18 98.2 155/70 07:27 (98) Intake and Output 11/20/18 11/20/18 11/21/18 1515:00 23:00 07:00 IntakeIntake Total 100 ml 520 ml 400 ml BalanceBalance 100 ml 520 ml 400 ml Results/Medications Result Diagram: 11/20/1872711/20/18727 Home Meds Active Scripts Aspirin* (Aspirin* EC) 81 Mg Tablet.dr, 81 MG PO DAILY for 30 Days, #30 Prov:LIA CHOU MD 06/10/17 Spironolactone* (Aldactone*) 25 Mg Tablet, 25 MG PO DAILY for 30 Days, #30 TAB Prov:LIA CHOU MD 06/10/17 Atorvastatin* (Atorvastatin*) 40 Mg Tablet, 40 MG PO HS for 30 Days, #30 TAB Prov:LIA CHOU MD 06/10/17 Carvedilol* (Carvedilol*) 3.125 Mg Tablet, 3.125 MG PO BID for 30 Days, #60 TAB Prov:LIA CHOU MD 06/10/17 Reported Medications Buspirone Hcl* (Buspirone Hcl*) 10 Mg Tab, 15 MG PO BID, TAB PT TAKES THREE DAYS A WEEK 02/08/17 Cranberry (Cranberry) 400 Mg Capsule, 800 MG PO DAILY, CAP 05/03/16 Multivitamins* (Theragran*) 1 Tab Tab, 1 TAB PO DAILY, TAB 05/03/16 Medications Current Medications Dextrose (D50w Syringe) ONCE PRN IV DECREASED GLUCOSE; Start 11/17/18 at 03:00 IV Flush (NS 3 ml) 3 ml PER PROTOCOL IV ; Start 11/17/18 at 08:00 Ondansetron HCl (Zofran Inj) 4 mg Q6H PRN IV NAUSEA/VOMITING; Start 11/17/18 at 08:00 Nitroglycerin (Nitroglycerin (Sl Tab) 0.4 Mg) 1 tab Q5M PRN SL .CHEST PAIN Last administered on 11/17/18at 17:12; Admin Dose 1 TAB; Start 11/17/18 at 08:00 Acetaminophen (Tylenol Tab) 650 mg Q6H PRN PO .PAIN 1-3 OR TEMP; Start 11/17/18 at 08:00 Heparin Sodium (Porcine) (Heparin (5000 Units/1ml)) 5,000 unit Q12 SC Last administered on 11/20/18 20:48; Admin Dose 5,000 UNIT; Start 11/17/18 at 09:00 Albuterol/ Ipratropium (Duoneb) 3 ml Q2H RESP THERAPY PRN HHN SHORTNESS OF BREATH; Start 11/17/18 at 08:00 Aspirin (Halfprin) 81 mg DAILY PO Last administered on 11/20/18 09:00; Admin Dose 81 MG; Start 11/17/18 at 09:00 Atorvastatin Calcium (Lipitor) 40 mg HS PO Last administered on 11/20/18 20:40; Admin Dose 40 MG; Start 11/17/18 at 21:00 Multivitamins Therapeutic (Theragran) 1 tab DAILY PO Last administered on 11/20/18 08:59; Admin Dose 1 TAB; Start 11/17/18 at 09:00 Spironolactone (Aldactone) 25 mg DAILY PO Last administered on 11/20/18 09:00; Admin Dose 25 MG; Start 11/17/18 at 09:00 Dextrose/Sodium Chloride 1,000 ml @ 40 mls/hr Q24H IV Last administered on 11/20/18 23:37; Admin Dose 40 MLS/HR; Start 11/17/18 at 08:30 Buspirone HCl (Buspar) 15 mg BID PO Last administered on 11/20/18 20:40; Admin Dose 15 MG; Start 11/17/18 at 11:19 Carvedilol (Coreg) 6.25 mg BID GTB Last administered on 11/20/18 20:40; Admin Dose 6.25 MG; Start 11/17/18 at 18:00 Lisinopril (Zestril) 2.5 mg DAILY GTB Last administered on 11/20/18 08:59; Admin Dose 2.5 MG; Start 11/17/18 at 18:00 Lorazepam (Ativan) 0.5 mg Q8H PRN PO ANXIETY Last administered on 11/20/18 23:37; Admin Dose 0.5 MG; Start 11/17/18 at 22:00 Furosemide (Lasix) 40 mg DAILY IV Last administered on 11/20/18 09:00; Admin Dose 40 MG; Start 11/18/18 at 12:30 Levalbuterol (Xopenex Neb) 0.63 mg Q8H RESP THERAPY HHN Last administered on 11/21/18 08:09; Admin Dose 0.63 MG; Start 11/19/18 at 00:00 Magnesium Hydroxide (Milk Of Mag) 30 ml DAILY PRN PO CONSTIPATION Last administered on 11/20/18 20:41; Admin Dose 30 ML; Start 11/19/18 at 07:30 Docusate Sodium (Colace) 200 mg DAILY PO Last administered on 11/20/18 08:59; Admin Dose 200 MG; Start 11/19/18 at 09:00 Azithromycin (Zithromax) 250 mg DAILY PO Last administered on 11/20/18 08:59; Admin Dose 250 MG; Start 11/20/18 at 09:00; Stop 11/21/18 at 14:00 Amoxicillin/ Clavulanate Potassium (Augmentin) 875 mg BID PO ; Start 11/21/18 at 09:00 Assessment/Plan Hospital Course (Demo Recall) 1. Pneumonia 2. Hypertrophic cardiomyopathy 3. Congestive heart failure: acute due to systolic heart failure 4. Abnormal troponin consistent with non-ST elevation myocardial infarction most likely type II 5. History of CVA 6. Hypertension 7. Cardiomyopathy possibly stress-induced versus others including ischemia 8. Abnormal EKG with intermittent left bundle branch block with no with reports of any syncope 9. Constipation Recommendations: Antibiotic management as per internal medicine and ID REC Continue with the Coreg and increase as needed/ tolerated off the nitrates given her history of hypertrophic cardiomyopathy Aspirin to be continued Statins Monitor on telemetry previous kole angio did NOT show significant obstructive CAD. will monitor and stabilize for now. Discussed with daughter will cont lasix and add aldactone Thank you for his referral. We will continue to follow along with you DREW MACARIO MD [facility] DREW MACARIO MD Nov 21, 2018 08:17
[2018-11-21] MEDS ORDERED: SPIRONOLACTONE 25 MG TAB PO SCH (09:00)
[2018-11-21] MEDS: FUROSEMIDE 40 MG INJ IV SCH (09:29)
[2018-11-21] MEDS: LISINOPRIL 5 MG TAB GTB SCH (09:29)
[2018-11-21] MEDS: BUSPIRONE 5 MG TAB PO SCH ×2 (09:29→21:41)
[2018-11-21] MEDS: DOCUSATE SODIUM 100 MG CAP PO SCH (09:30)
[2018-11-21] MEDS: AZITHROMYCIN 250 MG TAB PO SCH (09:30)
[2018-11-21] MEDS: SPIRONOLACTONE 25 MG TAB PO SCH (09:30)
[2018-11-21] MEDS: ASPIRIN (EC) 81 MG TAB PO SCH (09:31)
[2018-11-21] MEDS: MULTIVITAMINS THERAPEUTIC TAB PO SCH (09:31)
[2018-11-21] MEDS: HEPARIN 5,000 UNIT/1 ML VIAL SC SCH ×2 (09:33→23:51)
[2018-11-21] MEDS: AMOXICILLIN/CLAV 875 MG TAB PO SCH ×2 (09:37→21:40)
[2018-11-21] MEDS: LORAZEPAM 0.5 MG TAB PO PRN (10:55)
--- NOTE | 2018-11-21 11:07 | CONS ---
Consult Date/Type/Reason Admit Date/Time Nov 17, 2018 at 06:17 Initial Consult Date 11/18/18 Type of Consult Pulmonary Date/Time of Note DATE: 11/21/18 TIME: 11:06 Subjective Continues to improve, now on nasal cannula O2 remains awake and alert. Objective Vital Signs Date Temp Pulse Resp B/P (MAP) Pulse Ox O2 O2 Flow FiO2 Time Delivery Rate 11/21/18 58 08:52 11/21/18 3.0 32 08:12 11/21/18 22 94 Nasal 08:10 Cannula 11/21/18 98.2 155/70 07:27 (98) Intake and Output 11/20/18 11/20/18 11/21/18 1414:59 22:59 06:59 IntakeIntake Total 100 ml 520 ml 400 ml BalanceBalance 100 ml 520 ml 400 ml Exam GENERAL: Elderly lady on high flow O2. VITAL SIGNS: per chart NECK: Supple. No JVD or lymphadenopathy. CARDIAC EXAM: S1, S2. No added sounds or murmurs. CHEST: clear bilaterally, No added sounds, rales or wheezes ABDOMEN: Soft, nontender. No guarding or rebound. EXTREMITIES: No cyanosis, clubbing or edema. NEUROLOGIC: Generalized weakness. No focal deficits. Vent Setting Fraction of Inspired Oxygen pe: 32 Results/Medications Result Diagram: 11/20/18 0728 11/20/18 0728 Medications Current Medications Dextrose (D50w Syringe) ONCE PRN IV DECREASED GLUCOSE; Start 11/17/18 at 03:00 IV Flush (NS 3 ml) 3 ml PER PROTOCOL IV ; Start 11/17/18 at 08:00 Ondansetron HCl (Zofran Inj) 4 mg Q6H PRN IV NAUSEA/VOMITING; Start 11/17/18 at 08:00 Nitroglycerin (Nitroglycerin (Sl Tab) 0.4 Mg) 1 tab Q5M PRN SL .CHEST PAIN Last administered on 11/17/18at 17:12; Admin Dose 1 TAB; Start 11/17/18 at 08:00 Acetaminophen (Tylenol Tab) 650 mg Q6H PRN PO .PAIN 1-3 OR TEMP; Start 11/17/18 at 08:00 Heparin Sodium (Porcine) (Heparin (5000 Units/1ml)) 5,000 unit Q12 SC Last administered on 11/21/18at 09:33; Admin Dose 5,000 UNIT; Start 11/17/18 at 09:00 Albuterol/ Ipratropium (Duoneb) 3 ml Q2H RESP THERAPY PRN HHN SHORTNESS OF BREATH; Start 11/17/18 at 08:00 Aspirin (Halfprin) 81 mg DAILY PO Last administered on 11/21/18 09:31; Admin Dose 81 MG; Start 11/17/18 at 09:00 Atorvastatin Calcium (Lipitor) 40 mg HS PO Last administered on 11/20/18 20:40; Admin Dose 40 MG; Start 11/17/18 at 21:00 Multivitamins Therapeutic (Theragran) 1 tab DAILY PO Last administered on 11/21/18 09:31; Admin Dose 1 TAB; Start 11/17/18 at 09:00 Spironolactone (Aldactone) 25 mg DAILY PO Last administered on 11/21/18 09:30; Admin Dose 25 MG; Start 11/17/18 at 09:00 Dextrose/Sodium Chloride 1,000 ml @ 40 mls/hr Q24H IV Last administered on 11/20/18 23:37; Admin Dose 40 MLS/HR; Start 11/17/18 at 08:30 Buspirone HCl (Buspar) 15 mg BID PO Last administered on 11/21/18 09:29; Admin Dose 15 MG; Start 11/17/18 at 11:19 Carvedilol (Coreg) 6.25 mg BID GTB Last administered on 11/21/18 09:31; Admin Dose 6.25 MG; Start 11/17/18 at 18:00 Lisinopril (Zestril) 2.5 mg DAILY GTB Last administered on 11/21/18 09:29; Admin Dose 2.5 MG; Start 11/17/18 at 18:00 Lorazepam (Ativan) 0.5 mg Q8H PRN PO ANXIETY Last administered on 11/21/18 10:55; Admin Dose 0.5 MG; Start 11/17/18 at 22:00 Furosemide (Lasix) 40 mg DAILY IV Last administered on 11/21/18 09:29; Admin Dose 40 MG; Start 11/18/18 at 12:30 Levalbuterol (Xopenex Neb) 0.63 mg Q8H RESP THERAPY HHN Last administered on 11/21/18 08:09; Admin Dose 0.63 MG; Start 11/19/18 at 00:00 Magnesium Hydroxide (Milk Of Mag) 30 ml DAILY PRN PO CONSTIPATION Last adminis tered on 11/20/18at 20:41; Admin Dose 30 ML; Start 11/19/18 at 07:30 Docusate Sodium (Colace) 200 mg DAILY PO Last administered on 11/21/18 09:30; Admin Dose 200 MG; Start 11/19/18 at 09:00 Azithromycin (Zithromax) 250 mg DAILY PO Last administered on 11/21/18 09:30; Admin Dose 250 MG; Start 11/20/18 at 09:00; Stop 11/21/18 at 14:00 Amoxicillin/ Clavulanate Potassium (Augmentin) 875 mg BID PO Last administered on 11/21/18 09:37; Admin Dose 875 MG; Start 11/21/18 at 09:00 Spironolactone (Aldactone) 25 mg DAILY PO ; Start 11/21/18 at 09:00 Assessment/Plan Hospital Course (Demo Recall) Assessment 1. Acute hypoxemic respiratory failure likely secondary to combination of CHF and aspiration pneumonia 2. History of hypertrophic cardiomyopathy with valvular heart disease 3. History of CVA Plan 1. Continue antibiotics per infectious diseases 2. Continue diuretics 3. aspiration precautions 4. Discussed full CODE STATUS with next of kin 5. Decrease oxygen as tolerated May need detention facility TIFFANY KUNZ MD, [facility] Nov 21, 2018 11:07
--- NOTE | 2018-11-21 18:38 | PN ---
Date/Time of Note Date/Time of Note DATE: 11/21/18 TIME: 18:38 Assessment/Plan VTE Prophylaxis Risk score (from [facility] [place]0 risk: 8 SCD applied (from [facility] [place]): Yes Pharmacological prophylaxis: heparin Lines/Catheters IV Catheter Type (from [facility]): Peripheral IV Urinary Cath still in place: No Assessment/Plan Problems: (1) Community acquired pneumonia Status: Acute Comment: improving . Changing to oral antibiotic Augmentin today. Qualifiers: Laterality: left Lung location: unspecified part of lung Qualified Codes: J18.9 - Pneumonia, unspecified organism (2) Non-ST elevation myocardial infarction (NSTEMI) Status: Resolved Comment: myocardial ischemia due to sepsis and pneumonia. Clinically improved. (3) Congestive heart failure Status: Chronic Comment: stable on meds. (4) Anemia Status: Chronic (5) Constipation Status: Acute Comment: improved on meds. Result Diagram: 11/20/18 0728 11/20/18 0728 Subjective 24 Hr Interval Summary Free Text/Dictation Patient wants to go home. Constitutional: no complaints Exam/Review of Systems Exam Vitals Vital Signs Date Temp Pulse Resp B/P (MAP) Pulse Ox O2 O2 Flow FiO2 Time Delivery Rate 11/21/18 48 16:49 11/21/18 20 93 Nasal 3.0 32 16:17 Cannula 11/21/18 97.6 159/68 15:02 (98) Intake and Output 11/20/18 11/20/18 11/21/18 1515:00 23:00 07:00 IntakeIntake Total 100 ml 520 ml 400 ml BalanceBalance 100 ml 520 ml 400 ml Constitutional: alert Psych: no complaints Head: normocephalic, atraumatic Eyes: nl conjunctiva Respiratory: clear to auscultation, normal air movement Cardiovascular: regular rate and rhythm Gastrointestinal: soft, non-tender Musculoskeletal: nl extremities to inspection Medications Medication Current Medications Dextrose (D50w Syringe) ONCE PRN IV DECREASED GLUCOSE; Start 11/17/18 at 03:00 IV Flush (NS 3 ml) 3 ml PER PROTOCOL IV ; Start 11/17/18 at 08:00 Ondansetron HCl (Zofran Inj) 4 mg Q6H PRN IV NAUSEA/VOMITING; Start 11/17/18 at 08:00 Nitroglycerin (Nitroglycerin (Sl Tab) 0.4 Mg) 1 tab Q5M PRN SL .CHEST PAIN Last administered on 11/17/18 17:12; Admin Dose 1 TAB; Start 11/17/18 at 08:00 Acetaminophen (Tylenol Tab) 650 mg Q6H PRN PO .PAIN 1-3 OR TEMP; Start 11/17/18 at 08:00 Heparin Sodium (Porcine) (Heparin (5000 Units/1ml)) 5,000 unit Q12 SC Last administered on 11/21/18 09:33; Admin Dose 5,000 UNIT; Start 11/17/18 at 09:00 Albuterol/ Ipratropium (Duoneb) 3 ml Q2H RESP THERAPY PRN HHN SHORTNESS OF BREATH; Start 11/17/18 at 08:00 Aspirin (Halfprin) 81 mg DAILY PO Last administered on 11/21/18 09:31; Admin Dose 81 MG; Start 11/17/18 at 09:00 Atorvastatin Calcium (Lipitor) 40 mg HS PO Last administered on 11/20/18 20:40; Admin Dose 40 MG; Start 11/17/18 at 21:00 Multivitamins Therapeutic (Theragran) 1 tab DAILY PO Last administered on 11/21/18 09:31; Admin Dose 1 TAB; Start 11/17/18 at 09:00 Spironolactone (Aldactone) 25 mg DAILY PO Last administered on 11/21/18 09:30; Admin Dose 25 MG; Start 11/17/18 at 09:00 Dextrose/Sodium Chloride 1,000 ml @ 40 mls/hr Q24H IV Last administered on 11/20/18 23:37; Admin Dose 40 MLS/HR; Start 11/17/18 at 08:30 Buspirone HCl (Buspar) 15 mg BID PO Last administered on 11/21/18 09:29; Admin Dose 15 MG; Start 11/17/18 at 11:19 Carvedilol (Coreg) 6.25 mg BID GTB Last administered on 11/21/18 09:31; Admin Dose 6.25 MG; Start 11/17/18 at 18:00 Lisinopril (Zestril) 2.5 mg DAILY GTB Last administered on 11/21/18 09:29; Admin Dose 2.5 MG; Start 11/17/18 at 18:00 Lorazepam (Ativan) 0.5 mg Q8H PRN PO ANXIETY Last administered on 11/21/18 10:55; Admin Dose 0.5 MG; Start 11/17/18 at 22:00 Furosemide (Lasix) 40 mg DAILY IV Last administered on 11/21/18 09:29; Admin Dose 40 MG; Start 11/18/18 at 12:30 Levalbuterol (Xopenex Neb) 0.63 mg Q8H RESP THERAPY HHN Last administered on 11/21/18 16:16; Admin Dose 0.63 MG; Start 11/19/18 at 00:00 Magnesium Hydroxide (Milk Of Mag) 30 ml DAILY PRN PO CONSTIPATION Last administered on 11/20/18 20:41; Admin Dose 30 ML; Start 11/19/18 at 07:30 Docusate Sodium (Colace) 200 mg DAILY PO Last administered on 11/21/18 09:30; Admin Dose 200 MG; Start 11/19/18 at 09:00 Amoxicillin/ Clavulanate Potassium (Augmentin) 875 mg BID PO Last administered on 11/21/18 09:37; Admin Dose 875 MG; Start 11/21/18 at 09:00 Spironolactone (Aldactone) 25 mg DAILY PO ; Start 11/21/18 at 09:00 SIVA MILLER MD Nov 21, 2018 18:38
[2018-11-21] MEDS: ATORVASTATIN 40 MG TAB PO SCH (21:40)
[2018-11-22] VITALS (12 sets, daily range): BP systolic 140–190; BP diastolic 69–87; PULSE 45–60; RESP 18–22
[2018-11-22] MEDS: DEXTROSE 5%-0.9% NACL 1,000 ML IV SCH (05:50)
--- NOTE | 2018-11-22 07:35 | CONS ---
Assessment/Plan Assessment/Plan Hospital Course (Demo Recall) 1) CAP vs aspiration pneumonia continue with azithro but will change ceftriaxone to unasyn does to vomiting hx and got SOB after her admission according to the patient maintain IV as pt is on biPAP (FiO2 at 50%) currently 11/19 - on [employer] at 70% continue with unasyn/azithro at present 11/20 - on [employer] at 40% and sating well will change azithro to po form, continue unasyn, anticipate changing it to augmentin soon 11/21 - now on NC at 3L d/c unasyn and start augmentin continue azithro thru today and augmentin thru 11/24 11/22 - continue with augmentin thru 11/24 ok for d/c from ID perspective 2) elevated troponins and CK pt currently has no CP 3)CAD with cardiomyopathy echo shows similar Ej. fx as before 4) ARF no urinary c/o CT does not show obstruction or stone or mass will check u/a and urine cx already improved with hydration 11/19 - u/a is benign 11/20 - improved creatinine 5) hx of CVA but pt denies muscle weakness 6) constipation 11/19 - order for MOM written 11/20 - pt had two BM's in last 24 hours recorded Consultation Date/Type/Reason Admit Date/Time Nov 17, 2018 at 06:17 Initial Consult Date 11/18/18 Type of Consult ID Date/Time of Note DATE: 11/22/18 TIME: 07:34 24 HR Interval Summary Free Text/Dictation pt is doing well eating ok no SOB or cough or D Exam/Review of Systems Exam Vitals Vital Signs Date Temp Pulse Resp B/P (MAP) Pulse Ox O2 O2 Flow FiO2 Time Delivery Rate 11/22/18 55 04:00 11/22/18 98.0 18 150/69 100 03:53 (96) 11/22/18 3.0 01:33 11/21/18 Nasal 23:22 Cannula 11/21/18 32 16:17 Intake and Output 11/21/18 11/21/18 11/22/18 1414:59 22:59 06:59 IntakeIntake Total 620 ml 480 ml BalanceBalance 620 ml 480 ml Constitutional: alert Eyes: nl sclera ENMT: mucosa pink and moist Respiratory: clear to auscultation Cardiovascular: regular rate and rhythm Gastrointestinal: soft, non-tender Results Result Diagram: 11/20/18 0728 11/22/18 0640 Results 24hrs Laboratory Tests Test 11/22/18 06:40 Sodium Level 137 Potassium Level 4.0 Chloride Level 98 Carbon Dioxide Level 32 H Anion Gap 7 Blood Urea Nitrogen 13 Creatinine 0.85 Est Glomerular Filtrat Rate mL/min Glucose Level 108 Calcium Level 9.4 Magnesium Level 2.2 Total Bilirubin 1.0 Direct Bilirubin 0.00 Indirect Bilirubin 1.0 Aspartate Amino Transf (AST/SGOT) 30 Alanine Aminotransferase (ALT/SGPT) 27 Alkaline Phosphatase 65 B-Type Natriuretic Peptide Pending Total Protein 6.0 L Albumin 3.1 L Globulin 2.90 Albumin/Globulin Ratio 1.06 Medications Medication Current Medications Dextrose (D50w Syringe) ONCE PRN IV DECREASED GLUCOSE; Start 11/17/18 at 03:00 IV Flush (NS 3 ml) 3 ml PER PROTOCOL IV ; Start 11/17/18 at 08:00 Ondansetron HCl (Zofran Inj) 4 mg Q6H PRN IV NAUSEA/VOMITING; Start 11/17/18 at 08:00 Nitroglycerin (Nitroglycerin (Sl Tab) 0.4 Mg) 1 tab Q5M PRN SL .CHEST PAIN Last administered on 11/17/18at 17:12; Admin Dose 1 TAB; Start 11/17/18 at 08:00 Acetaminophen (Tylenol Tab) 650 mg Q6H PRN PO .PAIN 1-3 OR TEMP; Start 11/17/18 at 08:00 Heparin Sodium (Porcine) (Heparin (5000 Units/1ml)) 5,000 unit Q12 SC Last administered on 11/21/18at 23:51; Admin Dose 5,000 UNIT; Start 11/17/18 at 09:00 Albuterol/ Ipratropium (Duoneb) 3 ml Q2H RESP THERAPY PRN HHN SHORTNESS OF BREATH; Start 11/17/18 at 08:00 Aspirin (Halfprin) 81 mg DAILY PO Last administered on 11/21/18at 09:31; Admin Dose 81 MG; Start 11/17/18 at 09:00 Atorvastatin Calcium (Lipitor) 40 mg HS PO Last administered on 11/21/18at 21:40; Admin Dose 40 MG; Start 11/17/18 at 21:00 Multivitamins Therapeutic (Theragran) 1 tab DAILY PO Last administered on 11/21/18 09:31; Admin Dose 1 TAB; Start 11/17/18 at 09:00 Spironolactone (Aldactone) 25 mg DAILY PO Last administered on 11/21/18 09:30; Admin Dose 25 MG; Start 11/17/18 at 09:00 Dextrose/Sodium Chloride 1,000 ml @ 40 mls/hr Q24H IV Last administered on 11/22/18 05:50; Admin Dose 40 MLS/HR; Start 11/17/18 at 08:30 Buspirone HCl (Buspar) 15 mg BID PO Last administered on 11/21/18 21:41; Admin Dose 15 MG; Start 11/17/18 at 11:19 Carvedilol (Coreg) 6.25 mg BID GTB Last administered on 11/21/18 21:40; Admin Dose 6.25 MG; Start 11/17/18 at 18:00 Lisinopril (Zestril) 2.5 mg DAILY GTB Last administered on 11/21/18 09:29; Admin Dose 2.5 MG; Start 11/17/18 at 18:00 Lorazepam (Ativan) 0.5 mg Q8H PRN PO ANXIETY Last administered on 11/21/18 10:55; Admin Dose 0.5 MG; Start 11/17/18 at 22:00 Furosemide (Lasix) 40 mg DAILY IV Last administered on 11/21/18 09:29; Admin Dose 40 MG; Start 11/18/18 at 12:30 Levalbuterol (Xopenex Neb) 0.63 mg Q8H RESP THERAPY HHN Last administered on 11/21/18 23:22; Admin Dose 0.63 MG; Start 11/19/18 at 00:00 Magnesium Hydroxide (Milk Of Mag) 30 ml DAILY PRN PO CONSTIPATION Last a dministered on 11/20/18 20:41; Admin Dose 30 ML; Start 11/19/18 at 07:30 Docusate Sodium (Colace) 200 mg DAILY PO Last administered on 11/21/18 09:30; Admin Dose 200 MG; Start 11/19/18 at 09:00 Amoxicillin/ Clavulanate Potassium (Augmentin) 875 mg BID PO Last administered on 3/7/19at 21:40; Admin Dose 875 MG; Start 11/21/18 at 09:00 Spironolactone (Aldactone) 25 mg DAILY PO ; Start 11/21/18 at 09:00 ADORE WEAVER MD Nov 22, 2018 07:35
[2018-11-22] MEDS: ASPIRIN (EC) 81 MG TAB PO SCH (08:25)
[2018-11-22] MEDS: DOCUSATE SODIUM 100 MG CAP PO SCH (08:25)
[2018-11-22] MEDS: MULTIVITAMINS THERAPEUTIC TAB PO SCH (08:25)
[2018-11-22] MEDS: SPIRONOLACTONE 25 MG TAB PO SCH (08:25)
[2018-11-22] MEDS: BUSPIRONE 5 MG TAB PO SCH ×2 (08:26→20:05)
[2018-11-22] MEDS: LISINOPRIL 5 MG TAB GTB SCH (08:26)
[2018-11-22] MEDS: FUROSEMIDE 40 MG INJ IV SCH (08:26)
[2018-11-22] MEDS: AMOXICILLIN/CLAV 875 MG TAB PO SCH ×2 (08:26→20:04)
[2018-11-22] MEDS: HEPARIN 5,000 UNIT/1 ML VIAL SC SCH ×2 (08:37→20:43)
[2018-11-22] MEDS: LEVALBUTEROL (NEB) 0.63 MG/3 ML AMP HHN SCH ×2 (08:43→15:15)
--- NOTE | 2018-11-22 10:20 | CONS ---
Consult Date/Type/Reason Admit Date/Time Nov 17, 2018 at 06:17 Initial Consult Date 11/18/18 Type of Consultation: CV Date/Time of Note DATE: 11/22/18 TIME: 10:19 Subjective Cardiology follow-up progress note Subjective: Case discussed with the staff. Telemetry was reviewed. Patient remains in normal sinus rhythm/ sinus bradycardia. Patient denies any chest pain or pressure to me now. Patient is less hypoxemic and is on NC only. no bleeding no new cardiac complaints Objective: General: no acute distress HEENT: NC/AT. pupils are equal. round. NECK. no stridor. CV: RRR. systolic murmur; no gallop or rubs. PULM: no wheezing +mild rhonchi. GI: SOFT, NT, ND, no rebound or guarding Extremity: trace B/L LE edema. no clubbing. neuro: awake and alert, OX2. Psych: calm and pleasant rectal: deferred : normal Review of the old chart showed echocardiogram done in my office on October 10, 2017 has shown ejection fraction of more than 65% hypertrophic cardiomyopathy with severe LVH trace MR mild MR Echocardiogram done 11/17/[address] Harper shows: Normal left ventricular cavity size. Moderate concentric left ventricular hypertrophy. Severe left ventricular systolic dysfunction. Ejection fraction is visually estimated at 30-35 %. Tissue Doppler/Mitral Doppler indices are consistent with impaired relaxation (Stage I diastolic dysfunction). E/E'= 28. Resting left ventricular outflow tract velocity 6.70 m/sec. Resting left ventricular outflow tract gradient 180.0 mmHg. Severe left ventricular outflow tract obstruction, patient unable to Valsalva. These segments of the LV are hypokinetic anterolateral mid segment and anteroseptum mid segment. These segments of the LV are akinetic mid anterior segment, apical anterior segment, apical lateral segment, inferior mid segment, apical inferior segment, inferoseptum mid segment and apical septum segment. Mild mitral leaflet calcification. Moderate mitral annular calcification. M oderate to severe mitral valve regurgitation. Moderate systolic anterior motion of mitral valve. Chordal LENA seen. No significant aortic stenosis or insufficiency. Aortic cusps appear mildly calcified. Normal appearance of the tricuspid valve. Estimated peak PA systolic pressure 45 mmHg. There is mild to moderate tricuspid regurgitation. Objective Vitals Vital Signs Date Temp Pulse Resp B/P (MAP) Pulse Ox O2 O2 Flow FiO2 Time Delivery Rate 11/22/18 64 20 95 21 08:44 11/22/18 97.6 190/87 Room Air 07:41 (121) 11/22/18 3.0 01:33 Intake and Output 11/21/18 11/21/18 11/22/18 1515:00 23:00 07:00 IntakeIntake Total 620 ml 920 ml BalanceBalance 620 ml 920 ml Results/Medications Result Diagram: 11/20/18 0728 11/22/18 0640 Results 24 hrs Laboratory Tests Test 11/22/18 06:40 Sodium Level 137 Potassium Level 4.0 Chloride Level 98 Carbon Dioxide Level 32 H Anion Gap 7 Blood Urea Nitrogen 13 Creatinine 0.85 Est Glomerular Filtrat Rate mL/min Glucose Level 108 Calcium Level 9.4 Magnesium Level 2.2 Total Bilirubin 1.0 Direct Bilirubin 0.00 Indirect Bilirubin 1.0 Aspartate Amino Transf (AST/SGOT) 30 Alanine Aminotransferase (ALT/SGPT) 27 Alkaline Phosphatase 65 B-Type Natriuretic Peptide 5890 H Total Protein 6.0 L Albumin 3.1 L Globulin 2.90 Albumin/Globulin Ratio 1.06 Home Meds Active Scripts Aspirin* (Aspirin* EC) 81 Mg Tablet.dr, 81 MG PO DAILY for 30 Days, #30 Prov:LIA CHOU MD 06/10/17 Spironolactone* (Aldactone*) 25 Mg Tablet, 25 MG PO DAILY for 30 Days, #30 TAB Prov:LIA CHOU MD 06/10/17 Atorvastatin* (Atorvastatin*) 40 Mg Tablet, 40 MG PO HS for 30 Days, #30 TAB Prov:LIA CHOU MD 06/10/17 Carvedilol* (Carvedilol*) 3.125 Mg Tablet, 3.125 MG PO BID for 30 Days, #60 TAB Prov:LIA CHOU MD 06/10/17 Reported Medications Buspirone Hcl* (Buspirone Hcl*) 10 Mg Tab, 15 MG PO BID, TAB PT TAKES THREE DAYS A WEEK 02/08/17 Cranberry (Cranberry) 400 Mg Capsule, 800 MG PO DAILY, CAP 05/03/16 Multivitamins* (Theragran*) 1 Tab Tab, 1 TAB PO DAILY, TAB 05/03/16 Medications Current Medications Dextrose (D50w Syringe) ONCE PRN IV DECREASED GLUCOSE; Start 11/17/18 at 03:00 IV Flush (NS 3 ml) 3 ml PER PROTOCOL IV ; Start 11/17/18 at 08:00 Ondansetron HCl (Zofran Inj) 4 mg Q6H PRN IV NAUSEA/VOMITING; Start 11/17/18 at 08:00 Nitroglycerin (Nitroglycerin (Sl Tab) 0.4 Mg) 1 tab Q5M PRN SL .CHEST PAIN Last administered on 11/17/18 17:12; Admin Dose 1 TAB; Start 11/17/18 at 08:00 Acetaminophen (Tylenol Tab) 650 mg Q6H PRN PO .PAIN 1-3 OR TEMP; Start 11/17/18 at 08:00 Heparin Sodium (Porcine) (Heparin (5000 Units/1ml)) 5,000 unit Q12 SC Last administered on 11/22/18 08:37; Admin Dose 5,000 UNIT; Start 11/17/18 at 09:00 Albuterol/ Ipratropium (Duoneb) 3 ml Q2H RESP THERAPY PRN HHN SHORTNESS OF BREATH; Start 11/17/18 at 08:00 Aspirin (Halfprin) 81 mg DAILY PO Last administered on 11/22/18 08:25; Admin Dose 81 MG; Start 11/17/18 at 09:00 Atorvastatin Calcium (Lipitor) 40 mg HS PO Last administered on 11/21/18 21:40; Admin Dose 40 MG; Start 11/17/18 at 21:00 Multivitamins Therapeutic (Theragran) 1 tab DAILY PO Last administered on 11/22/18 08:25; Admin Dose 1 TAB; Start 11/17/18 at 09:00 Spironolactone (Aldactone) 25 mg DAILY PO Last administered on 11/22/18 08:25; Admin Dose 25 MG; Start 11/17/18 at 09:00 Dextrose/Sodium Chloride 1,000 ml @ 40 mls/hr Q24H IV Last administered on 11/22/18 05:50; Admin Dose 40 MLS/HR; Start 11/17/18 at 08:30 Buspirone HCl (Buspar) 15 mg BID PO Last administered on 11/22/18 08:26; Admin Dose 15 MG; Start 11/17/18 at 11:19 Carvedilol (Coreg) 6.25 mg BID GTB Last administered on 11/22/18 08:26; Admin Dose 6.25 MG; Start 11/17/18 at 18:00 Lisinopril (Zestril) 2.5 mg DAILY GTB Last administered on 11/22/18 08:26; Admin Dose 2.5 MG; Start 11/17/18 at 18:00 Lorazepam (Ativan) 0.5 mg Q8H PRN PO ANXIETY Last administered on 11/21/18 10:55; Admin Dose 0.5 MG; Start 11/17/18 at 22:00 Furosemide (Lasix) 40 mg DAILY IV Last administered on 11/22/18 08:26; Admin Dose 40 MG; Start 11/18/18 at 12:30 Levalbuterol (Xopenex Neb) 0.63 mg Q8H RESP THERAPY HHN Last administered on 11/22/18 08:43; Admin Dose 0.63 MG; Start 11/19/18 at 00:00 Magnesium Hydroxide (Milk Of Mag) 30 ml DAILY PRN PO CONSTIPATION Last administered on 11/20/18 20:41; Admin Dose 30 ML; Start 11/19/18 at 07:30 Docusate Sodium (Colace) 200 mg DAILY PO Last administered on 11/22/18 08:25; Admin Dose 200 MG; Start 11/19/18 at 09:00 Amoxicillin/ Clavulanate Potassium (Augmentin) 875 mg BID PO Last administered on 11/22/18 08:26; Admin Dose 875 MG; Start 11/21/18 at 09:00 Assessment/Plan Hospital Course (Demo Recall) 1. Pneumonia 2. Hypertrophic cardiomyopathy 3. Congestive heart failure: acute due to systolic heart failure 4. Abnormal troponin consistent with non-ST elevation myocardial infarction most likely type II 5. History of CVA 6. Hypertension 7. Cardiomyopathy possibly stress-induced versus others including ischemia 8. Abnormal EKG with intermittent left bundle branch block with no with reports of any syncope 9. Constipation Recommendations: Antibiotic management as per internal medicine and ID REC Continue with the Coreg and increase as needed/ tolerated . goal HR is about 50's given her CHF/ and HCM. off the nitrates given her history of hypertrophic cardiomyopathy Aspirin to be continued Statins Monitor on telemetry previous kole angio did NOT show significant obstructive CAD. will monitor and stabilize for now. Discussed with daughter will cont lasix and aldactone resume ya Thank you for his referral. We will continue to follow along with you DREW MACARIO MD [facility] DREW MACARIO MD Nov 22, 2018 10:20
--- NOTE | 2018-11-22 11:40 | CONS ---
Consult Date/Type/Reason Admit Date/Time Nov 17, 2018 at 06:17 Initial Consult Date 11/18/18 Type of Consult Pulmonary Date/Time of Note DATE: 11/22/18 TIME: 11:39 Subjective Continues to improve, on room air this morning no respiratory distress. Objective Vital Signs Date Temp Pulse Resp B/P (MAP) Pulse Ox O2 O2 Flow FiO2 Time Delivery Rate 11/22/18 64 20 95 21 08:44 11/22/18 97.6 190/87 Room Air 07:41 (121) 11/22/18 3.0 01:33 Intake and Output 11/21/18 11/21/18 11/22/18 1515:00 23:00 07:00 IntakeIntake Total 620 ml 920 ml BalanceBalance 620 ml 920 ml Exam GENERAL: Elderly lady on room air this morning VITAL SIGNS: per chart NECK: Supple. No JVD or lymphadenopathy. CARDIAC EXAM: S1, S2. No added sounds or murmurs. CHEST: clear bilaterally, No added sounds, rales or wheezes ABDOMEN: Soft, nontender. No guarding or rebound. EXTREMITIES: No cyanosis, clubbing or edema. NEUROLOGIC: Generalized weakness. No focal deficits. Vent Setting Fraction of Inspired Oxygen pe: 21 Results/Medications Result Diagram: 11/20/18 0728 11/22/18 0640 Results 24 hrs Laboratory Tests Test 11/22/18 06:40 Sodium Level 137 Potassium Level 4.0 Chloride Level 98 Carbon Dioxide Level 32 H Anion Gap 7 Blood Urea Nitrogen 13 Creatinine 0.85 Est Glomerular Filtrat Rate mL/min Glucose Level 108 Calcium Level 9.4 Magnesium Level 2.2 Total Bilirubin 1.0 Direct Bilirubin 0.00 Indirect Bilirubin 1.0 Aspartate Amino Transf (AST/SGOT) 30 Alanine Aminotransferase (ALT/SGPT) 27 Alkaline Phosphatase 65 B-Type Natriuretic Peptide 5890 H Total Protein 6.0 L Albumin 3.1 L Globulin 2.90 Albumin/Globulin Ratio 1.06 Medications Current Medications Dextrose (D50w Syringe) ONCE PRN IV DECREASED GLUCOSE; Start 11/17/18 at 03:00 IV Flush (NS 3 ml) 3 ml PER PROTOCOL IV ; Start 11/17/18 at 08:00 Ondansetron HCl (Zofran Inj) 4 mg Q6H PRN IV NAUSEA/VOMITING; Start 11/17/18 at 08:00 Nitroglycerin (Nitroglycerin (Sl Tab) 0.4 Mg) 1 tab Q5M PRN SL .CHEST PAIN Last administered on 11/17/18 17:12; Admin Dose 1 TAB; Start 11/17/18 at 08:00 Acetaminophen (Tylenol Tab) 650 mg Q6H PRN PO .PAIN 1-3 OR TEMP; Start 11/17/18 at 08:00 Heparin Sodium (Porcine) (Heparin (5000 Units/1ml)) 5,000 unit Q12 SC Last administered on 11/22/18 08:37; Admin Dose 5,000 UNIT; Start 11/17/18 at 09:00 Albuterol/ Ipratropium (Duoneb) 3 ml Q2H RESP THERAPY PRN HHN SHORTNESS OF BREATH; Start 11/17/18 at 08:00 Aspirin (Halfprin) 81 mg DAILY PO Last administered on 11/22/18 08:25; Admin Dose 81 MG; Start 11/17/18 at 09:00 Atorvastatin Calcium (Lipitor) 40 mg HS PO Last administered on 11/21/18 21:40; Admin Dose 40 MG; Start 11/17/18 at 21:00 Multivitamins Therapeutic (Theragran) 1 tab DAILY PO Last administered on 11/22/18 08:25; Admin Dose 1 TAB; Start 11/17/18 at 09:00 Spironolactone (Aldactone) 25 mg DAILY PO Last administered on 11/22/18 08:25; Admin Dose 25 MG; Start 11/17/18 at 09:00 Dextrose/Sodium Chloride 1,000 ml @ 40 mls/hr Q24H IV Last administered on 11/22/18 05:50; Admin Dose 40 MLS/HR; Start 11/17/18 at 08:30 Buspirone HCl (Buspar) 15 mg BID PO Last administered on 11/22/18 08:26; Admin Dose 15 MG; Start 11/17/18 at 11:19 Carvedilol (Coreg) 6.25 mg BID GTB Last administered on 11/22/18 08:26; Admin Dose 6.25 MG; Start 11/17/18 at 18:00 Lisinopril (Zestril) 2.5 mg DAILY GTB Last administered on 11/22/18 08:26; Admin Dose 2.5 MG; Start 11/17/18 at 18:00 Lorazepam (Ativan) 0.5 mg Q8H PRN PO ANXIETY Last administered on 11/21/18 10:55; Admin Dose 0.5 MG; Start 11/17/18 at 22:00 Levalbuterol (Xopenex Neb) 0.63 mg Q8H RESP THERAPY HHN Last administered on 11/22/18 08:43; Admin Dose 0.63 MG; Start 11/19/18 at 00:00 Magnesium Hydroxide (Milk Of Mag) 30 ml DAILY PRN PO CONSTIPATION Last administered on 11/20/18 20:41; Admin Dose 30 ML; Start 11/19/18 at 07:30 Docusate Sodium (Colace) 200 mg DAILY PO Last administered on 11/22/18 08:25; Admin Dose 200 MG; Start 11/19/18 at 09:00 Amoxicillin/ Clavulanate Potassium (Augmentin) 875 mg BID PO Last administered on 11/22/18 08:26; Admin Dose 875 MG; Start 11/21/18 at 09:00 Furosemide (Lasix) 40 mg BID DIURETICS PO ; Start 11/22/18 at 18:00 Amlodipine Besylate (Norvasc) 5 mg DAILY PO ; Start 11/22/18 at 10:30 Assessment/Plan Hospital Course (Demo Recall) Assessment 1. Acute hypoxemic respiratory failure likely secondary to combination of CHF and aspiration pneumonia 2. History of hypertrophic cardiomyopathy with valvular heart disease 3. History of CVA Plan 1. Continue antibiotics per infectious diseases 2. Continue diuretics 3. aspiration precautions 4. Discussed full CODE STATUS with next of kin 5. PT evaluation and recommendations TIFFANY KUNZ MD, [facility] Nov 22, 2018 11:40
[2018-11-22] MEDS: AMLODIPINE 5 MG TAB PO SCH (12:00)
[2018-11-22] MEDS ORDERED: LISI-313 GTB (15:28)
[2018-11-22] MEDS ORDERED: AMOX1TAB10 PO (15:28)
--- NOTE | 2018-11-22 15:38 | DS ---
Date/Time of Note Date/Time of Note DATE: 11/22/18 TIME: 15:29 Discharge Summary Admission/Discharge Info Admit Date/Time Nov 17, 2018 at 06:17 Discharge Date/Time November 23, 2018 Discharge Diagnosis (1) Community acquired pneumonia (2) Sepsis (3) Acute respiratory failure with hypoxia (4) Non-ST elevation myocardial infarction (NSTEMI) (5) Congestive heart failure (6) Constipation (7) Acute renal insufficiency (8) Anemia Patient Condition: Fair Consults Cardiology, Infectious Disease, Pulmonary Hx of Present Illness 83-year-old female with a history of CAD, DC, CVA, hypertension brought in by family for abdominal pain with associated nausea and vomiting that started a few hours prior to arrival. Patient complains of epigastric pain that she describes as aching radiating down the left side of her abdomen and in the lower abdomen. Abdominal CT showed fecal impaction with bowels in bilateral inguinal hernia as well as dense left lower lobe infiltrates. Lab tests showed elevated bun/creatinine, lactic acid and hypoxia. Patient admitted for pneumonia, sepsis, acute renal insufficiency and constipation. Hospital Course Patient was started on IV fluids and antibiotics with improvement in lactic acidosis and azotemia. She was seen by Cardiology and echo showed left ventricular dysfunction so she was started on lisinopril as well as lasix and carvedilol. Patient had respiratory distress with hypoxia but she was unable to tolerate biPAP, she was seen by pulmonary and started on hi-flow oxygen as well as xopenex HHN with improvement in respiratory status. She continued to do well on IV Unasyn and 5 days of Zithromax. She was discharged on Augmentin for pneumonia. Home Meds Active Scripts Lisinopril* (Lisinopril*) 5 Mg Tablet, 2.5 MG GTB DAILY for 30 Days, #30 TAB Prov:SIVA MILLER MD 11/22/18 Amoxicillin/Potassium Clav (Amox-Clav 875-125 mg Tablet) 875-125 mg Tab, 875 MG PO BID for 2 Days, #4 TAB Prov:SIVA MILLER MD 11/22/18 Aspirin* (Aspirin* EC) 81 Mg Tablet.dr, 81 MG PO DAILY for 30 Days, #30 Prov:LIA CHOU MD 06/10/17 Spironolactone* (Aldactone*) 25 Mg Tablet, 25 MG PO DAILY for 30 Days, #30 TAB Prov:LIA CHOU MD 06/10/17 Atorvastatin* (Atorvastatin*) 40 Mg Tablet, 40 MG PO HS for 30 Days, #30 TAB Prov:LIA CHOU MD 06/10/17 Carvedilol* (Carvedilol*) 3.125 Mg Tablet, 3.125 MG PO BID for 30 Days, #60 TAB Prov:LIA CHOU MD 06/10/17 Reported Medications Buspirone Hcl* (Buspirone Hcl*) 10 Mg Tab, 15 MG PO BID, TAB PT TAKES THREE DAYS A WEEK 02/08/17 Cranberry (Cranberry) 400 Mg Capsule, 800 MG PO DAILY, CAP 05/03/16 Multivitamins* (Theragran*) 1 Tab Tab, 1 TAB PO DAILY, TAB 05/03/16 Follow-up Plan follow up in 1-2 weeks. Primary Care Provider Shanice Hunter MD Time spent on discharge: > 30 minutes Pending Labs Laboratory Tests Test 11/22/18 06:40 Sodium Level 137 mmol/L (135-144) Potassium Level 4.0 mmol/L (3.5-5.1) Chloride Level 98 mmol/L (97-110) Carbon Dioxide Level 32 mmol/L (21-31) Anion Gap 7 (5-13) Blood Urea Nitrogen 13 mg/dl (7-20) Creatinine 0.85 mg/dl (0.44-1.00) Est Glomerular Filtrat Rate mL/min mL/min (>60) Glucose Level 108 mg/dl (70-220) Calcium Level 9.4 mg/dl (8.4-10.2) Magnesium Level 2.2 mg/dl (1.7-2.5) Total Bilirubin 1.0 mg/dl (0.2-1.3) Direct Bilirubin 0.00 mg/dl (0.00-0.20) Indirect Bilirubin 1.0 mg/dl (0-1.1) Aspartate Amino Transf (AST/SGOT) 30 IU/L (15-46) Alanine Aminotransferase (ALT/SGPT) 27 IU/L (13-69) Alkaline Phosphatase 65 IU/L (42-121) B-Type Natriuretic Peptide 5890 PG/ML (0-450) Total Protein 6.0 g/dl (6.1-8.1) Albumin 3.1 g/dl (3.3-4.9) Globulin 2.90 g/dl (1.3-3.2) Albumin/Globulin Ratio 1.06 SIVA MILLER MD Nov 22, 2018 15:38
[2018-11-22] MEDS: FUROSEMIDE 40 MG TAB PO SCH (18:11)
[2018-11-22] MEDS: ATORVASTATIN 40 MG TAB PO SCH (20:03)
[2018-11-23] VITALS (7 sets, daily range): BP systolic 128–177; BP diastolic 60–84; PULSE 54–59; RESP 17–22
[2018-11-23] MEDS: LEVALBUTEROL (NEB) 0.63 MG/3 ML AMP HHN SCH ×2 (00:54→07:44)
[2018-11-23] MEDS: DEXTROSE 5%-0.9% NACL 1,000 ML IV SCH (02:25)
[2018-11-23] MEDS: FUROSEMIDE 40 MG TAB PO SCH (05:52)
[2018-11-23] MEDS: BUSPIRONE 5 MG TAB PO SCH (08:51)
[2018-11-23] MEDS: AMOXICILLIN/CLAV 875 MG TAB PO SCH (08:51)
[2018-11-23] MEDS: AMLODIPINE 5 MG TAB PO SCH (08:52)
[2018-11-23] MEDS: MULTIVITAMINS THERAPEUTIC TAB PO SCH (08:52)
[2018-11-23] MEDS: ASPIRIN (EC) 81 MG TAB PO SCH (08:52)
[2018-11-23] MEDS: SPIRONOLACTONE 25 MG TAB PO SCH (08:52)
[2018-11-23] MEDS: DOCUSATE SODIUM 100 MG CAP PO SCH (08:52)
[2018-11-23] MEDS: LISINOPRIL 5 MG TAB GTB SCH (08:52)
[2018-11-23] MEDS: HEPARIN 5,000 UNIT/1 ML VIAL SC SCH (09:02)
--- NOTE | 2018-11-23 11:08 | CONS ---
Consult Date/Type/Reason Admit Date/Time Nov 17, 2018 at 06:17 Initial Consult Date 11/18/18 Type of Consult Pulmonary Date/Time of Note DATE: 11/23/18 TIME: 11:07 Subjective Comfortable this morning, no resp distress. Objective Vital Signs Date Temp Pulse Resp B/P (MAP) Pulse Ox O2 O2 Flow FiO2 Time Delivery Rate 11/23/18 59 08:00 11/23/18 98.0 18 177/84 100 07:55 (115) 11/23/18 21 07:48 11/22/18 Room Air 19:10 11/22/18 3.0 01:33 Intake and Output 11/22/18 11/22/18 11/23/18 1515:00 23:00 07:00 IntakeIntake Total 1040 ml 1400 ml BalanceBalance 1040 ml 1400 ml Exam GENERAL: Elderly lady on room air this morning VITAL SIGNS: per chart NECK: Supple. No JVD or lymphadenopathy. CARDIAC EXAM: S1, S2. No added sounds or murmurs. CHEST: clear bilaterally, No added sounds, rales or wheezes ABDOMEN: Soft, nontender. No guarding or rebound. EXTREMITIES: No cyanosis, clubbing or edema. NEUROLOGIC: Generalized weakness. No focal deficits. Vent Setting Fraction of Inspired Oxygen pe: 21 Results/Medications Result Diagram: 11/20/18 0728 11/22/18 0640 Medications Current Medications Dextrose (D50w Syringe) ONCE PRN IV DECREASED GLUCOSE; Start 11/17/18 at 03:00 IV Flush (NS 3 ml) 3 ml PER PROTOCOL IV ; Start 11/17/18 at 08:00 Ondansetron HCl (Zofran Inj) 4 mg Q6H PRN IV NAUSEA/VOMITING; Start 11/17/18 at 08:00 Nitroglycerin (Nitroglycerin (Sl Tab) 0.4 Mg) 1 tab Q5M PRN SL .CHEST PAIN Last administered on 11/17/18at 17:12; Admin Dose 1 TAB; Start 11/17/18 at 08:00 Acetaminophen (Tylenol Tab) 650 mg Q6H PRN PO .PAIN 1-3 OR TEMP; Start 11/17/18 at 08:00 Heparin Sodium (Porcine) (Heparin (5000 Units/1ml)) 5,000 unit Q12 SC Last administered on 11/23/18at 09:02; Admin Dose 5,000 UNIT; Start 11/17/18 at 09:00 Albuterol/ Ipratropium (Duoneb) 3 ml Q2H RESP THERAPY PRN HHN SHORTNESS OF BREATH; Start 11/17/18 at 08:00 Aspirin (Halfprin) 81 mg DAILY PO Last administered on 11/23/18 08:52; Admin Dose 81 MG; Start 11/17/18 at 09:00 Atorvastatin Calcium (Lipitor) 40 mg HS PO Last administered on 11/22/18 20:03; Admin Dose 40 MG; Start 11/17/18 at 21:00 Multivitamins Therapeutic (Theragran) 1 tab DAILY PO Last administered on 11/23/18 08:52; Admin Dose 1 TAB; Start 11/17/18 at 09:00 Spironolactone (Aldactone) 25 mg DAILY PO Last administered on 11/23/18 08:52; Admin Dose 25 MG; Start 11/17/18 at 09:00 Dextrose/Sodium Chloride 1,000 ml @ 40 mls/hr Q24H IV Last administered on 11/23/18 02:25; Admin Dose 40 MLS/HR; Start 11/17/18 at 08:30 Buspirone HCl (Buspar) 15 mg BID PO Last administered on 11/23/18 08:51; Admin Dose 15 MG; Start 11/17/18 at 11:19 Carvedilol (Coreg) 6.25 mg BID GTB Last administered on 11/23/18 08:53; Admin Dose 6.25 MG; Start 11/17/18 at 18:00 Lisinopril (Zestril) 2.5 mg DAILY GTB Last administered on 11/23/18 08:52; Admi n Dose 2.5 MG; Start 11/17/18 at 18:00 Lorazepam (Ativan) 0.5 mg Q8H PRN PO ANXIETY Last administered on 11/21/18 10:55; Admin Dose 0.5 MG; Start 11/17/18 at 22:00 Levalbuterol (Xopenex Neb) 0.63 mg Q8H RESP THERAPY HHN Last administered on 11/23/18 07:44; Admin Dose 0.63 MG; Start 11/19/18 at 00:00 Magnesium Hydroxide (Milk Of Mag) 30 ml DAILY PRN PO CONSTIPATION Last administered on 11/20/18at 20:41; Admin Dose 30 ML; Start 11/19/18 at 07:30 Docusate Sodium (Colace) 200 mg DAILY PO Last administered on 11/23/18 08:52; Admin Dose 200 MG; Start 11/19/18 at 09:00 Amoxicillin/ Clavulanate Potassium (Augmentin) 875 mg BID PO Last administered on 11/23/18 08:51; Admin Dose 875 MG; Start 11/21/18 at 09:00 Furosemide (Lasix) 40 mg BID DIURETICS PO Last administered on 11/23/18at 05:52; Admin Dose 40 MG; Start 11/22/18 at 18:00 Amlodipine Besylate (Norvasc) 5 mg DAILY PO Last administered on 11/23/18 08:52; Admin Dose 5 MG; Start 11/22/18 at 10:30 Assessment/Plan Hospital Course (Demo Recall) Assessment 1. Acute hypoxemic respiratory failure likely secondary to combination of CHF and aspiration pneumonia 2. History of hypertrophic cardiomyopathy with valvular heart disease 3. History of CVA Plan 1. Continue antibiotics per infectious diseases 2. Continue diuretics 3. aspiration precautions 4. Discussed full CODE STATUS with next of kin 5. PT evaluation and recommendations consider transfer to med surg. [place] ok from pulm standpoint. TIFFANY KUNZ MD, [facility] Nov 23, 2018 11:08
== END 2018-11-23 13:40 | disposition home or self-care (01) | DRG 871 ==
LOC: E/R 01:05 → TEL 06:17
PROVIDERS: ADMIT Internal Medicine; ATTEND Internal Medicine
DX: A41.9 Sepsis, unspecified organism (principal); J18.9 Pneumonia, unspecified organism; I21.4 Non-ST elevation (NSTEMI) myocardial infarction; J96.01 Acute respiratory failure with hypoxia; I50.21 Acute systolic (congestive) heart failure; N17.9 Acute kidney failure, unspecified; I42.2 Other hypertrophic cardiomyopathy; I11.0 Hypertensive heart disease with heart failure; E87.5 Hyperkalemia; K59.00 Constipation, unspecified; I25.10 Atherosclerotic heart disease of native coronary artery without angina pectoris; R65.20 Severe sepsis without septic shock; Y95 Nosocomial condition; Z79.82 Long term (current) use of aspirin
CPT/HCPCS: 36415; 36600; 71045; 74176; 76775; 80048; 80053; 80061; 81001; 82436; 82550; 82553; 82803; 82962; 83036; 83605; 83690; 83735; 83880; 84133; 84300; 84443; 84484; 85025; 85610; 85730; 87040; 87081; 87086; 92526; 92610; 93005; 93306; 94640; 94660; 94664; 96374; 96375; J0295; J0456; J0696; J1644; J1815; J1940; J2270; J2405; J2543; J7030; J7042

== ENCOUNTER 2018-12-06 02:38 | Inpatient (IN) | payer MEDICARE, BC ==
[~2018-12-06] VITALS: Ht 162.6 cm; Wt 64.0 kg
[2018-12-06] VITALS (11 sets, daily range): BP systolic 152–188; BP diastolic 67–78; PULSE 52–80; RESP 17–20; Ht 162.6 cm; Wt 64.0 kg
[~2018-12-06 02:38] MED LIST changes: +AMOX1TAB10 PO; +LISI-313 GTB
[2018-12-06] MEDS ORDERED: IPRATROPIUM (NEB) 0.5 MG/2.5 ML AMP NEB STA (03:00)
[2018-12-06] MEDS ORDERED: ALBUTEROL 0.083% (NEB) 2.5 MG/3 ML AMP NEB STA (03:00)
[2018-12-06] MEDS ORDERED: CEFEPIME 1GM/50 ML (PMX) 50 ML IVPB STA (04:53)
[2018-12-06] MEDS ORDERED: VANCOMYCIN 1 GM (PMX) 250 ML IVPB STA (04:53)
[2018-12-06] MEDS ORDERED: OSELTAMIVIR 75 MG CAP PO ONE (05:00)
[2018-12-06] MEDS ORDERED: OXYB5TAB PO (05:30)
[2018-12-06] MEDS ORDERED: LORA0.5T PO (05:30)
[2018-12-06] MEDS ORDERED: LISI2.5T59 PO (05:30)
[2018-12-06] MEDS ORDERED: RISP0.253 PO (05:30)
--- NOTE | 2018-12-06 05:31 | ERD ---
ER Documentation Chief Complaint Chief Complaint BIB SON W/ C/O COUGH AND CONGESTION X1 WEEK, CP SINCE LAST NIGHT HPI 83-year-old female who presents to the emergency room with cough and congestion. The patient had recent hospitalization for diagnosis of pneumonia discharged approximately 1 week ago. The patient states that she was better, she was discharged on some antibiotics but completed the course. Over the past 24 hours the patient notes worsening symptoms of cough congestion and shortness of breath as well as generalized malaise. Possibly reporting some chest pain but the patient denies currently. The family did not wait for further history. They dropped the patient off and left. Remainder of HPI is somewhat limited. ROS All systems reviewed and are negative except as per history of present illness. Medications Home Meds Active Scripts Lisinopril* (Lisinopril*) 5 Mg Tablet, 2.5 MG GTB DAILY for 30 Days, #30 TAB Prov:SIVA MILLER MD 11/22/18 Amoxicillin/Potassium Clav (Amox-Clav 875-125 mg Tablet) 875-125 mg Tab, 875 MG PO BID for 2 Days, #4 TAB Prov:SIVA MILLER MD 11/22/18 Aspirin* (Aspirin* EC) 81 Mg Tablet.dr, 81 MG PO DAILY for 30 Days, #30 Prov:LIA CHOU MD 06/10/17 Spironolactone* (Aldactone*) 25 Mg Tablet, 25 MG PO DAILY for 30 Days, #30 TAB Prov:LIA CHOU MD 06/10/17 Atorvastatin* (Atorvastatin*) 40 Mg Tablet, 40 MG PO HS for 30 Days, #30 TAB Prov:LIA CHOU MD 06/10/17 Carvedilol* (Carvedilol*) 3.125 Mg Tablet, 3.125 MG PO BID for 30 Days, #60 TAB Prov:LIA CHOU MD 06/10/17 Reported Medications Buspirone Hcl* (Buspirone Hcl*) 10 Mg Tab, 15 MG PO BID, TAB PT TAKES THREE DAYS A WEEK 02/08/17 Cranberry (Cranberry) 400 Mg Capsule, 800 MG PO DAILY, CAP 05/03/16 Multivitamins* (Theragran*) 1 Tab Tab, 1 TAB PO DAILY, TAB 05/03/16 Allergies Allergies: Coded Allergies: latex (Verified Allergy, Mild, 06/01/17) PMhx/Soc History of Surgery: No Anesthesia Reaction: No Hx Neurological Disorder: No Hx Respiratory Disorders: No Hx Cardiac Disorders: Yes (HTN) Hx Psychiatric Problems: No Hx Miscellaneous Medical Probl: No Hx Alcohol Use: No Hx Substance Use: No Hx Tobacco Use: No Smoking Status: Never smoker FmHx Family History: No diabetes Physical Exam Vitals Vital Signs Date Temp Pulse Resp B/P (MAP) Pulse Ox O2 O2 Flow FiO2 Time Delivery Rate 12/06/18 58 18 98 21 03:11 12/06/18 Nasal 03:06 Cannula 12/06/18 97.9 62 22 165/80 98 Room Air 02:59 (108) 12/06/18 97.9 65 22 170/86 98 02:44 (114) Physical Exam General: Hacking cough, generalized malaise and weakness Head: Normocephalic, atraumatic. Eyes: Pupils equally reactive, EOM intact ENT: Moist mucous membranes Neck: Supple, no lymphadenopathy Respiratory: Wheezing and rhonchi bilaterally, no distress Cardiovascular: RRR, no murmurs, rubs, or gallops Abdominal: Soft, non-tender, non-distended, no peritoneal signs : Deferred MSK: No edema, no unilateral swelling, 5/5 strength Neurologic: Alert and oriented, moving all extremities, normal speech, no focal weakness, no cerebellar signs Skin: No rash Psych: Normal mood Result Diagram: 12/06/18 0304 12/06/18 0304 Results 24 hrs Laboratory Tests Test 12/06/18 03:04 White Blood Count 6.2 10^3/ul Red Blood Count 4.13 10^6/ul Hemoglobin 12.3 g/dl Hematocrit 37.6 % Mean Corpuscular Volume 91.0 fl Mean Corpuscular Hemoglobin 29.8 pg Mean Corpuscular Hemoglobin Concent 32.7 g/dl Red Cell Distribution Width 13.9 % Platelet Count 253 10^3/UL Mean Platelet Volume 8.8 fl Immature Granulocytes % 0.300 % Neutrophils % 61.6 % Lymphocytes % 27.1 % Monocytes % 6.8 % Eosinophils % 3.4 % Basophils % 0.8 % Nucleated Red Blood Cells % 0.0 /100WBC Immature Granulocytes # 0.020 10^3/ul Neutrophils # 3.8 10^3/ul Lymphocytes # 1.7 10^3/ul Monocytes # 0.4 10^3/ul Eosinophils # 0.2 10^3/ul Basophils # 0.1 10^3/ul Nucleated Red Blood Cells # 0.0 10^3/ul Sodium Level 138 mmol/L Potassium Level 4.3 mmol/L Chloride Level 102 mmol/L Carbon Dioxide Level 27 mmol/L Anion Gap 9 Blood Urea Nitrogen 13 mg/dl Creatinine 0.77 mg/dl Est Glomerular Filtrat Rate mL/min mL/min Glucose Level 102 mg/dl Calcium Level 11.0 mg/dl Troponin I 0.035 ng/ml B-Type Natriuretic Peptide 3200 PG/ML Current Medications Medications Dose Sig/Ricardo Start Time Status Last (Trade) Ordered Route PRN Stop Time Admin Dose Reason Admin Albuterol 2.5 mg ONCE STAT 12/06/18 DC 12/06/18 (Proventil NEB 03:00 03:10 0.083% (Neb)) 12/06/18 03:02 Ipratropium 0.5 mg ONCE STAT 12/06/18 DC 12/06/18 [place] NEB 03:00 03:10 (Atrovent 12/06/18 03:02 0.02% (Neb)) Cefepime HCl 50 ml @ ONCE STAT 12/06/18 DC 12/06/18 100 mls/hr IVPB 04:53 05:23 12/06/18 05:22 Vancomycin 250 ml @ ONCE STAT 12/06/18 HCl 125 mls/hr IVPB 04:53 12/06/18 06:52 Oseltamivir 75 mg ONCE ONCE 12/06/18 DC 12/06/18 Phosphate PO 05:00 05:23 (Tamiflu) 12/06/18 05:01 Procedures/MDM EKG, MONITORS, & DIAGNOSTIC IMAGING: EKG: I reviewed and interpreted a 12-lead EKG. Rhythm: Normal sinus rhythm ST Changes: No contiguous ST segment elevations T waves: No contiguous T wave inversions Impression: [No evidence of acute cardiac ischemia] Chest x-ray: Chest x-ray: I reviewed and interpreted a 1 view of the chest Mediastinum: No enlargement Cardiac silhouette: No cardiomegaly Airspace: Cannot rule out retrocardiac opacification Bones: No evidence of fracture LAB INTERPRETATION: I reviewed the laboratory testing and it shows BNP trending down MEDICAL DECISION MAKING: The patient's presentation is possibly consistent with CHF given known history of CHF but also concern for possible pneumonia. The patient will benefit from breathing treatment. I will avoid aggressive fluid resuscitation. The patient had a recent hospitalization therefore may potentially require coverage for healthcare associated pneumonia. ER COURSE: * The patient received a breathing treatment. * Laboratory testing and diagnostic imaging is otherwise unrevealing other than possible left-sided retrocardiac opacification on chest x-ray. I am concerned because of the patient's hacking productive cough. The patient does not feel comfortable going home. Despite interventions here in the emergency room she wishes to have hospitalization. Given her age and potential for recurrent pneumonia believe this is appropriate. Blood cultures were taken and the patient was given vancomycin and cefepime. * The patient does not qualify for Sirs criteria sepsis in the emergency room setting. CONSULTATION: [None] DISPOSITION PLAN: Accepting care team and consultations: I discussed the current laboratory data, diagnostic imaging and emergency care provided. Admitting team: Dr. Miller for Dr. Hunter Admitting team indication: Insurance directed Departure Diagnosis: Primary Impression: Healthcare-associated pneumonia Additional Impression: Shortness of breath Condition: Stable ALE SWANN MD Dec 06, 2018 05:31
[2018-12-06] MEDS ORDERED: ONDANSETRON 4 MG INJ IV PRN (06:00)
[2018-12-06] MEDS ORDERED: ACETAMINOPHEN 325 MG TAB PO PRN (06:00)
--- NOTE | 2018-12-06 16:23 | HP ---
Date/Time of Note Date/Time of Note DATE: 12/06/18 TIME: 07:22 Assessment/Plan VTE Prophylaxis Risk score (from Ns)>0 risk: 3 SCD applied (from Ns): Yes SCD contraindicated: low risk/ambulating Pharmacological prophylaxis: LMWH Lines/Catheters IV Catheter Type (from Nrsg): Saline Lock Central line still needed: No Urinary Cath still in place: No Assessment/Plan Assessment/Plan 1. pneumonitis/ bronchitis/ coughs 2. cad/ chf/ htn 3. dementia/ depression 4. ckd I 5. worsening debility/ less able to be independent ---tele bed admit ---cards ref ---pulm ref ---cont iv atbx, ---improve po marcia intake ---pt eval & exercise ---by Mon, acute rehab eval Result Diagram: 12/06/18 03012/06/18 0304 Results 24hrs Laboratory Tests Test 12/06/18 03:04 White Blood Count 6.2 Red Blood Count 4.13 #L Hemoglobin 12.3 # Hematocrit 37.6 # Mean Corpuscular Volume 91.0 Mean Corpuscular Hemoglobin 29.8 Mean Corpuscular Hemoglobin Concent 32.7 Red Cell Distribution Width 13.9 Platelet Count 253 # Mean Platelet Volume 8.8 Immature Granulocytes % 0.300 Neutrophils % 61.6 Lymphocytes % 27.1 Monocytes % 6.8 Eosinophils % 3.4 Basophils % 0.8 Nucleated Red Blood Cells % 0.0 Immature Granulocytes # 0.020 Neutrophils # 3.8 Lymphocytes # 1.7 Monocytes # 0.4 Eosinophils # 0.2 Basophils # 0.1 Nucleated Red Blood Cells # 0.0 Sodium Level 138 Potassium Level 4.3 Chloride Level 102 Carbon Dioxide Level 27 Anion Gap 9 Blood Urea Nitrogen 13 Creatinine 0.77 Est Glomerular Filtrat Rate mL/min Glucose Level 102 Calcium Level 11.0 H Troponin I 0.035 B-Type Natriuretic Peptide 3200 H HPI/ROS Admit Date/Time Admit Date/Time Dec 06, 2018 at 05:31 Hx of Present Illness 83 yo f, lives at home w/ grown up son (who also has diverticulosis--pain med dep). one daughter lives near by. 1week ago d/junior from hosp after treated for pneumonia. congested coughs has not been better, felt more cp as of yesterday. 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 no new travelling/ meds/ diet. no f/c/n/v/dysuria/bm change. PMH/Family/Social Past Medical History Medical History: congestive heart failure, coronary artery disease, high cholesterol, hypertension, renal disease Medications Current Medications Ondansetron HCl (Zofran Inj) 4 mg ER BRIDGE PRN IV NAUSEA/VOMITING; Start 12/06/18 at 06:00; Stop 12/07/18 at 05:59 Acetaminophen (Tylenol Tab) 650 mg ER BRIDGE PRN PO .MILD PAIN 1-3 OR TEMP; St art 12/06/18 at 06:00; Stop 12/07/18 at 05:59 Influenza Virus Vaccine Quadrival (Fluzone) 0.5 ml ONCE ONCE IM* ; Start 12/07/18 at 09:00; Stop 12/07/18 at 09:01 Vancomycin HCl 250 ml @ 125 mls/hr Q24H IVPB ; Start 12/06/18 at 16:30; Status UNV Promethazine HCl/ Codeine (Phenergan/ Codeine) 5 ml Q6H PRN PO COUGH; Start 12/06/18 at 16:30; Status UNV Albuterol/ Ipratropium (Duoneb) 3 ml Q4H RESP THERAPY HHN ; Start 12/06/18 at 17:00; Status UNV Coded Allergies: latex (Unverified Allergy, Mild, 12/06/18) Past Surgical History Past Surgical Hx: no surgical history, other Family History Significant Family History: COPD, hypertension, other (depression, ) Social History Alcohol Use: rarely Smoking Status: Never smoker Drug Use: none Exam/Review of Systems Vital Signs Vitals Vital Signs Date Temp Pulse Resp B/P (MAP) Pulse Ox O2 O2 Flow FiO2 Time Delivery Rate 12/06/18 98.0 59 20 160/70 94 15:44 (100) 12/06/18 Nasal 2.0 06:00 Cannula 12/06/18 21 03:11 Exam Exam a&o x2, perrla/ eomi, nl ears/ nose/ throat, no jvd/ bruite, slight wet coughs, dec bs bibasilat+, rr syst m+, nt/ nd/ no mass, no c/c/e, pulses +1 thruout, cn 2-12 intact, musc strength & sensory difficult exam EMILY GAY MD Dec 06, 2018 16:23
[2018-12-06] MEDS: ALBUTEROL/IPRATROPIUM (NEB) 3 ML AMP HHN SCH ×2 (17:00→21:34)
[2018-12-06] MEDS: MULTIVITAMINS THERAPEUTIC TAB PO SCH (18:43)
[2018-12-06] MEDS: OXYBUTYNIN (XL) 5 MG TAB PO SCH (18:43)
[2018-12-06] MEDS: LISINOPRIL 5 MG TAB PO SCH (18:46)
[2018-12-06] MEDS: RISPERIDONE 0.25 MG TAB PO SCH (20:38)
[2018-12-06] MEDS: LORAZEPAM 0.5 MG TAB PO SCH (20:38)
[2018-12-07] VITALS (12 sets, daily range): BP systolic 111–158; BP diastolic 58–70; PULSE 49–67; RESP 17–20
[2018-12-07] MEDS: ALBUTEROL/IPRATROPIUM (NEB) 3 ML AMP HHN SCH ×7 (00:15→21:50)
[2018-12-07] MEDS: VANCOMYCIN 1 GM (PMX) 250 ML IVPB SCH (04:46)
[2018-12-07] MEDS ORDERED: INFLUENZA VIRUS VACCINE 0.5 ML (DISPENSING) IM* ONE (09:00)
[2018-12-07] MEDS: OXYBUTYNIN (XL) 5 MG TAB PO SCH (09:01)
[2018-12-07] MEDS: MULTIVITAMINS THERAPEUTIC TAB PO SCH (09:01)
[2018-12-07] MEDS: LORAZEPAM 0.5 MG TAB PO SCH ×2 (09:01→21:14)
[2018-12-07] MEDS: RISPERIDONE 0.25 MG TAB PO SCH ×2 (09:02→21:14)
[2018-12-07] MEDS: LISINOPRIL 5 MG TAB PO SCH (09:02)
[2018-12-07] MEDS: ENOXAPARIN 30 MG/0.3 ML SYG SC SCH (13:00)
[2018-12-07] MEDS ORDERED: FUROSEMIDE 20 MG INJ IV ONE (13:00)
[2018-12-07] MEDS: MEMANTINE 10 MG TAB PO SCH (13:00)
[2018-12-07] MEDS: ESCITALOPRAM 10 MG TAB PO SCH (13:00)
[2018-12-08] VITALS (10 sets, daily range): BP systolic 116–146; BP diastolic 56–66; PULSE 55–82; RESP 17–19
[2018-12-08] MEDS: LEVOFLOXACIN 500MG/D5W (PMX) 100 ML IVPB SCH ×2 (00:27→22:48)
[2018-12-08] MEDS: ALBUTEROL/IPRATROPIUM (NEB) 3 ML AMP HHN SCH ×6 (01:01→20:33)
--- NOTE | 2018-12-08 01:25 | PN ---
DATE: 12/07/2018 SUBJECTIVE: The patient is sleeping comfortably, no current complaints. OBJECTIVE: VITAL SIGNS: Temperature 98.1, pulse 54, respirations 18, blood pressure 125/58, oxygen saturation 9 3% on room air. GENERAL: Well-developed, well-nourished female in no acute distress, lying in bed. CHEST: Upper airway secretions scant, otherwise clear to auscultation bilaterally except for scant r honchi in the bases. HEART: Regular rate and rhythm with a 2/6 systolic ejection murmur. ABDOMEN: Soft, nontender. EXTREMITIES: No cyanosis, clubbing, edema. NEUROLOGIC: Nonfocal. LABORATORY DATA: White blood cell count 5.6, hemoglobin 10.4, hematocrit 31.4, platelets 179. Brain natriuretic peptide on 12/06/2018 was 3200. Sodium is 136, potassium 3.9, chloride 96, bicarbonate 29, BUN of 14, creatinine 0.86, calcium 9.9, glucose of 114. Chest x-ray shows improving bibasilar l jb infiltrates, no acute findings of acute fluid overload. ASSESSMENT AND PLAN 1. Pneumonitis, stable. Continue with IV vancomycin, but add Levaquin if we are treating a possible infection as the patient was recently in the hospital about a week ago and completed antibiotics at home with Augmentin. 2. Acute on chronic congestive heart failure, stable. Chest x-ray shows no evidence of failure with mildly elevated brain natriuretic peptide. We will continue with p.r.n. Lasix, diet and recheck BNP tomorrow morning. 3. Anemia, worse. We will continue to monitor. No evidence of any acute bleeding, but will check a dditional labs in the morning to evaluate further. 4. Dementia, stable. The patient refusing some of her meds. We will encourage her to take them, bu t patient is refusing the Namenda. 5. Depression. The patient refused her Lexapro. Continue to encourage taking medications and monit or for symptoms. Dictated By: KRYSTINA CHOUDHURY MD SR/NTS Conf#: [id number] DID#: [id number]
[2018-12-08] MEDS: VANCOMYCIN 1 GM (PMX) 250 ML IVPB SCH (05:02)
[2018-12-08] MEDS: LORAZEPAM 0.5 MG TAB PO SCH ×2 (08:46→20:14)
[2018-12-08] MEDS: MULTIVITAMINS THERAPEUTIC TAB PO SCH (08:47)
[2018-12-08] MEDS: LISINOPRIL 5 MG TAB PO SCH (08:47)
[2018-12-08] MEDS: OXYBUTYNIN (XL) 5 MG TAB PO SCH (08:47)
[2018-12-08] MEDS: RISPERIDONE 0.25 MG TAB PO SCH ×2 (08:47→20:14)
[2018-12-08] MEDS: ESCITALOPRAM 10 MG TAB PO SCH (08:47)
[2018-12-08] MEDS: MEMANTINE 10 MG TAB PO SCH (08:47)
[2018-12-08] MEDS: ENOXAPARIN 30 MG/0.3 ML SYG SC SCH (08:50)
[2018-12-08] MEDS ORDERED: FUROSEMIDE 20 MG INJ IV ONE (09:30)
[2018-12-09] VITALS (14 sets, daily range): BP systolic 131–182; BP diastolic 62–98; PULSE 53–90; RESP 18–20
--- NOTE | 2018-12-09 00:15 | PN ---
DATE: 12/08/2018 SUBJECTIVE: The patient is feeling better, less shortness of breath, less cough. OBJECTIVE: VITAL SIGNS: Temperature 97.6, pulse 64, respirations 18, blood pressure 116/62, oxygen saturation 9 2% on room air. GENERAL: Well-developed female in no acute distress, lying in bed. CHEST: Bibasilar crackles and rhonchi, right greater than left, with decreased breath sounds in the bases. HEART: Regular rate and rhythm with a II/ systolic ejection murmur. ABDOMEN: Soft, nontender; normoactive bowel sounds. EXTREMITIES: No cyanosis or clubbing. NEUROLOGIC: The patient is alert and oriented x2; otherwise, nonfocal. LABORATORY DATA: Sodium 134, potassium 3.5, chloride 97, bicarbonate 27, BUN 14, creatinine 0.84, ma gnesium 1.9, calcium 9.8, glucose 96. Iron 17, TIBC 95, percent saturation 6%. Brain natriuretic pe ptide 3810. Vitamin B12 greater than 1000. Folic acid greater than 20. White blood cell count 4.8, hemoglobin 10.2, hematocrit 31.1, platelets 179,000, retic count 1.5. ASSESSMENT AND PLAN 1. Pneumonitis, stable. The patient is currently on IV vancomycin and Levaquin was added yesterday. We will continue with this regimen for now. 2. [id number] congestive heart failure, improved. Continue with IV Lasix and follow brain kajal riuretic peptide. 3. Anemia, stable from yesterday. Continue to monitor. No need for transfusion at this point. The patient does have low iron and low retic count. 4. Dementia, stable. The patient has been refusing Namenda but took her medications today. We will continue with current medications and treatment plan. 5. Depression, stable. Continue with medications. Dictated By: KRYSTINA CHOUDHURY MD SR/NTS Conf#: [id number] DID#: [id number] CC: SIVA MILLER MD;*End*
[2018-12-09] MEDS: ALBUTEROL/IPRATROPIUM (NEB) 3 ML AMP HHN SCH ×6 (00:36→21:29)
[2018-12-09] MEDS ORDERED: HALOPERIDOL 0.5 MG TAB GTB PRN (02:30)
[2018-12-09] MEDS ORDERED: HALOPERIDOL 1 MG TAB GTB PRN (02:38)
[2018-12-09] MEDS ORDERED: HALOPERIDOL 5 MG INJ IV PRN ×2 (03:00→14:30)
[2018-12-09] MEDS: VANCOMYCIN 1 GM (PMX) 250 ML IVPB SCH (04:26)
[2018-12-09] MEDS: ESCITALOPRAM 10 MG TAB PO SCH (09:00)
[2018-12-09] MEDS: MULTIVITAMINS THERAPEUTIC TAB PO SCH (09:00)
[2018-12-09] MEDS: RISPERIDONE 0.25 MG TAB PO SCH (09:00)
[2018-12-09] MEDS: OXYBUTYNIN (XL) 5 MG TAB PO SCH (09:00)
[2018-12-09] MEDS: ENOXAPARIN 30 MG/0.3 ML SYG SC SCH (09:00)
[2018-12-09] MEDS: LORAZEPAM 0.5 MG TAB PO SCH ×2 (09:00→21:18)
[2018-12-09] MEDS: MEMANTINE 10 MG TAB PO SCH (09:00)
[2018-12-09] MEDS: LISINOPRIL 5 MG TAB PO SCH (09:22)
[2018-12-09] MEDS: DEXTROSE 5%-0.9% NACL 1,000 ML IV SCH (14:59)
--- NOTE | 2018-12-09 16:01 | PN ---
Date/Time of Note Date/Time of Note DATE: 12/09/18 TIME: 16:01 Assessment/Plan VTE Prophylaxis Risk score (from [facility]0 risk: 6 SCD applied (from [facility]): Yes Pharmacological prophylaxis: LMWH Lines/Catheters IV Catheter Type (from [facility] Saline Lock Central line still needed: No Urinary Cath still in place: No Assessment/Plan Assessment/Plan 1. pneumonia 2. chf/ htn 3. dementia/ anxiety/ dec po marcia intake 4. debility worsen ---per pulm ---cont atbx ---PT eval & exercise oob ---cont all supportive care Result Diagram: 12/09/18 0357 12/09/18 0356 Results 24hrs Laboratory Tests Test 12/09/18 03:56 12/09/18 03:57 Sodium Level 134 L Potassium Level 4.4 Chloride Level 97 Carbon Dioxide Level 27 Anion Gap 10 Blood Urea Nitrogen 18 Creatinine 0.90 Est Glomerular Filtrat Rate mL/min Glucose Level 99 Calcium Level 9.8 Magnesium Level 1.9 Ferritin 37.9 Vancomycin Level Trough 11.4 White Blood Count 4.2 L Red Blood Count 3.34 L Hemoglobin 10.1 L Hematocrit 30.0 L Mean Corpuscular Volume 89.8 Mean Corpuscular Hemoglobin 30.2 Mean Corpuscular Hemoglobin Concent 33.7 Red Cell Distribution Width 14.2 Platelet Count 176 Mean Platelet Volume 9.0 Immature Granulocytes % 0.200 Neutrophils % 51.7 Lymphocytes % 33.5 Monocytes % 9.4 Eosinophils % 4.5 Basophils % 0.7 Nucleated Red Blood Cells % 0.0 Immature Granulocytes # 0.010 Neutrophils # 2.2 Lymphocytes # 1.4 Monocytes # 0.4 Eosinophils # 0.2 Basophils # 0.0 Nucleated Red Blood Cells # 0.0 Subjective 24 Hr Interval Summary Free Text/Dictation weak, no appetite Exam/Review of Systems Exam Vitals Vital Signs Date Temp Pulse Resp B/P (MAP) Pulse Ox O2 O2 Flow FiO2 Time Delivery Rate 12/09/18 97.7 73 20 182/79 93 15:48 (113) 12/09/18 2.0 08:12 12/09/18 Nasal 27 08:12 Cannula Intake and Output 12/08/18 12/08/18 12/09/18 1414:59 22:59 06:59 IntakeIntake Total 250 ml 600 ml 180 ml BalanceBalance 250 ml 600 ml 180 ml Exam in bed, wet coughs, rr syst m+, diffuse coarse wheez+, no c/c/e Results Results 24hrs Laboratory Tests Test 12/09/18 03:56 12/09/18 03:57 Sodium Level 134 L Potassium Level 4.4 Chloride Level 97 Carbon Dioxide Level 27 Anion Gap 10 Blood Urea Nitrogen 18 Creatinine 0.90 Est Glomerular Filtrat Rate mL/min Glucose Level 99 Calcium Level 9.8 Magnesium Level 1.9 Ferritin 37.9 Vancomycin Level Trough 11.4 White Blood Count 4.2 L Red Blood Count 3.34 L Hemoglobin 10.1 L Hematocrit 30.0 L Mean Corpuscular Volume 89.8 Mean Corpuscular Hemoglobin 30.2 Mean Corpuscular Hemoglobin Concent 33.7 Red Cell Distribution Width 14.2 Platelet Count 176 Mean Platelet Volume 9.0 Immature Granulocytes % 0.200 Neutrophils % 51.7 Lymphocytes % 33.5 Monocytes % 9.4 Eosinophils % 4.5 Basophils % 0.7 Nucleated Red Blood Cells % 0.0 Immature Granulocytes # 0.010 Neutrophils # 2.2 Lymphocytes # 1.4 Monocytes # 0.4 Eosinophils # 0.2 Basophils # 0.0 Nucleated Red Blood Cells # 0.0 Medications Medication Current Medications Vancomycin HCl 250 ml @ 125 mls/hr Q24H IVPB Last administered on 12/09/18at 04:26; Admin Dose 125 MLS/HR; Start 12/07/18 at 05:00 Promethazine HCl/ Codeine (Phenergan/ Codeine) 5 ml Q6H PRN PO COUGH; Start 12/06/18 at 16:30 Albuterol/ Ipratropium (Duoneb) 3 ml Q4H RESP THERAPY HHN Last administered on 12/09/18at 14:11; Admin Dose 3 ML; Start 12/06/18 at 17:00 Lorazepam (Ativan) 0.5 mg BID PO Last administered on 12/08/18at 20:14; Admin Dose 0.5 MG; Start 12/06/18 at 21:00 Multivitamins Therapeutic (Theragran) 1 tab DAILY PO Last administered on 12/08/18at 08:47; Admin Dose 1 TAB; Start 12/06/18 at 17:00 Oxybutynin Chloride (Ditropan Xl) 5 mg DAILY PO Last administered on 12/08/18 08:47; Admin Dose 5 MG; Start 12/06/18 at 17:00 Influenza Virus Vaccine Quadrival (Fluzone) 0.5 ml ONCE ONCE IM* ; Start 12/10/18 at 10:00; Stop 12/10/18 at 10:01 Enoxaparin Sodium (Lovenox) 30 mg DAILY SC Last administered on 12/08/18 08:50; Admin Dose 30 MG; Start 12/07/18 at 13:00 Memantine (Namenda) 10 mg DAILY PO Last administered on 12/08/18 08:47; Admin Dose 10 MG; Start 12/07/18 at 13:00 Escitalopram Oxalate (Lexapro) 10 mg DAILY PO Last administered on 12/08/18 08:47; Admin Dose 10 MG; Start 12/07/18 at 13:00 Levofloxacin/ Dextrose 100 ml @ 100 mls/hr Q24H IVPB Last administered on 12/08/18 22:48; Admin Dose 100 MLS/HR; Start 12/07/18 at 23:30 Haloperidol (Haldol) 0.5 mg Q3H PRN IV anxiety Last administered on 12/09/18 02:54; Admin Dose 0.5 MG; Start 12/09/18 at 03:00 Lisinopril (Zestril) 10 mg DAILY PO ; Start 12/10/18 at 09:00 Hydralazine HCl (Apresoline) 25 mg Q4 PRN PO ELEVATED BLOOD PRESSURE; Start 12/09/18 at 14:30 Haloperidol (Haldol) 0.5 mg QHS PRN IV AGITATION; Start 12/09/18 at 14:30 Dextrose/Sodium Chloride 1,000 ml @ 50 mls/hr Q20H IV Last administered on 12/09/18at 14:59; Admin Dose 50 MLS/HR; Start 12/09/18 at 14:30 EMILY GAY MD Dec 09, 2018 16:01
--- NOTE | 2018-12-09 17:24 | CONS ---
Assessment/Plan Assessment/Plan Hospital Course (Demo Recall) 1. Pneumonia 2. History of hypertrophic cardiomyopathy 3. Congestive heart failure chronic and stable secondary systolic and diastolic heart failure 4. History of possible chest pain currently with no symptoms 5. History of multiple CVA 6. Dyslipidemia 7. Encephalopathy 8. Abnormal EKG Recommendations I will resume patient HOME Coreg, to be held for heart rate of less than 55 only. ZAN inhibitor with reduced given the fact the patient has had hypertrophic cardiomyopathy Aspirin will be started. Statin will be started Antibiotic management as per internal medicine physical therapy and rehab as per internal medicine Thank you for his referral. We will continue to follow along with you DREW MACARIO MD [facility] Consultation Date/Type/Reason Admit Date/Time Dec 06, 2018 at 05:31 Date of Consultation: Dec 09, 2018 Type of Consult Cardiology Reason for Consultation abnormal ECG Requesting Provider: EMILY GAY MD Date/Time of Note DATE: 12/09/18 TIME: 17:17 Hx of Present Illness Interventional cardiology consultation note Chief complaint: Shortness of breath, cough, weakness Reason for consult: Abnormal EKG, chest pain History of present illness: Thank you for this referral. History was obtained from extensive review of the old chart. Patient also very well-known to me from office visits. Patient himself is a poor historian. Discussed with the staff. This is a pleasant 83-year-old female multiple complicated medical history who was admitted with above complaints. Patient was recently admitted to our hospital with severe pneumonia as well as congestive heart failure and positive troponin. She was discharged once she is stabilized but returned a few days ago with above complaint. Patient himself does not know why she is here does not remember cannot describe any pain discomfort to me. She is a still coughing and has shortness of breath or significant improved No chest pain or pressure at the moment Allergies: Latex Medications were reviewed as per medical reconciliation sheet Family history: No reported history of early coronary artery disease Social history: Does not smoke or drink Past medical history: History of stress-induced cardiomyopathy and abnormal troponin with coronary artery angiography showed no significant flow-limiting obstruction in June 01, 2017 History of severe hypertrophic cardiomyopathy congestive heart failure history of CVA x2. 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 Review of system: Patient denies all others except for above-mentioned Past Medical History Home Meds Reported Medications Risperidone* (Risperidone*) 0.25 Mg Tablet, 0.25 MG PO BID, TAB 12/06/18 Lorazepam* (Lorazepam*) 0.5 Mg Tablet, 0.5 MG PO BID 12/06/18 Lisinopril* (Lisinopril*) 2.5 Mg Tablet, 2.5 MG PO DAILY 12/06/18 Oxybutynin Chloride (Oxybutynin Chloride ER) 5 Mg Tab.er.24, 5 MG PO DAILY 12/06/18 Multivitamins* (Theragran*) 1 Tab Tab, 1 TAB PO DAILY, TAB 05/03/16 Discontinued Reported Medications Buspirone Hcl* (Buspirone Hcl*) 10 Mg Tab, 15 MG PO BID, TAB PT TAKES THREE DAYS A WEEK 02/08/17 Cranberry (Cranberry) 400 Mg Capsule, 800 MG PO DAILY, CAP 05/03/16 Discontinued Scripts Lisinopril* (Lisinopril*) 5 Mg Tablet, 2.5 MG GTB DAILY for 30 Days, #30 TAB Prov:SIVA MILLER MD 11/22/18 Amoxicillin/Potassium Clav (Amox-Clav 875-125 mg Tablet) 875-125 mg Tab, 875 MG PO BID for 2 Days, #4 TAB Prov:SIVA MILLER MD 11/22/18 Aspirin* (Aspirin* EC) 81 Mg Tablet.dr, 81 MG PO DAILY for 30 Days, #30 Prov:LIA CHOU MD 06/10/17 Spironolactone* (Aldactone*) 25 Mg Tablet, 25 MG PO DAILY for 30 Days, #30 TAB Prov:LIA CHOU MD 06/10/17 Atorvastatin* (Atorvastatin*) 40 Mg Tablet, 40 MG PO HS for 30 Days, #30 TAB Prov:LIA CHOU MD 06/10/17 Carvedilol* (Carvedilol*) 3.125 Mg Tablet, 3.125 MG PO BID for 30 Days, #60 TAB Prov:LIA CHOU MD 06/10/17 Medications Current Medications Vancomycin HCl 250 ml @ 125 mls/hr Q24H IVPB Last administered on 12/09/18at 0 4:26; Admin Dose 125 MLS/HR; Start 12/07/18 at 05:00 Promethazine HCl/ Codeine (Phenergan/ Codeine) 5 ml Q6H PRN PO COUGH; Start 12/06/18 at 16:30 Albuterol/ Ipratropium (Duoneb) 3 ml Q4H RESP THERAPY HHN Last administered on 12/09/18 14:11; Admin Dose 3 ML; Start 12/06/18 at 17:00 Lorazepam (Ativan) 0.5 mg BID PO Last administered on 12/08/18 20:14; Admin Dose 0.5 MG; Start 12/06/18 at 21:00 Multivitamins Therapeutic (Theragran) 1 tab DAILY PO Last administered on 12/08/18 08:47; Admin Dose 1 TAB; Start 12/06/18 at 17:00 Oxybutynin Chloride (Ditropan Xl) 5 mg DAILY PO Last administered on 12/08/18 08:47; Admin Dose 5 MG; Start 12/06/18 at 17:00 Influenza Virus Vaccine Quadrival (Fluzone) 0.5 ml ONCE ONCE IM* ; Start 12/10/18 at 10:00; Stop 12/10/18 at 10:01 Enoxaparin Sodium (Lovenox) 30 mg DAILY SC Last administered on 12/08/18 08:50; Admin Dose 30 MG; Start 12/07/18 at 13:00 Memantine (Namenda) 10 mg DAILY PO Last administered on 12/08/18 08:47; Admin Dose 10 MG; Start 12/07/18 at 13:00 Escitalopram Oxalate (Lexapro) 10 mg DAILY PO Last administered on 12/08/18 08:47; Admin Dose 10 MG; Start 12/07/18 at 13:00 Levofloxacin/ Dextrose 100 ml @ 100 mls/hr Q24H IVPB Last administered on 12/08/18 22:48; Admin Dose 100 MLS/HR; Start 12/07/18 at 23:30 Haloperidol (Haldol) 0.5 mg Q3H PRN IV anxiety Last administered on 12/09/18 02:54; Admin Dose 0.5 MG; Start 12/09/18 at 03:00 Lisinopril (Zestril) 10 mg DAILY PO ; Start 12/10/18 at 09:00 Hydralazine HCl (Apresoline) 25 mg Q4 PRN PO ELEVATED BLOOD PRESSURE Last administered on 3/25/19at 15:59; Admin Dose 25 MG; Start 12/09/18 at 14:30 Haloperidol (Haldol) 0.5 mg QHS PRN IV AGITATION; Start 12/09/18 at 14:30 Dextrose/Sodium Chloride 1,000 ml @ 50 mls/hr Q20H IV Last administered on 12/09/18at 14:59; Admin Dose 50 MLS/HR; Start 12/09/18 at 14:30 Allergies: Coded Allergies: latex (Unverified Allergy, Mild, 12/06/18) Past Surgical History Past Surgical Hx: no surgical history, other Social History Alcohol Use: rarely Smoking Status: Never smoker Drug Use: none Exam/Review of Systems Vital Signs Vitals Vital Signs Date Temp Pulse Resp B/P (MAP) Pulse Ox O2 O2 Flow FiO2 Time Delivery Rate 12/09/18 75 155/66 16:49 (95) 12/09/18 97.7 20 93 15:48 12/09/18 Nasal 2.0 28 14:15 Cannula Intake and Output 12/08/18 12/08/18 12/09/18 1515:00 23:00 07:00 IntakeIntake Total 250 ml 600 ml 180 ml BalanceBalance 250 ml 600 ml 180 ml Exam Exam General: Elderly female no acute distress HEENT: NC/AT. pupils are equal. round. NECK: NO JVD. no stridor. CV: RRR. systolic murmur; no gallop or rubs. PULM: no wheezing MILD rhonchi. GI: SOFT, NT, ND, no rebound or guarding Extremity: trace B/L LE edema. no clubbing. neuro: awake and alert, OX2. Psych: calm and pleasant rectal: deferred EKG done on December 06 showed normal sinus rhythm with deep T wave inversion in inferolateral leads. Voltage criteria for LVH Chest x-ray done December 07 shows:Improving bibasilar lung infiltrates; no findings of acute fluid overload. Labs Result Diagram: 12/09/18 0357 12/09/18 0356 Results 24hrs Laboratory Tests Test 12/09/18 03:56 12/09/18 03:57 Sodium Level 134 L Potassium Level 4.4 Chloride Level 97 Carbon Dioxide Level 27 Anion Gap 10 Blood Urea Nitrogen 18 Creatinine 0.90 Est Glomerular Filtrat Rate mL/min Glucose Level 99 Calcium Level 9.8 Magnesium Level 1.9 Ferritin 37.9 Vancomycin Level Trough 11.4 White Blood Count 4.2 L Red Blood Count 3.34 L Hemoglobin 10.1 L Hematocrit 30.0 L Mean Corpuscular Volume 89.8 Mean Corpuscular Hemoglobin 30.2 Mean Corpuscular Hemoglobin Concent 33.7 Red Cell Distribution Width 14.2 Platelet Count 176 Mean Platelet Volume 9.0 Immature Granulocytes % 0.200 Neutrophils % 51.7 Lymphocytes % 33.5 Monocytes % 9.4 Eosinophils % 4.5 Basophils % 0.7 Nucleated Red Blood Cells % 0.0 Immature Granulocytes # 0.010 Neutrophils # 2.2 Lymphocytes # 1.4 Monocytes # 0.4 Eosinophils # 0.2 Basophils # 0.0 Nucleated Red Blood Cells # 0.0 Medications Medications Current Medications Vancomycin HCl 250 ml @ 125 mls/hr Q24H IVPB Last administered on 12/09/18 04:26; Admin Dose 125 MLS/HR; Start 12/07/18 at 05:00 Promethazine HCl/ Codeine (Phenergan/ Codeine) 5 ml Q6H PRN PO COUGH; Start 12/06/18 at 16:30 Albuterol/ Ipratropium (Duoneb) 3 ml Q4H RESP THERAPY HHN Last administered on 12/09/18 14:11; Admin Dose 3 ML; Start 12/06/18 at 17:00 Lorazepam (Ativan) 0.5 mg BID PO Last administered on 12/08/18 20:14; Admin Dose 0.5 MG; Start 12/06/18 at 21:00 Multivitamins Therapeutic (Theragran) 1 tab DAILY PO Last administered on 12/08/18 08:47; Admin Dose 1 TAB; Start 12/06/18 at 17:00 Oxybutynin Chloride (Ditropan Xl) 5 mg DAILY PO Last administered on 12/08/18 08:47; Admin Dose 5 MG; Start 12/06/18 at 17:00 Influenza Virus Vaccine Quadrival (Fluzone) 0.5 ml ONCE ONCE IM* ; Start 12/10/18 at 10:00; Stop 12/10/18 at 10:01 Enoxaparin Sodium (Lovenox) 30 mg DAILY SC Last administered on 12/08/18 08:50; Admin Dose 30 MG; Start 12/07/18 at 13:00 Memantine (Namenda) 10 mg DAILY PO Last administered on 12/08/18 08:47; Admin Dose 10 MG; Start 12/07/18 at 13:00 Escitalopram Oxalate (Lexapro) 10 mg DAILY PO Last administered on 12/08/18 08:47; Admin Dose 10 MG; Start 12/07/18 at 13:00 Levofloxacin/ Dextrose 100 ml @ 100 mls/hr Q24H IVPB Last administered on 12/08 22:48; Admin Dose 100 MLS/HR; Start 12/07/18 at 23:30 Haloperidol (Haldol) 0.5 mg Q3H PRN IV anxiety Last administered on 12/09/18 02:54; Admin Dose 0.5 MG; Start 12/09/18 at 03:00 Lisinopril (Zestril) 10 mg DAILY PO ; Start 12/10/18 at 09:00 Hydralazine HCl (Apresoline) 25 mg Q4 PRN PO ELEVATED BLOOD PRESSURE Last administered on 12/09/18 15:59; Admin Dose 25 MG; Start 12/09/18 at 14:30 Haloperidol (Haldol) 0.5 mg QHS PRN IV AGITATION; Start 12/09/18 at 14:30 Dextrose/Sodium Chloride 1,000 ml @ 50 mls/hr Q20H IV Last administered on 12/09/18 14:59; Admin Dose 50 MLS/HR; Start 12/09/18 at 14:30 DREW MACARIO MD Dec 09, 2018 17:24
[2018-12-09] MEDS: ASPIRIN (EC) 81 MG TAB PO SCH (18:25)
[2018-12-09] MEDS: ATORVASTATIN 20 MG TAB PO SCH (21:17)
[2018-12-09] MEDS: LEVOFLOXACIN 500MG/D5W (PMX) 100 ML IVPB SCH (23:50)
[2018-12-10] VITALS (13 sets, daily range): BP systolic 123–173; BP diastolic 55–95; PULSE 52–79; RESP 17–20
[2018-12-10] MEDS: ALBUTEROL/IPRATROPIUM (NEB) 3 ML AMP HHN SCH ×6 (01:34→21:29)
[2018-12-10] MEDS: VANCOMYCIN 1 GM (PMX) 250 ML IVPB SCH (04:54)
[2018-12-10] MEDS ORDERED: LISINOPRIL 10 MG TAB PO SCH (09:00)
[2018-12-10] MEDS: ESCITALOPRAM 10 MG TAB PO SCH (09:12)
[2018-12-10] MEDS: PROMETHAZINE/CODEINE 5ML CUP PO PRN ×2 (09:12→16:40)
[2018-12-10] MEDS: MULTIVITAMINS THERAPEUTIC TAB PO SCH (09:12)
[2018-12-10] MEDS: MEMANTINE 10 MG TAB PO SCH (09:12)
[2018-12-10] MEDS: ASPIRIN (EC) 81 MG TAB PO SCH (09:12)
[2018-12-10] MEDS: LORAZEPAM 0.5 MG TAB PO SCH ×2 (09:12→20:41)
[2018-12-10] MEDS: OXYBUTYNIN (XL) 5 MG TAB PO SCH (09:12)
[2018-12-10] MEDS: LISINOPRIL 5 MG TAB PO SCH (09:13)
[2018-12-10] MEDS: DEXTROSE 5%-0.9% NACL 1,000 ML IV SCH (09:13)
[2018-12-10] MEDS: ENOXAPARIN 30 MG/0.3 ML SYG SC SCH (09:20)
[2018-12-10] MEDS ORDERED: INFLUENZA VIRUS VACCINE 0.5 ML (DISPENSING) IM* ONE (10:00)
--- NOTE | 2018-12-10 10:44 | CONS ---
Consult Date/Type/Reason Admit Date/Time Dec 06, 2018 at 05:31 Initial Consult Date 12/09/18 Requesting Provider: EMILY GAY MD Date/Time of Note DATE: 12/10/18 TIME: 10:42 Subjective Interventional cardiology follow-up progress note Subjective: Discussed with staff and telemetry was reviewed. Patient remains in sinus rhythm/sinus bradycardia She denies any chest pain or pressure or palpitation to me. She has had poor p.o. intake started on low-dose IV fluids She denies any active bleeding to me . Objective: General: Elderly female no acute distress HEENT: NC/AT. pupils are equal. round. NECK: NO JVD. no stridor. CV: RRR. systolic murmur; no gallop or rubs. PULM: no wheezing MILD rhonchi. GI: SOFT, NT, ND, no rebound or guarding Extremity: trace B/L LE edema. no clubbing. neuro: awake and alert, OX2. Psych: calm and pleasant rectal: deferred EKG done on December 06 showed normal sinus rhythm with deep T wave inversion in inferolateral leads. Voltage criteria for LVH Chest x-ray done December 07 shows:Improving bibasilar lung infiltrates; no findings of acute fluid overload. Objective Vitals Vital Signs Date Temp Pulse Resp B/P (MAP) Pulse Ox O2 O2 Flow FiO2 Time Delivery Rate 12/10/18 58 08:59 12/10/18 Nasal 2.0 07:46 Cannula 12/10/18 98.3 17 173/70 96 07:36 (104) 12/10/18 28 05:17 Intake and Output 12/09/18 12/09/18 12/10/18 1515:00 23:00 07:00 IntakeIntake Total 270 ml 175 ml BalanceBalance 270 ml 175 ml Results/Medications Result Diagram: 12/10/18 0547 12/10/18 0547 Results 24 hrs Laboratory Tests Test 12/10/18 05:47 White Blood Count 3.7 L Red Blood Count 3.28 L Hemoglobin 9.8 L Hematocrit 29.8 L Mean Corpuscular Volume 90.9 Mean Corpuscular Hemoglobin 29.9 Mean Corpuscular Hemoglobin Concent 32.9 Red Cell Distribution Width 14.3 Platelet Count 162 Mean Platelet Volume 8.9 Immature Granulocytes % 0.300 Neutrophils % 53.5 Lymphocytes % 32.2 Monocytes % 9.2 Eosinophils % 4.3 Basophils % 0.5 Nucleated Red Blood Cells % 0.0 Immature Granulocytes # 0.010 Neutrophils # 2.0 Lymphocytes # 1.2 Monocytes # 0.3 Eosinophils # 0.2 Basophils # 0.0 Nucleated Red Blood Cells # 0.0 Sodium Level 134 L Potassium Level 4.6 Chloride Level 103 Carbon Dioxide Level 24 Anion Gap 7 Blood Urea Nitrogen 17 Creatinine 0.89 Est Glomerular Filtrat Rate mL/min Glucose Level 96 Calcium Level 9.3 Magnesium Level 2.0 Total Bilirubin 0.5 Direct Bilirubin 0.00 Indirect Bilirubin 0.5 Aspartate Amino Transf (AST/SGOT) 22 Alanine Aminotransferase (ALT/SGPT) 27 Alkaline Phosphatase 59 Creatine Kinase 40 Creatine Kinase Index 5.6 Creatinine Kinase MB (Mass) 2.24 Troponin I 0.041 B-Type Natriuretic Peptide 3670 H Total Protein 5.1 L Albumin 2.8 L Globulin 2.30 Albumin/Globulin Ratio 1.21 Triglycerides Level 61 Cholesterol Level 142 LDL Cholesterol, Calculated 93 HDL Cholesterol 37 Cholesterol/HDL Ratio 3.8 Free Thyroxine 1.35 Home Meds Reported Medications Risperidone* (Risperidone*) 0.25 Mg Tablet, 0.25 MG PO BID, TAB 12/06/18 Lorazepam* (Lorazepam*) 0.5 Mg Tablet, 0.5 MG PO BID 12/06/18 Lisinopril* (Lisinopril*) 2.5 Mg Tablet, 2.5 MG PO DAILY 12/06/18 Oxybutynin Chloride (Oxybutynin Chloride ER) 5 Mg Tab.er.24, 5 MG PO DAILY 12/06/18 Multivitamins* (Theragran*) 1 Tab Tab, 1 TAB PO DAILY, TAB 05/03/16 Discontinued Reported Medications Buspirone Hcl* (Buspirone Hcl*) 10 Mg Tab, 15 MG PO BID, TAB PT TAKES THREE DAYS A WEEK 02/08/17 Cranberry (Cranberry) 400 Mg Capsule, 800 MG PO DAILY, CAP 05/03/16 Discontinued Scripts Lisinopril* (Lisinopril*) 5 Mg Tablet, 2.5 MG GTB DAILY for 30 Days, #30 TAB Prov:SIVA MILLER MD 11/22/18 Amoxicillin/Potassium Clav (Amox-Clav 875-125 mg Tablet) 875-125 mg Tab, 875 MG PO BID for 2 Days, #4 TAB Prov:SIVA MILLER MD 11/22/18 Aspirin* (Aspirin* EC) 81 Mg Tablet.dr, 81 MG PO DAILY for 30 Days, #30 Prov:LIA CHOU MD 06/10/17 Spironolactone* (Aldactone*) 25 Mg Tablet, 25 MG PO DAILY for 30 Days, #30 TAB Prov:LIA CHOU MD 06/10/17 Atorvastatin* (Atorvastatin*) 40 Mg Tablet, 40 MG PO HS for 30 Days, #30 TAB Prov:LIA CHOU MD 06/10/17 Carvedilol* (Carvedilol*) 3.125 Mg Tablet, 3.125 MG PO BID for 30 Days, #60 TAB Prov:LIA CHOU MD 06/10/17 Medications Current Medications Vancomycin HCl 250 ml @ 125 mls/hr Q24H IVPB Last administered on 12/10/18at 04:54; Admin Dose 125 MLS/HR; Start 12/07/18 at 05:00 Promethazine HCl/ Codeine (Phenergan/ Codeine) 5 ml Q6H PRN PO COUGH Last administered on 12/10/18 09:12; Admin Dose 5 ML; Start 12/06/18 at 16:30 Albuterol/ Ipratropium (Duoneb) 3 ml Q4H RESP THERAPY HHN Last administered on 12/10/18 09:59; Admin Dose 3 ML; Start 12/06/18 at 17:00 Lorazepam (Ativan) 0.5 mg BID PO Last administered on 12/10/18 09:12; Admin Dose 0.5 MG; Start 12/06/18 at 21:00 Multivitamins Therapeutic (Theragran) 1 tab DAILY PO Last administered on 12/10/18 09:12; Admin Dose 1 TAB; Start 12/06/18 at 17:00 Oxybutynin Chloride (Ditropan Xl) 5 mg DAILY PO Last administered on 12/10/18 09:12; Admin Dose 5 MG; Start 12/06/18 at 17:00 Enoxaparin Sodium (Lovenox) 30 mg DAILY SC Last administered on 12/10/18 09:20; Admin Dose 30 MG; Start 12/07/18 at 13:00 Memantine (Namenda) 10 mg DAILY PO Last administered on 12/10/18 09:12; Admin Dose 10 MG; Start 12/07/18 at 13:00 Escitalopram Oxalate (Lexapro) 10 mg DAILY PO Last administered on 12/10/18 09:12; Admin Dose 10 MG; Start 12/07/18 at 13:00 Levofloxacin/ Dextrose 100 ml @ 100 mls/hr Q24H IVPB Last administered on 12/09/18 23:50; Admin Dose 100 MLS/HR; Start 12/07/18 at 23:30 Haloperidol (Haldol) 0.5 mg Q3H PRN IV anxiety Last administered on 12/09/18 02:54; Admin Dose 0.5 MG; Start 12/09/18 at 03:00 Hydralazine HCl (Apresoline) 25 mg Q4 PRN PO ELEVATED BLOOD PRESSURE Last administered on 12/09/18 15:59; Admin Dose 25 MG; Start 12/09/18 at 14:30 Haloperidol (Haldol) 0.5 mg QHS PRN IV AGITATION; Start 12/09/18 at 14:30 Dextrose/Sodium Chloride 1,000 ml @ 50 mls/hr Q20H IV Last administered on 12/10/18 09:13; Admin Dose 50 MLS/HR; Start 12/09/18 at 14:30 Lisinopril (Zestril) 2.5 mg DAILY PO Last administered on 12/10/18 09:13; Admin Dose 2.5 MG; Start 12/10/18 at 09:00 Carvedilol (Coreg) 6.25 mg BID PO Last administered on 12/10/18 09:16; Admin Dose 6.25 MG; Start 12/09/18 at 21:00 Aspirin (Halfprin) 81 mg DAILY PO Last administered on 12/10/18 09:12; Admin Dose 81 MG; Start 12/09/18 at 17:30 Atorvastatin Calcium (Lipitor) 20 mg HS PO Last administered on 12/09/18 21:17; Admin Dose 20 MG; Start 12/09/18 at 21:00 Assessment/Plan Hospital Course (Demo Recall) 1. Pneumonia 2. History of hypertrophic cardiomyopathy 3. Congestive heart failure chronic and stable secondary systolic and diastolic heart failure 4. History of possible chest pain currently with no symptoms 5. History of multiple CVA 6. Dyslipidemia 7. Encephalopathy 8. Abnormal EKG Recommendations cont Coreg, to be held for heart rate of less than 55 only. Aspirin and statin were started. Antibiotic management as per internal medicine physical therapy and rehab as per internal medicine lasix x 1 now will add norvasc if needed for better BP control check CXR Thank you for his referral. We will continue to follow along with you DREW MACARIO MD [facility] DREW MACARIO MD Dec 10, 2018 10:44
[2018-12-10] MEDS ORDERED: FUROSEMIDE 40 MG INJ IV ONE (11:00)
[2018-12-10] MEDS: SPIRONOLACTONE 25 MG TAB PO SCH (12:24)
--- NOTE | 2018-12-10 12:32 | PN ---
Date/Time of Note Date/Time of Note DATE: 12/10/18 TIME: 12:32 Assessment/Plan VTE Prophylaxis Risk score (from Ns)>0 risk: 9 SCD applied (from Ns): Yes Pharmacological prophylaxis: LMWH Lines/Catheters IV Catheter Type (from Nrs): Peripheral IV Central line still needed: No Urinary Cath still in place: No Assessment/Plan Assessment/Plan 1. pneumonia 2. chf/ cad/ htn 3. anxiety/ dementia/ anorexia 4. debility ---per pulm ---cont atbx ---leave message w/ daughter re: rehab care prior going home this time ---restart ivf if not enough eating Result Diagram: 12/10/18 0547 12/10/18 0547 Results 24hrs Laboratory Tests Test 12/10/18 05:47 White Blood Count 3.7 L Red Blood Count 3.28 L Hemoglobin 9.8 L Hematocrit 29.8 L Mean Corpuscular Volume 90.9 Mean Corpuscular Hemoglobin 29.9 Mean Corpuscular Hemoglobin Concent 32.9 Red Cell Distribution Width 14.3 Platelet Count 162 Mean Platelet Volume 8.9 Immature Granulocytes % 0.300 Neutrophils % 53.5 Lymphocytes % 32.2 Monocytes % 9.2 Eosinophils % 4.3 Basophils % 0.5 Nucleated Red Blood Cells % 0.0 Immature Granulocytes # 0.010 Neutrophils # 2.0 Lymphocytes # 1.2 Monocytes # 0.3 Eosinophils # 0.2 Basophils # 0.0 Nucleated Red Blood Cells # 0.0 Sodium Level 134 L Potassium Level 4.6 Chloride Level 103 Carbon Dioxide Level 24 Anion Gap 7 Blood Urea Nitrogen 17 Creatinine 0.89 Est Glomerular Filtrat Rate mL/min Glucose Level 96 Calcium Level 9.3 Magnesium Level 2.0 Total Bilirubin 0.5 Direct Bilirubin 0.00 Indirect Bilirubin 0.5 Aspartate Amino Transf (AST/SGOT) 22 Alanine Aminotransferase (ALT/SGPT) 27 Alkaline Phosphatase 59 Creatine Kinase 40 Creatine Kinase Index 5.6 Creatinine Kinase MB (Mass) 2.24 Troponin I 0.041 B-Type Natriuretic Peptide 3670 H Total Protein 5.1 L Albumin 2.8 L Globulin 2.30 Albumin/Globulin Ratio 1.21 Triglycerides Level 61 Cholesterol Level 142 LDL Cholesterol, Calculated 93 HDL Cholesterol 37 Cholesterol/HDL Ratio 3.8 Free Thyroxine 1.35 Subjective 24 Hr Interval Summary Free Text/Dictation still weak, still coughing Exam/Review of Systems Exam Vitals Vital Signs Date Temp Pulse Resp B/P (MAP) Pulse Ox O2 O2 Flow FiO2 Time Delivery Rate 12/10/18 98.0 58 18 150/64 98 11:34 (92) 12/10/18 Nasal 2.0 07:46 Cannula 12/10/18 28 05:17 Intake and Output 12/09/18 12/09/18 12/10/18 1515:00 23:00 07:00 IntakeIntake Total 270 ml 175 ml BalanceBalance 270 ml 175 ml Exam on/off refuse to eat, refuse to take meds, shallow wet coughs+, rr syst m+, dec bs bibasilar+, no c/c/e Results Results 24hrs Laboratory Tests Test 12/10/18 05:47 White Blood Count 3.7 L Red Blood Count 3.28 L Hemoglobin 9.8 L Hematocrit 29.8 L Mean Corpuscular Volume 90.9 Mean Corpuscular Hemoglobin 29.9 Mean Corpuscular Hemoglobin Concent 32.9 Red Cell Distribution Width 14.3 Platelet Count 162 Mean Platelet Volume 8.9 Immature Granulocytes % 0.300 Neutrophils % 53.5 Lymphocytes % 32.2 Monocytes % 9.2 Eosinophils % 4.3 Basophils % 0.5 Nucleated Red Blood Cells % 0.0 Immature Granulocytes # 0.010 Neutrophils # 2.0 Lymphocytes # 1.2 Monocytes # 0.3 Eosinophils # 0.2 Basophils # 0.0 Nucleated Red Blood Cells # 0.0 Sodium Level 134 L Potassium Level 4.6 Chloride Level 103 Carbon Dioxide Level 24 Anion Gap 7 Blood Urea Nitrogen 17 Creatinine 0.89 Est Glomerular Filtrat Rate mL/min Glucose Level 96 Calcium Level 9.3 Magnesium Level 2.0 Total Bilirubin 0.5 Direct Bilirubin 0.00 Indirect Bilirubin 0.5 Aspartate Amino Transf (AST/SGOT) 22 Alanine Aminotransferase (ALT/SGPT) 27 Alkaline Phosphatase 59 Creatine Kinase 40 Creatine Kinase Index 5.6 Creatinine Kinase MB (Mass) 2.24 Troponin I 0.041 B-Type Natriuretic Peptide 3670 H Total Protein 5.1 L Albumin 2.8 L Globulin 2.30 Albumin/Globulin Ratio 1.21 Triglycerides Level 61 Cholesterol Level 142 LDL Cholesterol, Calculated 93 HDL Cholesterol 37 Cholesterol/HDL Ratio 3.8 Free Thyroxine 1.35 Medications Medication Current Medications Vancomycin HCl 250 ml @ 125 mls/hr Q24H IVPB Last administered on 12/10/18 04:54; Admin Dose 125 MLS/HR; Start 12/07/18 at 05:00 Promethazine HCl/ Codeine (Phenergan/ Codeine) 5 ml Q6H PRN PO COUGH Last administered on 12/10/18 09:12; Admin Dose 5 ML; Start 12/06/18 at 16:30 Albuterol/ Ipratropium (Duoneb) 3 ml Q4H RESP THERAPY HHN Last administered on 12/10/18 09:59; Admin Dose 3 ML; Start 12/06/18 at 17:00 Lorazepam (Ativan) 0.5 mg BID PO Last administered on 12/10/18 09:12; Admin Dose 0.5 MG; Start 12/06/18 at 21:00 Multivitamins Therapeutic (Theragran) 1 tab DAILY PO Last administered on 12/10/18 09:12; Admin Dose 1 TAB; Start 12/06/18 at 17:00 Oxybutynin Chloride (Ditropan Xl) 5 mg DAILY PO Last administered on 12/10/18 09:12; Admin Dose 5 MG; Start 12/06/18 at 17:00 Enoxaparin Sodium (Lovenox) 30 mg DAILY SC Last administered on 12/10/18 09:20; Admin Dose 30 MG; Start 12/07/18 at 13:00 Memantine (Namenda) 10 mg DAILY PO Last administered on 12/10/18 09:12; Admin Dose 10 MG; Start 12/07/18 at 13:00 Escitalopram Oxalate (Lexapro) 10 mg DAILY PO Last administered on 12/10/18 09:12; Admin Dose 10 MG; Start 12/07/18 at 13:00 Levofloxacin/ Dextrose 100 ml @ 100 mls/hr Q24H IVPB Last administered on 12/09/18 23:50; Admin Dose 100 MLS/HR; Start 12/07/18 at 23:30 Haloperidol (Haldol) 0.5 mg Q3H PRN IV anxiety Last administered on 12/09/18 02:54; Admin Dose 0.5 MG; Start 12/09/18 at 03:00 Hydralazine HCl (Apresoline) 25 mg Q4 PRN PO ELEVATED BLOOD PRESSURE Last administered on 12/09/18 15:59; Admin Dose 25 MG; Start 12/09/18 at 14:30 Haloperidol (Haldol) 0.5 mg QHS PRN IV AGITATION; Start 12/09/18 at 14:30 Dextrose/Sodium Chloride 1,000 ml @ 50 mls/hr Q20H IV Last administered on 12/10/18 09:13; Admin Dose 50 MLS/HR; Start 12/09/18 at 14:30 Lisinopril (Zestril) 2.5 mg DAILY PO Last administered on 12/10/18 09:13; Admin Dose 2.5 MG; Start 12/10/18 at 09:00 Carvedilol (Coreg) 6.25 mg BID PO Last administered on 12/10/18 09:16; Admin Dose 6.25 MG; Start 12/09/18 at 21:00 Aspirin (Halfprin) 81 mg DAILY PO Last administered on 12/10/18 09:12; Admin Dose 81 MG; Start 12/09/18 at 17:30 Atorvastatin Calcium (Lipitor) 20 mg HS PO Last administered on 12/09/18 21:17; Admin Dose 20 MG; Start 12/09/18 at 21:00 Spironolactone (Aldactone) 25 mg DAILY PO Last administered on 12/10/18 12:24; Admin Dose 25 MG; Start 12/10/18 at 11:00 EMILY GAY MD Dec 10, 2018 12:32
[2018-12-10] MEDS ORDERED: MAGNESIUM HYDROXIDE 30ML CUP PO PRN (13:00)
[2018-12-10] MEDS ORDERED: LEVOFLOXACIN 500 MG TAB ONE (16:38)
[2018-12-10] MEDS: LEVOFLOXACIN 500 MG TAB PO SCH (16:40)
[2018-12-10] MEDS: BISACODYL (EC) 5 MG TAB PO PRN (16:40)
[2018-12-10] MEDS: ATORVASTATIN 20 MG TAB PO SCH (20:41)
[2018-12-11] VITALS (11 sets, daily range): BP systolic 123–168; BP diastolic 65–73; PULSE 47–63; RESP 18
[2018-12-11] MEDS: ALBUTEROL/IPRATROPIUM (NEB) 3 ML AMP HHN SCH ×6 (01:46→20:45)
[2018-12-11] MEDS: VANCOMYCIN 1 GM (PMX) 250 ML IVPB SCH (05:08)
[2018-12-11] MEDS: LEVOFLOXACIN 500 MG TAB PO SCH (06:17)
[2018-12-11] MEDS: DEXTROSE 5%-0.9% NACL 1,000 ML IV SCH ×2 (06:30→17:03)
[2018-12-11] MEDS: MEMANTINE 10 MG TAB PO SCH (08:43)
[2018-12-11] MEDS: ASPIRIN (EC) 81 MG TAB PO SCH (08:43)
[2018-12-11] MEDS: MULTIVITAMINS THERAPEUTIC TAB PO SCH (08:43)
[2018-12-11] MEDS: OXYBUTYNIN (XL) 5 MG TAB PO SCH (08:43)
[2018-12-11] MEDS: SPIRONOLACTONE 25 MG TAB PO SCH (08:43)
[2018-12-11] MEDS: ESCITALOPRAM 10 MG TAB PO SCH (08:43)
[2018-12-11] MEDS: LISINOPRIL 5 MG TAB PO SCH (08:44)
[2018-12-11] MEDS: ENOXAPARIN 30 MG/0.3 ML SYG SC SCH (08:55)
[2018-12-11] MEDS: LORAZEPAM 0.5 MG TAB PO SCH (09:00)
--- NOTE | 2018-12-11 09:42 | CONS ---
Consult Date/Type/Reason Admit Date/Time Dec 06, 2018 at 05:31 Initial Consult Date 12/09/18 Requesting Provider: EMILY GAY MD Date/Time of Note DATE: 12/11/18 TIME: 09:38 Subjective Interventional cardiology follow-up progress note Subjective: Discussed with staff and telemetry was reviewed. Patient remains in sinus rhythm/sinus bradycardia She denies any chest pain or pressure or palpitation to me. She still has poor p.o. intake and poor appetite, she is on low-dose IV fluids She denies any active bleeding to me She denies PND orthopnea to me with poor historian . Objective: General: Elderly female no acute distress HEENT: NC/AT. pupils are equal. round. NECK: NO JVD. no stridor. CV: RRR. systolic murmur; no gallop or rubs. PULM: no wheezing MILD rhonchi. GI: SOFT, NT, ND, no rebound or guarding Extremity: trace B/L LE edema. no clubbing. neuro: awake and alert, OX2. Psych: calm and pleasant rectal: deferred EKG done on December 06 showed normal sinus rhythm with deep T wave inversion in inferolateral leads. Voltage criteria for LVH Chest x-ray done December 07 shows:Improving bibasilar lung infiltrates; no findings of acute fluid overload. Objective Vitals Vital Signs Date Temp Pulse Resp B/P (MAP) Pulse Ox O2 O2 Flow FiO2 Time Delivery Rate 12/11/18 97.8 63 18 159/69 97 Nasal 07:50 (99) Cannula 12/11/18 2.0 28 05:48 Intake and Output 12/10/18 12/10/18 12/11/18 1414:59 22:59 06:59 IntakeIntake Total 250 ml 700 ml 75 ml BalanceBalance 250 ml 700 ml 75 ml Results/Medications Result Diagram: 12/11/18 0545 12/11/18 0545 Results 24 hrs Laboratory Tests Test 12/11/18 05:45 White Blood Count 4.5 #L Red Blood Count 3.43 L Hemoglobin 10.3 L Hematocrit 30.9 L Mean Corpuscular Volume 90.1 Mean Corpuscular Hemoglobin 30.0 Mean Corpuscular Hemoglobin Concent 33.3 Red Cell Distribution Width 14.1 Platelet Count 165 Mean Platelet Volume 8.9 Immature Granulocytes % 0.200 Neutrophils % 57.7 Lymphocytes % 30.6 Monocytes % 8.3 Eosinophils % 2.5 Basophils % 0.7 Nucleated Red Blood Cells % 0.0 Immature Granulocytes # 0.010 Neutrophils # 2.6 Lymphocytes # 1.4 Monocytes # 0.4 Eosinophils # 0.1 Basophils # 0.0 Nucleated Red Blood Cells # 0.0 Sodium Level 134 L Potassium Level 4.4 Chloride Level 102 Carbon Dioxide Level 25 Anion Gap 7 Blood Urea Nitrogen 20 Creatinine 0.86 Est Glomerular Filtrat Rate mL/min Glucose Level 107 Calcium Level 9.7 Magnesium Level 1.9 Total Bilirubin 0.7 Direct Bilirubin 0.00 Indirect Bilirubin 0.7 Aspartate Amino Transf (AST/SGOT) 29 Alanine Aminotransferase (ALT/SGPT) 17 Alkaline Phosphatase 61 Total Protein 6.0 L Albumin 3.1 L Globulin 2.90 Albumin/Globulin Ratio 1.06 Home Meds Reported Medications Risperidone* (Risperidone*) 0.25 Mg Tablet, 0.25 MG PO BID, TAB 12/06/18 Lorazepam* (Lorazepam*) 0.5 Mg Tablet, 0.5 MG PO BID 12/06/18 Lisinopril* (Lisinopril*) 2.5 Mg Tablet, 2.5 MG PO DAILY 12/06/18 Oxybutynin Chloride (Oxybutynin Chloride ER) 5 Mg Tab.er.24, 5 MG PO DAILY 12/06/18 Multivitamins* (Theragran*) 1 Tab Tab, 1 TAB PO DAILY, TAB 05/03/16 Discontinued Reported Medications Buspirone Hcl* (Buspirone Hcl*) 10 Mg Tab, 15 MG PO BID, TAB PT TAKES THREE DAYS A WEEK 02/08/17 Cranberry (Cranberry) 400 Mg Capsule, 800 MG PO DAILY, CAP 05/03/16 Discontinued Scripts Lisinopril* (Lisinopril*) 5 Mg Tablet, 2.5 MG GTB DAILY for 30 Days, #30 TAB Prov:SIVA MILLER MD 11/22/18 Amoxicillin/Potassium Clav (Amox-Clav 875-125 mg Tablet) 875-125 mg Tab, 875 MG PO BID for 2 Days, #4 TAB Prov:SIVA MILLER MD 11/22/18 Aspirin* (Aspirin* EC) 81 Mg Tablet.dr, 81 MG PO DAILY for 30 Days, #30 Prov:LIA CHOU MD 06/10/17 Spironolactone* (Aldactone*) 25 Mg Tablet, 25 MG PO DAILY for 30 Days, #30 TAB Prov:LIA CHOU MD 06/10/17 Atorvastatin* (Atorvastatin*) 40 Mg Tablet, 40 MG PO HS for 30 Days, #30 TAB Prov:LIA CHOU MD 06/10/17 Carvedilol* (Carvedilol*) 3.125 Mg Tablet, 3.125 MG PO BID for 30 Days, #60 TAB Prov:LIA CHOU MD 06/10/17 Medications Current Medications Vancomycin HCl 250 ml @ 125 mls/hr Q24H IVPB Last administered on 12/11/18at 05:08; Admin Dose 125 MLS/HR; Start 12/07/18 at 05:00 Promethazine HCl/ Codeine (Phenergan/ Codeine) 5 ml Q6H PRN PO COUGH Last administered on 12/10/18at 16:40; Admin Dose 5 ML; Start 12/06/18 at 16:30 Albuterol/ Ipratropium (Duoneb) 3 ml Q4H RESP THERAPY HHN Last administered on 12/11/18at 05:48; Admin Dose 3 ML; Start 12/06/18 at 17:00 Lorazepam (Ativan) 0.5 mg BID PO Last administered on 12/10/18at 20:41; Admin Dose 0.5 MG; Start 12/06/18 at 21:00 Multivitamins Therapeutic (Theragran) 1 tab DAILY PO Last administered on 12/11/18 08:43; Admin Dose 1 TAB; Start 12/06/18 at 17:00 Oxybutynin Chloride (Ditropan Xl) 5 mg DAILY PO Last administered on 12/11/18 08:43; Admin Dose 5 MG; Start 12/06/18 at 17:00 Enoxaparin Sodium (Lovenox) 30 mg DAILY SC Last administered on 12/11/18 08:55; Admin Dose 30 MG; Start 12/07/18 at 13:00 Memantine (Namenda) 10 mg DAILY PO Last administered on 12/11/18 08:43; Admin Dose 10 MG; Start 12/07/18 at 13:00 Escitalopram Oxalate (Lexapro) 10 mg DAILY PO Last administered on 12/11/18 08:43; Admin Dose 10 MG; Start 12/07/18 at 13:00 Haloperidol (Haldol) 0.5 mg Q3H PRN IV anxiety Last administered on 12/09/18 02:54; Admin Dose 0.5 MG; Start 12/09/18 at 03:00 Hydralazine HCl (Apresoline) 25 mg Q4 PRN PO ELEVATED BLOOD PRESSURE Last administered on 12/10/18 16:40; Admin Dose 25 MG; Start 12/09/18 at 14:30 Haloperidol (Haldol) 0.5 mg QHS PRN IV AGITATION; Start 12/09/18 at 14:30 Dextrose/Sodium Chloride 1,000 ml @ 50 mls/hr Q20H IV Last administered on 12/10/18 09:13; Admin Dose 50 MLS/HR; Start 12/09/18 at 14:30 Lisinopril (Zestril) 2.5 mg DAILY PO Last administered on 12/11/18 08:44; Admin Dose 2.5 MG; Start 12/10/18 at 09:00 Carvedilol (Coreg) 6.25 mg BID PO Last administered on 12/11/18 08:44; Admin Dose 6.25 MG; Start 12/09/18 at 21:00 Aspirin (Halfprin) 81 mg DAILY PO Last administered on 12/11/18 08:43; Admin Dose 81 MG; Start 12/09/18 at 17:30 Atorvastatin Calcium (Lipitor) 20 mg HS PO Last administered on 12/10/18 20:41; Admin Dose 20 MG; Start 12/09/18 at 21:00 Spironolactone (Aldactone) 25 mg DAILY PO Last administered on 12/11/18 08:43; Admin Dose 25 MG; Start 12/10/18 at 11:00 Magnesium Hydroxide (Milk Of Mag) 30 ml DAILY PRN PO CONSTIPATION; Start 12/10/18 at 13:00 Bisacodyl (Dulcolax) 5 mg BID PRN PO CONSTIPATION Last administered on 12/10/18 16:40; Admin Dose 5 MG; Start 12/10/18 at 13:00 Levofloxacin (Levaquin) 500 mg DAILY@06 PO Last administered on 3/27/19at 06:17; Admin Dose 500 MG; Start 12/10/18 at 18:00 Assessment/Plan Hospital Course (Demo Recall) 1. Pneumonia 2. History of hypertrophic cardiomyopathy 3. Congestive heart failure chronic and stable secondary systolic and diastolic heart failure 4. History of possible chest pain currently with no symptoms 5. History of multiple CVA 6. Dyslipidemia 7. Encephalopathy 8. Abnormal EKG Recommendations cont Coreg, to be held for heart rate of less than 55 only. Aspirin and statin were started. Antibiotic management as per internal medicine physical therapy and rehab as per internal medicine lasix PO lasix check CXR Thank you for his referral. We will continue to follow along with you DREW MACARIO MD [facility] DREW MACARIO MD Dec 11, 2018 09:42
[2018-12-11] MEDS: FUROSEMIDE 40 MG TAB PO SCH (10:13)
--- NOTE | 2018-12-11 13:33 | PN ---
Date/Time of Note Date/Time of Note DATE: 12/11/18 TIME: 11:13 Assessment/Plan VTE Prophylaxis Risk score (from Ns)>0 risk: 8 [place] [facility] [place] Pharmacological prophylaxis: LMWH Lines/Catheters IV Catheter Type (from [facility]): Peripheral IV Central line still needed: No Urinary Cath still in place: No Assessment/Plan Assessment/Plan 1. flu pneumonia 2. chf/ htn 3. dementia/ anxiety 4. debility ---per pulm ---cont atbx ---needing night time haldol ---cont sm dose ivf ---must inc po marcia intake ---aru ref Result Diagram: 12/11/18 0545 12/11/18 0545 Results 24hrs Laboratory Tests Test 12/11/18 05:45 White Blood Count 4.5 #L Red Blood Count 3.43 L Hemoglobin 10.3 L Hematocrit 30.9 L Mean Corpuscular Volume 90.1 Mean Corpuscular Hemoglobin 30.0 Mean Corpuscular Hemoglobin Concent 33.3 Red Cell Distribution Width 14.1 Platelet Count 165 Mean Platelet Volume 8.9 Immature Granulocytes % 0.200 Neutrophils % 57.7 Lymphocytes % 30.6 Monocytes % 8.3 Eosinophils % 2.5 Basophils % 0.7 Nucleated Red Blood Cells % 0.0 Immature Granulocytes # 0.010 Neutrophils # 2.6 Lymphocytes # 1.4 Monocytes # 0.4 Eosinophils # 0.1 Basophils # 0.0 Nucleated Red Blood Cells # 0.0 Sodium Level 134 L Potassium Level 4.4 Chloride Level 102 Carbon Dioxide Level 25 Anion Gap 7 Blood Urea Nitrogen 20 Creatinine 0.86 Est Glomerular Filtrat Rate mL/min Glucose Level 107 Calcium Level 9.7 Magnesium Level 1.9 Total Bilirubin 0.7 Direct Bilirubin 0.00 Indirect Bilirubin 0.7 Aspartate Amino Transf (AST/SGOT) 29 Alanine Aminotransferase (ALT/SGPT) 17 Alkaline Phosphatase 61 Total Protein 6.0 L Albumin 3.1 L Globulin 2.90 Albumin/Globulin Ratio 1.06 Subjective 24 Hr Interval Summary Free Text/Dictation little more energy, still weak Exam/Review of Systems Exam Vitals Vital Signs Date Temp Pulse Resp B/P (MAP) Pulse Ox O2 O2 Flow FiO2 Time Delivery Rate 12/11/18 57 12:00 12/11/18 97.9 18 168/73 99 Nasal 11:40 (104) Cannula 12/11/18 2.0 08:00 12/11/18 28 05:48 Intake and Output 12/10/18 12/10/18 12/11/18 1515:00 23:00 07:00 IntakeIntake Total 700 ml 75 ml BalanceBalance 700 ml 75 ml Exam raspy less wet coughs, in bed, able to sit on edge of bed, rr syst m+, dec bs bibasilar+, no c/c/e Results Results 24hrs Laboratory Tests Test 12/11/18 05:45 White Blood Count 4.5 #L Red Blood Count 3.43 L Hemoglobin 10.3 L Hematocrit 30.9 L Mean Corpuscular Volume 90.1 Mean Corpuscular Hemoglobin 30.0 Mean Corpuscular Hemoglobin Concent 33.3 Red Cell Distribution Width 14.1 Platelet Count 165 Mean Platelet Volume 8.9 Immature Granulocytes % 0.200 Neutrophils % 57.7 Lymphocytes % 30.6 Monocytes % 8.3 Eosinophils % 2.5 Basophils % 0.7 Nucleated Red Blood Cells % 0.0 Immature Granulocytes # 0.010 Neutrophils # 2.6 Lymphocytes # 1.4 Monocytes # 0.4 Eosinophils # 0.1 Basophils # 0.0 Nucleated Red Blood Cells # 0.0 Sodium Level 134 L Potassium Level 4.4 Chloride Level 102 Carbon Dioxide Level 25 Anion Gap 7 Blood Urea Nitrogen 20 Creatinine 0.86 Est Glomerular Filtrat Rate mL/min Glucose Level 107 Calcium Level 9.7 Magnesium Level 1.9 Total Bilirubin 0.7 Direct Bilirubin 0.00 Indirect Bilirubin 0.7 Aspartate Amino Transf (AST/SGOT) 29 Alanine Aminotransferase (ALT/SGPT) 17 Alkaline Phosphatase 61 Total Protein 6.0 L Albumin 3.1 L Globulin 2.90 Albumin/Globulin Ratio 1.06 Medications Medication Current Medications Vancomycin HCl 250 ml @ 125 mls/hr Q24H IVPB Last administered on 12/11/18at 05:08; Admin Dose 125 MLS/HR; Start 12/07/18 at 05:00 Promethazine HCl/ Codeine (Phenergan/ Codeine) 5 ml Q6H PRN PO COUGH Last administered on 12/10/18at 16:40; Admin Dose 5 ML; Start 12/06/18 at 16:30 Albuterol/ Ipratropium (Duoneb) 3 ml Q4H RESP THERAPY HHN Last administered on 12/11/18 10:39; Admin Dose 3 ML; Start 12/06/18 at 17:00 Lorazepam (Ativan) 0.5 mg BID PO Last administered on 12/10/18 20:41; Admin Dose 0.5 MG; Start 12/06/18 at 21:00 Multivitamins Therapeutic (Theragran) 1 tab DAILY PO Last administered on 12/11/18 08:43; Admin Dose 1 TAB; Start 12/06/18 at 17:00 Oxybutynin Chloride (Ditropan Xl) 5 mg DAILY PO Last administered on 12/11/18 08:43; Admin Dose 5 MG; Start 12/06/18 at 17:00 Enoxaparin Sodium (Lovenox) 30 mg DAILY SC Last administered on 12/11/18 08:55; Admin Dose 30 MG; Start 12/07/18 at 13:00 Memantine (Namenda) 10 mg DAILY PO Last administered on 12/11/18 08:43; Admin Dose 10 MG; Start 12/07/18 at 13:00 Escitalopram Oxalate (Lexapro) 10 mg DAILY PO Last administered on 12/11/18 08:43; Admin Dose 10 MG; Start 12/07/18 at 13:00 Haloperidol (Haldol) 0.5 mg Q3H PRN IV anxiety Last administered on 12/09/18 02:54; Admin Dose 0.5 MG; Start 12/09/18 at 03:00 Hydralazine HCl (Apresoline) 25 mg Q4 PRN PO ELEVATED BLOOD PRESSURE Last administered on 12/10/18 16:40; Admin Dose 25 MG; Start 12/09/18 at 14:30 Haloperidol (Haldol) 0.5 mg QHS PRN IV AGITATION; Start 12/09/18 at 14:30 Dextrose/Sodium Chloride 1,000 ml @ 50 mls/hr Q20H IV Last administered on 12/10/18 09:13; Admin Dose 50 MLS/HR; Start 12/09/18 at 14:30 Lisinopril (Zestril) 2.5 mg DAILY PO Last administered on 12/11/18 08:44; Admi n Dose 2.5 MG; Start 12/10/18 at 09:00 Carvedilol (Coreg) 6.25 mg BID PO Last administered on 12/11/18 08:44; Admin Dose 6.25 MG; Start 12/09/18 at 21:00 Aspirin (Halfprin) 81 mg DAILY PO Last administered on 12/11/18 08:43; Admin Dose 81 MG; Start 12/09/18 at 17:30 Atorvastatin Calcium (Lipitor) 20 mg HS PO Last administered on 12/10/18at 20:41; Admin Dose 20 MG; Start 12/09/18 at 21:00 Spironolactone (Aldactone) 25 mg DAILY PO Last administered on 12/11/18 08:43; Admin Dose 25 MG; Start 12/10/18 at 11:00 Magnesium Hydroxide (Milk Of Mag) 30 ml DAILY PRN PO CONSTIPATION; Start 12/10/18 at 13:00 Bisacodyl (Dulcolax) 5 mg BID PRN PO CONSTIPATION Last administered on 12/10/18at 16:40; Admin Dose 5 MG; Start 12/10/18 at 13:00 Levofloxacin (Levaquin) 500 mg DAILY@06 PO Last administered on 12/11/18 06:17; Admin Dose 500 MG; Start 12/10/18 at 18:00 Furosemide (Lasix) 40 mg DAILY PO Last administered on 12/11/18 10:13; Admin Dose 40 MG; Start 12/11/18 at 10:00 EMILY GAY MD Dec 11, 2018 13:33
[2018-12-11] MEDS ORDERED: LORAZEPAM 0.5 MG TAB PO SCH (14:00)
[2018-12-11] MEDS ORDERED: LORAZEPAM 0.5 MG TAB PO PRN (14:30)
[2018-12-11] MEDS: PROMETHAZINE/CODEINE 5ML CUP PO PRN (18:17)
[2018-12-11] MEDS: ATORVASTATIN 20 MG TAB PO SCH (21:22)
[2018-12-12] VITALS (10 sets, daily range): BP systolic 107–198; BP diastolic 51–87; PULSE 55–107; RESP 18–22
[2018-12-12] MEDS: ALBUTEROL/IPRATROPIUM (NEB) 3 ML AMP HHN SCH ×4 (00:29→21:00)
[2018-12-12] MEDS: VANCOMYCIN 1 GM (PMX) 250 ML IVPB SCH (04:56)
[2018-12-12] MEDS: LEVOFLOXACIN 500 MG TAB PO SCH ×2 (06:00→06:10)
--- NOTE | 2018-12-12 08:52 | CONS ---
Consult Date/Type/Reason Admit Date/Time Dec 06, 2018 at 05:31 Initial Consult Date 12/09/18 Requesting Provider: EMILY GAY MD Date/Time of Note DATE: 12/12/18 TIME: 08:48 Subjective Interventional cardiology follow-up progress note Subjective: Discussed with staff and telemetry was reviewed. Patient remains in sinus rhythm/sinus bradycardia She denies any chest pain or pressure or palpitation to me. She still has poor p.o. intake and poor appetite, she is on low-dose IV fluids She denies any active bleeding to me She denies PND orthopnea to me with poor historian SHE refused labs today Objective: General: Elderly female no acute distress HEENT: NC/AT. pupils are equal. round. NECK: NO JVD. no stridor. CV: RRR. systolic murmur; no gallop or rubs. PULM: no wheezing MILD rhonchi. GI: SOFT, NT, ND, no rebound or guarding Extremity: trace B/L LE edema. no clubbing. neuro: awake and alert, OX2. Psych: anxious but pleasant rectal: deferred EKG done on December 06 showed normal sinus rhythm with deep T wave inversion in inferolateral leads. Voltage criteria for LVH Chest x-ray done December 07 shows:Improving bibasilar lung infiltrates; no findings of acute fluid overload. Objective Vitals Vital Signs Date Temp Pulse Resp B/P (MAP) Pulse Ox O2 O2 Flow FiO2 Time Delivery Rate 12/12/18 68 08:46 12/12/18 97.8 22 198/87 96 Room Air 3.0 08:08 (124) 12/12/18 24 05:04 Intake and Output 12/11/18 12/11/18 12/12/18 1515:00 23:00 07:00 IntakeIntake Total 680 ml 100 ml BalanceBalance 680 ml 100 ml Results/Medications Result Diagram: 12/11/18 0545 12/11/18 0545 Results 24 hrs Laboratory Tests Test 12/12/18 03:31 Vancomycin Level Trough 12.5 Home Meds Reported Medications Risperidone* (Risperidone*) 0.25 Mg Tablet, 0.25 MG PO BID, TAB 12/06/18 Lorazepam* (Lorazepam*) 0.5 Mg Tablet, 0.5 MG PO BID 12/06/18 Lisinopril* (Lisinopril*) 2.5 Mg Tablet, 2.5 MG PO DAILY 12/06/18 Oxybutynin Chloride (Oxybutynin Chloride ER) 5 Mg Tab.er.24, 5 MG PO DAILY 12/06/18 Multivitamins* (Theragran*) 1 Tab Tab, 1 TAB PO DAILY, TAB 05/03/16 Discontinued Reported Medications Buspirone Hcl* (Buspirone Hcl*) 10 Mg Tab, 15 MG PO BID, TAB PT TAKES THREE DAYS A WEEK 02/08/17 Cranberry (Cranberry) 400 Mg Capsule, 800 MG PO DAILY, CAP 05/03/16 Discontinued Scripts Lisinopril* (Lisinopril*) 5 Mg Tablet, 2.5 MG GTB DAILY for 30 Days, #30 TAB Prov:SIVA MILLER MD 11/22/18 Amoxicillin/Potassium Clav (Amox-Clav 875-125 mg Tablet) 875-125 mg Tab, 875 MG PO BID for 2 Days, #4 TAB Prov:SIVA MILLER MD 11/22/18 Aspirin* (Aspirin* EC) 81 Mg Tablet.dr, 81 MG PO DAILY for 30 Days, #30 Prov:LIA CHOU MD 06/10/17 Spironolactone* (Aldactone*) 25 Mg Tablet, 25 MG PO DAILY for 30 Days, #30 TAB Prov:LIA CHOU MD 06/10/17 Atorvastatin* (Atorvastatin*) 40 Mg Tablet, 40 MG PO HS for 30 Days, #30 TAB Prov:LIA CHOU MD 06/10/17 Carvedilol* (Carvedilol*) 3.125 Mg Tablet, 3.125 MG PO BID for 30 Days, #60 TAB Prov:LIA CHOU MD 06/10/17 Medications Current Medications Vancomycin HCl 250 ml @ 125 mls/hr Q24H IVPB Last administered on 12/12/18at 04:56; Admin Dose 125 MLS/HR; Start 12/07/18 at 05:00 Promethazine HCl/ Codeine (Phenergan/ Codeine) 5 ml Q6H PRN PO COUGH Last administered on 12/11/18at 18:17; Admin Dose 5 ML; Start 12/06/18 at 16:30 Albuterol/ Ipratropium (Duoneb) 3 ml Q4H RESP THERAPY HHN Last administered on 12/12/18 00:29; Admin Dose 3 ML; Start 12/06/18 at 17:00 Multivitamins Therapeutic (Theragran) 1 tab DAILY PO Last administered on 08:43; Admin Dose 1 TAB; Start 12/06/18 at 17:00 Oxybutynin Chloride (Ditropan Xl) 5 mg DAILY PO Last administered on 12/11/18 08:43; Admin Dose 5 MG; Start 12/06/18 at 17:00 Enoxaparin Sodium (Lovenox) 30 mg DAILY SC Last administered on 12/11/18 08:55; Admin Dose 30 MG; Start 12/07/18 at 13:00 Memantine (Namenda) 10 mg DAILY PO Last administered on 12/11/18 08:43; Admin Dose 10 MG; Start 12/07/18 at 13:00 Escitalopram Oxalate (Lexapro) 10 mg DAILY PO Last administered on 12/11/18 08:43; Admin Dose 10 MG; Start 12/07/18 at 13:00 Haloperidol (Haldol) 0.5 mg Q3H PRN IV anxiety Last administered on 12/09/18 02:54; Admin Dose 0.5 MG; Start 12/09/18 at 03:00 Hydralazine HCl (Apresoline) 25 mg Q4 PRN PO ELEVATED BLOOD PRESSURE Last administered on 12/10/18 16:40; Admin Dose 25 MG; Start 12/09/18 at 14:30 Haloperidol (Haldol) 0.5 mg QHS PRN IV AGITATION; Start 12/09/18 at 14:30 Dextrose/Sodium Chloride 1,000 ml @ 50 mls/hr Q20H IV Last administered on 12/11/18 17:03; Admin Dose 50 MLS/HR; Start 12/09/18 at 14:30 Lisinopril (Zestril) 2.5 mg DAILY PO Last administered on 12/11/18 08:44; Admin Dose 2.5 MG; Start 12/10/18 at 09:00 Carvedilol (Coreg) 6.25 mg BID PO Last administered on 12/11/18 21:23; Admin Dose 6.25 MG; Start 12/09/18 at 21:00 Aspirin (Halfprin) 81 mg DAILY PO Last administered on 12/11/18 08:43; Admin Dose 81 MG; Start 12/09/18 at 17:30 Atorvastatin Calcium (Lipitor) 20 mg HS PO Last administered on 12/11/18 21:22; Admin Dose 20 MG; Start 12/09/18 at 21:00 Spironolactone (Aldactone) 25 mg DAILY PO Last administered on 12/11/18 08:43; Admin Dose 25 MG; Start 12/10/18 at 11:00 Magnesium Hydroxide (Milk Of Mag) 30 ml DAILY PRN PO CONSTIPATION; Start 12/10/18 at 13:00 Bisacodyl (Dulcolax) 5 mg BID PRN PO CONSTIPATION Last administered on 12/10/18 16:40; Admin Dose 5 MG; Start 12/10/18 at 13:00 Levofloxacin (Levaquin) 500 mg DAILY@06 PO Last administered on 12/11/18 06:17; Admin Dose 500 MG; Start 12/10/18 at 18:00 Furosemide (Lasix) 40 mg DAILY PO Last administered on 12/11/18 10:13; Admin Dose 40 MG; Start 12/11/18 at 10:00 Lorazepam (Ativan) 0.5 mg Q6H PRN PO AGITATION; Start 12/11/18 at 14:30 Assessment/Plan Hospital Course (Demo Recall) 1. Pneumonia 2. History of hypertrophic cardiomyopathy 3. Congestive heart failure chronic and stable secondary systolic and diastolic heart failure 4. History of possible chest pain currently with no symptoms 5. History of multiple CVA 6. Dyslipidemia 7. Encephalopathy 8. Abnormal EKG Recommendations cont Coreg, to be held for heart rate of less than 55 only. Aspirin and statin were started. Antibiotic management as per internal medicine physical therapy and rehab as per internal medicine PO lasix prn Thank you for his referral. We will continue to follow along with you DREW MACARIO MD [facility] DREW MACARIO MD Dec 12, 2018 08:52
[2018-12-12] MEDS: MULTIVITAMINS THERAPEUTIC TAB PO SCH (09:00)
[2018-12-12] MEDS: ESCITALOPRAM 10 MG TAB PO SCH (09:01)
[2018-12-12] MEDS: ASPIRIN (EC) 81 MG TAB PO SCH (09:01)
[2018-12-12] MEDS: FUROSEMIDE 40 MG TAB PO SCH (09:03)
[2018-12-12] MEDS: LISINOPRIL 5 MG TAB PO SCH (09:03)
[2018-12-12] MEDS: OXYBUTYNIN (XL) 5 MG TAB PO SCH (09:03)
[2018-12-12] MEDS: SPIRONOLACTONE 25 MG TAB PO SCH (09:04)
[2018-12-12] MEDS: MEMANTINE 10 MG TAB PO SCH (09:04)
[2018-12-12] MEDS: ENOXAPARIN 30 MG/0.3 ML SYG SC SCH (09:22)
[2018-12-12] MEDS: BISACODYL (EC) 5 MG TAB PO PRN (11:48)
--- NOTE | 2018-12-12 13:48 | PN ---
Date/Time of Note Date/Time of Note DATE: 12/12/18 TIME: 13:47 Assessment/Plan VTE Prophylaxis Risk score (from Ns)>0 risk: 8 SCD applied (from Ns): Yes Pharmacological prophylaxis: LMWH Lines/Catheters IV Catheter Type (from Nrs): Peripheral IV Central line still needed: No Urinary Cath still in place: No Assessment/Plan Assessment/Plan 1. flu pneumonia 2. chf/ htn 3. weak/ debility 4. anxiety/ dementia ---finish off atbx ---per pulm ---cont sm dose ivf, while inc po marcia intake ---must get oob more ---unless transfer oob to chair minimally, will be difficult to go home ---most likely rehab stop prior going home Result Diagram: 12/11/1845 12/11/1845 Results 24hrs Laboratory Tests Test 12/12/18 03:31 Vancomycin Level Trough 12.5 Subjective 24 Hr Interval Summary Free Text/Dictation eating more, more awake Exam/Review of Systems Exam Vitals Vital Signs Date Temp Pulse Resp B/P (MAP) Pulse Ox O2 O2 Flow FiO2 Time Delivery Rate 12/12/18 61 12:37 12/12/18 98.0 22 192/76 96 Nasal 11:29 (114) Cannula 12/12/18 3.0 08:08 12/12/18 24 05:04 Intake and Output 12/11/18 12/11/18 12/12/18 1515:00 23:00 07:00 IntakeIntake Total 680 ml 100 ml BalanceBalance 680 ml 100 ml Exam more awake, sat oob bed more today, refused lab & some meds, rr syst m+, dec bs bibasilar, no c/c/e Results Results 24hrs Laboratory Tests Test 12/12/18 03:31 Vancomycin Level Trough 12.5 Medications Medication Current Medications Vancomycin HCl 250 ml @ 125 mls/hr Q24H IVPB Last administered on 12/12/18at 0 4:56; Admin Dose 125 MLS/HR; Start 12/07/18 at 05:00 Promethazine HCl/ Codeine (Phenergan/ Codeine) 5 ml Q6H PRN PO COUGH Last administered on 12/11/18at 18:17; Admin Dose 5 ML; Start 12/06/18 at 16:30 Albuterol/ Ipratropium (Duoneb) 3 ml Q4H RESP THERAPY HHN Last administered on 12/12/18 10:00; Admin Dose 3 ML; Start 12/06/18 at 17:00 Multivitamins Therapeutic (Theragran) 1 tab DAILY PO Last administered on 12/11/18 08:43; Admin Dose 1 TAB; Start 12/06/18 at 17:00 Oxybutynin Chloride (Ditropan Xl) 5 mg DAILY PO Last administered on 12/12/18 09:03; Admin Dose 5 MG; Start 12/06/18 at 17:00 Enoxaparin Sodium (Lovenox) 30 mg DAILY SC Last administered on 12/12/18 09:22; Admin Dose 30 MG; Start 12/07/18 at 13:00 Memantine (Namenda) 10 mg DAILY PO Last administered on 12/12/18 09:04; Admin Dose 10 MG; Start 12/07/18 at 13:00 Escitalopram Oxalate (Lexapro) 10 mg DAILY PO Last administered on 12/12/18 09:01; Admin Dose 10 MG; Start 12/07/18 at 13:00 Haloperidol (Haldol) 0.5 mg Q3H PRN IV anxiety Last administered on 12/09/18 02:54; Admin Dose 0.5 MG; Start 12/09/18 at 03:00 Hydralazine HCl (Apresoline) 25 mg Q4 PRN PO ELEVATED BLOOD PRESSURE Last administered on 12/12/18 11:57; Admin Dose 25 MG; Start 12/09/18 at 14:30 Haloperidol (Haldol) 0.5 mg QHS PRN IV AGITATION; Start 12/09/18 at 14:30 Dextrose/Sodium Chloride 1,000 ml @ 50 mls/hr Q20H IV Last administered on 12/11/18 17:03; Admin Dose 50 MLS/HR; Start 12/09/18 at 14:30 Lisinopril (Zestril) 2.5 mg DAILY PO Last administered on 12/12/18 09:03; Admin Dose 2.5 MG; Start 12/10/18 at 09:00 Carvedilol (Coreg) 6.25 mg BID PO Last administered on 12/12/18 09:04; Admin Dose 6.25 MG; Start 12/09/18 at 21:00 Aspirin (Halfprin) 81 mg DAILY PO Last administered on 12/12/18 09:01; Admin Dose 81 MG; Start 12/09/18 at 17:30 Atorvastatin Calcium (Lipitor) 20 mg HS PO Last administered on 12/11/18 21:22; Admin Dose 20 MG; Start 12/09/18 at 21:00 Spironolactone (Aldactone) 25 mg DAILY PO Last administered on 12/12/18 09:04; Admin Dose 25 MG; Start 12/10/18 at 11:00 Magnesium Hydroxide (Milk Of Mag) 30 ml DAILY PRN PO CONSTIPATION; Start 12/10/18 at 13:00 Bisacodyl (Dulcolax) 5 mg BID PRN PO CONSTIPATION Last administered on 12/12/18at 11:48; Admin Dose 5 MG; Start 12/10/18 at 13:00 Levofloxacin (Levaquin) 500 mg DAILY@06 PO Last administered on 12/11/18 06:17; Admin Dose 500 MG; Start 12/10/18 at 18:00 Furosemide (Lasix) 40 mg DAILY PO Last administered on 12/12/18 09:03; Admin Dose 40 MG; Start 12/11/18 at 10:00 Lorazepam (Ativan) 0.5 mg Q6H PRN PO AGITATION; Start 12/11/18 at 14:30 EMILY GAY MD Dec 12, 2018 13:48
[2018-12-12] MEDS: DEXTROSE 5%-0.9% NACL 1,000 ML IV SCH (18:03)
[2018-12-12] MEDS: ATORVASTATIN 20 MG TAB PO SCH (22:09)
[2018-12-13] VITALS (11 sets, daily range): BP systolic 118–146; BP diastolic 58–65; PULSE 51–68; RESP 16–21
[2018-12-13] MEDS: ALBUTEROL/IPRATROPIUM (NEB) 3 ML AMP HHN SCH ×6 (01:55→20:32)
[2018-12-13] MEDS: LEVOFLOXACIN 500 MG TAB PO SCH (06:00)
[2018-12-13] MEDS: MULTIVITAMINS THERAPEUTIC TAB PO SCH (10:15)
[2018-12-13] MEDS: FUROSEMIDE 40 MG TAB PO SCH (10:15)
[2018-12-13] MEDS: OXYBUTYNIN (XL) 5 MG TAB PO SCH (10:15)
[2018-12-13] MEDS: SPIRONOLACTONE 25 MG TAB PO SCH (10:16)
[2018-12-13] MEDS: MEMANTINE 10 MG TAB PO SCH (10:16)
[2018-12-13] MEDS: LISINOPRIL 5 MG TAB PO SCH (10:17)
[2018-12-13] MEDS: ASPIRIN (EC) 81 MG TAB PO SCH (10:17)
[2018-12-13] MEDS: ESCITALOPRAM 10 MG TAB PO SCH (10:17)
[2018-12-13] MEDS: ENOXAPARIN 30 MG/0.3 ML SYG SC SCH (10:52)
--- NOTE | 2018-12-13 11:17 | CONS ---
Consult Date/Type/Reason Admit Date/Time Dec 06, 2018 at 05:31 Initial Consult Date 12/09/18 Type of Consultation: cv Requesting Provider: EMILY GAY MD Date/Time of Note DATE: 12/13/18 TIME: 11:15 Subjective Interventional cardiology follow-up progress note Subjective: Discussed with staff and telemetry was reviewed. Patient remains in sinus rhythm/sinus bradycardia She denies any chest pain or pressure or palpitation to me. She denies any active bleeding to me She denies PND orthopnea to me with poor historian Objective: General: Elderly female no acute distress HEENT: NC/AT. pupils are equal. round. NECK: NO JVD. no stridor. CV: RRR. systolic murmur; no gallop or rubs. PULM: no wheezing MILD rhonchi. GI: SOFT, NT, ND, no rebound or guarding Extremity: trace B/L LE edema. no clubbing. neuro: awake and alert, OX2. Psych: anxious but pleasant rectal: deferred EKG done on December 06 showed normal sinus rhythm with deep T wave inversion in inferolateral leads. Voltage criteria for LVH Chest x-ray done December 07 shows:Improving bibasilar lung infiltrates; no findings of acute fluid overload. Objective Vitals Vital Signs Date Temp Pulse Resp B/P (MAP) Pulse Ox O2 O2 Flow FiO2 Time Delivery Rate 12/13/18 68 16 95 Nasal 2.0 28 10:35 Cannula 12/13/18 97.5 146/64 10:15 (91) Intake and Output 12/12/18 12/12/18 12/13/18 1515:00 23:00 07:00 IntakeIntake Total 420 ml 750 ml BalanceBalance 420 ml 750 ml Results/Medications Result Diagram: 12/13/18 0549 12/13/18 0549 Results 24 hrs Laboratory Tests Test 12/13/18 05:49 White Blood Count 6.7 # Red Blood Count 3.54 L Hemoglobin 10.6 L Hematocrit 31.3 L Mean Corpuscular Volume 88.4 Mean Corpuscular Hemoglobin 29.9 Mean Corpuscular Hemoglobin Concent 33.9 Red Cell Distribution Width 13.5 Platelet Count 155 Mean Platelet Volume 9.1 Immature Granulocytes % 0.300 Neutrophils % 74.0 Lymphocytes % 16.6 Monocytes % 7.8 Eosinophils % 1.0 Basophils % 0.3 Nucleated Red Blood Cells % 0.0 Immature Granulocytes # 0.020 Neutrophils # 4.9 Lymphocytes # 1.1 Monocytes # 0.5 Eosinophils # 0.1 Basophils # 0.0 Nucleated Red Blood Cells # 0.0 Sodium Level 134 L Potassium Level 4.2 Chloride Level 96 L Carbon Dioxide Level 29 Anion Gap 9 Blood Urea Nitrogen 19 Creatinine 0.84 Est Glomerular Filtrat Rate mL/min Glucose Level 105 Calcium Level 9.7 Total Bilirubin 1.0 Direct Bilirubin 0.00 Indirect Bilirubin 1.0 Aspartate Amino Transf (AST/SGOT) 27 Alanine Aminotransferase (ALT/SGPT) 26 Alkaline Phosphatase 66 B-Type Natriuretic Peptide 7230 H Total Protein 5.9 L Albumin 3.1 L Globulin 2.80 Albumin/Globulin Ratio 1.10 Home Meds Reported Medications Risperidone* (Risperidone*) 0.25 Mg Tablet, 0.25 MG PO BID, TAB 12/06/18 Lorazepam* (Lorazepam*) 0.5 Mg Tablet, 0.5 MG PO BID 12/06/18 Lisinopril* (Lisinopril*) 2.5 Mg Tablet, 2.5 MG PO DAILY 12/06/18 Oxybutynin Chloride (Oxybutynin Chloride ER) 5 Mg Tab.er.24, 5 MG PO DAILY 12/06/18 Multivitamins* (Theragran*) 1 Tab Tab, 1 TAB PO DAILY, TAB 05/03/16 Discontinued Reported Medications Buspirone Hcl* (Buspirone Hcl*) 10 Mg Tab, 15 MG PO BID, TAB PT TAKES THREE DAYS A WEEK 02/08/17 Cranberry (Cranberry) 400 Mg Capsule, 800 MG PO DAILY, CAP 05/03/16 Discontinued Scripts Lisinopril* (Lisinopril*) 5 Mg Tablet, 2.5 MG GTB DAILY for 30 Days, #30 TAB Prov:SIVA MILLER MD 11/22/18 Amoxicillin/Potassium Clav (Amox-Clav 875-125 mg Tablet) 875-125 mg Tab, 875 MG PO BID for 2 Days, #4 TAB Prov:SIVA MILLER MD 11/22/18 Aspirin* (Aspirin* EC) 81 Mg Tablet.dr, 81 MG PO DAILY for 30 Days, #30 Prov:LIA CHOU MD 06/10/17 Spironolactone* (Aldactone*) 25 Mg Tablet, 25 MG PO DAILY for 30 Days, #30 TAB Prov:ILA CHOU MD 06/10/17 Atorvastatin* (Atorvastatin*) 40 Mg Tablet, 40 MG PO HS for 30 Days, #30 TAB Prov:LIA CHOU MD 06/10/17 Carvedilol* (Carvedilol*) 3.125 Mg Tablet, 3.125 MG PO BID for 30 Days, #60 TAB Prov:LIA CHOU MD 06/10/17 Medications Current Medications Promethazine HCl/ Codeine (Phenergan/ Codeine) 5 ml Q6H PRN PO COUGH Last administered on 12/11/18 18:17; Admin Dose 5 ML; Start 12/06/18 at 16:30 Albuterol/ Ipratropium (Duoneb) 3 ml Q4H RESP THERAPY HHN Last administered on 12/13/18 10:34; Admin Dose 3 ML; Start 12/06/18 at 17:00 Multivitamins Therapeutic (Theragran) 1 tab DAILY PO Last administered on 12/13/18 10:15; Admin Dose 1 TAB; Start 12/06/18 at 17:00 Oxybutynin Chloride (Ditropan Xl) 5 mg DAILY PO Last administered on 12/13/18 10:15; Admin Dose 5 MG; Start 12/06/18 at 17:00 Enoxaparin Sodium (Lovenox) 30 mg DAILY SC Last administered on 12/13/18 10:52; Admin Dose 30 MG; Start 12/07/18 at 13:00 Memantine (Namenda) 10 mg DAILY PO Last administered on 12/13/18 10:16; Admin Dose 10 MG; Start 12/07/18 at 13:00 Escitalopram Oxalate (Lexapro) 10 mg DAILY PO Last administered on 12/13/18 10:17; Admin Dose 10 MG; Start 12/07/18 at 13:00 Haloperidol (Haldol) 0.5 mg Q3H PRN IV anxiety Last administered on 12/09/18 02:54; Admin Dose 0.5 MG; Start 12/09/18 at 03:00 Hydralazine HCl (Apresoline) 25 mg Q4 PRN PO ELEVATED BLOOD PRESSURE Last administered on 12/12/18 11:57; Admin Dose 25 MG; Start 12/09/18 at 14:30 Haloperidol (Haldol) 0.5 mg QHS PRN IV AGITATION; Start 12/09/18 at 14:30 Dextrose/Sodium Chloride 1,000 ml @ 50 mls/hr Q20H IV Last administered on 12/12/18 18:03; Admin Dose 50 MLS/HR; Start 12/09/18 at 14:30 Lisinopril (Zestril) 2.5 mg DAILY PO Last administered on 12/13/18 10:17; Admin Dose 2.5 MG; Start 12/10/18 at 09:00 Carvedilol (Coreg) 6.25 mg BID PO Last administered on 12/13/18 10:16; Admin Dose 6.25 MG; Start 12/09/18 at 21:00 Aspirin (Halfprin) 81 mg DAILY PO Last administered on 12/13/18 10:17; Admin Dose 81 MG; Start 12/09/18 at 17:30 Atorvastatin Calcium (Lipitor) 20 mg HS PO Last administered on 12/12/18 22:09; Admin Dose 20 MG; Start 12/09/18 at 21:00 Spironolactone (Aldactone) 25 mg DAILY PO Last administered on 12/13/18 10:16; Admin Dose 25 MG; Start 12/10/18 at 11:00 Magnesium Hydroxide (Milk Of Mag) 30 ml DAILY PRN PO CONSTIPATION; Start 12/10/18 at 13:00 Bisacodyl (Dulcolax) 5 mg BID PRN PO CONSTIPATION Last administered on 12/12/18 11:48; Admin Dose 5 MG; Start 12/10/18 at 13:00 Levofloxacin (Levaquin) 500 mg DAILY@06 PO Last administered on 12/13/18 06:00; Admin Dose 500 MG; Start 12/10/18 at 18:00; Stop 12/13/18 at 23:45 Furosemide (Lasix) 40 mg DAILY PO Last administered on 12/13/18 10:15; Admin Dose 40 MG; Start 12/11/18 at 10:00 Lorazepam (Ativan) 0.5 mg Q6H PRN PO AGITATION; Start 12/11/18 at 14:30 Assessment/Plan Hospital Course (Demo Recall) 1. Pneumonia 2. History of hypertrophic cardiomyopathy 3. Congestive heart failure chronic and stable secondary systolic and diastolic heart failure 4. History of possible chest pain currently with no symptoms 5. History of multiple CVA 6. Dyslipidemia 7. Encephalopathy 8. Abnormal EKG Recommendations cont Coreg, to be held for heart rate of less than 55 only. Aspirin and statin were started. Antibiotic management as per internal medicine physical therapy and rehab as per internal medicine cont PO lasix dc iv fluid if able to take better po intake Thank you for his referral. We will continue to follow along with you DREW MACARIO MD [facility] DREW MACARIO MD Dec 13, 2018 11:17
--- NOTE | 2018-12-13 12:47 | DS ---
Date/Time of Note Date/Time of Note DATE: 12/13/18 TIME: 12:40 Discharge Summary Admission/Discharge Info Admit Date/Time Dec 06, 2018 at 05:31 Discharge Date/Time 12/13/2018 Discharge Diagnosis pneumonia/ chf/ htn/ anxiety/ dementia/ edema/ high chol Patient Condition: Fair Consults pulm, PT, aru Procedures blood, urine, cxr Hx of Present Illness 83 yo f, lives at home w/ grown up son (who also has diverticulosis--pain med dep). one daughter lives near by. 1week ago d/junior from hosp after treated for pneumonia. congested coughs has not been better, felt more cp as of yesterday. 2x/week direct care counselor stops at home to clean, to help w/ shower, to cook. no new travelling/ meds/ diet. no f/c/n/v/dysuria/bm change. Hospital Course pt responded appropriately with all iv & po atbxs, resp chest PT, ivf, nursing cares. Her sob/ coughs are better. no c/o cp. showed slow progression w/ PT exercises, still unable to ambulate fully or transfer from bed to chair independently. remained afebrile/ vss during past 72hrs. started to eat more. Home Meds Reported Medications Risperidone* (Risperidone*) 0.25 Mg Tablet, 0.25 MG PO BID, TAB 12/06/18 Lorazepam* (Lorazepam*) 0.5 Mg Tablet, 0.5 MG PO BID 12/06/18 Lisinopril* (Lisinopril*) 2.5 Mg Tablet, 2.5 MG PO DAILY 12/06/18 Oxybutynin Chloride (Oxybutynin Chloride ER) 5 Mg Tab.er.24, 5 MG PO DAILY 12/06/18 Multivitamins* (Theragran*) 1 Tab Tab, 1 TAB PO DAILY, TAB 05/03/16 Discontinued Reported Medications Buspirone Hcl* (Buspirone Hcl*) 10 Mg Tab, 15 MG PO BID, TAB PT TAKES THREE DAYS A WEEK 02/08/17 Cranberry (Cranberry) 400 Mg Capsule, 800 MG PO DAILY, CAP 05/03/16 Discontinued Scripts Lisinopril* (Lisinopril*) 5 Mg Tablet, 2.5 MG GTB DAILY for 30 Days, #30 TAB Prov:SIVA MILLER MD 11/22/18 Amoxicillin/Potassium Clav (Amox-Clav 875-125 mg Tablet) 875-125 mg Tab, 875 MG PO BID for 2 Days, #4 TAB Prov:SIVA MILLER MD 11/22/18 Aspirin* (Aspirin* EC) 81 Mg Tablet.dr, 81 MG PO DAILY for 30 Days, #30 Prov:LIA CHOU MD 06/10/17 Spironolactone* (Aldactone*) 25 Mg Tablet, 25 MG PO DAILY for 30 Days, #30 TAB Prov:LIA CHOU MD 06/10/17 Atorvastatin* (Atorvastatin*) 40 Mg Tablet, 40 MG PO HS for 30 Days, #30 TAB Prov:LIA CHOU MD 06/10/17 Carvedilol* (Carvedilol*) 3.125 Mg Tablet, 3.125 MG PO BID for 30 Days, #60 TAB Prov:LIA CHOU MD 06/10/17 Follow-up Plan transfer to [facility] for up to 2weeks Primary Care Provider Shanice Hunter MD Time spent on discharge: > 30 minutes Pending Labs Laboratory Tests Test 12/13/18 05:49 White Blood Count 6.7 10^3/ul (4.8-10.8) Red Blood Count 3.54 10^6/ul (4.20-5.40) Hemoglobin 10.6 g/dl (12.0-16.0) Hematocrit 31.3 % (37.0-47.0) Mean Corpuscular Volume 88.4 fl (82.0-101.0) Mean Corpuscular Hemoglobin 29.9 pg (29.0-33.0) Mean Corpuscular Hemoglobin Concent 33.9 g/dl (32.0-37.0) Red Cell Distribution Width 13.5 % (11.5-14.5) Platelet Count 155 10^3/UL (140-415) Mean Platelet Volume 9.1 fl (7.4-10.4) Immature Granulocytes % 0.300 % (0.001-0.429) Neutrophils % 74.0 % (39.0-77.0) Lymphocytes % 16.6 % (15.0-51.0) Monocytes % 7.8 % (0.0-11.0) Eosinophils % 1.0 % (0.0-7.0) Basophils % 0.3 % (0.0-2.0) Nucleated Red Blood Cells % 0.0 /100WBC (0.0-0.0) Immature Granulocytes # 0.020 10^3/ul (0.0-0.031) Neutrophils # 4.9 10^3/ul (1.6-7.5) Lymphocytes # 1.1 10^3/ul (0.8-2.9) Monocytes # 0.5 10^3/ul (0.3-0.9) Eosinophils # 0.1 10^3/ul (0.0-0.5) Basophils # 0.0 10^3/ul (0.0-0.1) Nucleated Red Blood Cells # 0.0 10^3/ul (0.0-0.0) Sodium Level 134 mmol/L (135-144) Potassium Level 4.2 mmol/L (3.5-5.1) Chloride Level 96 mmol/L (97-110) Carbon Dioxide Level 29 mmol/L (21-31) Anion Gap 9 (5-13) Blood Urea Nitrogen 19 mg/dl (7-20) Creatinine 0.84 mg/dl (0.44-1.00) Est Glomerular Filtrat Rate mL/min mL/min (>60) Glucose Level 105 mg/dl (70-220) Calcium Level 9.7 mg/dl (8.4-10.2) Total Bilirubin 1.0 mg/dl (0.2-1.3) Direct Bilirubin 0.00 mg/dl (0.00-0.20) Indirect Bilirubin 1.0 mg/dl (0-1.1) Aspartate Amino Transf (AST/SGOT) 27 IU/L (15-46) Alanine Aminotransferase (ALT/SGPT) 26 IU/L (13-69) Alkaline Phosphatase 66 IU/L (42-121) B-Type Natriuretic Peptide 7230 PG/ML (0-450) Total Protein 5.9 g/dl (6.1-8.1) Albumin 3.1 g/dl (3.3-4.9) Globulin 2.80 g/dl (1.3-3.2) Albumin/Globulin Ratio 1.10 SHANICE HUNTER MD Dec 13, 2018 12:47
[2018-12-13] MEDS ORDERED: LORA-441 PO (12:55)
[2018-12-13] MEDS ORDERED: HALO5VIA16 IV ×2 (12:55)
[2018-12-13] MEDS ORDERED: Promethazine/Codeine Syp PO (12:55)
[2018-12-13] MEDS ORDERED: BISA5TAB6 PO (12:55)
[2018-12-13] MEDS ORDERED: ATOR20TA65 PO (12:55)
[2018-12-13] MEDS ORDERED: FURO40TA4 PO (12:55)
[2018-12-13] MEDS ORDERED: ENOX30DI2 SC (12:55)
[2018-12-13] MEDS ORDERED: ESCI10TA48 PO (12:55)
[2018-12-13] MEDS ORDERED: IPRA3AMP29 HHN (12:55)
[2018-12-13] MEDS ORDERED: SPIR25TA PO (12:55)
[2018-12-13] MEDS ORDERED: LISI-313 PO (12:55)
[2018-12-13] MEDS ORDERED: MEMA10TA20 PO (12:55)
[2018-12-13] MEDS ORDERED: ASPI-1044 PO (12:55)
[2018-12-13] MEDS ORDERED: CARV6.2579 PO (12:55)
[2018-12-13] MEDS ORDERED: HYDR-3671 PO (12:55)
[2018-12-13] MEDS ORDERED: UDMOM PO (12:55)
[2018-12-13] MEDS: DEXTROSE 5%-0.9% NACL 1,000 ML IV SCH ×2 (17:05→18:05)
[2018-12-13] MEDS: ATORVASTATIN 20 MG TAB PO SCH (21:26)
== END 2018-12-13 22:10 | DRG 193 ==
LOC: E/R 02:38 → 6WM 05:31
PROVIDERS: ADMIT Internal Medicine; ATTEND Internal Medicine
DX: J18.9 Pneumonia, unspecified organism (principal); I50.43 Acute on chronic combined systolic (congestive) and diastolic (congestive) heart failure; I13.0 Hypertensive heart and chronic kidney disease with heart failure and stage 1 through stage 4 chronic kidney disease, or unspecified chronic kidney disease; I42.2 Other hypertrophic cardiomyopathy; G93.40 Encephalopathy, unspecified; D64.9 Anemia, unspecified; E78.00 Pure hypercholesterolemia, unspecified; F03.90 Unspecified dementia, unspecified severity, without behavioral disturbance, psychotic disturbance, mood disturbance, and anxiety; F41.9 Anxiety disorder, unspecified; F32.9 Major depressive disorder, single episode, unspecified; N18.1 Chronic kidney disease, stage 1; R53.81 Other malaise; R60.0 Localized edema; R94.31 Abnormal electrocardiogram [ECG] [EKG]; R63.0 Anorexia; Z86.73 Personal history of transient ischemic attack (TIA), and cerebral infarction without residual deficits; Z68.24 Body mass index [BMI] 24.0-24.9, adult; Z79.82 Long term (current) use of aspirin
CPT/HCPCS: 36415; 71045; 80048; 80053; 80061; 80202; 82310; 82550; 82553; 82607; 82728; 82746; 83540; 83735; 83880; 84145; 84439; 84484; 85025; 85045; 87040; 87400; 90686; 92526; 92610; 93005; 94640; 94664; 96374; 97110; 97161; 97530; J0692; J1630; J1650; J1940; J1956; J3370; J7042

== ENCOUNTER 2018-12-13 20:05 | Inpatient (IN) | payer MEDICARE, BC ==
[~2018-12-13] VITALS: Ht 162.6 cm; Wt 73.5 kg
[~2018-12-13 20:05] MED LIST changes: -AMOX1TAB10 PO; +ASPI-1044 PO; -ASPI-817 PO; +ATOR20TA65 PO; -ATOR40TA68 PO; +BISA5TAB6 PO; -BUSP10TA2 PO; -CARV3.1260 PO; +CARV6.2579 PO; -CRAN400C PO; +ENOX30DI2 SC; +ESCI10TA48 PO; +FURO40TA4 PO; +HALO5VIA16 IV; +HYDR-3671 PO; +IPRA3AMP29 HHN; -LISI-313 GTB; +LISI-313 PO; +LISI2.5T59 PO; +LORA-441 PO; +LORA0.5T PO; +MEMA10TA20 PO; +OXYB5TAB PO; +Promethazine/Codeine Syp PO; +RISP0.253 PO; +UDMOM PO
[2018-12-13 22:30] VITALS: BP 149/75; PULSE 64; RESP 18; Ht 162.6 cm; Wt 73.5 kg
[2018-12-13] MEDS ORDERED: PROMETHAZINE/CODEINE 5ML CUP PO PRN (23:45)
[2018-12-13] MEDS ORDERED: HALOPERIDOL 5 MG INJ IV PRN ×2 (23:45)
[2018-12-13] MEDS ORDERED: BISACODYL (EC) 5 MG TAB PO PRN (23:45)
[2018-12-13] MEDS ORDERED: MAGNESIUM HYDROXIDE 30ML CUP PO PRN (23:45)
[2018-12-14] MEDS: ALBUTEROL/IPRATROPIUM (NEB) 3 ML AMP HHN SCH ×6 (01:55→19:55)
[2018-12-14 02:12] VITALS: BP 152/80; PULSE 68; RESP 18
[2018-12-14 07:00] VITALS: BP 149/78; PULSE 64; RESP 18
[2018-12-14] MEDS: SPIRONOLACTONE 25 MG TAB PO SCH (09:33)
[2018-12-14] MEDS: MEMANTINE 10 MG TAB PO SCH (09:33)
[2018-12-14] MEDS: ASPIRIN (EC) 81 MG TAB PO SCH (09:33)
[2018-12-14] MEDS: FUROSEMIDE 40 MG TAB PO SCH (09:34)
[2018-12-14] MEDS: LISINOPRIL 5 MG TAB PO SCH (09:35)
[2018-12-14] MEDS: ENOXAPARIN 30 MG/0.3 ML SYG SC SCH (09:38)
--- NOTE | 2018-12-14 10:31 | CONS ---
DATE OF ADMISSION: 12/13/2018 DATE OF CONSULTATION: 12/14/2018 TYPE OF CONSULTATION: Rehabilitation post-admission physician evaluation. REHABILITATION IMPAIRMENT CATEGORY: 1. 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 2. Pneumonia. 3. Congestive heart failure. 4. Hypertension. 5. Anxiety. 6. Hypercholesterolemia. 7. Impairments in self-care, mobility and cognition. HISTORY OF PRESENT ILLNESS: The patient is an 83-year-old female with a history of multiple medical comorbidities including recent treatment for pneumonia who had been noted to have worsening cough, generalized weakness and confusion. The patient was noted to have pneumonia in addition to congestive heart failure and component of toxic metabolic encephalopathy. The patient noted to have significant impairments in self-care and mobility as compared to baseline, and has been cleared to transfer to the rehabilitation unit for comprehensive interdisciplinary rehab care. FUNCTIONAL HISTORY: Prior to recent events, the patient required minimal to standby assist for self-care and mobility tasks. Currently, the patient requires maximal assist for self-care and mobility. I have reviewed the preadmission screen and the patient's current functional status is consistent with the preadmission screen. FAMILY AND SOCIAL HISTORY: The patient reportedly lives at home. She has a son who is actively involved with her care in addition to caregiver and she hopes to return home upon discharge. PAST MEDICAL HISTORY: 1. Congestive heart failure. 2. Coronary artery disease. 3. Hypercholesterolemia. 4. Hypertension. 5. Chronic kidney disease. 6. Chronic obstructive pulmonary disease. 7. Hypertension. 8. Cardiomyopathy. 9. Dyslipidemia. CURRENT MEDICATIONS: 1. Aspirin 81 mg p.o. daily. 2. Lipitor 20 mg p.o. at bedtime. 3. Coreg 6.25 mg p.o. b.i.d. 4. Lovenox 30 mg subcutaneous daily. 5. Lexapro 10 mg p.o. daily. 6. Lasix 40 mg p.o. daily. 7. Haldol p.r.n. 8. Apresoline 25 mg p.r.n. 9. Lisinopril 2.5 mg p.o. daily. 10. Milk of magnesia p.r.n. 11. Namenda 10 mg p.o. daily. 12. Aldactone 25 mg p.o. daily. ALLERGIES: LATEX. PHYSICAL EXAMINATION: VITAL SIGNS: The patient is currently afebrile with stable vital signs. HEENT: Extraocular motions are intact. Oropharynx is clear. NECK: Supple. LUNGS: Clear anteriorly. CARDIAC: S1, S2. ABDOMEN: Soft, nontender, positive bowel sounds. NEUROLOGIC: She is awake. She is oriented to person. She has impaired short- term memory. She will follow simple 1-step commands. She demonstrates antigravity strength in the left upper extremity. She has decreased forward flexion and abduction in addition to elbow extension on the right. She has antigravity strength in bilateral lower extremities. PLAN: The patient has been admitted for comprehensive interdisciplinary acute rehab and is anticipated to tolerate 3 hours of daily therapy in divided doses for at least 5/7 days a week. The treatment plan will include: 1. Physical therapy to focus on bed mobility, transfers, and household ambulation with the goal of having the patient reach a standby assist level. 2. Occupational therapy to focus on hygiene, grooming, dressing, bathing, and toileting activities with goal of having patient reach standby assist level. 3. Rehabilitation nursing for carryover of therapeutic interventions, the goal of continent of bowel and bladder, and the goal of patient education with regard to aforementioned issues. 4. Neuropsychology for full cognitive evaluation and oversight of cognitive retraining with the goal of having the patient return to baseline cognition. Rehabilitation Barrier: Cognition Intervention for barrier: Interdisciplinary rehab Estimated Length of stay: rehab trial of 1 week I acknowledge that I performed a full physical examination on this patient within 24 hours of admission to the rehabilitation unit. I believe the patient is a good candidate for comprehensive interdisciplinary rehab care and is anticipated to make reasonable goals in a reasonable period of time as outlined above. Dictated By: SRAVAN CAIN/NTS Conf#: [id number] DID#: [id number] CC: SRAVAN BARTON MD; EMILY GAY MD;*EndCC* MTDD
[2018-12-14 14:00] VITALS: BP 134/60; PULSE 59; RESP 18
[2018-12-14] MEDS: ESCITALOPRAM 10 MG TAB PO SCH (14:17)
[2018-12-14] MEDS ORDERED: PENDING SANTYL ORDER FOR WOUND CARE XX PRN (14:30)
[2018-12-14 19:42] VITALS: BP 146/64; PULSE 62; RESP 18
[2018-12-14] MEDS: ATORVASTATIN 20 MG TAB PO SCH (20:30)
[2018-12-15] MEDS: ALBUTEROL/IPRATROPIUM (NEB) 3 ML AMP HHN SCH ×6 (01:08→20:16)
[2018-12-15 02:00] VITALS: BP 138/65; PULSE 56; RESP 18
[2018-12-15 07:00] VITALS: BP 160/76; PULSE 61; RESP 18
[2018-12-15] MEDS: MEMANTINE 10 MG TAB PO SCH (09:07)
[2018-12-15] MEDS: ASPIRIN (EC) 81 MG TAB PO SCH (09:07)
[2018-12-15] MEDS: ESCITALOPRAM 10 MG TAB PO SCH (09:07)
[2018-12-15] MEDS: SPIRONOLACTONE 25 MG TAB PO SCH (09:13)
[2018-12-15] MEDS: FUROSEMIDE 40 MG TAB PO SCH (09:13)
[2018-12-15] MEDS: LISINOPRIL 5 MG TAB PO SCH (09:14)
[2018-12-15] MEDS: ENOXAPARIN 30 MG/0.3 ML SYG SC SCH (09:21)
[2018-12-15 14:00] VITALS: BP 126/60; PULSE 62; RESP 18
--- NOTE | 2018-12-15 16:16 | CONS ---
Consult Date/Type/Reason Admit Date/Time Dec 13, 2018 at 22:20 Initial Consult Date 12/14/2018 Type of Consultation: int med Reason for Consultation multi medical problems care Date/Time of Note DATE: 12/14/18 TIME: 20:16 Subjective weak, depressed Objective Vitals Vital Signs Date Temp Pulse Resp B/P (MAP) Pulse Ox O2 O2 Flow FiO2 Time Delivery Rate 12/14/18 97.3 62 18 156/84 98 Room Air 14:00 12/15/18 3.0 08:30 Intake and Output 12/14/18 12/14/18 1515:00 23:00 IntakeIntake Total 1080 ml BalanceBalance 1080 ml Results/Medications Result Diagram: 12/14/18 0648 12/14/18 0648 Home Meds Active Scripts Magnesium Hydroxide* (Servin' MOM*) 30 Ml Susp, 30 ML PO DAILY PRN for CONSTIPATION for 14 Days Prov:EMILY GAY MD 12/13/18 Bisacodyl* (Bisacodyl*) 5 Mg Tablet.dr, 5 MG PO BID PRN for CONSTIPATION for 14 Days Prov:EMILY GAY MD 12/13/18 [Promethazine/Codeine Syp] 5 ML SYRUP No Conflict Check, 5 ML PO Q6H PRN for COUGH for 14 Days Prov:EMILY GAY MD 12/13/18 Furosemide* (Furosemide*) 40 Mg Tablet, 40 MG PO DAILY for 14 Days, TAB Prov:EMILY GAY MD 12/13/18 Memantine HCl (Memantine HCl) 10 Mg Tablet, 10 MG PO DAILY for 14 Days, TAB Prov:EMILY GAY MD 12/13/18 Lorazepam* (Ativan*) 0.5 Mg Tablet, 0.5 MG PO Q6H PRN for AGITATION for 14 Days, TAB Prov:EMILY GAY MD 12/13/18 Haloperidol Lactate (Haloperidol Lactate) 5 Mg/1 Ml Vial, 0.5 MG IV Q3H PRN for anxiety for 14 Days, VIAL Prov:EMILY GAY MD 12/13/18 Haloperidol Lactate (Haloperidol Lactate) 5 Mg/1 Ml Vial, 0.5 MG IV QHS PRN for AGITATION for 14 Days, VIAL Prov:EMILY GAY MD 12/13/18 Escitalopram Oxalate* (Escitalopram Oxalate*) 10 Mg Tablet, 10 MG PO DAILY for 14 Days, TAB Prov:EMILY GAY MD 12/13/18 Aspirin Delayed Release (Aspirin Delayed Release) 81 Mg Tablet.dr, 81 MG PO DAILY for 14 Days Prov:EMILY GAY MD 12/13/18 Spironolactone* (Aldactone*) 25 Mg Tablet, 25 MG PO DAILY for 14 Days, TAB Prov:EMILY GAY MD 12/13/18 Lisinopril* (Lisinopril*) 5 Mg Tablet, 2.5 MG PO DAILY for 14 Days, TAB Prov:EMILY GAY MD 12/13/18 Enoxaparin Sodium* (Enoxaparin Sodium*) 30 Mg/0.3 Ml Syringe, 30 MG SC DAILY for 14 Days Prov:EMILY GAY MD 12/13/18 Hydralazine Hcl* (Hydralazine Hcl*) 25 Mg Tab, 25 MG PO Q4 PRN for ELEVATED BLOOD PRESSURE for 14 Days, TAB Prov:EMILY GAY MD 12/13/18 Carvedilol* (Carvedilol*) 6.25 Mg Tablet, 6.25 MG PO BID for 14 Days, TAB Prov:EMILY GAY MD 12/13/18 Atorvastatin Calcium (Atorvastatin Calcium) 20 Mg Tablet, 20 MG PO HS for 14 Days, TAB Prov:EMILY GAY MD 12/13/18 Ipratropium-Albuterol (Ipratropium-Albuterol) 0.5-3 Mg/3 Ml Ampul.neb, 3 ML HHN Q4H RESP THERAPY for 14 Days Prov:EMILY GAY MD 12/13/18 Reported Medications Lisinopril* (Lisinopril*) 2.5 Mg Tablet, 2.5 MG PO DAILY 12/06/18 Oxybutynin Chloride (Oxybutynin Chloride ER) 5 Mg Tab.er.24, 5 MG PO DAILY 12/06/18 Multivitamins* (Theragran*) 1 Tab Tab, 1 TAB PO DAILY, TAB 05/03/16 Discontinued Reported Medications Risperidone* (Risperidone*) 0.25 Mg Tablet, 0.25 MG PO BID, TAB 12/06/18 Lorazepam* (Lorazepam*) 0.5 Mg Tablet, 0.5 MG PO BID 12/06/18 Medications Current Medications Memantine (Namenda) 10 mg DAILY PO Last administered on 12/15/18 09:07; Admin Dose 10 MG; Start 12/14/18 at 09:00 Promethazine HCl/ Codeine (Phenergan/ Codeine) 5 ml Q6H PRN PO COUGH; Start 12/13/18 at 23:45 Spironolactone (Aldactone) 25 mg DAILY PO Last administered on 12/15/18 09:13; Admin Dose 25 MG; Start 12/14/18 at 09:00 Hydralazine HCl (Apresoline) 25 mg Q4H PRN PO ELEVATED BLOOD PRESSURE; Start 12/13/18 at 23:45 Lisinopril (Zestril) 2.5 mg DAILY PO Last administered on 12/15/18 09:14; Admin Dose 2.5 MG; Start 12/14/18 at 09:00 Lorazepam (Ativan) 0.5 mg Q6H PRN PO ANXIETY; Start 12/13/18 at 23:45 Magnesium Hydroxide (Milk Of Mag) 30 ml DAILY PRN PO CONSTIPATION; Start 12/13/18 at 23:45 Escitalopram Oxalate (Lexapro) 10 mg DAILY PO Last administered on 12/15/18 09:07; Admin Dose 10 MG; Start 12/14/18 at 09:00 Furosemide (Lasix) 40 mg DAILY PO Last administered on 12/15/18 09:13; Admin Dose 40 MG; Start 12/14/18 at 09:00 Haloperidol (Haldol) 0.5 mg Q3H PRN IV AGITATION; Start 12/13/18 at 23:45 Haloperidol (Haldol) 0.5 mg HS PRN IV AGITATION; Start 12/13/18 at 23:45 Albuterol/ Ipratropium (Duoneb) 3 ml Q4H RESP THERAPY HHN Last administered on 12/15/18 08:08; Admin Dose 3 ML; Start 12/14/18 at 01:00 Aspirin (Halfprin) 81 mg DAILY PO Last administered on 12/15/18 09:07; Admin Dose 81 MG; Start 12/14/18 at 09:00 Atorvastatin Calcium (Lipitor) 20 mg DAILY@21 PO Last administered on 12/14/18 20:30; Admin Dose 20 MG; Start 12/14/18 at 21:00 Bisacodyl (Dulcolax) 5 mg BID PRN PO CONSTIPATION; Start 12/13/18 at 23:45 Carvedilol (Coreg) 6.25 mg BID PO Last administered on 12/15/18at 09:12; Admin Dose 6.25 MG; Start 12/14/18 at 00:00 Enoxaparin Sodium (Lovenox) 30 mg DAILY SC Last administered on 12/15/18at 09:21; Admin Dose 30 MG; Start 12/14/18 at 09:00 Miscellaneous Information (Pending Santyl Order For Wound Care) This patient hensley... PRN PRN XX WOUND CARE; Start 12/14/18 at 14:30 Assessment/Plan Assessment/Plan (Daily) 1. debility worsening--barely out of bed/ depression/ dementia 2. htn/ chf 3. s/p pneumonia 4. ckd II ---transfer to [facility] ---per cards ---inc bp med dose ---must inc po marcia intake ---must do more oob activities EMILY GAY MD Dec 15, 2018 16:16
--- NOTE | 2018-12-15 16:17 | CONS ---
Consult Date/Type/Reason Admit Date/Time Dec 13, 2018 at 22:20 Initial Consult Date 12/14/2018 Date/Time of Note DATE: 12/15/18 TIME: 16:17 Subjective weak, less coughs Objective Vitals Vital Signs Date Temp Pulse Resp B/P (MAP) Pulse Ox O2 O2 Flow FiO2 Time Delivery Rate 12/15/18 97.3 62 18 126/60 98 Room Air 14:00 (82) 12/15/18 3.0 08:30 Intake and Output 12/14/18 12/14/18 12/15/18 1515:00 23:00 07:00 IntakeIntake Total 1080 ml BalanceBalance 1080 ml Exam in bed, quiet, frown, rr, cta, no c/c/e Results/Medications Result Diagram: 12/14/1848 12/14/1848 Home Meds Active Scripts Magnesium Hydroxide* (Servin' MOM*) 30 Ml Susp, 30 ML PO DAILY PRN for CONSTIPATION for 14 Days Prov:EMILY GAY MD 12/13/18 Bisacodyl* (Bisacodyl*) 5 Mg Tablet.dr, 5 MG PO BID PRN for CONSTIPATION for 14 Days Prov:EMILY GAY MD 12/13/18 [Promethazine/Codeine Syp] 5 ML SYRUP No Conflict Check, 5 ML PO Q6H PRN for COUGH for 14 Days Prov:EMILY GAY MD 12/13/18 Furosemide* (Furosemide*) 40 Mg Tablet, 40 MG PO DAILY for 14 Days, TAB Prov:EMILY GAY MD 12/13/18 Memantine HCl (Memantine HCl) 10 Mg Tablet, 10 MG PO DAILY for 14 Days, TAB Prov:EMILY GAY MD 12/13/18 Lorazepam* (Ativan*) 0.5 Mg Tablet, 0.5 MG PO Q6H PRN for AGITATION for 14 Days, TAB Prov:EMILY GAY MD 12/13/18 Haloperidol Lactate (Haloperidol Lactate) 5 Mg/1 Ml Vial, 0.5 MG IV Q3H PRN for anxiety for 14 Days, VIAL Prov:EMILY GAY MD 12/13/18 Haloperidol Lactate (Haloperidol Lactate) 5 Mg/1 Ml Vial, 0.5 MG IV QHS PRN for AGITATION for 14 Days, VIAL Prov:EMILY GAY MD 12/13/18 Escitalopram Oxalate* (Escitalopram Oxalate*) 10 Mg Tablet, 10 MG PO DAILY for 14 Days, TAB Prov:EMILY GAY MD 12/13/18 Aspirin Delayed Release (Aspirin Delayed Release) 81 Mg Tablet.dr, 81 MG PO DAILY for 14 Days Prov:EMILY GAY MD 12/13/18 Spironolactone* (Aldactone*) 25 Mg Tablet, 25 MG PO DAILY for 14 Days, TAB Prov:EMILY GAY MD 12/13/18 Lisinopril* (Lisinopril*) 5 Mg Tablet, 2.5 MG PO DAILY for 14 Days, TAB Prov:EMILY GAY MD 12/13/18 Enoxaparin Sodium* (Enoxaparin Sodium*) 30 Mg/0.3 Ml Syringe, 30 MG SC DAILY for 14 Days Prov:EMILY GAY MD 12/13/18 Hydralazine Hcl* (Hydralazine Hcl*) 25 Mg Tab, 25 MG PO Q4 PRN for ELEVATED BLOOD PRESSURE for 14 Days, TAB Prov:EMILY GAY MD 12/13/18 Carvedilol* (Carvedilol*) 6.25 Mg Tablet, 6.25 MG PO BID for 14 Days, TAB Prov:EMILY GAY MD 12/13/18 Atorvastatin Calcium (Atorvastatin Calcium) 20 Mg Tablet, 20 MG PO HS for 14 Days, TAB Prov:EMILY GAY MD 12/13/18 Ipratropium-Albuterol (Ipratropium-Albuterol) 0.5-3 Mg/3 Ml Ampul.neb, 3 ML HHN Q4H RESP THERAPY for 14 Days Prov:EMILY GAY MD 12/13/18 Reported Medications Lisinopril* (Lisinopril*) 2.5 Mg Tablet, 2.5 MG PO DAILY 12/06/18 Oxybutynin Chloride (Oxybutynin Chloride ER) 5 Mg Tab.er.24, 5 MG PO DAILY 12/06/18 Multivitamins* (Theragran*) 1 Tab Tab, 1 TAB PO DAILY, TAB 05/03/16 Discontinued Reported Medications Risperidone* (Risperidone*) 0.25 Mg Tablet, 0.25 MG PO BID, TAB 12/06/18 Lorazepam* (Lorazepam*) 0.5 Mg Tablet, 0.5 MG PO BID 12/06/18 Medications Current Medications Memantine (Namenda) 10 mg DAILY PO Last administered on 12/15/18 09:07; Admin Dose 10 MG; Start 12/14/18 at 09:00 Promethazine HCl/ Codeine (Phenergan/ Codeine) 5 ml Q6H PRN PO COUGH; Start 12/13/18 at 23:45 Spironolactone (Aldactone) 25 mg DAILY PO Last administered on 12/15/18 09:13; Admin Dose 25 MG; Start 12/14/18 at 09:00 Hydralazine HCl (Apresoline) 25 mg Q4H PRN PO ELEVATED BLOOD PRESSURE; Start 12/13/18 at 23:45 Lisinopril (Zestril) 2.5 mg DAILY PO Last administered on 12/15/18at 09:14; Admin Dose 2.5 MG; Start 12/14/18 at 09:00 Lorazepam (Ativan) 0.5 mg Q6H PRN PO ANXIETY; Start 12/13/18 at 23:45 Magnesium Hydroxide (Milk Of Mag) 30 ml DAILY PRN PO CONSTIPATION; Start 12/13/18 at 23:45 Escitalopram Oxalate (Lexapro) 10 mg DAILY PO Last administered on 12/15/18 09:07; Admin Dose 10 MG; Start 12/14/18 at 09:00 Furosemide (Lasix) 40 mg DAILY PO Last administered on 12/15/18 09:13; Admin Dose 40 MG; Start 12/14/18 at 09:00 Haloperidol (Haldol) 0.5 mg Q3H PRN IV AGITATION; Start 12/13/18 at 23:45 Haloperidol (Haldol) 0.5 mg HS PRN IV AGITATION; Start 12/13/18 at 23:45 Albuterol/ Ipratropium (Duoneb) 3 ml Q4H RESP THERAPY HHN Last administered on 12/15/18at 08:08; Admin Dose 3 ML; Start 12/14/18 at 01:00 Aspirin (Halfprin) 81 mg DAILY PO Last administered on 12/15/18 09:07; Admin Dose 81 MG; Start 12/14/18 at 09:00 Atorvastatin Calcium (Lipitor) 20 mg DAILY@21 PO Last administered on 12/14/18at 20:30; Admin Dose 20 MG; Start 12/14/18 at 21:00 Bisacodyl (Dulcolax) 5 mg BID PRN PO CONSTIPATION; Start 12/13/18 at 23:45 Carvedilol (Coreg) 6.25 mg BID PO Last administered on 12/15/18at 09:12; Admin Dose 6.25 MG; Start 12/14/18 at 00:00 Enoxaparin Sodium (Lovenox) 30 mg DAILY SC Last administered on 12/15/18at 09:21; Admin Dose 30 MG; Start 12/14/18 at 09:00 Miscellaneous Information (Pending [facility] Order For Wound Care) This patient hensley... PRN PRN XX WOUND CARE; Start 12/14/18 at 14:30 Assessment/Plan Assessment/Plan (Daily) 1. debility worsening/ depression/ dementia--refused to eat 2. s/p pneumonia 3. htn/ chf 4. ckd II ---per rehab ---must do all OT/ PT exercises ---per cards ---must inc po marcia intake EMILY GAY MD Dec 15, 2018 16:17
[2018-12-15] MEDS ORDERED: ACETAMINOPHEN 325 MG TAB PO PRN (19:00)
[2018-12-15] MEDS ORDERED: LACTULOSE 30ML CUP PO PRN (19:00)
[2018-12-15 20:00] VITALS: BP 165/72; PULSE 70; RESP 18
[2018-12-15] MEDS: ATORVASTATIN 20 MG TAB PO SCH (20:47)
[2018-12-15] MEDS: DOCUSATE SODIUM 100 MG CAP PO SCH (20:48)
[2018-12-15] MEDS: SENNA TAB PO SCH (20:48)
[2018-12-15] MEDS: LORAZEPAM 0.5 MG TAB PO PRN (22:59)
[2018-12-15 23:01] VITALS: BP 124/61; PULSE 65
[2018-12-16] MEDS: ALBUTEROL/IPRATROPIUM (NEB) 3 ML AMP HHN SCH ×6 (01:45→20:39)
[2018-12-16 02:00] VITALS: BP 143/65; PULSE 63; RESP 18
[2018-12-16 07:00] VITALS: BP 159/71; PULSE 53; RESP 18
[2018-12-16] MEDS: DOCUSATE SODIUM 100 MG CAP PO SCH ×2 (08:35→20:39)
[2018-12-16] MEDS: ESCITALOPRAM 10 MG TAB PO SCH (08:35)
[2018-12-16] MEDS: ASPIRIN (EC) 81 MG TAB PO SCH (08:35)
[2018-12-16] MEDS: FUROSEMIDE 40 MG TAB PO SCH (08:36)
[2018-12-16] MEDS: SPIRONOLACTONE 25 MG TAB PO SCH (08:36)
[2018-12-16] MEDS: MEMANTINE 10 MG TAB PO SCH (08:36)
[2018-12-16] MEDS: LISINOPRIL 5 MG TAB PO SCH (08:36)
[2018-12-16] MEDS: ENOXAPARIN 30 MG/0.3 ML SYG SC SCH (08:37)
--- NOTE | 2018-12-16 12:52 | PN ---
Date/Time of Note Date/Time of Note DATE: 12/16/18 TIME: 12:51 Objective Vital Signs Date Temp Pulse Resp B/P (MAP) Pulse Ox O2 O2 Flow FiO2 Time Delivery Rate 12/16/18 53 16 97 Nasal 3.0 08:08 Cannula 12/16/18 97.7 159/71 07:00 (100) Intake and Output 12/15/18 12/15/18 12/16/18 1515:00 23:00 07:00 IntakeIntake Total 1200 ml 210 ml OutputOutput Total 600 ml BalanceBalance 600 ml 210 ml Exam INTERDISCIPLINARY TEAM CONFERENCE Physical Exam: Pulm- cta Abd-soft BOWEL- Cont BLADDER-Cont /incont SKIN- improving OT- DRESSING-max BATHING-max TOILETING-max PT- BED MOBILITY-max TRANSFERS-max AMBULATION- UA SPEECH- COGNITION- mod Dysphagia-soft and thin liquid A/P- Interdisciplinary team conference held today. Please see interdisciplinary sheet. Working toward d.c. on 12/20 with post discharge follow up of physical therapy, occupational therapy. Results/Medications Result Diagram: 12/14/18 0648 12/14/18 0648 Results 24 hrs Laboratory Tests Test 12/15/18 20:50 Urine Color YELLOW Urine Clarity CLEAR Urine pH 6.0 Urine Specific [place] 1.011 Urine Ketones NEGATIVE Urine Nitrite NEGATIVE Urine Bilirubin NEGATIVE Urine Urobilinogen NEGATIVE Urine Leukocyte Esterase NEGATIVE Urine Hemoglobin NEGATIVE Urine Glucose NEGATIVE Urine Total Protein NEGATIVE Medications Current Medications Memantine (Namenda) 10 mg DAILY PO Last administered on 12/16/18at 08:36; Admin Dose 10 MG; Start 12/14/18 at 09:00 Promethazine HCl/ Codeine (Phenergan/ Codeine) 5 ml Q6H PRN PO COUGH; Start 12/13/18 at 23:45 Spironolactone (Aldactone) 25 mg DAILY PO Last administered on 12/16/18at 08:36; Admin Dose 25 MG; Start 12/14/18 at 09:00 Hydralazine HCl (Apresoline) 25 mg Q4H PRN PO ELEVATED BLOOD PRESSURE; Start 12/13/18 at 23:45 Lisinopril (Zestril) 2.5 mg DAILY PO Last administered on 12/16/18at 08:36; Admin Dose 2.5 MG; Start 12/14/18 at 09:00 Lorazepam (Ativan) 0.5 mg Q6H PRN PO ANXIETY Last administered on 12/15/18 22:59; Admin Dose 0.5 MG; Start 12/13/18 at 23:45 Magnesium Hydroxide (Milk Of Mag) 30 ml DAILY PRN PO CONSTIPATION; Start 12/13/18 at 23:45 Escitalopram Oxalate (Lexapro) 10 mg DAILY PO Last administered on 12/16/18 08:35; Admin Dose 10 MG; Start 12/14/18 at 09:00 Furosemide (Lasix) 40 mg DAILY PO Last administered on 12/16/18 08:36; Admin Dose 40 MG; Start 12/14/18 at 09:00 Haloperidol (Haldol) 0.5 mg Q3H PRN IV AGITATION; Start 12/13/18 at 23:45 Haloperidol (Haldol) 0.5 mg HS PRN IV AGITATION; Start 12/13/18 at 23:45 Albuterol/ Ipratropium (Duoneb) 3 ml Q4H RESP THERAPY HHN Last administered on 12/16/18 08:07; Admin Dose 3 ML; Start 12/14/18 at 01:00 Aspirin (Halfprin) 81 mg DAILY PO Last administered on 12/16/18 08:35; Admin Dose 81 MG; Start 12/14/18 at 09:00 Atorvastatin Calcium (Lipitor) 20 mg DAILY@21 PO Last administered on 12/15/18 20:47; Admin Dose 20 MG; Start 12/14/18 at 21:00 Bisacodyl (Dulcolax) 5 mg BID PRN PO CONSTIPATION; Start 12/13/18 at 23:45 Carvedilol (Coreg) 6.25 mg BID PO Last administered on 12/16/18 08:36; Admin Dose 6.25 MG; Start 12/14/18 at 00:00 Enoxaparin Sodium (Lovenox) 30 mg DAILY SC Last administered on 12/16/18 08:37; Admin Dose 30 MG; Start 12/14/18 at 09:00 Miscellaneous Information (Pending Santyl Order For Wound Care) This patient hensley... PRN PRN XX WOUND CARE; Start 12/14/18 at 14:30 Docusate Sodium (Colace) 100 mg BID PO Last administered on 12/16/18 08:35; Admin Dose 100 MG; Start 12/15/18 at 21:00 Senna (Senokot) 1 tab HS PO Last administered on 12/15/18at 20:48; Admin Dose 1 TAB; Start 12/15/18 at 21:00 Lactulose (Enulose) 20 gm DAILY PRN PO CONSTIPATION; Start 12/15/18 at 19:00 Acetaminophen (Tylenol Tab) 650 mg Q4H PRN PO PAIN Last administered on 12/15/18at 20:47; Admin Dose 650 MG; Start 12/15/18 at 19:00 SRAVAN BARTON MD Dec 16, 2018 12:52
[2018-12-16 14:00] VITALS: BP 150/76; PULSE 53; RESP 18
--- NOTE | 2018-12-16 14:02 | CONS ---
Consult Date/Type/Reason Admit Date/Time Dec 13, 2018 at 22:20 Initial Consult Date 12/14/2018 Type of Consultation: int med Reason for Consultation high bp & other multi med probs Date/Time of Note DATE: 12/16/18 TIME: 13:55 Subjective weak, no appetite Objective Vitals Vital Signs Date Temp Pulse Resp B/P (MAP) Pulse Ox O2 O2 Flow FiO2 Time Delivery Rate 12/16/18 Nasal 3.0 08:30 Cannula 12/16/18 53 16 97 08:08 12/16/18 97.7 159/71 07:00 (100) Intake and Output 12/15/18 12/15/18 12/16/18 1515:00 23:00 07:00 IntakeIntake Total 1200 ml 210 ml OutputOutput Total 600 ml BalanceBalance 600 ml 210 ml Exam pale, in bed, rr, dec bs bibasilar, no c/c/e, bp high Results/Medications Result Diagram: 12/14/1848 12/14/18 0648 Results 24 hrs Laboratory Tests Test 12/15/18 20:50 Urine Color YELLOW Urine Clarity CLEAR Urine pH 6.0 Urine Specific [place] 1.011 Urine Ketones NEGATIVE Urine Nitrite NEGATIVE Urine Bilirubin NEGATIVE Urine Urobilinogen NEGATIVE Urine Leukocyte Esterase NEGATIVE Urine Hemoglobin NEGATIVE Urine Glucose NEGATIVE Urine Total Protein NEGATIVE Home Meds Active Scripts Magnesium Hydroxide* (Servin' MOM*) 30 Ml Susp, 30 ML PO DAILY PRN for CONSTIPATION for 14 Days Prov:EMILY GAY MD 12/13/18 Bisacodyl* (Bisacodyl*) 5 Mg Tablet.dr, 5 MG PO BID PRN for CONSTIPATION for 14 Days Prov:EMILY GAY MD 12/13/18 [Promethazine/Codeine Syp] 5 ML SYRUP No Conflict Check, 5 ML PO Q6H PRN for COUGH for 14 Days Prov:EMILY GAY MD 12/13/18 Furosemide* (Furosemide*) 40 Mg Tablet, 40 MG PO DAILY for 14 Days, TAB Prov:EMILY GAY MD 12/13/18 Memantine HCl (Memantine HCl) 10 Mg Tablet, 10 MG PO DAILY for 14 Days, TAB Prov:EMILY GAY MD 12/13/18 Lorazepam* (Ativan*) 0.5 Mg Tablet, 0.5 MG PO Q6H PRN for AGITATION for 14 Days, TAB Prov:EMILY GAY MD 12/13/18 Haloperidol Lactate (Haloperidol Lactate) 5 Mg/1 Ml Vial, 0.5 MG IV Q3H PRN for anxiety for 14 Days, VIAL Prov:EMILY GAY MD 12/13/18 Haloperidol Lactate (Haloperidol Lactate) 5 Mg/1 Ml Vial, 0.5 MG IV QHS PRN for AGITATION for 14 Days, VIAL Prov:EMILY GAY MD 12/13/18 Escitalopram Oxalate* (Escitalopram Oxalate*) 10 Mg Tablet, 10 MG PO DAILY for 14 Days, TAB Prov:EMILY GAY MD 12/13/18 Aspirin Delayed Release (Aspirin Delayed Release) 81 Mg Tablet.dr, 81 MG PO DAILY for 14 Days Prov:EMILY GAY MD 12/13/18 Spironolactone* (Aldactone*) 25 Mg Tablet, 25 MG PO DAILY for 14 Days, TAB Prov:EMILY GAY MD 12/13/18 Lisinopril* (Lisinopril*) 5 Mg Tablet, 2.5 MG PO DAILY for 14 Days, TAB Prov:EMILY GAY MD 12/13/18 Enoxaparin Sodium* (Enoxaparin Sodium*) 30 Mg/0.3 Ml Syringe, 30 MG SC DAILY for 14 Days Prov:EMILY GAY MD 12/13/18 Hydralazine Hcl* (Hydralazine Hcl*) 25 Mg Tab, 25 MG PO Q4 PRN for ELEVATED BLOOD PRESSURE for 14 Days, TAB Prov:EMILY GAY MD 12/13/18 Carvedilol* (Carvedilol*) 6.25 Mg Tablet, 6.25 MG PO BID for 14 Days, TAB Prov:EMILY GAY MD 12/13/18 Atorvastatin Calcium (Atorvastatin Calcium) 20 Mg Tablet, 20 MG PO HS for 14 Days, TAB Prov:EMILY AGY MD 12/13/18 Ipratropium-Albuterol (Ipratropium-Albuterol) 0.5-3 Mg/3 Ml Ampul.neb, 3 ML HHN Q4H RESP THERAPY for 14 Days Prov:EMILY GAY MD 12/13/18 Reported Medications Lisinopril* (Lisinopril*) 2.5 Mg Tablet, 2.5 MG PO DAILY 12/06/18 Oxybutynin Chloride (Oxybutynin Chloride ER) 5 Mg Tab.er.24, 5 MG PO DAILY 12/06/18 Multivitamins* (Theragran*) 1 Tab Tab, 1 TAB PO DAILY, TAB 05/03/16 Discontinued Reported Medications Risperidone* (Risperidone*) 0.25 Mg Tablet, 0.25 MG PO BID, TAB 12/06/18 Lorazepam* (Lorazepam*) 0.5 Mg Tablet, 0.5 MG PO BID 12/06/18 Medications Current Medications Memantine (Namenda) 10 mg DAILY PO Last administered on 12/16/18 08:36; Admin Dose 10 MG; Start 12/14/18 at 09:00 Promethazine HCl/ Codeine (Phenergan/ Codeine) 5 ml Q6H PRN PO COUGH; Start 12/13/18 at 23:45 Hydralazine HCl (Apresoline) 25 mg Q4H PRN PO ELEVATED BLOOD PRESSURE; Start 12/13/18 at 23:45 Lisinopril (Zestril) 2.5 mg DAILY PO Last administered on 12/16/18at 08:36; Admin Dose 2.5 MG; Start 12/14/18 at 09:00 Lorazepam (Ativan) 0.5 mg Q6H PRN PO ANXIETY Last administered on 12/15/18at 22:59; Admin Dose 0.5 MG; Start 12/13/18 at 23:45 Escitalopram Oxalate (Lexapro) 10 mg DAILY PO Last administered on 12/16/18at 08:35; Admin Dose 10 MG; Start 12/14/18 at 09:00 Furosemide (Lasix) 40 mg DAILY PO Last administered on 12/16/18 08:36; Admin Dose 40 MG; Start 12/14/18 at 09:00 Haloperidol (Haldol) 0.5 mg Q3H PRN IV AGITATION; Start 12/13/18 at 23:45 Haloperidol (Haldol) 0.5 mg HS PRN IV AGITATION; Start 12/13/18 at 23:45 Albuterol/ Ipratropium (Duoneb) 3 ml Q4H RESP THERAPY HHN Last administered on 12/16/18at 08:07; Admin Dose 3 ML; Start 12/14/18 at 01:00 Aspirin (Halfprin) 81 mg DAILY PO Last administered on 12/16/18 08:35; Admin Dose 81 MG; Start 12/14/18 at 09:00 Atorvastatin Calcium (Lipitor) 20 mg DAILY@21 PO Last administered on 12/15/18 20:47; Admin Dose 20 MG; Start 12/14/18 at 21:00 Carvedilol (Coreg) 6.25 mg BID PO Last administered on 12/16/18 08:36; Admin Dose 6.25 MG; Start 12/14/18 at 00:00 Miscellaneous Information (Pending Santyl Order For Wound Care) This patient hensley... PRN PRN XX WOUND CARE; Start 12/14/18 at 14:30 Docusate Sodium (Colace) 100 mg BID PO Last administered on 12/16/18 08:35; Admin Dose 100 MG; Start 12/15/18 at 21:00 Senna (Senokot) 1 tab HS PO Last administered on 12/15/18 20:48; Admin Dose 1 TAB; Start 12/15/18 at 21:00 Lactulose (Enulose) 20 gm DAILY PRN PO CONSTIPATION; Start 12/15/18 at 19:00 Acetaminophen (Tylenol Tab) 650 mg Q4H PRN PO PAIN Last administered on 12/15/18 20:47; Admin Dose 650 MG; Start 12/15/18 at 19:00 Assessment/Plan Assessment/Plan (Daily) 1. debility/ depression/ dementia 2, s/p pneumonia 3. htn/ chf/ bp high 4. ckd II ---per rehab ---do all ot/pt exercises ---readjust all meds ---inc carvediol 12.5 bid EMILY GAY MD Dec 16, 2018 14:02
--- NOTE | 2018-12-16 19:41 | CONS ---
Consult Date/Type/Reason Admit Date/Time Dec 13, 2018 at 22:20 Initial Consult Date Type of Consultation: int med Reason for Consultation Date/Time of Note DATE: 12/16/18 TIME: 19:37 Subjective Interventional cardiology follow-up progress note Subjective: Discussed with staff and telemetry was reviewed. Patient remains in sinus rhythm/sinus bradycardia She denies any chest pain or pressure or palpitation to me. She denies any active bleeding to me She denies PND orthopnea to me with poor historian she is still coughing Objective: General: Elderly female no acute distress HEENT: NC/AT. pupils are equal. round. NECK: NO JVD. no stridor. CV: RRR. systolic murmur; no gallop or rubs. PULM: no wheezing + rhonchi. GI: SOFT, NT, ND, no rebound or guarding Extremity: trace B/L LE edema. no clubbing. neuro: awake and alert, OX2. Psych: anxious but pleasant rectal: deferred EKG done on December 06 showed normal sinus rhythm with deep T wave inversion in inferolateral leads. Voltage criteria for LVH Chest x-ray done December 07 shows:Improving bibasilar lung infiltrates; no findings of acute fluid overload. Objective Vitals Vital Signs Date Temp Pulse Resp B/P (MAP) Pulse Ox O2 O2 Flow FiO2 Time Delivery Rate 12/16/18 3.0 16:56 12/16/18 56 16 Nasal 16:56 Cannula 12/16/18 97.7 150/76 96 14:00 (100) Intake and Output 12/15/18 12/15/18 12/16/18 1515:00 23:00 07:00 IntakeIntake Total 1200 ml 210 ml OutputOutput Total 600 ml BalanceBalance 600 ml 210 ml Results/Medications Result Diagram: 12/14/18 0648 12/14/18 0648 Results 24 hrs Laboratory Tests Test 12/15/18 20:50 Urine Color YELLOW Urine Clarity CLEAR Urine pH 6.0 Urine Specific [place] 1.011 Urine Ketones NEGATIVE Urine Nitrite NEGATIVE Urine Bilirubin NEGATIVE Urine Urobilinogen NEGATIVE Urine Leukocyte Esterase NEGATIVE Urine Hemoglobin NEGATIVE Urine Glucose NEGATIVE Urine Total Protein NEGATIVE Home Meds Active Scripts Magnesium Hydroxide* (Servin' MOM*) 30 Ml Susp, 30 ML PO DAILY PRN for CONSTIPATION for 14 Days Prov:EMILY GAY MD 12/13/18 Bisacodyl* (Bisacodyl*) 5 Mg Tablet.dr, 5 MG PO BID PRN for CONSTIPATION for 14 Days Prov:EMILY GAY MD 12/13/18 [Promethazine/Codeine Syp] 5 ML SYRUP No Conflict Check, 5 ML PO Q6H PRN for COUGH for 14 Days Prov:EMILY GAY MD 12/13/18 Furosemide* (Furosemide*) 40 Mg Tablet, 40 MG PO DAILY for 14 Days, TAB Prov:EMILY GAY MD 12/13/18 Memantine HCl (Memantine HCl) 10 Mg Tablet, 10 MG PO DAILY for 14 Days, TAB Prov:EMILY GAY MD 12/13/18 Lorazepam* (Ativan*) 0.5 Mg Tablet, 0.5 MG PO Q6H PRN for AGITATION for 14 Days, TAB Prov:EMILY GAY MD 12/13/18 Haloperidol Lactate (Haloperidol Lactate) 5 Mg/1 Ml Vial, 0.5 MG IV Q3H PRN for anxiety for 14 Days, VIAL Prov:EMILY GAY MD 12/13/18 Haloperidol Lactate (Haloperidol Lactate) 5 Mg/1 Ml Vial, 0.5 MG IV QHS PRN for AGITATION for 14 Days, VIAL Prov:EMILY GAY MD 12/13/18 Escitalopram Oxalate* (Escitalopram Oxalate*) 10 Mg Tablet, 10 MG PO DAILY for 14 Days, TAB Prov:EMILY GAY MD 12/13/18 Aspirin Delayed Release (Aspirin Delayed Release) 81 Mg Tablet.dr, 81 MG PO DAILY for 14 Days Prov:EMILY GAY MD 12/13/18 Spironolactone* (Aldactone*) 25 Mg Tablet, 25 MG PO DAILY for 14 Days, TAB Prov:EMILY GAY MD 12/13/18 Lisinopril* (Lisinopril*) 5 Mg Tablet, 2.5 MG PO DAILY for 14 Days, TAB Prov:EMILY GAY MD 12/13/18 Enoxaparin Sodium* (Enoxaparin Sodium*) 30 Mg/0.3 Ml Syringe, 30 MG SC DAILY for 14 Days Prov:EMILY GAY MD 12/13/18 Hydralazine Hcl* (Hydralazine Hcl*) 25 Mg Tab, 25 MG PO Q4 PRN for ELEVATED BLOOD PRESSURE for 14 Days, TAB Prov:EMILY GAY MD 12/13/18 Carvedilol* (Carvedilol*) 6.25 Mg Tablet, 6.25 MG PO BID for 14 Days, TAB Prov:EMILY GAY MD 12/13/18 Atorvastatin Calcium (Atorvastatin Calcium) 20 Mg Tablet, 20 MG PO HS for 14 Days, TAB Prov:EMILY GAY MD 12/13/18 Ipratropium-Albuterol (Ipratropium-Albuterol) 0.5-3 Mg/3 Ml Ampul.neb, 3 ML HHN Q4H RESP THERAPY for 14 Days Prov:EMILY GAY MD 12/13/18 Reported Medications Lisinopril* (Lisinopril*) 2.5 Mg Tablet, 2.5 MG PO DAILY 12/06/18 Oxybutynin Chloride (Oxybutynin Chloride ER) 5 Mg Tab.er.24, 5 MG PO DAILY 12/06/18 Multivitamins* (Theragran*) 1 Tab Tab, 1 TAB PO DAILY, TAB 05/03/16 Discontinued Reported Medications Risperidone* (Risperidone*) 0.25 Mg Tablet, 0.25 MG PO BID, TAB 12/06/18 Lorazepam* (Lorazepam*) 0.5 Mg Tablet, 0.5 MG PO BID 12/06/18 Medications Current Medications Memantine (Namenda) 10 mg DAILY PO Last administered on 12/16/18at 08:36; Admin Dose 10 MG; Start 12/14/18 at 09:00 Promethazine HCl/ Codeine (Phenergan/ Codeine) 5 ml Q6H PRN PO COUGH; Start 12/13/18 at 23:45 Hydralazine HCl (Apresoline) 25 mg Q4H PRN PO ELEVATED BLOOD PRESSURE; Start 12/13/18 at 23:45 Lisinopril (Zestril) 2.5 mg DAILY PO Last administered on 12/16/18at 08:36; Admin Dose 2.5 MG; Start 12/14/18 at 09:00 Lorazepam (Ativan) 0.5 mg Q6H PRN PO ANXIETY Last administered on 12/15/18at 22:59; Admin Dose 0.5 MG; Start 12/13/18 at 23:45 Escitalopram Oxalate (Lexapro) 10 mg DAILY PO Last administered on 12/16/18 08:35; Admin Dose 10 MG; Start 12/14/18 at 09:00 Furosemide (Lasix) 40 mg DAILY PO Last administered on 12/16/18 08:36; Admin Dose 40 MG; Start 12/14/18 at 09:00 Haloperidol (Haldol) 0.5 mg Q3H PRN IV AGITATION; Start 12/13/18 at 23:45 Haloperidol (Haldol) 0.5 mg HS PRN IV AGITATION; Start 12/13/18 at 23:45 Albuterol/ Ipratropium (Duoneb) 3 ml Q4H RESP THERAPY HHN Last administered on 12/16/18 16:56; Admin Dose 3 ML; Start 12/14/18 at 01:00 Aspirin (Halfprin) 81 mg DAILY PO Last administered on 12/16/18 08:35; Admin Dose 81 MG; Start 12/14/18 at 09:00 Atorvastatin Calcium (Lipitor) 20 mg DAILY@21 PO Last administered on 12/15/18 20:47; Admin Dose 20 MG; Start 12/14/18 at 21:00 Miscellaneous Information (Pending [facility] Order For Wound Care) This patient hensley... PRN PRN XX WOUND CARE; Start 12/14/18 at 14:30 Docusate Sodium (Colace) 100 mg BID PO Last administered on 12/16/18 08:35; Admin Dose 100 MG; Start 12/15/18 at 21:00 Senna (Senokot) 1 tab HS PO Last administered on 12/15/18at 20:48; Admin Dose 1 TAB; Start 12/15/18 at 21:00 Lactulose (Enulose) 20 gm DAILY PRN PO CONSTIPATION; Start 12/15/18 at 19:00 Acetaminophen (Tylenol Tab) 650 mg Q4H PRN PO PAIN Last administered on 20:47; Admin Dose 650 MG; Start 12/15/18 at 19:00 Carvedilol (Coreg) 12.5 mg BID PO ; Start 12/16/18 at 21:00 Assessment/Plan Hospital Course (Demo Recall) 1. Pneumonia 2. History of hypertrophic cardiomyopathy 3. Congestive heart failure chronic and stable secondary systolic and diastolic heart failure 4. History of possible chest pain currently with no symptoms 5. History of multiple CVA 6. Dyslipidemia 7. Encephalopathy 8. Abnormal EKG Recommendations cont Coreg, to be held for heart rate of less than 55 only. Aspirin and statin were started. Antibiotic management as per internal medicine physical therapy and rehab as per internal medicine leopoldo mina will add ya Thank you for his referral. We will continue to follow along with you DREW MACARIO MD [facility] DREW MACARIO MD Dec 16, 2018 19:41
[2018-12-16 20:00] VITALS: BP 108/52; PULSE 62; RESP 18
[2018-12-16] MEDS: LORAZEPAM 0.5 MG TAB PO PRN (20:38)
[2018-12-16] MEDS: ATORVASTATIN 20 MG TAB PO SCH (20:39)
[2018-12-16] MEDS: SENNA TAB PO SCH (20:39)
[2018-12-17] MEDS: ALBUTEROL/IPRATROPIUM (NEB) 3 ML AMP HHN SCH ×6 (00:51→20:56)
[2018-12-17 02:32] VITALS: BP 144/66; PULSE 62; RESP 18
[2018-12-17 07:30] VITALS: BP 141/63; PULSE 63; RESP 20
[2018-12-17] MEDS: FUROSEMIDE 40 MG TAB PO SCH (09:16)
[2018-12-17] MEDS: ESCITALOPRAM 10 MG TAB PO SCH (09:16)
[2018-12-17] MEDS: MEMANTINE 10 MG TAB PO SCH (09:17)
[2018-12-17] MEDS: LISINOPRIL 5 MG TAB PO SCH (09:17)
[2018-12-17] MEDS: DOCUSATE SODIUM 100 MG CAP PO SCH ×2 (09:17→21:36)
[2018-12-17] MEDS: AMLODIPINE 2.5 MG TAB PO SCH (09:18)
[2018-12-17] MEDS: ASPIRIN (EC) 81 MG TAB PO SCH (09:18)
[2018-12-17] MEDS ORDERED: BARIUM SULFATE 135 ML (E-Z HD) PO ONE (11:06)
[2018-12-17 14:00] VITALS: BP 125/58; PULSE 60; RESP 20
--- NOTE | 2018-12-17 14:11 | PN ---
Date/Time of Note Date/Time of Note DATE: 12/17/18 TIME: 14:04 Subjective Patient follows commands Objective Vital Signs Date Temp Pulse Resp B/P (MAP) Pulse Ox O2 O2 Flow FiO2 Time Delivery Rate 12/17/18 61 18 95 Nasal 2.0 13:14 Cannula 12/17/18 98.4 141/63 07:30 (89) Intake and Output 12/16/18 12/16/18 12/17/18 1515:00 23:00 07:00 IntakeIntake Total 1000 ml OutputOutput Total 600 ml BalanceBalance 400 ml Exam pulm-cta max/dep transfers Results/Medications Result Diagram: 12/17/18 0638 12/17/18 0638 Results 24 hrs Laboratory Tests Test 12/17/18 06:38 White Blood Count 5.5 Red Blood Count 3.26 L Hemoglobin 9.8 L Hematocrit 29.4 L Mean Corpuscular Volume 90.2 Mean Corpuscular Hemoglobin 30.1 Mean Corpuscular Hemoglobin Concent 33.3 Red Cell Distribution Width 13.8 Platelet Count 145 Mean Platelet Volume 9.7 Immature Granulocytes % 0.400 Neutrophils % 55.0 Lymphocytes % 30.7 Monocytes % 9.6 Eosinophils % 3.6 Basophils % 0.7 Nucleated Red Blood Cells % 0.0 Immature Granulocytes # 0.020 Neutrophils # 3.0 Lymphocytes # 1.7 Monocytes # 0.5 Eosinophils # 0.2 Basophils # 0.0 Nucleated Red Blood Cells # 0.0 Sodium Level 131 L Potassium Level 4.5 Chloride Level 93 L Carbon Dioxide Level 35 H Anion Gap 3 L Blood Urea Nitrogen 31 H Creatinine 1.06 H Est Glomerular Filtrat Rate mL/min Glucose Level 94 Calcium Level 10.2 Magnesium Level 2.1 Medications Current Medications Memantine (Namenda) 10 mg DAILY PO Last administered on 12/17/18at 09:17; Admin Dose 10 MG; Start 12/14/18 at 09:00 Promethazine HCl/ Codeine (Phenergan/ Codeine) 5 ml Q6H PRN PO COUGH Last administered on 12/16/18at 22:23; Admin Dose 5 ML; Start 12/13/18 at 23:45 Hydralazine HCl (Apresoline) 25 mg Q4H PRN PO ELEVATED BLOOD PRESSURE; Start 12/13/18 at 23:45 Lisinopril (Zestril) 2.5 mg DAILY PO Last administered on 12/17/18 09:17; Admin Dose 2.5 MG; Start 12/14/18 at 09:00 Lorazepam (Ativan) 0.5 mg Q6H PRN PO ANXIETY Last administered on 12/16/18 20:38; Admin Dose 0.5 MG; Start 12/13/18 at 23:45 Escitalopram Oxalate (Lexapro) 10 mg DAILY PO Last administered on 12/17/18 09:16; Admin Dose 10 MG; Start 12/14/18 at 09:00 Furosemide (Lasix) 40 mg DAILY PO Last administered on 12/17/18 09:16; Admin Dose 40 MG; Start 12/14/18 at 09:00 Haloperidol (Haldol) 0.5 mg Q3H PRN IV AGITATION; Start 12/13/18 at 23:45 Haloperidol (Haldol) 0.5 mg HS PRN IV AGITATION; Start 12/13/18 at 23:45 Albuterol/ Ipratropium (Duoneb) 3 ml Q4H RESP THERAPY HHN Last administered on 12/17/18 13:13; Admin Dose 3 ML; Start 12/14/18 at 01:00 Aspirin (Halfprin) 81 mg DAILY PO Last administered on 12/17/18 09:18; Admin Dose 81 MG; Start 12/14/18 at 09:00 Atorvastatin Calcium (Lipitor) 20 mg DAILY@21 PO Last administered on 12/16/18 20:39; Admin Dose 20 MG; Start 12/14/18 at 21:00 Miscellaneous Information (Pending [facility] Order For Wound Care) This patient hensley... PRN PRN XX WOUND CARE; Start 12/14/18 at 14:30 Docusate Sodium (Colace) 100 mg BID PO Last administered on 12/17/18 09:17; Admin Dose 100 MG; Start 12/15/18 at 21:00 Senna (Senokot) 1 tab HS PO Last administered on 12/16/18 20:39; Admin Dose 1 TAB; Start 12/15/18 at 21:00 Lactulose (Enulose) 20 gm DAILY PRN PO CONSTIPATION; Start 12/15/18 at 19:00 Acetaminophen (Tylenol Tab) 650 mg Q4H PRN PO PAIN Last administered on 12/15/18at 20:47; Admin Dose 650 MG; Start 12/15/18 at 19:00 Carvedilol (Coreg) 12.5 mg BID PO Last administered on 12/17/18at 09:18; Admin D ose 12.5 MG; Start 12/16/18 at 21:00 Amlodipine Besylate (Norvasc) 2.5 mg DAILY PO Last administered on 12/17/18at 09:18; Admin Dose 2.5 MG; Start 12/17/18 at 09:00 Assessment/Plan Additional Assessment/Plan Rehab- 1. 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 Patient here on rehab trial, and has made limited gains. Will have SW review dispo options with family, including SNF, with likely discharge on Sunday 11/19. Dysphagia- Patient had videofluoro today and is silently aspirating, with speech recommendation for NPO. Given nutritional needs, especially with regards to function and integ, will have patient on dysphagia diet until we clear with family if they are in agreement with PEG. Will have strict aspiration precautions, with upright for all meals, and 1:1 supervision for meals. Pneumonia. Congestive heart failure. Hypertension. Anxiety. Hypercholesterolemia. SRAVAN BARTON MD Dec 17, 2018 14:11
--- NOTE | 2018-12-17 17:42 | CONS ---
Consult Date/Type/Reason Admit Date/Time Dec 13, 2018 at 22:20 Initial Consult Date Type of Consultation: int med Date/Time of Note DATE: 12/17/18 TIME: 17:41 Subjective Interventional cardiology follow-up progress note Subjective: Discussed with staff She denies any chest pain or pressure or palpitation to me. She denies any active bleeding to me She denies PND orthopnea to me with poor historian she is still coughing Objective: General: Elderly female no acute distress HEENT: NC/AT. pupils are equal. round. NECK: NO JVD. no stridor. CV: RRR. systolic murmur; no gallop or rubs. PULM: no wheezing + rhonchi. GI: SOFT, NT, ND, no rebound or guarding Extremity: trace B/L LE edema. no clubbing. neuro: awake and alert, OX2. Psych: anxious but pleasant rectal: deferred EKG done on December 06 showed normal sinus rhythm with deep T wave inversion in inferolateral leads. Voltage criteria for LVH Chest x-ray done December 07 shows:Improving bibasilar lung infiltrates; no findings of acute fluid overload. Objective Vitals Vital Signs Date Temp Pulse Resp B/P (MAP) Pulse Ox O2 O2 Flow FiO2 Time Delivery Rate 12/17/18 2.0 16:35 12/17/18 61 18 95 Nasal 16:35 Cannula 12/17/18 98.1 125/58 14:00 (80) Intake and Output 12/16/18 12/16/18 12/17/18 1515:00 23:00 07:00 IntakeIntake Total 1000 ml OutputOutput Total 600 ml BalanceBalance 400 ml Results/Medications Result Diagram: 12/17/18 0638 12/17/18 0638 Results 24 hrs Laboratory Tests Test 12/17/18 06:38 White Blood Count 5.5 Red Blood Count 3.26 L Hemoglobin 9.8 L Hematocrit 29.4 L Mean Corpuscular Volume 90.2 Mean Corpuscular Hemoglobin 30.1 Mean Corpuscular Hemoglobin Concent 33.3 Red Cell Distribution Width 13.8 Platelet Count 145 Mean Platelet Volume 9.7 Immature Granulocytes % 0.400 Neutrophils % 55.0 Lymphocytes % 30.7 Monocytes % 9.6 Eosinophils % 3.6 Basophils % 0.7 Nucleated Red Blood Cells % 0.0 Immature Granulocytes # 0.020 Neutrophils # 3.0 Lymphocytes # 1.7 Monocytes # 0.5 Eosinophils # 0.2 Basophils # 0.0 Nucleated Red Blood Cells # 0.0 Sodium Level 131 L Potassium Level 4.5 Chloride Level 93 L Carbon Dioxide Level 35 H Anion Gap 3 L Blood Urea Nitrogen 31 H Creatinine 1.06 H Est Glomerular Filtrat Rate mL/min Glucose Level 94 Calcium Level 10.2 Magnesium Level 2.1 Home Meds Active Scripts Magnesium Hydroxide* (Servin' MOM*) 30 Ml Susp, 30 ML PO DAILY PRN for CONSTIPATION for 14 Days Prov:EMILY GAY MD 12/13/18 Bisacodyl* (Bisacodyl*) 5 Mg Tablet.dr, 5 MG PO BID PRN for CONSTIPATION for 14 Days Prov:EMILY GAY MD 12/13/18 [Promethazine/Codeine Syp] 5 ML SYRUP No Conflict Check, 5 ML PO Q6H PRN for COU GH for 14 Days Prov:EMILY GAY MD 12/13/18 Furosemide* (Furosemide*) 40 Mg Tablet, 40 MG PO DAILY for 14 Days, TAB Prov:EMILY GAY MD 12/13/18 Memantine HCl (Memantine HCl) 10 Mg Tablet, 10 MG PO DAILY for 14 Days, TAB Prov:EMILY GAY MD 12/13/18 Lorazepam* (Ativan*) 0.5 Mg Tablet, 0.5 MG PO Q6H PRN for AGITATION for 14 Days, TAB Prov:EMILY GAY MD 12/13/18 Haloperidol Lactate (Haloperidol Lactate) 5 Mg/1 Ml Vial, 0.5 MG IV Q3H PRN for anxiety for 14 Days, VIAL Prov:EMILY GAY MD 12/13/18 Haloperidol Lactate (Haloperidol Lactate) 5 Mg/1 Ml Vial, 0.5 MG IV QHS PRN for AGITATION for 14 Days, VIAL Prov:EMILY GAY MD 12/13/18 Escitalopram Oxalate* (Escitalopram Oxalate*) 10 Mg Tablet, 10 MG PO DAILY for 14 Days, TAB Prov:EMILY GAY MD 12/13/18 Aspirin Delayed Release (Aspirin Delayed Release) 81 Mg Tablet.dr, 81 MG PO DAILY for 14 Days Prov:EMILY GAY MD 12/13/18 Spironolactone* (Aldactone*) 25 Mg Tablet, 25 MG PO DAILY for 14 Days, TAB Prov:EMILY GAY MD 12/13/18 Lisinopril* (Lisinopril*) 5 Mg Tablet, 2.5 MG PO DAILY for 14 Days, TAB Prov:EMILY GAY MD 12/13/18 Enoxaparin Sodium* (Enoxaparin Sodium*) 30 Mg/0.3 Ml Syringe, 30 MG SC DAILY for 14 Days Prov:EMILY GAY MD 12/13/18 Hydralazine Hcl* (Hydralazine Hcl*) 25 Mg Tab, 25 MG PO Q4 PRN for ELEVATED BLOOD PRESSURE for 14 Days, TAB Prov:EMILY GAY MD 12/13/18 Carvedilol* (Carvedilol*) 6.25 Mg Tablet, 6.25 MG PO BID for 14 Days, TAB Prov:EMILY GAY MD 12/13/18 Atorvastatin Calcium (Atorvastatin Calcium) 20 Mg Tablet, 20 MG PO HS for 14 Days, TAB Prov:EMILY GAY MD 12/13/18 Ipratropium-Albuterol (Ipratropium-Albuterol) 0.5-3 Mg/3 Ml Ampul.neb, 3 ML HHN Q4H RESP THERAPY for 14 Days Prov:EMILY GAY MD 12/13/18 Reported Medications Lisinopril* (Lisinopril*) 2.5 Mg Tablet, 2.5 MG PO DAILY 12/06/18 Oxybutynin Chloride (Oxybutynin Chloride ER) 5 Mg Tab.er.24, 5 MG PO DAILY 12/06/18 Multivitamins* (Theragran*) 1 Tab Tab, 1 TAB PO DAILY, TAB 05/03/16 Discontinued Reported Medications Risperidone* (Risperidone*) 0.25 Mg Tablet, 0.25 MG PO BID, TAB 12/06/18 Lorazepam* (Lorazepam*) 0.5 Mg Tablet, 0.5 MG PO BID 12/06/18 Medications Current Medications Memantine (Namenda) 10 mg DAILY PO Last administered on 12/17/18at 09:17; Admin Dose 10 MG; Start 12/14/18 at 09:00 Promethazine HCl/ Codeine (Phenergan/ Codeine) 5 ml Q6H PRN PO COUGH Last a dministered on 12/16/18 22:23; Admin Dose 5 ML; Start 12/13/18 at 23:45 Hydralazine HCl (Apresoline) 25 mg Q4H PRN PO ELEVATED BLOOD PRESSURE; Start 12/13/18 at 23:45 Lisinopril (Zestril) 2.5 mg DAILY PO Last administered on 12/17/18 09:17; Admin Dose 2.5 MG; Start 12/14/18 at 09:00 Lorazepam (Ativan) 0.5 mg Q6H PRN PO ANXIETY Last administered on 12/16/18 20:38; Admin Dose 0.5 MG; Start 12/13/18 at 23:45 Escitalopram Oxalate (Lexapro) 10 mg DAILY PO Last administered on 12/17/18 09:16; Admin Dose 10 MG; Start 12/14/18 at 09:00 Furosemide (Lasix) 40 mg DAILY PO Last administered on 12/17/18 09:16; Admin Dose 40 MG; Start 12/14/18 at 09:00 Haloperidol (Haldol) 0.5 mg Q3H PRN IV AGITATION; Start 12/13/18 at 23:45 Haloperidol (Haldol) 0.5 mg HS PRN IV AGITATION; Start 12/13/18 at 23:45 Albuterol/ Ipratropium (Duoneb) 3 ml Q4H RESP THERAPY HHN Last administered on 12/17/18 16:35; Admin Dose 3 ML; Start 12/14/18 at 01:00 Aspirin (Halfprin) 81 mg DAILY PO Last administered on 12/17/18 09:18; Admin Dose 81 MG; Start 12/14/18 at 09:00 Atorvastatin Calcium (Lipitor) 20 mg DAILY@21 PO Last administered on 12/16/18 20:39; Admin Dose 20 MG; Start 12/14/18 at 21:00 [facility] This patient hensley... PRN PRN XX WOUND CARE; Start 12/14/18 at 14:30 Docusate Sodium (Colace) 100 mg BID PO Last administered on 12/17/18 09:17; Admin Dose 100 MG; Start 12/15/18 at 21:00 Senna (Senokot) 1 tab HS PO Last administered on 12/16/18 20:39; Admin Dose 1 TAB; Start 12/15/18 at 21:00 Lactulose (Enulose) 20 gm DAILY PRN PO CONSTIPATION; Start 12/15/18 at 19:00 Acetaminophen (Tylenol Tab) 650 mg Q4H PRN PO PAIN Last administered on 12/15/18 20:47; Admin Dose 650 MG; Start 12/15/18 at 19:00 Carvedilol (Coreg) 12.5 mg BID PO Last administered on 12/17/18 09:18; Admin Dose 12.5 MG; Start 12/16/18 at 21:00 Amlodipine Besylate (Norvasc) 2.5 mg DAILY PO Last administered on 12/17/18 09:18; Admin Dose 2.5 MG; Start 12/17/18 at 09:00 Assessment/Plan Hospital Course (Demo Recall) 1. Pneumonia 2. History of hypertrophic cardiomyopathy 3. Congestive heart failure chronic and stable secondary systolic and diastolic heart failure 4. History of possible chest pain currently with no symptoms 5. History of multiple CVA 6. Dyslipidemia 7. Encephalopathy 8. Abnormal EKG 9. dysphagia/ aspiration Recommendations cont Coreg, to be held for heart rate of less than 55 only. Aspirin and statin were started. Antibiotic management as per internal medicine physical therapy and rehab as per internal medicine lasix PO lasix cont norvasc GI work up and treatment as per IM Thank you for his referral. We will continue to follow along with you DREW MACARIO MD [facility] DREW MACARIO MD Dec 17, 2018 17:42
--- NOTE | 2018-12-17 19:28 | CONS ---
Consult Date/Type/Reason Admit Date/Time Dec 13, 2018 at 22:20 Initial Consult Date 12/14/2018 Type of Consultation: int med Date/Time of Note DATE: 12/17/18 TIME: 19:28 Subjective no appetite Objective Vitals Vital Signs Date Temp Pulse Resp B/P (MAP) Pulse Ox O2 O2 Flow FiO2 Time Delivery Rate 12/17/18 2.0 16:35 12/17/18 61 18 95 Nasal 16:35 Cannula 12/17/18 98.1 125/58 14:00 (80) Intake and Output 12/16/18 12/16/18 12/17/18 1515:00 23:00 07:00 IntakeIntake Total 1000 ml OutputOutput Total 600 ml BalanceBalance 400 ml Exam coughs after swallowing food, pale, quiet, dec bs bibasilar, rr, no c/c/e Results/Medications Result Diagram: 12/17/18 0638 12/17/18 0638 Results 24 hrs Laboratory Tests Test 12/17/18 06:38 White Blood Count 5.5 Red Blood Count 3.26 L Hemoglobin 9.8 L Hematocrit 29.4 L Mean Corpuscular Volume 90.2 Mean Corpuscular Hemoglobin 30.1 Mean Corpuscular Hemoglobin Concent 33.3 Red Cell Distribution Width 13.8 Platelet Count 145 Mean Platelet Volume 9.7 Immature Granulocytes % 0.400 Neutrophils % 55.0 Lymphocytes % 30.7 Monocytes % 9.6 Eosinophils % 3.6 Basophils % 0.7 Nucleated Red Blood Cells % 0.0 Immature Granulocytes # 0.020 Neutrophils # 3.0 Lymphocytes # 1.7 Monocytes # 0.5 Eosinophils # 0.2 Basophils # 0.0 Nucleated Red Blood Cells # 0.0 Sodium Level 131 L Potassium Level 4.5 Chloride Level 93 L Carbon Dioxide Level 35 H Anion Gap 3 L Blood Urea Nitrogen 31 H Creatinine 1.06 H Est Glomerular Filtrat Rate mL/min Glucose Level 94 Calcium Level 10.2 Magnesium Level 2.1 Home Meds Active Scripts Magnesium Hydroxide* (Servin' MOM*) 30 Ml Susp, 30 ML PO DAILY PRN for CONSTIPATION for 14 Days Prov:EMILY GAY MD 12/13/18 Bisacodyl* (Bisacodyl*) 5 Mg Tablet.dr, 5 MG PO BID PRN for CONSTIPATION for 14 Days Prov:EMILY GAY MD 12/13/18 [Promethazine/Codeine Syp] 5 ML SYRUP No Conflict Check, 5 ML PO Q6H PRN for COUGH for 14 Days Prov:EMILY GAY MD 12/13/18 Furosemide* (Furosemide*) 40 Mg Tablet, 40 MG PO DAILY for 14 Days, TAB Prov:EMILY GAY MD 12/13/18 Memantine HCl (Memantine HCl) 10 Mg Tablet, 10 MG PO DAILY for 14 Days, TAB Prov:EMILY GAY MD 12/13/18 Lorazepam* (Ativan*) 0.5 Mg Tablet, 0.5 MG PO Q6H PRN for AGITATION for 14 Days, TAB Prov:EMILY GAY MD 12/13/18 Haloperidol Lactate (Haloperidol Lactate) 5 Mg/1 Ml Vial, 0.5 MG IV Q3H PRN for anxiety for 14 Days, VIAL Prov:EMILY GAY MD 12/13/18 Haloperidol Lactate (Haloperidol Lactate) 5 Mg/1 Ml Vial, 0.5 MG IV QHS PRN for AGITATION for 14 Days, VIAL Prov:EMILY GAY MD 12/13/18 Escitalopram Oxalate* (Escitalopram Oxalate*) 10 Mg Tablet, 10 MG PO DAILY for 14 Days, TAB Prov:EMILY GAY MD 12/13/18 Aspirin Delayed Release (Aspirin Delayed Release) 81 Mg Tablet.dr, 81 MG PO DAILY for 14 Days Prov:EMILY GAY MD 12/13/18 Spironolactone* (Aldactone*) 25 Mg Tablet, 25 MG PO DAILY for 14 Days, TAB Prov:EMILY GAY MD 12/13/18 Lisinopril* (Lisinopril*) 5 Mg Tablet, 2.5 MG PO DAILY for 14 Days, TAB Prov:EMILY GAY MD 12/13/18 Enoxaparin Sodium* (Enoxaparin Sodium*) 30 Mg/0.3 Ml Syringe, 30 MG SC DAILY for 14 Days Prov:EMILY GAY MD 12/13/18 Hydralazine Hcl* (Hydralazine Hcl*) 25 Mg Tab, 25 MG PO Q4 PRN for ELEVATED BLOO D PRESSURE for 14 Days, TAB Prov:EMILY GAY MD 12/13/18 Carvedilol* (Carvedilol*) 6.25 Mg Tablet, 6.25 MG PO BID for 14 Days, TAB Prov:EMILY GAY MD 12/13/18 Atorvastatin Calcium (Atorvastatin Calcium) 20 Mg Tablet, 20 MG PO HS for 14 Days, TAB Prov:EMILY GAY MD 12/13/18 Ipratropium-Albuterol (Ipratropium-Albuterol) 0.5-3 Mg/3 Ml Ampul.neb, 3 ML HHN Q4H RESP THERAPY for 14 Days Prov:EMILY GAY MD 12/13/18 Reported Medications Lisinopril* (Lisinopril*) 2.5 Mg Tablet, 2.5 MG PO DAILY 12/06/18 Oxybutynin Chloride (Oxybutynin Chloride ER) 5 Mg Tab.er.24, 5 MG PO DAILY 12/06/18 Multivitamins* (Theragran*) 1 Tab Tab, 1 TAB PO DAILY, TAB 05/03/16 Discontinued Reported Medications Risperidone* (Risperidone*) 0.25 Mg Tablet, 0.25 MG PO BID, TAB 12/06/18 Lorazepam* (Lorazepam*) 0.5 Mg Tablet, 0.5 MG PO BID 12/06/18 Medications Current Medications Memantine (Namenda) 10 mg DAILY PO Last administered on 12/17/18at 09:17; Admin Dose 10 MG; Start 12/14/18 at 09:00 Promethazine HCl/ Codeine (Phenergan/ Codeine) 5 ml Q6H PRN PO COUGH Last administered on 12/16/18at 22:23; Admin Dose 5 ML; Start 12/13/18 at 23:45 Hydralazine HCl (Apresoline) 25 mg Q4H PRN PO ELEVATED BLOOD PRESSURE; Start 12/13/18 at 23:45 Lisinopril (Zestril) 2.5 mg DAILY PO Last administered on 12/17/18at 09:17; Admin Dose 2.5 MG; Start 12/14/18 at 09:00 Lorazepam (Ativan) 0.5 mg Q6H PRN PO ANXIETY Last administered on 12/16/18at 20:38; Admin Dose 0.5 MG; Start 12/13/18 at 23:45 Escitalopram Oxalate (Lexapro) 10 mg DAILY PO Last administered on 12/17/18 09:16; Admin Dose 10 MG; Start 12/14/18 at 09:00 Furosemide (Lasix) 40 mg DAILY PO Last administered on 12/17/18 09:16; Admin Dose 40 MG; Start 12/14/18 at 09:00 Haloperidol (Haldol) 0.5 mg Q3H PRN IV AGITATION; Start 12/13/18 at 23:45 Haloperidol (Haldol) 0.5 mg HS PRN IV AGITATION; Start 12/13/18 at 23:45 Albuterol/ Ipratropium (Duoneb) 3 ml Q4H RESP THERAPY HHN Last administered on 12/17/18 16:35; Admin Dose 3 ML; Start 12/14/18 at 01:00 Aspirin (Halfprin) 81 mg DAILY PO Last administered on 12/17/18 09:18; Admin Dose 81 MG; Start 12/14/18 at 09:00 Atorvastatin Calcium (Lipitor) 20 mg DAILY@21 PO Last administered on 12/16/18 20:39; Admin Dose 20 MG; Start 12/14/18 at 21:00 Miscellaneous Information (Pending [facility] Order For Wound Care) This patient hensley... PRN PRN XX WOUND CARE; Start 12/14/18 at 14:30 Docusate Sodium (Colace) 100 mg BID PO Last administered on 12/17/18 09:17; Admin Dose 100 MG; Start 12/15/18 at 21:00 Senna (Senokot) 1 tab HS PO Last administered on 12/16/18 20:39; Admin Dose 1 TAB; Start 12/15/18 at 21:00 Lactulose (Enulose) 20 gm DAILY PRN PO CONSTIPATION; Start 12/15/18 at 19:00 Acetaminophen (Tylenol Tab) 650 mg Q4H PRN PO PAIN Last administered on 12/15/18 20:47; Admin Dose 650 MG; Start 12/15/18 at 19:00 Carvedilol (Coreg) 12.5 mg BID PO Last administered on 12/17/18 09:18; Admin Dose 12.5 MG; Start 12/16/18 at 21:00 Amlodipine Besylate (Norvasc) 2.5 mg DAILY PO Last administered on 12/17/18 09:18; Admin Dose 2.5 MG; Start 12/17/18 at 09:00 Assessment/Plan Assessment/Plan (Daily) 1. debility/ dementia/ depression-anxiety 2. anemia. ckd II 3. cm/ htn 4. copd 5. swallow difficulty ---bedside swallow eval ---per rehab ---per cards ---per pulm ---must do all ot/ pt exercises EMILY GAY MD Dec 17, 2018 19:28
[2018-12-17 20:00] VITALS: PULSE 63; RESP 18
[2018-12-17] MEDS: ATORVASTATIN 20 MG TAB PO SCH (21:35)
[2018-12-17] MEDS: SENNA TAB PO SCH (21:36)
[2018-12-18] MEDS: ALBUTEROL/IPRATROPIUM (NEB) 3 ML AMP HHN SCH ×6 (00:59→20:37)
[2018-12-18 02:00] VITALS: PULSE 60; RESP 18
[2018-12-18 07:30] VITALS: BP 139/63; PULSE 61; RESP 20
[2018-12-18] MEDS: AMLODIPINE 2.5 MG TAB PO SCH (09:34)
[2018-12-18] MEDS: ESCITALOPRAM 10 MG TAB PO SCH (09:34)
[2018-12-18] MEDS: ASPIRIN (EC) 81 MG TAB PO SCH (09:34)
[2018-12-18] MEDS: MEMANTINE 10 MG TAB PO SCH (09:34)
[2018-12-18] MEDS: DOCUSATE SODIUM 100 MG CAP PO SCH ×2 (09:34→21:54)
[2018-12-18] MEDS: LISINOPRIL 5 MG TAB PO SCH (09:35)
[2018-12-18] MEDS: FUROSEMIDE 40 MG TAB PO SCH (09:35)
--- NOTE | 2018-12-18 10:09 | CONS ---
Consult Date/Type/Reason Admit Date/Time Dec 13, 2018 at 22:20 Initial Consult Date Type of Consultation: int med Date/Time of Note DATE: 12/18/18 TIME: 10:08 Subjective Interventional cardiology follow-up progress note Subjective: Discussed with staff She denies any chest pain or pressure or palpitation to me. She denies any active bleeding to me She denies PND orthopnea to me with poor historian Patient has not been very cooperative with physical therapy according to the staff Objective: General: Elderly female no acute distress HEENT: NC/AT. pupils are equal. round. NECK: NO JVD. no stridor. CV: RRR. systolic murmur; no gallop or rubs. PULM: no wheezing + rhonchi. GI: SOFT, NT, ND, no rebound or guarding Extremity: trace B/L LE edema. no clubbing. neuro: awake and alert, OX2. Psych: anxious but pleasant rectal: deferred EKG done on December 06 showed normal sinus rhythm with deep T wave inversion in inferolateral leads. Voltage criteria for LVH Chest x-ray done December 07 shows:Improving bibasilar lung infiltrates; no findings of acute fluid overload. Objective Vitals Vital Signs Date Temp Pulse Resp B/P (MAP) Pulse Ox O2 O2 Flow FiO2 Time Delivery Rate 12/18/18 97.8 61 20 139/63 96 Nasal 07:30 (88) Cannula 12/18/18 2.0 06:08 Intake and Output 12/17/18 12/17/18 12/18/18 1515:00 23:00 07:00 IntakeIntake Total 1100 ml 120 ml BalanceBalance 1100 ml 120 ml Results/Medications Result Diagram: 12/17/18 0638 12/17/18 0638 Home Meds Active Scripts Magnesium Hydroxide* (Servin' MOM*) 30 Ml Susp, 30 ML PO DAILY PRN for CONSTIPATION for 14 Days Prov:EMILY GAY MD 12/13/18 Bisacodyl* (Bisacodyl*) 5 Mg Tablet.dr, 5 MG PO BID PRN for CONSTIPATION for 14 Days Prov:EMILY GAY MD 12/13/18 [Promethazine/Codeine Syp] 5 ML SYRUP No Conflict Check, 5 ML PO Q6H PRN for CO UGH for 14 Days Prov:EMILY GAY MD 12/13/18 Furosemide* (Furosemide*) 40 Mg Tablet, 40 MG PO DAILY for 14 Days, TAB Prov:EMILY GAY MD 12/13/18 Memantine HCl (Memantine HCl) 10 Mg Tablet, 10 MG PO DAILY for 14 Days, TAB Prov:EMILY GAY MD 12/13/18 Lorazepam* (Ativan*) 0.5 Mg Tablet, 0.5 MG PO Q6H PRN for AGITATION for 14 Days, TAB Prov:EMILY GAY MD 12/13/18 Haloperidol Lactate (Haloperidol Lactate) 5 Mg/1 Ml Vial, 0.5 MG IV Q3H PRN for anxiety for 14 Days, VIAL Prov:EMILY GAY MD 12/13/18 Haloperidol Lactate (Haloperidol Lactate) 5 Mg/1 Ml Vial, 0.5 MG IV QHS PRN for AGITATION for 14 Days, VIAL Prov:EMILY GAY MD 12/13/18 Escitalopram Oxalate* (Escitalopram Oxalate*) 10 Mg Tablet, 10 MG PO DAILY for 14 Days, TAB Prov:EMILY GAY MD 12/13/18 Aspirin Delayed Release (Aspirin Delayed Release) 81 Mg Tablet.dr, 81 MG PO DAILY for 14 Days Prov:EMILY GAY MD 12/13/18 Spironolactone* (Aldactone*) 25 Mg Tablet, 25 MG PO DAILY for 14 Days, TAB Prov:MEILY GAY MD 12/13/18 Lisinopril* (Lisinopril*) 5 Mg Tablet, 2.5 MG PO DAILY for 14 Days, TAB Prov:EMILY GAY MD 12/13/18 Enoxaparin Sodium* (Enoxaparin Sodium*) 30 Mg/0.3 Ml Syringe, 30 MG SC DAILY for 14 Days Prov:EMILY GAY MD 12/13/18 Hydralazine Hcl* (Hydralazine Hcl*) 25 Mg Tab, 25 MG PO Q4 PRN for ELEVATED BLOOD PRESSURE for 14 Days, TAB Prov:EMILY GAY MD 12/13/18 Carvedilol* (Carvedilol*) 6.25 Mg Tablet, 6.25 MG PO BID for 14 Days, TAB Prov:EMILY GAY MD 12/13/18 Atorvastatin Calcium (Atorvastatin Calcium) 20 Mg Tablet, 20 MG PO HS for 14 Days, TAB Prov:EMILY GAY MD 12/13/18 Ipratropium-Albuterol (Ipratropium-Albuterol) 0.5-3 Mg/3 Ml Ampul.neb, 3 ML HHN Q4H RESP THERAPY for 14 Days Prov:EMILY GAY MD 12/13/18 Reported Medications Lisinopril* (Lisinopril*) 2.5 Mg Tablet, 2.5 MG PO DAILY 12/06/18 Oxybutynin Chloride (Oxybutynin Chloride ER) 5 Mg Tab.er.24, 5 MG PO DAILY 12/06/18 Multivitamins* (Theragran*) 1 Tab Tab, 1 TAB PO DAILY, TAB 05/03/16 Discontinued Reported Medications Risperidone* (Risperidone*) 0.25 Mg Tablet, 0.25 MG PO BID, TAB 12/06/18 Lorazepam* (Lorazepam*) 0.5 Mg Tablet, 0.5 MG PO BID 12/06/18 Medications Current Medications Memantine (Namenda) 10 mg DAILY PO Last administered on 12/18/18 09:34; Admin Dose 10 MG; Start 12/14/18 at 09:00 Promethazine HCl/ Codeine (Phenergan/ Codeine) 5 ml Q6H PRN PO COUGH Last administered on 12/16/18 22:23; Admin Dose 5 ML; Start 12/13/18 at 23:45 Hydralazine HCl (Apresoline) 25 mg Q4H PRN PO ELEVATED BLOOD PRESSURE; Start 12/13/18 at 23:45 Lisinopril (Zestril) 2.5 mg DAILY PO Last administered on 12/18/18 09:35; Admin Dose 2.5 MG; Start 12/14/18 at 09:00 Lorazepam (Ativan) 0.5 mg Q6H PRN PO ANXIETY Last administered on 12/16/18 20:38; Admin Dose 0.5 MG; Start 12/13/18 at 23:45 Escitalopram Oxalate (Lexapro) 10 mg DAILY PO Last administered on 12/18/18 09:34; Admin Dose 10 MG; Start 12/14/18 at 09:00 Furosemide (Lasix) 40 mg DAILY PO Last administered on 12/18/18 09:35; Admin Dose 40 MG; Start 12/14/18 at 09:00 Haloperidol (Haldol) 0.5 mg Q3H PRN IV AGITATION; Start 12/13/18 at 23:45 Haloperidol (Haldol) 0.5 mg HS PRN IV AGITATION; Start 12/13/18 at 23:45 Albuterol/ Ipratropium (Duoneb) 3 ml Q4H RESP THERAPY HHN Last administered on 12/18/18 08:03; Admin Dose 3 ML; Start 12/14/18 at 01:00 Aspirin (Halfprin) 81 mg DAILY PO Last administered on 12/18/18 09:34; Admin Dose 81 MG; Start 12/14/18 at 09:00 Atorvastatin Calcium (Lipitor) 20 mg DAILY@21 PO Last administered on 12/17/18 21:35; Admin Dose 20 MG; Start 12/14/18 at 21:00 [facility] This patient hensley... PRN PRN XX WOUND CARE; Start 12/14/18 at 14:30 Docusate Sodium (Colace) 100 mg BID PO Last administered on 12/18/18 09:34; Admin Dose 100 MG; Start 12/15/18 at 21:00 Senna (Senokot) 1 tab HS PO Last administered on 12/17/18 21:36; Admin Dose 1 TAB; Start 12/15/18 at 21:00 Lactulose (Enulose) 20 gm DAILY PRN PO CONSTIPATION; Start 12/15/18 at 19:00 Acetaminophen (Tylenol Tab) 650 mg Q4H PRN PO PAIN Last administered on 12/15/18 at 20:47; Admin Dose 650 MG; Start 12/15/18 at 19:00 Carvedilol (Coreg) 12.5 mg BID PO Last administered on 12/18/18 09:35; Admin Dose 12.5 MG; Start 12/16/18 at 21:00 Amlodipine Besylate (Norvasc) 2.5 mg DAILY PO Last administered on 12/18/18 09:34; Admin Dose 2.5 MG; Start 12/17/18 at 09:00 Assessment/Plan Hospital Course (Demo Recall) 1. Pneumonia 2. History of hypertrophic cardiomyopathy 3. Congestive heart failure chronic and stable secondary systolic and diastolic heart failure 4. History of possible chest pain currently with no symptoms 5. History of multiple CVA 6. Dyslipidemia 7. Encephalopathy 8. Abnormal EKG 9. dysphagia/ aspiration Recommendations cont Coreg, to be held for heart rate of less than 55 only. Aspirin and statin were started. Antibiotic management as per internal medicine physical therapy and rehab as per internal medicine lasix PO lasix cont norvasc GI /dysphagia work up and treatment as per IM Thank you for his referral. We will continue to follow along with you DREW MACARIO MD [facility] DREW MACARIO MD Dec 18, 2018 10:09
--- NOTE | 2018-12-18 12:33 | CONS ---
Consult Date/Type/Reason Admit Date/Time Dec 13, 2018 at 22:20 Initial Consult Date 12/14/2018 Type of Consultation: int med Date/Time of Note DATE: 12/18/18 TIME: 12:33 Subjective no complaints, weak Objective Vitals Vital Signs Date Temp Pulse Resp B/P (MAP) Pulse Ox O2 O2 Flow FiO2 Time Delivery Rate 12/18/18 97.8 61 20 139/63 96 Nasal 07:30 (88) Cannula 12/18/18 2.0 06:08 Intake and Output 12/17/18 12/17/18 12/18/18 1515:00 23:00 07:00 IntakeIntake Total 1100 ml 120 ml BalanceBalance 1100 ml 120 ml Exam sitting in chair, pale, quiet, only able to take pure diet, rr, dec bibasilar, no edema Results/Medications Result Diagram: 12/17/1838 12/17/1838 Home Meds Active Scripts Magnesium Hydroxide* (Servin' MOM*) 30 Ml Susp, 30 ML PO DAILY PRN for CONSTIPATION for 14 Days Prov:EMILY GAY MD 12/13/18 Bisacodyl* (Bisacodyl*) 5 Mg Tablet.dr, 5 MG PO BID PRN for CONSTIPATION for 14 Days Prov:EMILY GAY MD 12/13/18 [Promethazine/Codeine Syp] 5 ML SYRUP No Conflict Check, 5 ML PO Q6H PRN for COUGH for 14 Days Prov:EMILY GAY MD 12/13/18 Furosemide* (Furosemide*) 40 Mg Tablet, 40 MG PO DAILY for 14 Days, TAB Prov:EMILY GAY MD 12/13/18 Memantine HCl (Memantine HCl) 10 Mg Tablet, 10 MG PO DAILY for 14 Days, TAB Prov:EMILY GAY MD 12/13/18 Lorazepam* (Ativan*) 0.5 Mg Tablet, 0.5 MG PO Q6H PRN for AGITATION for 14 Days, TAB Prov:EMILY GAY MD 12/13/18 Haloperidol Lactate (Haloperidol Lactate) 5 Mg/1 Ml Vial, 0.5 MG IV Q3H PRN for anxiety for 14 Days, VIAL Prov:EMILY GAY MD 12/13/18 Haloperidol Lactate (Haloperidol Lactate) 5 Mg/1 Ml Vial, 0.5 MG IV QHS PRN for AGITATION for 14 Days, VIAL Prov:EMILY GAY MD 12/13/18 Escitalopram Oxalate* (Escitalopram Oxalate*) 10 Mg Tablet, 10 MG PO DAILY for 14 Days, TAB Prov:EMILY GAY MD 12/13/18 Aspirin Delayed Release (Aspirin Delayed Release) 81 Mg Tablet.dr, 81 MG PO DAILY for 14 Days Prov:EMILY GAY MD 12/13/18 Spironolactone* (Aldactone*) 25 Mg Tablet, 25 MG PO DAILY for 14 Days, TAB Prov:EMILY GAY MD 12/13/18 Lisinopril* (Lisinopril*) 5 Mg Tablet, 2.5 MG PO DAILY for 14 Days, TAB Prov:EMILY GAY MD 12/13/18 Enoxaparin Sodium* (Enoxaparin Sodium*) 30 Mg/0.3 Ml Syringe, 30 MG SC DAILY for 14 Days Prov:EMILY GAY MD 12/13/18 Hydralazine Hcl* (Hydralazine Hcl*) 25 Mg Tab, 25 MG PO Q4 PRN for ELEVATED BLOOD PRESSURE for 14 Days, TAB Prov:EMILY GAY MD 12/13/18 Carvedilol* (Carvedilol*) 6.25 Mg Tablet, 6.25 MG PO BID for 14 Days, TAB Prov:EMILY GAY MD 12/13/18 Atorvastatin Calcium (Atorvastatin Calcium) 20 Mg Tablet, 20 MG PO HS for 14 Days, TAB Prov:EMILY GAY MD 12/13/18 Ipratropium-Albuterol (Ipratropium-Albuterol) 0.5-3 Mg/3 Ml Ampul.neb, 3 ML HHN Q4H RESP THERAPY for 14 Days Prov:EMILY GAY MD 12/13/18 Reported Medications Lisinopril* (Lisinopril*) 2.5 Mg Tablet, 2.5 MG PO DAILY 12/06/18 Oxybutynin Chloride (Oxybutynin Chloride ER) 5 Mg Tab.er.24, 5 MG PO DAILY 12/06/18 Multivitamins* (Theragran*) 1 Tab Tab, 1 TAB PO DAILY, TAB 05/03/16 Discontinued Reported Medications Risperidone* (Risperidone*) 0.25 Mg Tablet, 0.25 MG PO BID, TAB 12/06/18 Lorazepam* (Lorazepam*) 0.5 Mg Tablet, 0.5 MG PO BID 12/06/18 Medications Current Medications Memantine (Namenda) 10 mg DAILY PO Last administered on 12/18/18 09:34; Admin Dose 10 MG; Start 12/14/18 at 09:00 Promethazine HCl/ Codeine (Phenergan/ Codeine) 5 ml Q6H PRN PO COUGH Last administered on 12/16/18 22:23; Admin Dose 5 ML; Start 12/13/18 at 23:45 Hydralazine HCl (Apresoline) 25 mg Q4H PRN PO ELEVATED BLOOD PRESSURE; Start 12/13/18 at 23:45 Lisinopril (Zestril) 2.5 mg DAILY PO Last administered on 12/18/18 09:35; Admin Dose 2.5 MG; Start 12/14/18 at 09:00 Lorazepam (Ativan) 0.5 mg Q6H PRN PO ANXIETY Last administered on 12/16/18 20:38; Admin Dose 0.5 MG; Start 12/13/18 at 23:45 Escitalopram Oxalate (Lexapro) 10 mg DAILY PO Last administered on 12/18/18 09:34; Admin Dose 10 MG; Start 12/14/18 at 09:00 Furosemide (Lasix) 40 mg DAILY PO Last administered on 12/18/18 09:35; Admin Dose 40 MG; Start 12/14/18 at 09:00 Haloperidol (Haldol) 0.5 mg Q3H PRN IV AGITATION; Start 12/13/18 at 23:45 Haloperidol (Haldol) 0.5 mg HS PRN IV AGITATION; Start 12/13/18 at 23:45 Albuterol/ Ipratropium (Duoneb) 3 ml Q4H RESP THERAPY HHN Last administered on 12/18/18 08:03; Admin Dose 3 ML; Start 12/14/18 at 01:00 Aspirin (Halfprin) 81 mg DAILY PO Last administered on 12/18/18 09:34; Admin Dose 81 MG; Start 12/14/18 at 09:00 Atorvastatin Calcium (Lipitor) 20 mg DAILY@21 PO Last administered on 12/17/18 21:35; Admin Dose 20 MG; Start 12/14/18 at 21:00 Miscellaneous Information (Pending Santyl Order For Wound Care) This patient hensley... PRN PRN XX WOUND CARE; Start 12/14/18 at 14:30 Docusate Sodium (Colace) 100 mg BID PO Last administered on 12/18/18 09:34; Admin Dose 100 MG; Start 12/15/18 at 21:00 Senna (Senokot) 1 tab HS PO Last administered on 12/17/18 21:36; Admin Dose 1 TAB; Start 12/15/18 at 21:00 Lactulose (Enulose) 20 gm DAILY PRN PO CONSTIPATION; Start 12/15/18 at 19:00 Acetaminophen (Tylenol Tab) 650 mg Q4H PRN PO PAIN Last administered on 12/15/18 20:47; Admin Dose 650 MG; Start 12/15/18 at 19:00 Carvedilol (Coreg) 12.5 mg BID PO Last administered on 12/18/18 09:35; Admin Dose 12.5 MG; Start 12/16/18 at 21:00 Amlodipine Besylate (Norvasc) 2.5 mg DAILY PO Last administered on 12/18/18 09:34; Admin Dose 2.5 MG; Start 12/17/18 at 09:00 Assessment/Plan Assessment/Plan (Daily) 1. s/p pneumonia, aspiration precaution 2. only pure diet 3. debility/ anxiety-depression/ dementia 4. cm/ htn 5. low na 6. ckd II ---per rehab ---per pulm ---per cards ---after ARU, transfer to [facility] rehab sn[facility] ---never g-tuge place ---no na restriction in her diet EMILY GAY MD Dec 18, 2018 12:33
--- NOTE | 2018-12-18 13:10 | PN ---
Date/Time of Note Date/Time of Note DATE: 12/18/18 TIME: 13:06 Subjective Patient awake, following commands Objective Vital Signs Date Temp Pulse Resp B/P (MAP) Pulse Ox O2 O2 Flow FiO2 Time Delivery Rate 12/18/18 97.8 61 20 139/63 96 Nasal 07:30 (88) Cannula 12/18/18 2.0 06:08 Intake and Output 12/17/18 12/17/18 12/18/18 1515:00 23:00 07:00 IntakeIntake Total 1100 ml 120 ml BalanceBalance 1100 ml 120 ml Exam pulm-cta max/dep transfer Results/Medications Result Diagram: 12/17/1863712/17/18637 Medications Current Medications Memantine (Namenda) 10 mg DAILY PO Last administered on 12/18/18 09:34; Admin Dose 10 MG; Start 12/14/18 at 09:00 Promethazine HCl/ Codeine (Phenergan/ Codeine) 5 ml Q6H PRN PO COUGH Last administered on 12/16/18at 22:23; Admin Dose 5 ML; Start 12/13/18 at 23:45 Hydralazine HCl (Apresoline) 25 mg Q4H PRN PO ELEVATED BLOOD PRESSURE; Start 12/13/18 at 23:45 Lisinopril (Zestril) 2.5 mg DAILY PO Last administered on 12/18/18 09:35; Admin Dose 2.5 MG; Start 12/14/18 at 09:00 Lorazepam (Ativan) 0.5 mg Q6H PRN PO ANXIETY Last administered on 12/16/18at 20:38; Admin Dose 0.5 MG; Start 12/13/18 at 23:45 Escitalopram Oxalate (Lexapro) 10 mg DAILY PO Last administered on 12/18/18 09:34; Admin Dose 10 MG; Start 12/14/18 at 09:00 Furosemide (Lasix) 40 mg DAILY PO Last administered on 12/18/18 09:35; Admin Dose 40 MG; Start 12/14/18 at 09:00 Haloperidol (Haldol) 0.5 mg Q3H PRN IV AGITATION; Start 12/13/18 at 23:45 Haloperidol (Haldol) 0.5 mg HS PRN IV AGITATION; Start 12/13/18 at 23:45 Albuterol/ Ipratropium (Duoneb) 3 ml Q4H RESP THERAPY HHN Last administered on 12/18/18 08:03; Admin Dose 3 ML; Start 12/14/18 at 01:00 Aspirin (Halfprin) 81 mg DAILY PO Last administered on 12/18/18 09:34; Admin Dose 81 MG; Start 12/14/18 at 09:00 Atorvastatin Calcium (Lipitor) 20 mg DAILY@21 PO Last administered on 12/17/18 21:35; Admin Dose 20 MG; Start 12/14/18 at 21:00 Miscellaneous Information (Pending Santyl Order For Wound Care) This patient hensley... PRN PRN XX WOUND CARE; Start 12/14/18 at 14:30 Docusate Sodium (Colace) 100 mg BID PO Last administered on 12/18/18 09:34; Admin Dose 100 MG; Start 12/15/18 at 21:00 Senna (Senokot) 1 tab HS PO Last administered on 12/17/18 21:36; Admin Dose 1 TAB; Start 12/15/18 at 21:00 Lactulose (Enulose) 20 gm DAILY PRN PO CONSTIPATION; Start 12/15/18 at 19:00 Acetaminophen (Tylenol Tab) 650 mg Q4H PRN PO PAIN Last administered on 12/15/18 20:47; Admin Dose 650 MG; Start 12/15/18 at 19:00 Carvedilol (Coreg) 12.5 mg BID PO Last administered on 12/18/18 09:35; Admin Dose 12.5 MG; Start 12/16/18 at 21:00 Amlodipine Besylate (Norvasc) 2.5 mg DAILY PO Last administered on 12/18/18 09:34; Admin Dose 2.5 MG; Start 12/17/18 at 09:00 Assessment/Plan Additional Assessment/Plan Rehab- 1. 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 Patient here on rehab trial, and has made limited gains. Anticipate to SNF Sunday Dysphagia- Silent aspiration by videofluoro . Given nutritional needs, especially with regards to function and integ, patient on dysphagia diet until family decision on PEG. Continue strict aspiration precautions, with upright for all meals, and 1:1 supervision for meals. Pneumonia. Congestive heart failure. Hypertension. Anxiety. Hypercholesterolemia. SRAVAN BARTON MD Dec 18, 2018 13:10
[2018-12-18 14:00] VITALS: BP 119/56; PULSE 65; RESP 20
[2018-12-18] MEDS: LORAZEPAM 0.5 MG TAB PO PRN (17:53)
[2018-12-18 20:00] VITALS: BP 112/52; PULSE 62; RESP 18
[2018-12-18] MEDS: ATORVASTATIN 20 MG TAB PO SCH (21:54)
[2018-12-18] MEDS: SENNA TAB PO SCH (21:54)
--- NOTE | 2018-12-18 23:30 | CONS ---
DATE OF ADMISSION: 12/13/2018 DATE OF CONSULTATION: 12/18/2018 TYPE OF CONSULTATION: Psychological. REFERRING PHYSICIAN: Sravan Cortés MD CONSULTING PSYCHOLOGIST: Anamika Carlson, PhD REASON FOR CONSULTATION: This consultation was requested by Dr. Darnell Cortés in order to evaluate t he cognitive and emotional functioning of this patient related to her present medical condition. HISTORY OF PRESENT ILLNESS: The patient is an 83-year-old female with a history of multiple medical problems. Recent treatment for pneumonia was noted and she had a worsening cough. She had generaliz ed weakness and confusion. The patient was cleared medically and sent to the acute rehabilitation [facility] for comprehensive interdisciplinary rehabilitation care. FAMILY AND SOCIAL HISTORY: The patient lives in a home in [place] with her son. 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 MEDICATIONS: The patient is currently on Lexapro 10 mg daily. SUBSTANCE USE: The patient denies any use of alcohol or other drugs. The patient reports that she d oes not smoke. MENTAL STATUS EXAMINATION: APPEARANCE: The patient was seen in her wheelchair. She is of average height and weight. The patie nt is on oxygen and is right-handed. BEHAVIOR: The patient was cooperative during the consultation. The patient did attempt to answer al l questions presented to her by the interviewer. MOOD AND AFFECT: The patient's mood appears to be depressed. Affect does appear to be anxious. The patient does report that she is both depressed and anxious. PERCEPTION: The patient reports no hallucinations or delusions. The patient was alert to person but not exactly to place, situation, and time. MEMORY AND COGNITION: The patient's memory and cognition appear to have some difficulty with recent and remote events. The patient does state that her memory is foggy. When asked the name of the hosp ital, she said "[facility]." The patient was unable to state the month and the year. The pat ient thought it was November and she stated 9. The patient could not state who the president of the [facility] is, the governor of the [facility], or the mayor of the [facility]. Could not spell "[place]" backwards. The patient could not do any serial 7 subtraction from 100. The first response was 3. Overall, the patient appears to be having some definite cognitive dysfunction at the present jj e, stated that she had a toxic metabolic encephalopathy prior to being admitted to the program. The patient still has some cognitive dysfunction. INTELLIGENCE: Intelligence would appear to fall in the average range when she is functioning well. INSIGHT: Poor. JUDGMENT: Poor. THOUGHT CONTENT: The patient is concerned about her present medical condition. The patient does wan t to return to her previous level of functioning. The patient does want to go home after discharge. There is a question whether or not is really going to be able to care for herself. DISCUSSION: The patient can likely benefit from some cognitive/behavioral psychotherapy while she is on the unit. Psychotherapy would focus on her overall ability to focus her present cognition and be more clear, as well as deal with the underlying level of depression. DIAGNOSTIC IMPRESSION: 1. F06.31, mood disorder due to multiple medical problems with depressive features. 2. F06.8, cognitive disorder, not otherwise specified. Thank you very much, Dr. Darnell Cortés, for referring this individual. Please do not hesitate to marcia williamson if you have additional questions. Dictated By: ANAMIKA CARLSON PHD RK/TABITHA Conf#: [id number] DID#: [id number] CC: SRAVAN CORTÉS MD;*EndCC*
[2018-12-19] MEDS: ALBUTEROL/IPRATROPIUM (NEB) 3 ML AMP HHN SCH ×3 (01:00→09:00)
[2018-12-19 02:00] VITALS: BP 107/65; PULSE 58; RESP 18
[2018-12-19 07:00] VITALS: BP 138/64; PULSE 63; RESP 18
[2018-12-19] MEDS: AMLODIPINE 2.5 MG TAB PO SCH (08:34)
[2018-12-19] MEDS: ESCITALOPRAM 10 MG TAB PO SCH (08:34)
[2018-12-19] MEDS: ASPIRIN (EC) 81 MG TAB PO SCH (08:34)
[2018-12-19] MEDS: MEMANTINE 10 MG TAB PO SCH (08:35)
[2018-12-19] MEDS: LISINOPRIL 5 MG TAB PO SCH (08:35)
[2018-12-19] MEDS: DOCUSATE SODIUM 100 MG CAP PO SCH (08:45)
[2018-12-19] MEDS ORDERED: FUROSEMIDE 20 MG TAB PO SCH (09:00)
--- NOTE | 2018-12-19 09:46 | CONS ---
Consult Date/Type/Reason Admit Date/Time Dec 13, 2018 at 22:20 Initial Consult Date Type of Consultation: int med Date/Time of Note DATE: 12/19/18 TIME: 09:45 Subjective Interventional cardiology follow-up progress note Subjective: Discussed with staff AND dr Cortés She denies any chest pain or pressure or palpitation to me. She denies any active bleeding to me She denies PND orthopnea to me with poor historian Patient has not been very cooperative with physical therapy according to the staff Objective: General: Elderly female no acute distress HEENT: NC/AT. pupils are equal. round. NECK: NO JVD. no stridor. CV: RRR. systolic murmur; no gallop or rubs. PULM: no wheezing + rhonchi. GI: SOFT, NT, ND, no rebound or guarding Extremity: trace B/L LE edema. no clubbing. neuro: awake and alert, OX2. Psych: anxious but pleasant rectal: deferred EKG done on December 06 showed normal sinus rhythm with deep T wave inversion in inferolateral leads. Voltage criteria for LVH Chest x-ray done December 07 shows:Improving bibasilar lung infiltrates; no findings of acute fluid overload. Objective Vitals Vital Signs Date Temp Pulse Resp B/P (MAP) Pulse Ox O2 O2 Flow FiO2 Time Delivery Rate 12/19/18 98.2 63 18 138/64 97 Room Air 07:00 (88) 12/19/18 2.0 01:50 Intake and Output 12/18/18 12/18/18 12/19/18 1515:00 23:00 07:00 IntakeIntake Total 420 ml BalanceBalance 420 ml Results/Medications Result Diagram: 12/19/18 0613 12/19/18 0613 Results 24 hrs Laboratory Tests Test 12/19/18 06:13 White Blood Count 6.6 Red Blood Count 3.15 L Hemoglobin 9.6 L Hematocrit 28.7 L Mean Corpuscular Volume 91.1 Mean Corpuscular Hemoglobin 30.5 Mean Corpuscular Hemoglobin Concent 33.4 Red Cell Distribution Width 13.7 Platelet Count 139 L Mean Platelet Volume 9.4 Immature Granulocytes % 0.300 Neutrophils % 63.7 Lymphocytes % 25.8 Monocytes % 7.1 Eosinophils % 2.6 Basophils % 0.5 Nucleated Red Blood Cells % 0.0 Immature Granulocytes # 0.020 Neutrophils # 4.2 Lymphocytes # 1.7 Monocytes # 0.5 Eosinophils # 0.2 Basophils # 0.0 Nucleated Red Blood Cells # 0.0 Sodium Level 134 L Potassium Level 4.2 Chloride Level 93 L Carbon Dioxide Level 37 H Anion Gap 4 L Blood Urea Nitrogen 51 H Creatinine 1.15 H Est Glomerular Filtrat Rate mL/min Glucose Level 101 Calcium Level 10.0 Magnesium Level 2.4 Albumin 3.1 L Home Meds Active Scripts Magnesium Hydroxide* (Servin' MOM*) 30 Ml Susp, 30 ML PO DAILY PRN for CONSTIPATION for 14 Days Prov:EMILY GAY MD 12/13/18 Bisacodyl* (Bisacodyl*) 5 Mg Tablet.dr, 5 MG PO BID PRN for CONSTIPATION for 14 Days Prov:EMILY GAY MD 12/13/18 [Promethazine/Codeine Syp] 5 ML SYRUP No Conflict Check, 5 ML PO Q6H PRN for COUGH for 14 Days Prov:EMILY GAY MD 12/13/18 Furosemide* (Furosemide*) 40 Mg Tablet, 40 MG PO DAILY for 14 Days, TAB Prov:EMILY GAY MD 12/13/18 Memantine HCl (Memantine HCl) 10 Mg Tablet, 10 MG PO DAILY for 14 Days, TAB Prov:EMILY GAY MD 12/13/18 Lorazepam* (Ativan*) 0.5 Mg Tablet, 0.5 MG PO Q6H PRN for AGITATION for 14 Days, TAB Prov:EMILY GAY MD 12/13/18 Haloperidol Lactate (Haloperidol Lactate) 5 Mg/1 Ml Vial, 0.5 MG IV Q3H PRN for anxiety for 14 Days, VIAL Prov:EMILY GAY MD 12/13/18 Haloperidol Lactate (Haloperidol Lactate) 5 Mg/1 Ml Vial, 0.5 MG IV QHS PRN for AGITATION for 14 Days, VIAL Prov:EMILY GAY MD 12/13/18 Escitalopram Oxalate* (Escitalopram Oxalate*) 10 Mg Tablet, 10 MG PO DAILY for 14 Days, TAB Prov:EMILY GAY MD 12/13/18 Aspirin Delayed Release (Aspirin Delayed Release) 81 Mg Tablet.dr, 81 MG PO DAILY for 14 Days Prov:EMILY GAY MD 12/13/18 Spironolactone* (Aldactone*) 25 Mg Tablet, 25 MG PO DAILY for 14 Days, TAB Prov:EMILY GAY MD 12/13/18 Lisinopril* (Lisinopril*) 5 Mg Tablet, 2.5 MG PO DAILY for 14 Days, TAB Prov:EMILY GAY MD 12/13/18 Enoxaparin Sodium* (Enoxaparin Sodium*) 30 Mg/0.3 Ml Syringe, 30 MG SC DAILY for 14 Days Prov:EMILY GAY MD 12/13/18 Hydralazine Hcl* (Hydralazine Hcl*) 25 Mg Tab, 25 MG PO Q4 PRN for ELEVATED BLOOD PRESSURE for 14 Days, TAB Prov:EMILY GAY MD 12/13/18 Carvedilol* (Carvedilol*) 6.25 Mg Tablet, 6.25 MG PO BID for 14 Days, TAB Prov:EMILY GAY MD 12/13/18 Atorvastatin Calcium (Atorvastatin Calcium) 20 Mg Tablet, 20 MG PO HS for 14 Days, TAB Prov:EMILY GAY MD 12/13/18 Ipratropium-Albuterol (Ipratropium-Albuterol) 0.5-3 Mg/3 Ml Ampul.neb, 3 ML HHN Q4H RESP THERAPY for 14 Days Prov:EMILY GAY MD 12/13/18 Reported Medications Lisinopril* (Lisinopril*) 2.5 Mg Tablet, 2.5 MG PO DAILY 12/06/18 Oxybutynin Chloride (Oxybutynin Chloride ER) 5 Mg Tab.er.24, 5 MG PO DAILY 12/06/18 Multivitamins* (Theragran*) 1 Tab Tab, 1 TAB PO DAILY, TAB 05/03/16 Discontinued Reported Medications Risperidone* (Risperidone*) 0.25 Mg Tablet, 0.25 MG PO BID, TAB 12/06/18 Lorazepam* (Lorazepam*) 0.5 Mg Tablet, 0.5 MG PO BID 12/06/18 Medications Current Medications Memantine (Namenda) 10 mg DAILY PO Last administered on 12/19/18at 08:35; Admin Dose 10 MG; Start 12/14/18 at 09:00 Promethazine HCl/ Codeine (Phenergan/ Codeine) 5 ml Q6H PRN PO COUGH Last administered on 12/16/18 22:23; Admin Dose 5 ML; Start 12/13/18 at 23:45 Hydralazine HCl (Apresoline) 25 mg Q4H PRN PO ELEVATED BLOOD PRESSURE; Start 12/13/18 at 23:45 Lisinopril (Zestril) 2.5 mg DAILY PO Last administered on 12/19/18 08:35; Admin Dose 2.5 MG; Start 12/14/18 at 09:00 Lorazepam (Ativan) 0.5 mg Q6H PRN PO ANXIETY Last administered on 12/18/18 17:53; Admin Dose 0.5 MG; Start 12/13/18 at 23:45 Escitalopram Oxalate (Lexapro) 10 mg DAILY PO Last administered on 12/19/18 08:34; Admin Dose 10 MG; Start 12/14/18 at 09:00 Haloperidol (Haldol) 0.5 mg Q3H PRN IV AGITATION; Start 12/13/18 at 23:45 Haloperidol (Haldol) 0.5 mg HS PRN IV AGITATION; Start 12/13/18 at 23:45 Albuterol/ Ipratropium (Duoneb) 3 ml Q4H RESP THERAPY HHN Last administered on 12/18/18 20:37; Admin Dose 3 ML; Start 12/14/18 at 01:00 Aspirin (Halfprin) 81 mg DAILY PO Last administered on 12/19/18 08:34; Admin Dose 81 MG; Start 12/14/18 at 09:00 Atorvastatin Calcium (Lipitor) 20 mg DAILY@21 PO Last administered on 12/18/18 21:54; Admin Dose 20 MG; Start 12/14/18 at 21:00 Miscellaneous Information (Pending Santyl Order For Wound Care) This patient hensley... PRN PRN XX WOUND CARE; Start 12/14/18 at 14:30 Docusate Sodium (Colace) 100 mg BID PO Last administered on 12/18/18 21:54; Admin Dose 100 MG; Start 12/15/18 at 21:00 Senna (Senokot) 1 tab HS PO Last administered on 12/18/18 21:54; Admin Dose 1 TAB; Start 12/15/18 at 21:00 Lactulose (Enulose) 20 gm DAILY PRN PO CONSTIPATION Last administered on 12/19/18 08:36; Admin Dose 20 GM; Start 12/15/18 at 19:00 Acetaminophen (Tylenol Tab) 650 mg Q4H PRN PO PAIN Last administered on 12/15/18 20:47; Admin Dose 650 MG; Start 12/15/18 at 19:00 Carvedilol (Coreg) 12.5 mg BID PO Last administered on 12/19/18 08:35; Admin Dose 12.5 MG; Start 12/16/18 at 21:00 Amlodipine Besylate (Norvasc) 2.5 mg DAILY PO Last administered on 12/19/18 08:34; Admin Dose 2.5 MG; Start 12/17/18 at 09:00 Furosemide (Lasix) 20 mg DAILY PO Last administered on 12/19/18 08:34; Admin Dose 20 MG; Start 12/19/18 at 09:00 Assessment/Plan Hospital Course (Demo Recall) 1. Pneumonia 2. History of hypertrophic cardiomyopathy 3. Congestive heart failure chronic and stable secondary systolic and diastolic heart failure 4. History of possible chest pain currently with no symptoms 5. History of multiple CVA 6. Dyslipidemia 7. Encephalopathy 8. Abnormal EKG 9. dysphagia/ aspiration Recommendations cont Coreg, Aspirin and statin were started. Antibiotic management as per internal medicine physical therapy and rehab as per internal medicine lasix PO lasix cont norvasc GI /dysphagia work up and treatment as per IM but currently family does not want any invasive procedure Thank you for his referral. We will continue to follow along with you DREW MACARIO MD [facility] DREW MACARIO MD Dec 19, 2018 09:46
--- NOTE | 2018-12-19 14:19 | DS ---
Date/Time of Note Date/Time of Note DATE: 12/19/18 TIME: 14:17 Discharge Summary Admission/Discharge Info Admit Date/Time Dec 13, 2018 at 22:20 Discharge Date/Time Dec 19, 2018 at 13:20 Discharge Diagnosis 1. 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 2. Pneumonia. 3. Congestive heart failure. 4. Hypertension. 5. Anxiety. 6. Hypercholesterolemia. 7. Dysphagia, with patient and family requesting no gtube 8. Impairments in self-care, mobility and cognition. Patient Condition: Fair Hospital Course The patient was admitted for comprehensive interdisciplinary rehabilitation and made gradual limited functional gains and required max/dep assistance for self care tasks and mobility. Patient was followed closely for medical issues and also noted to have significant dysphagia. Family and patietn requesting NO gtube placement. Patient is now ready to discharge to a lower level of care. The DC meds are per the medication reconciliation sheet. The patient will fo llow up with PMD upon DC. Home Meds Active Scripts Magnesium Hydroxide* (Servin' MOM*) 30 Ml Susp, 30 ML PO DAILY PRN for CONSTIPATION for 14 Days Prov:EMILY HUNTER MD 12/13/18 Bisacodyl* (Bisacodyl*) 5 Mg Tablet.dr, 5 MG PO BID PRN for CONSTIPATION for 14 Days Prov:EMILY HUNTER MD 12/13/18 [Promethazine/Codeine Syp] 5 ML SYRUP No Conflict Check, 5 ML PO Q6H PRN for COUGH for 14 Days Prov:EMILY HUNTER MD 12/13/18 Furosemide* (Furosemide*) 40 Mg Tablet, 40 MG PO DAILY for 14 Days, TAB Prov:EMILY HUNTER MD 12/13/18 Memantine HCl (Memantine HCl) 10 Mg Tablet, 10 MG PO DAILY for 14 Days, TAB Prov:EMILY HUNTER MD 12/13/18 Lorazepam* (Ativan*) 0.5 Mg Tablet, 0.5 MG PO Q6H PRN for AGITATION for 14 Days, TAB Prov:EMILY HUNTER MD 12/13/18 Haloperidol Lactate (Haloperidol Lactate) 5 Mg/1 Ml Vial, 0.5 MG IV Q3H PRN for anxiety for 14 Days, VIAL Prov:EMILY HUNTER MD 12/13/18 Haloperidol Lactate (Haloperidol Lactate) 5 Mg/1 Ml Vial, 0.5 MG IV QHS PRN for AGITATION for 14 Days, VIAL Prov:EMILY HUNTER MD 12/13/18 Escitalopram Oxalate* (Escitalopram Oxalate*) 10 Mg Tablet, 10 MG PO DAILY for 14 Days, TAB Prov:EMILY HUNTER MD 12/13/18 Aspirin Delayed Release (Aspirin Delayed Release) 81 Mg Tablet.dr, 81 MG PO DAILY for 14 Days Prov:EMILY HUNTER MD 12/13/18 Spironolactone* (Aldactone*) 25 Mg Tablet, 25 MG PO DAILY for 14 Days, TAB Prov:EMILY HUNTER MD 12/13/18 Lisinopril* (Lisinopril*) 5 Mg Tablet, 2.5 MG PO DAILY for 14 Days, TAB Prov:EMILY HUNTER MD 12/13/18 Enoxaparin Sodium* (Enoxaparin Sodium*) 30 Mg/0.3 Ml Syringe, 30 MG SC DAILY for 14 Days Prov:MEILY HUNTER MD 12/13/18 Hydralazine Hcl* (Hydralazine Hcl*) 25 Mg Tab, 25 MG PO Q4 PRN for ELEVATED BLOOD PRESSURE for 14 Days, TAB Prov:EMILY HUNTER MD 12/13/18 Carvedilol* (Carvedilol*) 6.25 Mg Tablet, 6.25 MG PO BID for 14 Days, TAB Prov:EMILY HUNTER MD 12/13/18 Atorvastatin Calcium (Atorvastatin Calcium) 20 Mg Tablet, 20 MG PO HS for 14 Days, TAB Prov:EMILY HUNTER MD 12/13/18 Ipratropium-Albuterol (Ipratropium-Albuterol) 0.5-3 Mg/3 Ml Ampul.neb, 3 ML HHN Q4H RESP THERAPY for 14 Days Prov:EMILY HUNTER MD 12/13/18 Reported Medications Lisinopril* (Lisinopril*) 2.5 Mg Tablet, 2.5 MG PO DAILY 12/06/18 Oxybutynin Chloride (Oxybutynin Chloride ER) 5 Mg Tab.er.24, 5 MG PO DAILY 12/06/18 Multivitamins* (Theragran*) 1 Tab Tab, 1 TAB PO DAILY, TAB 05/03/16 Discontinued Reported Medications Risperidone* (Risperidone*) 0.25 Mg Tablet, 0.25 MG PO BID, TAB 12/06/18 Lorazepam* (Lorazepam*) 0.5 Mg Tablet, 0.5 MG PO BID 12/06/18 Primary Care Provider Emily Hunter MD Pending Labs Laboratory Tests Test 12/19/18 06:13 White Blood Count 6.6 10^3/ul (4.8-10.8) Red Blood Count 3.15 10^6/ul (4.20-5.40) Hemoglobin 9.6 g/dl (12.0-16.0) Hematocrit 28.7 % (37.0-47.0) Mean Corpuscular Volume 91.1 fl (82.0-101.0) Mean Corpuscular Hemoglobin 30.5 pg (29.0-33.0) Mean Corpuscular Hemoglobin Concent 33.4 g/dl (32.0-37.0) Red Cell Distribution Width 13.7 % (11.5-14.5) Platelet Count 139 10^3/UL (140-415) Mean Platelet Volume 9.4 fl (7.4-10.4) Immature Granulocytes % 0.300 % (0.001-0.429) Neutrophils % 63.7 % (39.0-77.0) Lymphocytes % 25.8 % (15.0-51.0) Monocytes % 7.1 % (0.0-11.0) Eosinophils % 2.6 % (0.0-7.0) Basophils % 0.5 % (0.0-2.0) Nucleated Red Blood Cells % 0.0 /100WBC (0.0-0.0) Immature Granulocytes # 0.020 10^3/ul (0.0-0.031) Neutrophils # 4.2 10^3/ul (1.6-7.5) Lymphocytes # 1.7 10^3/ul (0.8-2.9) Monocytes # 0.5 10^3/ul (0.3-0.9) Eosinophils # 0.2 10^3/ul (0.0-0.5) Basophils # 0.0 10^3/ul (0.0-0.1) Nucleated Red Blood Cells # 0.0 10^3/ul (0.0-0.0) Sodium Level 134 mmol/L (135-144) Potassium Level 4.2 mmol/L (3.5-5.1) Chloride Level 93 mmol/L (97-110) Carbon Dioxide Level 37 mmol/L (21-31) Anion Gap 4 (5-13) Blood Urea Nitrogen 51 mg/dl (7-20) Creatinine 1.15 mg/dl (0.44-1.00) Est Glomerular Filtrat Rate mL/min mL/min (>60) Glucose Level 101 mg/dl (70-220) Calcium Level 10.0 mg/dl (8.4-10.2) Magnesium Level 2.4 mg/dl (1.7-2.5) Albumin 3.1 g/dl (3.3-4.9) SRAVAN BARTON MD Dec 19, 2018 14:19
== END 2018-12-19 13:20 | DRG 91 ==
LOC: VRC 22:20
PROVIDERS: ADMIT Physical Medicine & Rehabilitation; ATTEND Internal Medicine
PROC: F07Z5ZZ Bed Mobility Treatment (ICD-10-PCS; principal; 2018-12-13)
PROC: F08Z2ZZ Grooming/Personal Hygiene Treatment (ICD-10-PCS; 2018-12-13)
PROC: 3E0F7GC Introduction of Other Therapeutic Substance into Respiratory Tract, Via Natural or Artificial Opening (ICD-10-PCS; 2018-12-14)
DX: G92 Toxic encephalopathy (principal); J18.9 Pneumonia, unspecified organism; I13.0 Hypertensive heart and chronic kidney disease with heart failure and stage 1 through stage 4 chronic kidney disease, or unspecified chronic kidney disease; I42.9 Cardiomyopathy, unspecified; I50.42 Chronic combined systolic (congestive) and diastolic (congestive) heart failure; F03.90 Unspecified dementia, unspecified severity, without behavioral disturbance, psychotic disturbance, mood disturbance, and anxiety; N18.9 Chronic kidney disease, unspecified; I25.10 Atherosclerotic heart disease of native coronary artery without angina pectoris; E78.00 Pure hypercholesterolemia, unspecified; J44.9 Chronic obstructive pulmonary disease, unspecified; E78.5 Hyperlipidemia, unspecified; Z79.82 Long term (current) use of aspirin; N18.2 Chronic kidney disease, stage 2 (mild); R13.10 Dysphagia, unspecified; I50.84 End stage heart failure; F41.9 Anxiety disorder, unspecified; R53.81 Other malaise; D64.9 Anemia, unspecified
CPT/HCPCS: 74230; 80048; 80053; 81003; 82040; 83735; 85025; 87081; 87086; 90686; 92526; 92610; 92611; 94640; 94667; 97110; 97112; 97163; 97530; 97535; 97542; A4310; J1650